=== PATIENT | female | born 1940 | race Caucasian/White ===

== ENCOUNTER 2017-02-13 11:48 | Inpatient (IN) ==
[2017-02-13] MEDS ORDERED: NS 1,000 ML IV ONE (12:16)
[2017-02-13] MEDS ORDERED: INSULIN REGULAR, HUMAN 100 UNIT/ML INJECTION IVP ONE ×2 (12:16→14:16)
--- OUTSIDE RECORDS SUMMARY | 2017-02-13 12:28 | External Medical Summary | Referral Summary ---
:1940 Author Organization [facility] Address [address] [place] [address] [place] [phone] Care Team Providers Name Role Phone Rodolfo Niño Primary Care Physician Encounter Date(s): 03/18/16 - 03/18/16 [facility] [address] [place] [address] [place] [phone] [phone] Discharge Diagnosis: Left shoulder pain Discharge Diagnosis: Osteoporosis Discharge Diagnosis: Systemic lupus erythematosus Discharge Disposition: 01-Home or Self Care Attending Physician: Leta Dennis MD Admitting Physician: Leta Dennis MD Referring Physician: Rodolfo Niño MD Vital Signs Most recent to oldest [Reference Range]: 1 Peripheral Pulse Rate [60-100 bpm] 69 bpm (03/18/16 12:06 PM) Blood Pressure [90-140/60-90 mmHg] 123/73 mmHg (03/18/16 12:06 PM) Problem List Condition Effective Dates Status Health Status Informant Adult-onset obesity(Confirmed) Active Arhtritis - osteo(Confirmed) Resolved Chronic pain of left knee(Confirmed) Active Benign essential Active hypertension(Confirmed) bladder problem(Confirmed) Resolved cataracts(Confirmed) Resolved Cervical radiculopathy(Confirmed) Active chicken pox(Confirmed) Resolved Chronic kidney disease Active (CKD)(Confirmed) Chronic vaginitis(Confirmed) Active diabetes(Confirmed) Resolved Controlled diabetes Active mellitus(Confirmed) Diverticulitis(Confirmed) Active dry eyes(Confirmed) Resolved eczema(Confirmed) Resolved elevated bllod presssure(Confirmed) Resolved gastritis(Confirmed) Resolved GERD without esophagitis(Confirmed) Active Gerd(Confirmed) Resolved Headaches(Confirmed) Resolved headaches - migraine(Confirmed) Resolved Headaches - tension(Confirmed) Resolved Osteoarthritits(Confirmed) Resolved Overweight(Confirmed) Resolved Sinus infection(Confirmed) Resolved Systemic lupus Active erythematosus(Confirmed) Allergies, Adverse Reactions, Alerts Substance Reaction Severity Status acyclovir Active amoxicillin Active ciprofloxacin Active erythromycin Active gatifloxacin Active iodine Active nitrofurantoin Active penicillin Active sulfanilamide topical Active travoprost ophthalmic Active Medications ACCU-CHEK KIM PLUS TEST STRP See Instructions, TEST FOUR TIMES A DAY EVERY OTHER DAY, # 100 strip, eRx: [facility] #[id number],TEST FOUR TIMES A DAY EVERY OTHER DAY Start Date: 11/23/15 Status: OrderedACCU-CHEK KIM PLUS TEST STRP See Instructions, TEST FOUR TIMES A DAY EVERY OTHER DAY, # 100 strip, eRx: [facility] #[id number],TEST FOUR TIMES A DAY EVERY OTHER DAY Start Date: 11/23/15 Status: OrderedAlphagan P 0.1% ophthalmic solution 1 drops, Eye-Both, q8hr, # 10 mL, 0 Refill(s) Start Date: 11/11/13 Status: Orderedatenolol-chlorthalidone 50 mg-25 mg oral tablet See Instructions, TAKE ONE-HALF (1/2) TABLET DAILY Pt needs appointment for more refills, # 15 tabs, 0 Refill(s), Pharmacy: [facility] Start Date: 12/09/15 Status: OrderedBepreve 1.5% ophthalmic solution 1 drops, Eye-Both, BID, # 10 mL, 0 Refill(s) Start Date: 11/11/13 Status: Orderedciprofloxacin 250 mg oral tablet See Instructions, TAKE ONE TABLET BY MOUTH EVERY 12 HOURS, # 180 Each, 1 Refill( s), Pharmacy: [facility] #[id number], TAKE ONE TABLET BY MOUTH EVERY 12 HOURS Start Date: 07/06/15 Status: Orderedfluconazole 150 mg oral tablet See Instructions, TAKE ONE TABLET BY MOUTH EVERY WEEK, # 30 tabs, eRx: [facility] #[id number], TAKE ONE TABLET BY MOUTH EVERY WEEK Start Date: 01/18/16 Status: Orderedfolic acid 1 mg oral tablet 1 mg 1 tabs, Oral, Daily, # 30 tabs, 11 Refill(s), Pharmacy: [facility] # [id number], 1 tabs Oral Daily Start Date: 07/31/15 Status: Orderedglimepiride 1 mg oral tablet mg tabs, Oral, Daily, 2 tabs in am, 1 tab in pm., 0 Refill(s) Start Date: 01/06/16 Status: OrderedJanuvia 100 mg oral tablet 100 mg 1 tabs, Oral, Daily, Must have appt. for next refill., # 30 tabs, 0 Refill(s), Pharmacy: [facility] Start Date: 12/07/15 Status: Orderedlansoprazole 30 mg oral delayed release capsule See Instructions, TAKE ONE CAPSULE BY MOUTH TWICE A DAY, # 60 caps, eRx: [facility] #[id number], TAKE ONE CAPSULE BY MOUTH TWICE A DAY Start Date: 03/11/16 Status: OrderedmetFORMIN 500 mg oral tablet 500 mg 1 tabs, Oral, TID, Pt takes one tab with each meal a day, # 90 tabs, 1 Refill(s), Pharmacy: [facility] #[id number], 1 tabs Oral TID,Instr:Pt takes one tab with each meal a day Start Date: 01/12/16 Status: Orderedmethotrexate 2.5 mg oral tablet 7.5 mg 3 tabs, Oral, qWeek, 3 tabs one day a week, # 15 tabs, 1 Refill(s), Pharmacy: [facility] #[id number], 3 tabs Oral qWeek,Instr:3 tabs one day a week Start Date: 07/31/15 Status: OrderedMiscellaneous DME DME Item Accu Check Kim Test Strips - Test QID every other day - DX:250.02, See Instructions, # 100 Each, 1 Refill(s), Pharmacy: [facility] #[id number], Accu Check Kim Test Strips - Test QID every other day - DX:250.02, Supply Start Date: 04/30/14 Status: Orderedmultivitamin Daily, 0 Refill(s) Start Date: 11/11/13 Status: OrderedNorco 7.5 mg-325 mg oral tablet 1 tabs, Oral, TID, as needed for pain, rx must last 30 days, # 60 tabs, 0 Refill (s) Start Date: 03/10/16 Status: Orderedpioglitazone 30 mg oral tablet 1 tabs, Oral, Daily, 0 Refill(s) Start Date: 06/04/14 Status: OrderedpredniSONE 5 mg oral tablet See Instructions, TAKE 1 TABLET DAILY, # 90 tabs, 0 Refill(s), Pharmacy: [facility], TAKE 1 TABLET DAILY Start Date: 03/10/16 Status: OrderedSuper Calcium 600 + D3 400 oral tablet 1 tabs, Oral, Daily, 0 Refill(s) Start Date: 11/11/13 Status: Ordered Results No data available for this section Immunizations Vaccine Date Refusal Reason zoster vaccine live 04/04/14 Procedures Procedure Date Related Diagnosis Body Site Arthrocentesis, aspiration and/or injection, 03/18/16 major joint or bursa (eg, shoulder, hip, knee, subacromial bursa); without ultrasound guidance Cataract extraction - bilateral H/O tubal ligation Social History Social History Type Response Smoking Status Never smoker Assessment and Plan Extracted from: Title: Office Visit Note Author: Leta eDnnis MD Date: 03/18/16 Assessment/Plan 1.Systemic lupus erythematosus she has continuedjoint discomfort. She has not been able to start methotrexate. She will update us once she has seen the surgeon. She will continue the low- dose prednisone. She does not want to resume the hydroxychloroquine currently. Ordered: C-Reactive Protein (CRP) CBC w/ Differential Comprehensive Metabolic Panel 2.Osteoporosis She has notwanted to beon medications. Continue weightbearing exercise as tolerated Ordered: C-Reactive Protein (CRP) CBC w/ Differential Comprehensive Metabolic Panel 3.Left shoulder pain I injected shoulder today and hopefully this will help.
--- OUTSIDE RECORDS SUMMARY | 2017-02-13 12:28 | External Medical Summary | Referral Summary ---
:1940 Author Organization [facility] [address] [place] [id number] Care Team Providers Name Role Phone Rodolfo Niño Primary Care Physician Encounter [facility] [id number] Date(s): 07/06/15 - 07/06/15 [facility] [address] [place] [phone] [phone] Discharge Diagnosis: Chronic pain Discharge Diagnosis: Systemic lupus erythematosus Discharge Diagnosis: Benign essential hypertension Discharge Diagnosis: Controlled diabetes mellitus Discharge Diagnosis: Frequent UTI Discharge Disposition: 01-Home or Self Care Attending Physician: Sepideh Burton PA-C Admitting Physician: Sepideh Burton PA-C Vital Signs Most recent to oldest [Reference Range]: 1 Blood Pressure [90-140/60-90 mmHg] 96/64 mmHg (07/06/15 3:43 PM) Problem List Condition Effective Dates Status Health Status Informant allergies(Confirmed) Resolved allergy rhinitis/ hay Resolved fever(Confirmed) Arhtritis - osteo(Confirmed) Resolved Autoimmune disease(Confirmed) Resolved Benign essential Active hypertension(Confirmed) bladder problem(Confirmed) Resolved cataracts(Confirmed) Resolved chicken pox(Confirmed) Resolved Chronic vaginitis(Confirmed) Active diabetes(Confirmed) Resolved Controlled diabetes Active mellitus(Confirmed) Diverticulitis(Confirmed) Active dry eyes(Confirmed) Resolved eczema(Confirmed) Resolved elevated bllod presssure(Confirmed) Resolved fibromyalgia(Confirmed) Resolved Fibromyalgia(Confirmed) Resolved gastritis(Confirmed) Resolved GERD without esophagitis(Confirmed) Active Gerd(Confirmed) Resolved Headaches(Confirmed) Resolved headaches - migraine(Confirmed) Resolved Headaches - tension(Confirmed) Resolved Osteoarthritits(Confirmed) Resolved Overweight(Confirmed) Resolved Sinus infection(Confirmed) Resolved SLE(Confirmed) Resolved Systemic lupus Active erythematosus(Confirmed) systemic lupus Resolved erythematosus(Confirmed) Allergies, Adverse Reactions, Alerts Substance Reaction Severity Status acyclovir Active amoxicillin Active ciprofloxacin Active erythromycin Active gatifloxacin Active iodine Active nitrofurantoin Active penicillin Active sulfanilamide topical Active travoprost ophthalmic Active Medications Alphagan P 0.1% ophthalmic solution 1 drops, Eye-Both, q8hr, # 10 mL, 0 Refill(s) Start Date: 11/11/13 Status: Orderedatenolol-chlorthalidone 50 mg-25 mg oral tablet See Instructions, TAKE ONE-HALF (1/2) TABLET DAILY, # 45 tabs, eRx: [facility], TAKE ONE-HALF (1/2) TABLET DAILY Start Date: 06/17/15 Status: OrderedBepreve 1.5% ophthalmic solution 1 drops, Eye-Both, BID, # 10 mL, 0 Refill(s) Start Date: 11/11/13 Status: Orderedciprofloxacin 250 mg oral tablet See Instructions, TAKE ONE TABLET BY MOUTH EVERY 12 HOURS, # 180 Each, 1 Refill( s), Pharmacy: [facility] #[id number], TAKE ONE TABLET BY MOUTH EVERY 12 HOURS Start Date: 07/06/15 Status: OrderedDiflucan 150 mg oral tablet See Instructions, TAKE ONE TABLET BY MOUTH EVERY WEEK, # 30 tabs, eRx: [facility] #[id number], TAKE ONE TABLET BY MOUTH EVERY WEEK Start Date: 01/06/15 Status: Orderedglimepiride 1 mg oral tablet 1 mg 1 tabs, Oral, BID, # 90 tabs, 0 Refill(s) Start Date: 12/20/13 Status: OrderedJanuvia 100 mg oral tablet See Instructions, TAKE 1 TABLET DAILY/PT. NEEDS AN APPT. AND LABS., # 90 tabs, 0 Refill(s), Pharmacy: [facility] Start Date: 06/13/15 Status: OrderedmetFORMIN 500 mg oral tablet 500 mg 1 tabs, Oral, BID, Dr. Niño would like to see Fartun in the office please., # 60 tabs, 0Refill(s), Pharmacy: [facility], 1 tabs Oral BID,x30 days,Instr:Dr. Niño would like to see Fartun in the office please. Start Date: 05/19/15 Stop Date: 06/18/15 Status: OrderedMiscellaneous DME DME Item Accu Check Kim Test Strips - Test QID every other day - DX:250.02, See Instructions, # 100 Each, 1 Refill(s), Pharmacy: [facility] #[id number], Accu Check Kim Test Strips - Test QID every other day - DX:250.02, Supply Start Date: 04/30/14 Status: Orderedmultivitamin Daily, 0 Refill(s) Start Date: 11/11/13 Status: OrderedNorco 7.5 mg-325 mg oral tablet 1 tabs, Oral, TID, as needed for pain, rx must last 30 days, # 60 tabs, 0 Refill (s) Start Date: 07/02/15 Status: Orderedpioglitazone 30 mg oral tablet 1 tabs, Oral, Daily, 0 Refill(s) Start Date: 06/04/14 Status: OrderedPlaquenil 200 mg oral tablet See Instructions, TAKE 2 TABLETS DAILY, # 180 tabs, 0 Refill(s), Pharmacy: [facility], TAKE 2 TABLETS DAILY Start Date: 06/02/15 Status: OrderedpredniSONE 5 mg oral tablet See Instructions, TAKE 1 TABLET DAILY, # 90 tabs, eRx: [facility], TAKE 1 TABLET DAILY Start Date: 06/16/15 Status: OrderedPrevacid 30 mg oral delayed release capsule 30 mg 1 caps, Oral, Daily, # 90 caps, 3 Refill(s), Pharmacy: [facility], 1 caps Oral Daily,x90 days Start Date: 12/25/14 Stop Date: 12/20/15 Status: OrderedSuper Calcium 600 + D3 400 oral tablet 1 tabs, Oral, Daily, 0 Refill(s) Start Date: 11/11/13 Status: Ordered Results Chemistry Most recent to oldest [Reference Range]: 1 Sodium Lvl [135-144 mEq/L] 129 mEq/L *LOW* (07/06/15 4:10 PM) Potassium Lvl [3.5-5.2 mEq/L] 5.0 mEq/L (07/06/15 4:10 PM) Chloride [99-111 mEq/L] 93 mEq/L *LOW* (07/06/15 4:10 PM) CO2 [22-31 mEq/L] 23 mEq/L (07/06/15 4:10 PM) AGAP [3-20] 13 (07/06/15 4:10 PM) BUN [10-20 mg/dL] 32 mg/dL *HI* (07/06/15 4:10 PM) Glucose Lvl [70-99 mg/dL] 533 mg/dL *HHI* (07/06/15 4:10 PM) Creatinine Lvl [0.57-1.11 mg/dL] 1.30 mg/dL *HI* (07/06/15 4:10 PM) eGFR [>60 mL/min] 40 mL/min 1 *ABN* (07/06/15 4:10 PM) Calcium Lvl [8.9-10.5 mg/dL] 9.9 mg/dL (07/06/15 4:10 PM) Albumin Lvl [3.4-4.8 gm/dL] 3.8 gm/dL (07/06/15 4:10 PM) Total Protein [6.2-8.1 gm/dL] 6.5 gm/dL (07/06/15 4:10 PM) Globulin [1.8-4.0 gm/dL] 2.7 gm/dL (07/06/15 4:10 PM) ALT [0-55 U/L] 14 U/L (07/06/15 4:10 PM) AST [5-34 U/L] 12 U/L (07/06/15 4:10 PM) Alk Phos [40-150 U/L] 59 U/L (07/06/15 4:10 PM) Bili Total [0.2-1.2 mg/dL] 0.9 mg/dL (07/06/15 4:10 PM) 1Result Comment: Multiply eGFR results by 1.21 for race. Immunizations Vaccine Date Refusal Reason zoster vaccine live 04/04/14 Procedures Procedure Date Related Diagnosis Body Site Cataract extraction - bilateral H/O tubal ligation Social History Social History Type Response Smoking Status Never smoker Assessment and Plan Extracted from: Title: Ambulatory Patient Education Author: Sepideh Burton PA-C Date: Family Medicine Chronic Pain Chronic pain can be defined as pain that is off and on and lasts for 36 months or longer. Many things cause chronic pain, which can make it difficult to make a diagnosis. There are many treatment opt ions available for chronic pain. However, finding a treatment that works well for you may require trying various approaches until the right one is found. Many people benefit from a combination of two or more types of treatment to control their pain. SYMPTOMS Chronic pain can occur anywhere in the body and can range from mild to very severe. Some types of chronic pain include: Headache. Low back pain. Cancer pain. Arthritis pain. Neurogenic pain. This is pain resulting from damage to nerves. People with chronic pain may also have other symptoms such as: Depression. Anger. Insomnia. Anxiety. DIAGNOSIS Your health care provider will help diagnose your condition over time. In many cases, the initial focus will be on excluding possible conditions that could be causing the pain. Depending on your symptom s, your health care provider may order tests to diagnose your condition. Some of these tests may include: Blood tests. CT scan. MRI. X-rays. Ultrasounds. Nerve conduction studies. You may need to see a specialist. TREATMENT Finding treatment that works well may take time. You may be referred to a pain specialist. He or she may prescribe medicine or therapies, such as: Mindful meditation or yoga. Shots (injections) of numbing or pain-relieving medicines into the spine or area of pain. Local electrical stimulation. Acupuncture. Massage therapy. Aroma, color, light, or sound therapy. Biofeedback. Working with a physical therapist to keep from getting stiff. Regular, gentle exercise. Cognitive or behavioral therapy. Group support. Sometimes, surgery may be recommended. HOME CARE INSTRUCTIONS Take all medicines as directed by your health care provider. Lessen stress in your life by relaxing and doing things such as listening to calming music. Exercise or be active as directed by your health care provider. Eat a healthy diet and include things such as vegetables, fruits, fish, and lean meats in your diet. Keep all follow-up appointments with your health care provider. Attend a support group with others suffering from chronic pain. SEEK MEDICAL CARE IF: Your pain gets worse. You develop a new pain that was not there before. You cannot tolerate medicines given to you by your health care provider. You have new symptoms since your last visit with your health care provider. SEEK IMMEDIATE MEDICAL CARE IF: You feel weak. You have decreased sensation or numbness. You lose control of bowel or bladder function. Your pain suddenly gets much worse. You develop shaking. You develop chills. You develop confusion. You develop chest pain. You develop shortness of breath. MAKE SURE YOU: Understand these instructions. Will watch your condition. Will get help right away if you are not doing well or get worse. Document Released: 02/18/2003 Document Revised: 01/29/2014 Document Reviewed: 11/22/2013 ExitCare Patient Information 2015 [employer]. This information is not intended to replace advice given to you by your health care provider. Make sure you discuss any questions you have with your health care provider. Hypertension Hypertension, commonly called high blood pressure, is when the force of blood pumping through your arteries is too strong. Your arteries are the blood vessels that carry blood from your heart throughout your body. A blood pressure reading consists of a higher number over a lower number, such as 110/72. The higher number (systolic) is the pressure inside your arteries when your heart pumps. The lower n umber (diastolic) is the pressure inside your arteries when your heart relaxes. Ideally you want your blood pressure below 120/80. Hypertension forces your heart to work harder to pump blood. Your arteries may become narrow or stiff. Having hypertension puts you at risk for heart disease, stroke, and other problems. RISK FACTORS Some risk factors for high blood pressure are controllable. Others are not. Risk factors you cannot control include: Race. You may be at higher risk if you are . Age. Risk increases with age. Gender. Men are at higher risk than women before age 45 years. After age 65, women are at higher risk than men. Risk factors you can control include: Not getting enough exercise or physical activity. Being overweight. Getting too much fat, sugar, calories, or salt in your diet. Drinking too much alcohol. SIGNS AND SYMPTOMS Hypertension does not usually cause signs or symptoms. Extremely high blood pressure (hypertensive crisis) may cause headache, anxiety, shortness of breath , and nosebleed. DIAGNOSIS To check if you have hypertension, your health care provider will measure your blood pressure while you are seated, with your arm held at the level of your heart. It should be measured at least twice us ing the same arm. Certain conditions can cause a difference in blood pressure between your right and left arms. A blood pressure reading that is higher than normal on one occasion does not mean that you need treatment. If one blood pressure reading is high, ask your health care provider about having it checked again. TREATMENT Treating high blood pressure includes making lifestyle changes and possibly taking medicine. Living a healthy lifestyle can help lower high blood pressure. You may need to change some of your habits. Lifestyle changes may include: Following the DASH diet. This diet is high in fruits, vegetables, and whole grains. It is low in salt, red meat, and added sugars. Getting at least 2 hours of brisk physical activity every week. Losing weight if necessary. Not smoking. Limiting alcoholic beverages. Learning ways to reduce stress. If lifestyle changes are not enough to get your blood pressure under control , your health care provider may prescribe medicine. You may need to take more than one. Work closely with your health care provider to understand the risks and benefits. HOME CARE INSTRUCTIONS Have your blood pressure rechecked as directed by your health care provider. Take medicines only as directed by your health care provider. Follow the directions carefully. Blood pressure medicines must be taken as prescribed. The medicine does not work as well when you skip doses. Skipping doses also puts you at risk for problems. Do not smoke. Monitor your blood pressure at home as directed by your health care provider. SEEK MEDICAL CARE IF: You think you are having a reaction to medicines taken. You have recurrent headaches or feel dizzy. You have swelling in your ankles. You have trouble with your vision. SEEK IMMEDIATE MEDICAL CARE IF: You develop a severe headache or confusion. You have unusual weakness, numbness, or feel faint. You have severe chest or abdominal pain. You vomit repeatedly. You have trouble breathing. MAKE SURE YOU: Understand these instructions. Will watch your condition. Will get help right away if you are not doing well or get worse. Document Released: 05/29/2006 Document Revised: 10/13/2014 Document Reviewed: 03/21/2014 ExitCare Patient Information 2015 [facility]. This information is not intended to replace advice given to you by your health care provider. Make sure you discuss any questions you have with your health care provider. Lupus Lupus (also called systemic lupus erythematosus, SLE) is a disorder of the body 's natural defense system (immune system). In lupus, the immune system attacks various areas of the body (autoimmune disease). CAUSES The cause is unknown. However, lupus runs in families. Certain genes can make you more likely to develop lupus. It is 10 times more common in women than in men. Lupus is also more common in Amer icans and Asians. Other factors also play a role, such as viruses (Nilda- Betancourt virus, EBV), stress, hormones, cigarette smoke, and certain drugs. SYMPTOMS Lupus can affect many parts of the body, including the joints, skin, kidneys, lungs, heart, nervous system, and blood vessels. The signs and symptoms of lupus differ from person to person. The disease c an range from mild to life-threatening. Typical features of lupus include: Butterfly-shaped rash over the face. Arthritis involving one or more joints. Kidney disease. Fever, weight loss, hair loss, fatigue. Poor circulation in the fingers and toes (Raynaud's disease). Chest pain when taking deep breaths. Abdominal pain may also occur. Skin rash in areas exposed to the sun. Sores in the mouth and nose. DIAGNOSIS Diagnosing lupus can take a long time and is often difficult. An exam and an accurate account of your symptoms and health problems is very important. Blood tests are necessary, though no single test can confirm or rule out lupus. Most people with lupus test positive for antinuclear antibodies (JOLIE) on a blood test. Additional blood tests, a urine test (urinalysis), and sometimes a kidney or skin tissu e sample (biopsy) can help to confirm or rule out lupus. TREATMENT There is no cure for lupus. Your caregiver will develop a treatment plan based on your age, sex, health, symptoms, and lifestyle. The goals are to prevent flares, to treat them when they do occur, and t o minimize organ damage and complications. How the disease may affect each person varies widely. Most people with lupus can live normal lives, but this disorder must be carefully monitored. Treatment mu st be adjusted as necessary to prevent serious complications. Medicines used for treatment: Nonsteroidal anti-inflammatory drugs (NSAIDs) decrease inflammation and can help with chest pain, joint pain, and fevers. Examples include ibuprofen and naproxen. Antimalarial drugs were designed to treat malaria. They also treat fatigue , joint pain, skin rashes, and inflammation of the lungs in patients with lupus. Corticosteroids are powerful hormones that rapidly suppress inflammation. The lowest dose with the highest benefit will be chosen. They can be given by cream, pills, injections, and through the vein (intravenously). Immunosuppressive drugs block the making of immune cells. They may be used for kidney or nerve disease. HOME CARE INSTRUCTIONS Exercise. Low-impact activities can usually help keep joints flexible without being too strenuous. Rest after periods of exercise. Avoid excessive sun exposure. Follow proper nutrition and take supplements as recommended by your caregiver. Stress management can be helpful. SEEK MEDICAL CARE IF: You have increased fatigue. You develop pain. You develop a rash. You have an oral temperature above 102 F (38.9 C). You develop abdominal discomfort. You develop a headache. You experience dizziness. FOR MORE INFORMATION National [place] of Neurological Disorders and Stroke: www.ninds.nih.gov [place] [employer]: www.rheumatology.org National [place] of Arthritis and Musculoskeletal and Skin Diseases: www.niams.nih.gov Document Released: 05/19/2003 Document Revised: 08/20/2012 Document Reviewed: 09/09/2010 ExitCare Patient Information 2015 [employer]. This information is not intended to replace advice given to you by your health care provider. Make sure you discuss any questions you have with your health care provider. Ophthalmology Type 2 Diabetes Mellitus Type 2 diabetes mellitus, often simply referred to as type 2 diabetes, is a long-lasting (chronic) disease. In type 2 diabetes, the pancreas does not make enough insulin (a hormone), the cells are less responsive to the insulin that is made (insulin resistance), or both. Normally , insulin moves sugars from food into the tissue cells. The tissue cells use the sugars for energy. The lack of insulin or t he lack of normal response to insulin causes excess sugars to build up in the blood instead of going into the tissue cells. As a result, high blood sugar ( hyperglycemia) develops. The effect of high sug ar (glucose) levels can cause many complications. Type 2 diabetes was also previously called adult-onset diabetes, but it can occur at any age. RISK FACTORS A person is predisposed to developing type 2 diabetes if someone in the family has the disease and also has one or more of the following primary risk factors: Overweight. An inactive lifestyle. A history of consistently eating high-calorie foods. Maintaining a normal weight and regular physical activity can reduce the chance of developing type 2 diabetes. SYMPTOMS A person with type 2 diabetes may not show symptoms initially. The symptoms of type 2 diabetes appear slowly. The symptoms include: Increased thirst (polydipsia). Increased urination (polyuria). Increased urination during the night (nocturia). Weight loss. This weight loss may be rapid. Frequent, recurring infections. Tiredness (fatigue). Weakness. Vision changes, such as blurred vision. Fruity smell to your breath. Abdominal pain. Nausea or vomiting. Cuts or bruises which are slow to heal. Tingling or numbness in the hands or feet. DIAGNOSIS Type 2 diabetes is frequently not diagnosed until complications of diabetes are present. Type 2 diabetes is diagnosed when symptoms or complications are present and when blood glucose levels are increas ed. Your blood glucose level may be checked by one or more of the following blood tests: A fasting blood glucose test. You will not be allowed to eat for at least 8 hours before a blood sample is taken. A random blood glucose test. Your blood glucose is checked at any time of the day regardless of when you ate. A hemoglobin A1c blood glucose test. A hemoglobin A1c test provides information about blood glucose control over the previous 3 months. An oral glucose tolerance test (OGTT). Your blood glucose is measured after you have not eaten (fasted) for 2 hours and then after you drink a glucose -containing beverage. TREATMENT You may need to take insulin or diabetes medicine daily to keep blood glucose levels in the desired range. If you use insulin, you may need to adjust the dosage depending on the carbohydrates that you eat with each meal or snack. The treatment goal is to maintain the before meal [place] [address] mg/dL. HOME CARE INSTRUCTIONS Have your hemoglobin A1c level checked twice a year. Perform daily blood glucose monitoring as directed by your health care provider. Monitor urine ketones when you are ill and as directed by your health care provider. Take your diabetes medicine or insulin as directed by your health care provider to maintain your blood glucose levels in the desired range. Never run out of diabetes medicine or insulin. It is needed every day. If you are using insulin, you may need to adjust the amount of insulin given based on your intake of carbohydrates. Carbohydrates can raise blood glucose levels but need to be included in your diet . Carbohydrates provide vitamins, minerals, and fiber which are an essential part of a healthy diet. Carbohydrates are found in fruits, vegetables, whole grains, dairy products, legumes, and foods containing added sugars. Eat healthy foods. You should make an appointment to see a registered dietitian to help you create an eating plan that is right for you. Lose weight if you are overweight. Carry a medical alert card or wear your medical alert jewelry. Carry a 15-gram carbohydrate snack with you at all times to treat low blood glucose (hypoglycemia). Some examples of 15-gram carbohydrate snacks include: Glucose tablets, 3 or 4. Glucose gel, 15-gram tube. Raisins, 2 tablespoons (24 grams). Jelly beans, 6. Animal crackers, 8. Regular pop, 4 ounces (120 mL). Gummy treats, 9. Recognize hypoglycemia. Hypoglycemia occurs with blood glucose levels of 70 mg/dL and below. The risk for hypoglycemia increases when fasting or skipping meals, during or after intense exercise, an d during sleep. Hypoglycemia symptoms can include: Tremors or shakes. Decreased ability to concentrate. Sweating. Increased heart rate. Headache. Dry mouth. Hunger. Irritability. Anxiety. Restless sleep. Altered speech or coordination. Confusion. Treat hypoglycemia promptly. If you are alert and able to safely swallow, follow the 15:15 rule: Take 1520 grams of rapid-acting glucose or carbohydrate. Rapid-acting options include glucose gel, glucose tablets, or 4 ounces (120 mL) of fruit juice, regular soda, or low-fat milk. Check your blood glucose level 15 minutes after taking the glucose. Take 1520 grams more of glucose if the repeat blood glucose level is still 70 mg/dL or below. Eat a meal or snack within 1 hour once blood glucose levels return to normal. Be alert to feeling very thirsty and urinating more frequently than usual , which are early signs of hyperglycemia. An early awareness of hyperglycemia allows for prompt treatment. Treat hyperglycemia as directed by your health care provider. Engage in at least 150 minutes of moderate-intensity physical activity a week, spread over at least 3 days of the week or as directed by your health care provider. In addition, you should engage in resistance exercise at least 2 times a week or as directed by your health care provider. Try to spend no more than 90 minutes at one time inactive. Adjust your medicine and food intake as needed if you start a new exercise or sport. Follow your sick-day plan anytime you are unable to eat or drink as usual. Do not use any tobacco products including cigarettes, chewing tobacco, or electronic cigarettes. If you need help quitting, ask your health care provider. Limit alcohol intake to no more than 1 drink per day for non women and 2 drinks per day for men. You should drink alcohol only when you are also eating food. Talk with your health care prov ider whether alcohol is safe for you. Tell your health care provider if you drink alcohol several times a week. Keep all follow-up visits as directed by your health care provider. This is important. Schedule an eye exam soon after the diagnosis of type 2 diabetes and then annually. Perform daily skin and foot care. Examine your skin and feet daily for cuts, bruises, redness, nail problems, bleeding, blisters, or sores. A foot exam by a health care provider should be done annually. [place] your teeth and gums at least twice a day and floss at least once a day. Follow up with your dentist regularly. Share your diabetes management plan with your workplace or school. Stay up-to-date with immunizations. It is recommended that people with diabetes who are over 65 years old get the pneumonia vaccine. In some cases, two separate shots may be given. Ask your health care provider if your pneumonia vaccination is up-to-date. Learn to manage stress. Obtain ongoing diabetes education and support as needed. Participate in or seek rehabilitation as needed to maintain or improve independence and quality of life. Request a physical or occupational therapy referral if you are having foot or hand numbness, or difficulties with grooming, dressing, eating, or physical activity. SEEK MEDICAL CARE IF: You are unable to eat food or drink fluids for more than 6 hours. You have nausea and vomiting for more than 6 hours. Your blood glucose level is over 240 mg/dL. There is a change in mental status. You develop an additional serious illness. You have diarrhea for more than 6 hours. You have been sick or have had a fever for a couple of days and are not getting better. You have pain during any physical activity. SEEK IMMEDIATE MEDICAL CARE IF: You have difficulty breathing. You have moderate to large ketone levels. MAKE SURE YOU: Understand these instructions. Will watch your condition. Will get help right away if you are not doing well or get worse. Document Released: 05/29/2006 Document Revised: 10/13/2014 Document Reviewed: 12/25/2012 ExitCare Patient Information 2015 VYou. This information is not intended to replace advice given to you by your health care provider. Make sure you discuss any questions you have with your health care provider. No follow up information was provided. Extracted from: Title: Office Visit Note- med check Author: Sepideh Burton PA-C Date: Assessment/Plan Benign essential hypertension BP was a little low today, but pt states that it is always higher at home. Encouraged pt to push fluids during the day. Get up and move slowly. Will check basic lab today. Ordered: Comprehensive Metabolic Panel Office Visit Level 3 Est 01429 Chronic pain [place] refill wasprinted 07/02/15, and she picked up script today. Controlled diabetes mellitus Follows with Dr. Dick. He will do A1C and microalbumin check. Sees him in the next few weeks. Continue with current medications. Ordered: Comprehensive Metabolic Panel Office Visit Level 3 Est 28622 Frequent UTI Will refill Cipro at this time.Again, pt declined urology consult/appt at this time.She would like 90 day supply of Cipro instead of 30. Ordered: Office Visit Level 3 Est 98299 Systemic lupus erythematosus Follow with Dr. Dennis and continuecurrent medications. Ordered: Office Visit Level 3 Est 30622 Orders: ciprofloxacin, See Instructions, TAKE ONE TABLET BY MOUTH EVERY 12 HOURS, # 180 Each, 1 Refill(s), Pharmacy: [facility] #[id number], TAKE ONE TABLET BY MOUTH EVERY 12 HOURS
--- OUTSIDE RECORDS SUMMARY | 2017-02-13 12:28 | External Medical Summary | Referral Summary ---
:1940 Author Organization [facility] Address [address] [place] [address] [place] [address] Care Team Providers Name Role Phone Rodolfo Niño Primary Care Physician Encounter [facility] [id number] Date(s): 01/15/15 - 01/15/15 [facility] [address] [place] [address] [place] [address] [place] Discharge Diagnosis: Systemic lupus erythematosus Discharge Diagnosis: Encounter for long-term (current) use of high-risk medication Discharge Diagnosis: Osteoporosis Discharge Diagnosis: Left shoulder pain Discharge Disposition: 01-Home or Self Care Attending Physician: Leta Dennis MD Admitting Physician: Leta Dennis MD Referring Physician: Rodolfo Niño MD Vital Signs Most recent to oldest [Reference Range]: 1 Peripheral Pulse Rate [60-100 bpm] 78 bpm (01/15/15 8:59 AM) Respiratory Rate [14-20 br/min] 16 br/min (01/15/15 8:59 AM) Blood Pressure [90-140/60-90 mmHg] 124/68 mmHg (01/15/15 8:59 AM) Problem List Condition Effective Dates Status Health [...] (1/2) TABLET DAILY, # 45 tabs, [facility]Rx: [facility], TAKE ONE-HALF (1/2) TABLET DAILY Start Date: 04/06/15 Status: OrderedBepreve 1.5% ophthalmic solution 1 drops, Eye-Both, BID, # 10 mL, 0 Refill(s) Start Date: 11/11/13 Status: Orderedciprofloxacin 250 mg oral tablet See Instructions, TAKE ONE TABLET BY MOUTH EVERY 12 HOURS, # 60 tabs, eRx: [facility] #[id number],TAKE ONE TABLET BY MOUTH EVERY 12 HOURS Start Date: 04/02/15 Status: OrderedDiflucan 150 mg oral tablet See Instructions, TAKE ONE TABLET BY MOUTH EVERY WEEK, # 30 tabs, eRx: [facility] #[id number], TAKE ONE TABLET BY MOUTH EVERY WEEK Start Date: 01/06/15 Status: Orderedgabapentin 100 mg oral capsule See Instructions, 1 cap at bedtime for 3 days, then 1 cap bid for 3 days then 1 cap tid, # 90 caps, 1 Refill(s), Pharmacy: [facility] #[id number], 1 cap at bedtime for 3 days, then 1 cap bid for 3 days then 1 cap tid Start Date: 03/12/15 Status: Orderedglimepiride 1 mg oral tablet 1 mg 1 tabs, Oral, BID, # 90 tabs, 0 Refill(s) Start Date: 12/20/13 Status: OrderedJanuvia 100 mg oral tablet See Instructions, TAKE 1 TABLET DAILY, # 90 tabs, 1 Refill(s), eRx: [facility], TAKE 1 TABLET DAILY Start Date: 01/05/15 Status: OrderedmetFORMIN 500 mg oral tablet 500 mg 1 tabs, Oral, Daily, # 90 tabs, 1 Refill(s), [facility]: [facility], 1 tabs Oral Daily,x90 days Start Date: 03/05/15 Stop Date: 09/01/15 Status: OrderedMiscellaneous DME DME Item Accu Check Kim Test Strips - Test QID every other day - DX:250.02, See Instructions, # 100 Each, 1 Refill(s), Pharmacy: [facility] #[id number], Accu Check Kim Test Strips - Test QID every other day - DX:250.02, Supply Start Date: 04/30/14 Status: Orderedmultivitamin Daily, 0 Refill(s) Start Date: 11/11/13 Status: OrderedNorco 7.5 mg-325 mg oral tablet 1 tabs, Oral, TID, as needed for pain, rx must last 30 days, # 60 tabs, 0 Refill (s) Start Date: 04/01/15 Status: Orderedpioglitazone 30 mg oral tablet 1 tabs, Oral, Daily, 0 Refill(s) Start Date: 06/04/14 Status: OrderedPlaquenil 200 mg oral tablet See Instructions, TAKE 2 TABLETS DAILY, # 180 tabs, 1 Refill(s), Pharmacy: [facility] #[id number],TAKE 2 TABLETS DAILY Start Date: 01/15/15 Status: OrderedpredniSONE 5 mg oral tablet See Instructions, TAKE 1 TABLET DAILY, # 90 tabs, eRx: [facility], TAKE 1 TABLET DAILY Start Date: 03/16/15 Status: OrderedPrevacid 30 mg oral delayed release capsule 30 mg 1 caps, Oral, Daily, # 90 caps, 3 Refill(s), Pharmacy: [facility], 1 caps Oral Daily,x90 days Start Date: 12/25/14 Stop Date: 12/20/15 Status: OrderedSuper Calcium 600 + D3 400 oral tablet 1 tabs, Oral, Daily, 0 Refill(s) Start Date: 11/11/13 Status: Ordered Results No data available for this section Immunizations Vaccine Date Refusal Reason zoster vaccine live 04/04/14 Procedures Procedure Date Related Diagnosis Body Site Arthrocentesis, aspiration and/or injection, major 01/15/15 joint or bursa (eg, shoulder, hip, knee, subacromial bursa); without ultrasound guidance Cataract extraction - bilateral H/O tubal ligation Social History Social History Type Response Smoking Status Never smoker Assessment and Plan Extracted from: Title: Office Visit Note Author: Leta Dennis MD Date: 01/15/15 Assessment/Plan 1.Systemic lupus erythematosus She appears overall to be stable. Her labs are stable. Urinalysisfrom the last month was negative for any protein or hematuria. her blood counts also looked good and kidney function was stable. She has been having fatigue. May be related to systemic lupus. May also be medication related. She is on a beta monae and also has been having some problem s with her blood pressurebeing low at times.She will discuss this with her primary care doctor and get his input. 2.Left shoulder pain I discussed with her that I believe that she likely has degenerative changes of her shoulder and rotator cuff pathology. I injected her shoulder today. Discussed also possibly trying physical therapy 3.Osteoporosis She desires started on any medications currently. 4.Encounter for long-term (current) use of high-risk medication He will get a note from her acid purifier. Otherwise her recent lab work was stable. No toxicities noted. Follow-up6 months or sooner if needed.
--- OUTSIDE RECORDS SUMMARY | 2017-02-13 12:29 | External Medical Summary | Referral Summary ---
:1940 Author Organization [facility] Address [address] [place] [address] [place] [address] Care Team Providers Name Role Phone Rodolfo Niño Primary Care Physician Encounter [facility] [id number] Date(s): 01/15/15 - 01/15/15 [facility] [address] [place] [address] [place] [phone] [place] Discharge Diagnosis: Systemic [...] TABLET DAILY, # 45 tabs, eRx: [facility], TAKE ONE-HALF (1/2) TABLET DAILY Start Date: 04/06/15 Status: OrderedBepreve 1.5% ophthalmic solution 1 drops, Eye-Both, BID, # 10 mL, 0 Refill(s) Start Date: 11/11/13 Status: Orderedciprofloxacin 250 mg oral tablet See Instructions, TAKE ONE TABLET BY MOUTH EVERY 12 HOURS, # 60 tabs, eRx: [facility] #[id number],TAKE ONE TABLET BY MOUTH EVERY 12 HOURS Start Date: 04/02/15 Status: OrderedDiflucan 150 mg oral tablet See Instructions, TAKE ONE TABLET BY MOUTH EVERY WEEK, # 30 tabs, eRx: [facility] #[id number], TAKE ONE TABLET BY MOUTH EVERY WEEK Start Date: 01/06/15 Status: Orderedgabapentin 100 mg oral capsule See Instructions, 1 cap at bedtime for 3 days, then 1 cap bid for 3 days then 1 cap tid, # 90 caps, 1 Refill(s), Pharmacy: [facility] #[id number], 1 cap at bedtime for 3 days, [...] # 90 tabs, 1 Refill(s), Pharmacy: [facility], 1 tabs Oral Daily,x90 days Start Date: 03/05/15 Stop Date: 09/01/15 Status: OrderedMiscellaneous DME DME Item Accu Check Kim Test Strips - Test QID every other day - DX:250.02, See Instructions, # 100 Each, 1 Refill(s), Pharmacy: [facility] #[id number], Accu Check Kim Test Strips - Test [...] DAILY, # 180 tabs, 1 Refill(s), Pharmacy: [facility] #[id number],TAKE 2 TABLETS DAILY Start Date: 01/15/15 Status: OrderedpredniSONE 5 mg oral tablet See Instructions, TAKE 1 TABLET DAILY, # 90 tabs, eRx: [facility], TAKE 1 TABLET DAILY Start Date: 03/16/15 Status: OrderedPrevacid 30 mg oral delayed release capsule 30 mg 1 caps, Oral, Daily, # 90 caps, 3 Refill(s), Pharmacy: [facility], 1 caps Oral Daily,x90 days [...] He 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 Otherwise her recent lab work was stable. No toxicities noted. Follow-up6 months or sooner if needed.
--- OUTSIDE RECORDS SUMMARY | 2017-02-13 12:29 | External Medical Summary | Referral Summary ---
:1940 Author Organization [facility] Address [address] [place] [address] [place] [address] Care Team Providers Name Role Phone Rodolfo Niño Primary Care Physician Encounter [facility] [id number] Date(s): 12/25/14 - 12/25/14 [facility] [address] [place] [address] [place] Discharge Diagnosis: Other abnormal glucose Discharge Disposition: 01-Home or Self Care Attending Physician: Rodolfo Niño MD Admitting Physician: Rodolfo Niño MD Vital Signs Most recent to oldest [Reference Range]: 1 Blood Pressure [90-140/60-90 mmHg] 120/70 mmHg (12/25/14 1:04 PM) Problem List Condition Effective Dates Status [...] TABLET DAILY, # 45 tabs, eRx: [facility], TAKE ONE-HALF (1/2) TABLET DAILY Start Date: 04/06/15 Status: OrderedBepreve 1.5% ophthalmic solution 1 drops, Eye-Both, BID, # 10 mL, 0 Refill(s) Start Date: 11/11/13 Status: Orderedciprofloxacin 250 mg oral tablet See Instructions, TAKE ONE TABLET BY MOUTH EVERY 12 HOURS, # 60 tabs, eRx: [facility] #[id number],TAKE ONE TABLET BY MOUTH EVERY 12 HOURS Start Date: 04/02/15 Status: OrderedDiflucan 150 mg oral tablet See Instructions, TAKE ONE TABLET BY MOUTH EVERY WEEK, # 30 tabs, eRx: [facility] #[id number], TAKE ONE TABLET BY MOUTH EVERY WEEK Start Date: 01/06/15 Status: Orderedgabapentin 100 mg oral capsule See Instructions, 1 cap at bedtime for 3 days, then 1 cap bid for 3 days then 1 cap tid, # 90 caps, 1 Refill(s), Pharmacy: [facility] #[id number], 1 cap at bedtime for 3 days, [...] Daily, # 90 tabs, 1 Refill(s), Pharmacy: [facility], 1 tabs Oral Daily,x90 days Start Date: 03/05/15 Stop Date: 09/01/15 Status: OrderedMiscellaneous DME DME Item Accu Check Kim Test Strips - Test QID every other day - DX:250.02, See Instructions, # 100 Each, 1 Refill(s), Pharmacy: [facility] #[id number], Accu Check Kim Test Strips - Test [...] DAILY, # 180 tabs, 1 Refill(s), Pharmacy: [facility] #[id number],TAKE 2 TABLETS DAILY Start Date: 01/15/15 Status: OrderedpredniSONE 5 mg oral tablet See Instructions, TAKE 1 TABLET DAILY, # 90 tabs, eRx: [facility], TAKE 1 TABLET DAILY Start Date: 03/16/15 Status: OrderedPrevacid 30 mg oral delayed release capsule 30 mg 1 caps, Oral, Daily, # 90 caps, 3 Refill(s), Pharmacy: [facility], 1 caps Oral Daily,x90 days Start Date: 12/25/14 Stop Date: 12/20/15 Status: OrderedSuper Calcium 600 + D3 400 oral tablet 1 tabs, Oral, Daily, 0 Refill(s) Start Date: 11/11/13 Status: Ordered Results Hematology Most recent to oldest [Reference Range]: 1 WBC [4.8-10.8 10*3/uL] 15.3 10*3/uL *HI* (12/25/14 1:30 PM) RBC [4.00-5.20 10*6/uL] 4.72 10*6/uL (12/25/14 1:30 PM) Hgb [12.0-16.0 gm/dL] 14.0 gm/dL (12/25/14 1:30 PM) Hct [37.0-47.0 %] 42.1 % (12/25/14 1:30 PM) MCV [82.0-99.0 fL] 89.2 fL (12/25/14 1:30 PM) MCH [27.0-32.0 pg] 29.7 pg (12/25/14 1:30 PM) MCHC [32.0-36.0 gm/dL] 33.3 gm/dL (12/25/14 1:30 PM) RDW [11.5-14.5 %] 13.3 % (12/25/14 1:30 PM) Platelet [150-400 10*3/uL] 308 10*3/uL (12/25/14 1:30 PM) MPV [8.8-14.8 fL] 10.8 fL (12/25/14 1:30 PM) Immature Granulocytes [0.0-1.0 %] 0.8 % (12/25/14 1:30 PM) Neutrophils [51-75 %] 76 % *HI* (12/25/14 1:30 PM) Lymphocytes [20-46 %] 16 % *LOW* (12/25/14 1:30 PM) Monocytes [4-11 %] 7 % (12/25/14 1:30 PM) Eosinophils [0-4 %] 1 % (12/25/14 1:30 PM) Basophils [0-2 %] 0 % (12/25/14 1:30 PM) Neutro Absolute [1.90-7.00 10*3] 11.58 10*3 *HI* (12/25/14 1:30 PM) Lymph Absolute [0.80-3.30 10*3] 2.40 10*3 (12/25/14 1:30 PM) [place] Absolute [0.30-1.00 10*3] 1.04 10*3 *HI* (12/25/14 1:30 PM) Eos Absolute [0.00-0.50 10*3] 0.12 10*3 (12/25/14 1:30 PM) Baso Absolute [0.00-0.20 10*3] 0.04 10*3 (12/25/14 1:30 PM) Sed Rate [0-23 mm/hr] 16 mm/hr (12/25/14 1:30 PM) Chemistry Most recent to oldest [Reference Range]: 1 Sodium Lvl [135-144 mEq/L] 135 mEq/L (12/25/14 1:30 PM) Potassium Lvl [3.5-5.2 mEq/L] 4.1 mEq/L (12/25/14 1:30 PM) Chloride [99-111 mEq/L] 99 mEq/L (12/25/14 1:30 PM) CO2 [22-31 mEq/L] 25 mEq/L (12/25/14 1:30 PM) AGAP [3-20] 11 (12/25/14 1:30 PM) BUN [10-20 mg/dL] 18 mg/dL (12/25/14 1:30 PM) Glucose Lvl [70-99 mg/dL] 260 mg/dL *HI* (12/25/14 1:30 PM) Creatinine Lvl [0.57-1.11 mg/dL] 1.26 mg/dL *HI* (12/25/14 1:30 PM) eGFR [>60 mL/min] 41 mL/min 1 *ABN* (12/25/14 1:30 PM) Calcium Lvl [8.9-10.5 mg/dL] 9.5 mg/dL (12/25/14 1:30 PM) Albumin Lvl [3.4-4.8 gm/dL] 3.8 gm/dL (12/25/14 1:30 PM) Total Protein [6.2-8.1 gm/dL] 6.4 gm/dL (12/25/14 1:30 PM) Globulin [1.8-4.0 gm/dL] 2.6 gm/dL (12/25/14 1:30 PM) ALT [0-55 U/L] 16 U/L (12/25/14 1:30 PM) AST [5-34 U/L] 14 U/L (12/25/14 1:30 PM) Alk Phos [40-150 U/L] 52 U/L (12/25/14 1:30 PM) Bili Total [0.2-1.2 mg/dL] 0.6 mg/dL (12/25/14 1:30 PM) TSH with Reflex Free T4 [0.35-4.94] 2.98 (12/25/14 1:30 PM) Hgb A1c [4.1-5.6 %] 7.9 % *HI* (12/25/14 1:30 PM) eAvg Glucose 180.0 mg/dL (12/25/14 1:30 PM) 1Result Comment: Multiply eGFR results by 1.21 for race. Immunizations Vaccine Date Refusal Reason zoster vaccine live 04/04/14 Procedures Procedure Date Related Diagnosis Body Site Cataract extraction - bilateral H/O tubal ligation Social History Social History Type Response Smoking Status Never smoker Assessment and Plan Extracted from: Title: Ambulatory Patient Education Author: Rodolfo Niño MD Date: Family Medicine Back Exercises Back exercises help treat and prevent back injuries. The goal of back exercises is to increase the strength of your abdominal and back muscles and the flexibility of your back. These exercises should be started when you no longer have back pain. Back exercises include: Pelvic Tilt. Lie on your back with your knees bent. Tilt your pelvis until the lower part of your back is against the floor. Hold this position 5 to 10 sec and repeat 5 to 10 times. Knee to Chest. Pull first 1 knee up against your chest and hold for 20 to 30 seconds, repeat this with the other knee, and then both knees. This may be done with the other leg straight or bent, whichever feels better. Sit-Ups or Curl-Ups. Bend your knees 90 degrees. Start with tilting your pelvis, and do a partial, slow sit-up, lifting your trunk only 30 to 45 degrees off the floor. Take at least 2 to 3 seconds for each sit-up. Do not do sit-ups with your knees out straight. If partial sit -ups are difficult, simply do the above but with only tightening your abdominal muscles and holding it as directed. Hip-Lift. Lie on your back with your knees flexed 90 degrees. Push down with your feet and shoulders as you raise your hips a couple inches off the floor; hold for 10 seconds, repeat 5 to 10 times. Back arches. Lie on your stomach, propping yourself up on bent elbows. Slowly press on your hands, causing an arch in your low back. Repeat 3 to 5 times. Any initial stiffness and discomfort should lessen with repetition over time. Shoulder-Lifts. Lie face down with arms beside your body. Keep hips and torso pressed to floor as you slowly lift your head and shoulders off the floor. Do not overdo your exercises, especially in the beginning. Exercises may cause you some mild back discomfort which lasts for a few minutes; however, if the pain is more severe, or lasts for more than 15 minutes, do not continue exercises until you see your caregiver. Improvement with exercise therapy for back problems is slow. See your caregivers for assistance with developing a proper back exercise program. Document Released: 07/06/2005 Document Revised: 08/20/2012 Document Reviewed: 03/29/2012 ExitCare Patient Information 2014 [id number]. No follow up information was provided. 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 Appt pending with Rheumatology on 01/10. Ordered: C-Reactive Protein (CRP) CBC w/ Differential Comprehensive Metabolic Panel Controlled diabetes mellitus This issue is stable and appropriate refills, lab, and f/u have been discussed. The patient was notified for the need for regular quarterly f/u of their diabetes. Fur ther any pertinent medication, supplies, etc were refilled. Additionally, they are to have annual eye exams, foot exams, and regular care. Diverticulitis Improving on cipro in spit of our listing of an allergy. Not willing to change abx at this time. Lower back pain This issue is stable and appropriate refills, lab, and f/u have been discussed. Xray pending. [place] refilled. Ordered: XR Spine Lumbosacral 2 or 3 Views Other abnormal glucose This issue is stable and appropriate refills, lab, and f/u have been discussed. Ordered: Hemoglobin A1c Sedimentation Rate TSH with Reflex Free T4 Rectal bleeding The patient was offered and/or directed to a specialist for this issue. The patient refused or at least deferred any referral at this time. Recommended a Surgical consult and was r efused for now. To Dr. Jailyn Choi, Dr. HUTSON, or Dr. Jimenez locally when willing. The patient's outside physician records were reviewed. Any pertinent outside records, lab, and xrays were also reviewe d if available. ER records and CT reviewed. Orders: lansoprazole, 30 mg 1 caps, Oral, Daily, # 90 caps, 3 Refill(s), Pharmacy: [facility], 1 caps Oral Daily,x90 days
--- OUTSIDE RECORDS SUMMARY | 2017-02-13 12:29 | External Medical Summary | Referral Summary ---
:1940 Author Organization [facility] Address [address] [place] [address] [place] [address] Care Team Providers Name Role Phone Rodolfo Niño Primary Care Physician Encounter [facility] [id number] Date(s): 01/15/15 - 01/15/15 [facility] [address] [place] [address] [place] [phone] [place] Discharge Diagnosis: Systemic [...] (1/2) TABLET DAILY, # 45 tabs, eRx: [facility], TAKE ONE-HALF (1/2) TABLET DAILY Start Date: 06/17/15 Status: OrderedBepreve 1.5% ophthalmic solution 1 drops, Eye-Both, BID, # 10 mL, 0 Refill(s) Start Date: 11/11/13 Status: Orderedciprofloxacin 250 mg oral tablet See Instructions, TAKE ONE TABLET BY MOUTH EVERY 12 HOURS, # 180 Each, 1 Refill( s), Pharmacy: [facility] #[id number], TAKE ONE TABLET BY MOUTH EVERY 12 HOURS Start Date: 07/06/15 Status: OrderedDiflucan 150 mg oral tablet See Instructions, TAKE ONE TABLET BY MOUTH EVERY WEEK, # 30 tabs, eRx: [facility] #[id number], TAKE ONE TABLET BY MOUTH EVERY WEEK Start Date: 01/06/15 Status: Orderedglimepiride 1 mg oral tablet 1 mg 1 tabs, Oral, BID, # 90 tabs, 0 Refill(s) Start Date: 12/20/13 Status: OrderedJanuvia 100 mg oral tablet See Instructions, TAKE 1 TABLET DAILY/PT. NEEDS AN APPT. AND LABS., # 90 tabs, 0 Refill(s), Pharmacy: [facility] Start Date: 06/13/15 Status: OrderedmetFORMIN 500 mg oral tablet 500 mg 1 tabs, Oral, BID, Dr. Niño would like to see Fartun in the office please., # 60 tabs, 0Refill(s), Pharmacy: [facility], 1 tabs Oral BID,x30 days,Instr:Dr. Niño would like to see Fartun in the office please. Start Date: 05/19/15 Stop Date: 06/18/15 Status: OrderedMiscellaneous DME DME Item Accu Check Kim Test Strips - Test QID every other day - DX:250.02, See Instructions, # 100 Each, 1 Refill(s), Pharmacy: [facility] #[id number], Accu Check Kim Test Strips - Test [...] DAILY, # 180 tabs, 0 Refill(s), Pharmacy: [facility], TAKE 2 TABLETS DAILY Start Date: 06/02/15 Status: OrderedpredniSONE 5 mg oral tablet See Instructions, TAKE 1 TABLET DAILY, # 90 tabs, eRx: [facility], TAKE 1 TABLET DAILY Start Date: 06/16/15 Status: OrderedPrevacid 30 mg oral delayed release capsule 30 mg 1 caps, Oral, Daily, # 90 caps, 3 Refill(s), Pharmacy: [facility], 1 caps Oral Daily,x90 days [...] 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 Otherwise her recent lab work was stable. No toxicities noted. Follow-up6 months or sooner if needed.
--- OUTSIDE RECORDS SUMMARY | 2017-02-13 12:29 | External Medical Summary | Referral Summary ---
:1940 Author Organization [facility] Address [address] [place] [address] [place] [address] Care Team Providers Name Role Phone Rodolfo Niño Primary Care Physician Encounter [facility] Date(s): 03/05/15 - 03/05/15 [facility] JOSE JUAN Gonzalez [place] [address] [place] [address] [place] Discharge Disposition: 01-Home or Self Care Attending Physician: Rodolfo Niño MD Admitting Physician: Rodolfo Niño MD Vital Signs Most recent to oldest [Reference Range]: 1 Blood Pressure [90-140/60-90 mmHg] 120/80 mmHg (03/05/15 2:05 PM) Problem List Condition Effective Dates Status [...] ONE-HALF (1/2) TABLET DAILY, # 45 tabs, 1 Refill(s), e[facility] : [facility], TAKE ONE-HALF (1/2) TABLET DAILY Start Date: 10/13/14 Status: OrderedBepreve 1.5% ophthalmic solution 1 drops, Eye-Both, BID, # 10 mL, 0 Refill(s) Start Date: 11/11/13 Status: Orderedciprofloxacin 250 mg oral tablet See Instructions, TAKE ONE TABLET BY MOUTH EVERY 12 HOURS, # 60 tabs, eRx: [facility] #[id number],TAKE ONE TABLET BY MOUTH EVERY 12 HOURS Start Date: 02/24/15 Status: OrderedDiflucan 150 mg oral tablet See Instructions, TAKE ONE TABLET BY MOUTH EVERY WEEK, # 30 tabs, eRx: [facility] #[id number], TAKE ONE TABLET BY MOUTH EVERY WEEK Start Date: 01/06/15 Status: Orderedglimepiride 1 mg oral tablet 1 tabs, Oral, Daily, # 90 tabs, 0 Refill(s) Start Date: 12/20/13 Status: OrderedJanuvia 100 mg oral tablet See Instructions, TAKE 1 TABLET DAILY, # 90 tabs, 1 Refill(s), eRx: [facility], TAKE 1 TABLET DAILY Start Date: 01/05/15 Status: OrderedmetFORMIN 500 mg oral tablet 500 mg 1 tabs, Oral, Daily, # 90 tabs, 1 Refill(s), Pharmacy: [facility], 1 tabs Oral Daily,x90 days Start Date: 03/05/15 Stop Date: 09/01/15 Status: OrderedMiscellaneous DME DME Item Accu Check Kim Test Strips - Test QID every other day - DX:250.02, See Instructions, # 100 Each, 1 Refill(s), Pharmacy: [facility] #[id number], Accu Check Kim Test Strips - Test QID every other day - DX:250.02, Supply Start Date: 04/30/14 Status: Orderedmultivitamin Daily, 0 Refill(s) Start Date: 11/11/13 Status: OrderedNorco 7.5 mg-325 mg oral tablet 1 tabs, Oral, TID, as needed for pain, rx must last 30 days, # 60 tabs, 0 Refill (s) Start Date: 02/24/15 Status: Orderedpioglitazone 30 mg oral tablet 1 tabs, Oral, Daily, 0 Refill(s) Start Date: 06/04/14 Status: OrderedPlaquenil 200 mg oral tablet See Instructions, TAKE 2 TABLETS DAILY, # 180 tabs, 1 Refill(s), Pharmacy: [facility] #[id number],TAKE 2 TABLETS DAILY Start Date: 01/15/15 Status: OrderedpredniSONE 5 mg oral tablet See Instructions, TAKE 1 TABLET DAILY, # 90 tabs, eRx: [facility], TAKE 1 TABLET DAILY Start Date: 01/05/15 Status: OrderedPrevacid 30 mg oral delayed release capsule 30 mg 1 caps, Oral, Daily, # 90 caps, 3 Refill(s), Pharmacy: [facility], 1 caps Oral Daily,x90 days [...] Author: Rodolfo Niño MD Date: Family Medicine Arthralgia Your caregiver has diagnosed you as suffering from an arthralgia. Arthralgia means there is pain in a joint. This can come from many reasons including: Bruising the joint which causes soreness (inflammation) in the joint. Wear and tear on the joints which occur as we grow older (osteoarthritis). Overusing the joint. Various forms of arthritis. Infections of the joint. Regardless of the cause of pain in your joint, most of these different pains respond to anti-inflammatory drugs and rest. The exception to this is when a joint is infected, and these cases are treated with antibiotics, if it is a bacterial infection. HOME CARE INSTRUCTIONS Rest the injured area for as long as directed by your caregiver. Then slowly start using the joint as directed by your caregiver and as the pain allows. Crutches as directed may be useful if the an kles, knees or hips are involved. If the knee was splinted or casted, continue use and care as directed. If an stretchy or elastic wrapping bandage has been applied today, it should be removed and re-ap plied every 3 to 4 hours. It should not be applied tightly, but firmly enough to keep swelling down. Watch toes and feet for swelling, bluish discoloration, coldness, numbness or excessive pain. If any of these problems (symptoms) occur, remove the greg bandage and re-apply more loosely. If these symptoms persist, contact your caregiver or return to this location. For the first 24 hours, keep the injured extremity elevated on pillows while lying down. Apply ice for 15-20 minutes to the sore joint every couple hours while awake for the first half day. Then 03-04 times per day for the first 48 hours. Put the ice in a plastic bag and place a towel between the bag of ice and your skin. Wear any splinting, casting, elastic bandage applications, or slings as instructed. Only take krpf-ypk-gyisulg or prescription medicines for pain, discomfort , or fever as directed by your caregiver. Do not use aspirin immediately after the injury unless instructed by your physicia n. Aspirin can cause increased bleeding and bruising of the tissues. If you were given crutches, continue to use them as instructed and do not resume weight bearing on the sore joint until instructed. Persistent pain and inability to use the sore joint as directed for more than 2 to 3 days are warning signs indicating that you should see a caregiver for a follow-up visit as soon as possible. Initiall y, a hairline fracture (break in bone) may not be evident on X-rays. Persistent pain and swelling indicate that further evaluation, non-weight bearing or use of the joint (use of crutches or slings as i nstructed), or further X-rays are indicated. X-rays may sometimes not show a small fracture until a week or 10 days later. Make a follow-up appointment with your own caregiver or one to whom we have ref erred you. A radiologist (specialist in reading X-rays) may read your X-rays. Make sure you know how you are to obtain your X-ray results. Do not assume everything is normal if you do not hear from us. SEEK MEDICAL CARE IF: Bruising, swelling, or pain increases. SEEK IMMEDIATE MEDICAL CARE IF: Your fingers or toes are numb or blue. The pain is not responding to medications and continues to stay the same or get worse. The pain in your joint becomes severe. You develop a fever over 102 F (38.9 C). It becomes impossible to move or use the joint. MAKE SURE YOU: Understand these instructions. Will watch your condition. Will get help right away if you are not doing well or get worse. Document Released: 05/29/2006 Document Revised: 08/20/2012 Document Reviewed: 01/14/2009 ExitCare Patient Information 2015 [employer]. This information is not intended to replace advice given to you by your health care provider. Make sure you discuss any questions you have with your health care provider. No follow up information was provided. Extracted from: Title: Office Visit Note Author: Rodolfo Niño MD Date: 03/05/15 Assessment/Plan Accidental fall Fall risk is high. Refuses home health. Has it available supposedly from the ER already. Turned away PT? Acute pain of right knee Xray pending. Strongly consider AL or family stay with her. Has pain meds available already. To Dr. Dennis in Rheumatology for evaluation. Acute right hip pain See above. Xray pending.Has pain meds.Close f/u. Ordered: XR Hip Complete Right Benign essential hypertension This issue is stable and appropriate refills, lab, and f/u have been discussed. The patient reports their blood pressure has been stable at home and is not having an y significant or related problems. There has been no chest pain, chest pressure , soa/byers. Controlled diabetes mellitus This issue is stable and appropriate refills, lab, and f/u have been discussed. The patient was notified for the need for regular quarterly f/u of their diabetes. Fur ther any pertinent medication, supplies, etc were refilled. Additionally, they are to have annual eye exams, foot exams, and regular care. Systemic lupus erythematosus This issue is stable and appropriate refills, lab, and f/u have been discussed. To Dr. Dennis. Trochanteric bursitis of right hip To Dr. Dennis if possible for injection if indicated. Xray pending to check for fracture. Orders: XR Knee Complete Right
--- OUTSIDE RECORDS SUMMARY | 2017-02-13 12:29 | External Medical Summary | Referral Summary ---
:1940 Author Organization [facility] JU[facility] Gonzalez, [facility] Address [address] [place] [address] [place] [address] Care Team Providers Name Role Phone Rodolfo Niño Primary Care Physician Encounter [facility] [id number] Date(s): 12/25/14 - 12/25/14 [facility] JOSE JUAN Gonzalez [place] [address] [place] [phone] [place] Discharge Diagnosis: [...] EVERY 12 HOURS, # 60 tabs, eRx: [facility] #[id number],TAKE ONE TABLET BY MOUTH EVERY 12 HOURS Start Date: 04/02/15 Status: OrderedDiflucan 150 mg oral tablet See Instructions, TAKE ONE TABLET BY MOUTH EVERY WEEK, # 30 tabs, eRx: [facility] #[id number], TAKE ONE TABLET BY MOUTH EVERY WEEK Start Date: 01/06/15 Status: Orderedgabapentin 100 mg oral capsule See Instructions, 1 cap at bedtime for 3 days, then 1 cap bid for 3 days then 1 cap tid, # 90 caps, 1 Refill(s), Pharmacy: [facility] #[id number], 1 cap at bedtime for 3 days, [...] Daily, # 90 tabs, 1 Refill(s), Pharmacy: [facility], 1 tabs Oral Daily,x90 days Start Date: 03/05/15 Stop Date: 09/01/15 Status: OrderedMiscellaneous DME DME Item Accu Check Kim Test Strips - Test QID every other day - DX:250.02, See Instructions, # 100 Each, 1 Refill(s), Pharmacy: [facility] #[id number], Accu Check Kim Test Strips - Test [...] DAILY, # 180 tabs, 1 Refill(s), Pharmacy: [facility] #[id number],TAKE 2 TABLETS DAILY Start Date: 01/15/15 Status: OrderedpredniSONE 5 mg oral tablet See Instructions, TAKE 1 TABLET DAILY, # 90 tabs, eRx: [facility], TAKE 1 TABLET DAILY Start Date: 03/16/15 Status: OrderedPrevacid 30 mg oral delayed release capsule 30 mg 1 caps, Oral, Daily, # 90 caps, 3 Refill(s), Pharmacy: [facility], 1 caps Oral Daily,x90 days [...] [0.80-3.30 10*3] 2.40 10*3 (12/25/14 1:30 PM) [facility] [0.30-1.00 10*3] 1.04 10*3 *HI* (12/25/14 [...] Document Reviewed: 03/29/2012 ExitCare Patient Information 2014 [email or web address]. No follow up information was provided. Extracted from: Title: Office Visit Note Author: Rodolfo Niño MD Date: 12/25/14 Assessment/Plan [employer] lupus This issue is stable and appropriate [...] and f/u have been discussed. Xray pending. [facility] refilled. Ordered: XR Spine Lumbosacral 2 or [...] Daily, # 90 caps, 3 Refill(s), Pharmacy: [facility], 1 caps Oral Daily,x90 days
--- OUTSIDE RECORDS SUMMARY | 2017-02-13 12:29 | External Medical Summary | Referral Summary ---
:1940 Author Organization [facility] JOSE JUAN Gonzalez, [facility] Address [address] [place] [address] [place] [address] Care Team Providers Name Role Phone Rodolfo Niño Primary Care Physician Encounter [facility] Date(s): 03/05/15 - 03/05/15 [facility]SE JUAN Gonzalez [place] [address] [place] [phone] [place] Discharge Disposition: [...] TAKE ONE-HALF (1/2) TABLET DAILY Start Date: 09/10/15 Status: OrderedBepreve 1.5% ophthalmic solution 1 drops, Eye-Both, BID, # 10 mL, 0 Refill(s) Start Date: 11/11/13 Status: Orderedciprofloxacin 250 mg oral tablet See Instructions, TAKE ONE TABLET BY MOUTH EVERY 12 HOURS, # 180 Each, 1 Refill( s), Pharmacy: [facility] #[id number], TAKE ONE TABLET BY MOUTH EVERY 12 HOURS Start Date: 07/06/15 Status: OrderedDiflucan 150 mg oral tablet See Instructions, TAKE ONE TABLET BY MOUTH EVERY WEEK, # 30 tabs, eRx: [facility] #[id number], TAKE ONE TABLET BY MOUTH EVERY WEEK Start Date: 01/06/15 Status: Orderedfolic acid 1 mg oral tablet 1 mg 1 tabs, Oral, Daily, # 30 tabs, 11 Refill(s), Pharmacy: [facility] # [id number], 1 tabs Oral Daily Start Date: 07/31/15 Status: Orderedglimepiride 1 mg oral tablet 1 mg 1 tabs, Oral, BID, # 90 tabs, 0 Refill(s) Start Date: 12/20/13 Status: OrderedJanuvia 100 mg oral tablet See Instructions, TAKE 1 TABLET DAILY/PT. NEEDS AN APPT. AND LABS., # 90 tabs, eRx: [facility], TAKE 1 TABLET DAILY/PT. NEEDS AN APPT. AND LABS. Start Date: 09/09/15 Status: OrderedmetFORMIN 500 mg oral tablet 500 mg 1 tabs, Oral, BID, Dr. Niño would like to see Fartun in the office please., # 60 tabs, 0Refill(s), [facility]acy: [facility], 1 tabs Oral BID,x30 days,Instr:Dr. Niño would like to see Fartun in the office please. Start Date: 05/19/15 Stop Date: 06/18/15 Status: Orderedmethotrexate 2.5 mg oral tablet 7.5 mg 3 tabs, Oral, qWeek, 3 tabs one day a week, # 15 tabs, 1 Refill(s), Pharmacy: [facility] #[id number], 3 tabs Oral qWeek,Instr:3 tabs one day a week Start Date: 07/31/15 Status: OrderedMiscellaneous DME DME Item Accu Check Kim Test Strips - Test QID every other day - DX:250.02, See Instructions, # 100 Each, 1 Refill(s), Pharmacy: [facility] #[id number], Accu Check Kim Test Strips - Test QID every other day - DX:250.02, Supply Start Date: 04/30/14 Status: Orderedmultivitamin Daily, 0 Refill(s) Start Date: 11/11/13 Status: OrderedNorco 7.5 mg-325 mg oral tablet 1 tabs, Oral, TID, as needed for pain, rx must last 30 days, # 60 tabs, 0 Refill (s) Start Date: 08/27/15 Status: Orderedpioglitazone 30 mg oral tablet 1 tabs, Oral, Daily, 0 Refill(s) Start Date: 06/04/14 Status: OrderedPlaquenil 200 mg oral tablet See Instructions, TAKE 2 TABLETS DAILY, # 180 tabs, eRx: [facility], TAKE 2 TABLETS DAILY Start Date: 08/13/15 Status: OrderedpredniSONE 5 mg oral tablet See Instructions, TAKE 1 TABLET DAILY, # 90 tabs, eRx: [facility], TAKE 1 TABLET DAILY Start Date: 06/16/15 Status: OrderedPrevacid 30 mg oral delayed release capsule 30 mg 1 caps, Oral, Daily, # 90 caps, 3 Refill(s), [facility]acy: [facility], 1 caps Oral Daily,x90 days [...] applications, or slings as instructed. Only take xexl-zyo-gqrevnc or prescription medicines for pain, discomfort , [...] Document Reviewed: 01/14/2009 ExitCare Patient Information 2015 [employer] [facility]. This information is not intended to replace [...]
--- OUTSIDE RECORDS SUMMARY | 2017-02-13 12:29 | External Medical Summary | Referral Summary ---
:1940 Author Organization Via JOSE JUAN Gonzalez [place], Rheumatology Address [address] [place] [address] [place] [address] Care Team Providers Name Role Phone Rodolfo Niño Primary Care Physician Encounter [facility] [id number] Date(s): 01/15/15 - 01/15/15 [facility] JUAN Gonzalez [place], Rheumatology [address] [place] [address] [place] [phone] [place] Discharge Diagnosis: Systemic [...] TABLET DAILY, # 45 tabs, eRx: [facility], TAKE ONE-HALF (1/2) TABLET DAILY Start Date: 04/06/15 Status: OrderedBepreve 1.5% ophthalmic solution 1 drops, Eye-Both, BID, # 10 mL, 0 Refill(s) Start Date: 11/11/13 Status: Orderedciprofloxacin 250 mg oral tablet See Instructions, TAKE ONE TABLET BY MOUTH EVERY 12 HOURS, # 60 tabs, eRx: [facility] #[id number],TAKE ONE TABLET BY MOUTH EVERY 12 HOURS Start Date: 04/02/15 Status: OrderedDiflucan 150 mg oral tablet See Instructions, TAKE ONE TABLET BY MOUTH EVERY WEEK, # 30 tabs, eRx: [facility] #[id number], TAKE ONE TABLET BY MOUTH EVERY WEEK Start Date: 01/06/15 Status: Orderedgabapentin 100 mg oral capsule See Instructions, 1 cap at bedtime for 3 days, then 1 cap bid for 3 days then 1 cap tid, # 90 caps, 1 Refill(s), Pharmacy: [facility] #[id number], 1 cap at bedtime for 3 days, [...] # 90 tabs, 1 Refill(s), Pharmacy: [facility], 1 tabs Oral Daily,x90 days Start Date: 03/05/15 Stop Date: 09/01/15 Status: OrderedMiscellaneous DME DME Item Accu Check Kim Test Strips - Test QID every other day - DX:250.02, See Instructions, # 100 Each, 1 Refill(s), Pharmacy: [facility] #[id number], Accu Check Kim Test Strips - Test [...] DAILY, # 180 tabs, 1 Refill(s), Pharmacy: [facility] #[id number],TAKE 2 TABLETS DAILY Start Date: 01/15/15 Status: OrderedpredniSONE 5 mg oral tablet See Instructions, TAKE 1 TABLET DAILY, # 90 tabs, eRx: [facility], TAKE 1 TABLET DAILY Start Date: 03/16/15 Status: OrderedPrevacid 30 mg oral delayed release capsule 30 mg 1 caps, Oral, Daily, # 90 caps, 3 Refill(s), Pharmacy: [facility], 1 caps Oral Daily,x90 days [...] He will get a note from her parole hearing officer. Otherwise her recent lab work was stable. No toxicities noted. Follow-up6 months or sooner if needed.
--- OUTSIDE RECORDS SUMMARY | 2017-02-13 12:29 | External Medical Summary | Referral Summary ---
:1939 Author Organization [facility]SE JU[facility] Gonzalez [place], Rheumatology Address [address] [place] [address] [place] [address] Care Team Providers Name Role Phone Rodolfo Niño Primary Care Physician Encounter [facility] [id number] Date(s): 01/15/15 - 01/15/15 [facility] JUAN Gonzalez [place], Rheumatology [address] [place] [address] [place] [phone] [place] Discharge Diagnosis: Systemic [...] TABLET DAILY, # 45 tabs, eRx: [facility], TAKE ONE-HALF (1/2) TABLET DAILY Start Date: 04/06/15 Status: OrderedBepreve 1.5% ophthalmic solution 1 drops, Eye-Both, BID, # 10 mL, 0 Refill(s) Start Date: 11/11/13 Status: Orderedciprofloxacin 250 mg oral tablet See Instructions, TAKE ONE TABLET BY MOUTH EVERY 12 HOURS, # 60 tabs, eRx: [facility] #[id number],TAKE ONE TABLET BY MOUTH EVERY 12 HOURS Start Date: 04/02/15 Status: OrderedDiflucan 150 mg oral tablet See Instructions, TAKE ONE TABLET BY MOUTH EVERY WEEK, # 30 tabs, eRx: [facility] #[id number], TAKE ONE TABLET BY MOUTH EVERY WEEK Start Date: 01/06/15 Status: Orderedgabapentin 100 mg oral capsule See Instructions, 1 cap at bedtime for 3 days, then 1 cap bid for 3 days then 1 cap tid, # 90 caps, 1 Refill(s), Pharmacy: [facility] #[id number], 1 cap at bedtime for 3 days, [...] # 90 tabs, 1 Refill(s), [facility]acy: [facility], 1 tabs Oral Daily,x90 days Start Date: 03/05/15 Stop Date: 09/01/15 Status: OrderedMiscellaneous DME DME Item Accu Check Kim Test Strips - Test QID every other day - DX:250.02, See Instructions, # 100 Each, 1 Refill(s), Pharmacy: [facility] #[id number], Accu Check Kim Test Strips - Test [...] DAILY, # 180 tabs, 1 Refill(s), Pharmacy: [facility] #[id number],TAKE 2 TABLETS DAILY Start Date: 01/15/15 Status: OrderedpredniSONE 5 mg oral tablet See Instructions, TAKE 1 TABLET DAILY, # 90 tabs, eRx: [facility], TAKE 1 TABLET DAILY Start Date: 03/16/15 Status: OrderedPrevacid 30 mg oral delayed release capsule 30 mg 1 caps, Oral, Daily, # 90 caps, 3 Refill(s), Pharmacy: [facility], 1 caps Oral Daily,x90 days [...] He will get a note from her credit analyst. Otherwise her recent lab work was stable. No toxicities noted. Follow-up6 months or sooner if needed.
--- OUTSIDE RECORDS SUMMARY | 2017-02-13 12:29 | External Medical Summary | Referral Summary ---
:1940 Author Organization [facility] JU[facility] [place], Rheumatology Address [address] [place] [address] [place] [address] Care Team Providers Name Role Phone Rodolfo Niño Primary Care Physician Encounter [facility] [id number] Date(s): 01/15/15 - 01/15/15 [facility] Gonzalez [place], Rheumatology [address] [place] [address] [place] [phone] [place] Discharge Diagnosis: Systemic [...] TABLET DAILY, # 45 tabs, eRx: [facility], TAKE ONE-HALF (1/2) TABLET DAILY Start Date: 04/06/15 Status: OrderedBepreve 1.5% ophthalmic solution 1 drops, Eye-Both, BID, # 10 mL, 0 Refill(s) Start Date: 11/11/13 Status: Orderedciprofloxacin 250 mg oral tablet See Instructions, TAKE ONE TABLET BY MOUTH EVERY 12 HOURS, # 60 tabs, eRx: [facility] #[id number],TAKE ONE TABLET BY MOUTH EVERY 12 HOURS Start Date: 04/02/15 Status: OrderedDiflucan 150 mg oral tablet See Instructions, TAKE ONE TABLET BY MOUTH EVERY WEEK, # 30 tabs, eRx: [facility] #[id number], TAKE ONE TABLET BY MOUTH EVERY WEEK Start Date: 01/06/15 Status: Orderedgabapentin 100 mg oral capsule See Instructions, 1 cap at bedtime for 3 days, then 1 cap bid for 3 days then 1 cap tid, # 90 caps, 1 Refill(s), Pharmacy: [facility] #[id number], 1 cap at bedtime for 3 days, [...] # 90 tabs, 1 Refill(s), [facility]acy: [facility], 1 tabs Oral Daily,x90 days Start Date: 03/05/15 Stop Date: 09/01/15 Status: OrderedMiscellaneous DME DME Item Accu Check Kim Test Strips - Test QID every other day - DX:250.02, See Instructions, # 100 Each, 1 Refill(s), Pharmacy: [facility] #[id number], Accu Check Kim Test Strips - Test [...] # 180 tabs, 1 Refill(s), Pharmacy: [facility] #[id number],TAKE 2 TABLETS DAILY Start Date: 01/15/15 Status: OrderedpredniSONE 5 mg oral tablet See Instructions, TAKE 1 TABLET DAILY, # 90 tabs, eRx: [facility], TAKE 1 TABLET DAILY Start Date: 03/16/15 Status: OrderedPrevacid 30 mg oral delayed release capsule 30 mg 1 caps, Oral, Daily, # 90 caps, 3 Refill(s), Pharmacy: [facility], 1 caps Oral Daily,x90 days [...] He will get a note from her civil service worker. Otherwise her recent lab work was stable. No toxicities noted. Follow-up6 months or sooner if needed.
--- OUTSIDE RECORDS SUMMARY | 2017-02-13 12:29 | External Medical Summary | Referral Summary ---
:1940 Author Organization [facility] Address [address] [place] [address] [place] [address] Care Team Providers Name Role Phone Rodolfo Niño Primary Care Physician Encounter [facility] [id number] Date(s): 01/15/15 - 01/15/15 [facility] [address] [place] [address] [place] [phone] [place] Discharge Diagnosis: Systemic [...] TABLET DAILY, # 45 tabs, eRx: [facility], TAKE ONE-HALF (1/2) TABLET DAILY Start Date: 04/06/15 Status: OrderedBepreve 1.5% ophthalmic solution 1 drops, Eye-Both, BID, # 10 mL, 0 Refill(s) Start Date: 11/11/13 Status: Orderedciprofloxacin 250 mg oral tablet See Instructions, TAKE ONE TABLET BY MOUTH EVERY 12 HOURS, # 60 tabs, eRx: [facility] #[id number],TAKE ONE TABLET BY MOUTH EVERY 12 HOURS Start Date: 04/02/15 Status: OrderedDiflucan 150 mg oral tablet See Instructions, TAKE ONE TABLET BY MOUTH EVERY WEEK, # 30 tabs, eRx: [facility] #[id number], TAKE ONE TABLET BY MOUTH EVERY WEEK Start Date: 01/06/15 Status: Orderedgabapentin 100 mg oral capsule See Instructions, 1 cap at bedtime for 3 days, then 1 cap bid for 3 days then 1 cap tid, # 90 caps, 1 Refill(s), Pharmacy: [facility] #[id number], 1 cap at bedtime for 3 days, [...] # 90 tabs, 1 Refill(s), Pharmacy: [facility], 1 tabs Oral Daily,x90 days Start Date: 03/05/15 Stop Date: 09/01/15 Status: OrderedMiscellaneous DME DME Item Accu Check Kim Test Strips - Test QID every other day - DX:250.02, See Instructions, # 100 Each, 1 Refill(s), Pharmacy: [facility] #[id number], Accu Check Kim Test Strips - Test [...] DAILY, # 180 tabs, 1 Refill(s), Pharmacy: [facility] #[id number],TAKE 2 TABLETS DAILY Start Date: 01/15/15 Status: OrderedpredniSONE 5 mg oral tablet See Instructions, TAKE 1 TABLET DAILY, # 90 tabs, eRx: [facility], TAKE 1 TABLET DAILY Start Date: 03/16/15 Status: OrderedPrevacid 30 mg oral delayed release capsule 30 mg 1 caps, Oral, Daily, # 90 caps, 3 Refill(s), Pharmacy: [facility], 1 caps Oral Daily,x90 days [...] He will get a note from her senior staff psychologist. Otherwise her recent lab work was stable. No toxicities noted. Follow-up6 months or sooner if needed.
--- OUTSIDE RECORDS SUMMARY | 2017-02-13 12:30 | External Medical Summary | Referral Summary ---
:1940 Author Organization [facility], [facility] Address [address] [place] [address] [place] [address] Care Team Providers Name Role Phone Rodolfo Niño Primary Care Physician Encounter [facility] [id number] Date(s): 03/05/15 - 03/05/15 [facility] [address] [place] [phone] [place] Discharge Disposition: [...] 45 tabs, 1 Refill(s), e[facility] : [facility], TAKE ONE-HALF (1/2) TABLET DAILY Start Date: 10/13/14 Status: OrderedBepreve 1.5% ophthalmic solution 1 drops, Eye-Both, BID, # 10 mL, 0 Refill(s) Start Date: 11/11/13 Status: Orderedciprofloxacin 250 mg oral tablet See Instructions, TAKE ONE TABLET BY MOUTH EVERY 12 HOURS, # 60 tabs, eRx: [facility] #[id number],TAKE ONE TABLET BY MOUTH EVERY 12 HOURS Start Date: 02/24/15 Status: OrderedDiflucan 150 mg oral tablet See Instructions, TAKE ONE TABLET BY MOUTH EVERY WEEK, # 30 tabs, eRx: [facility] #[id number], TAKE ONE TABLET BY MOUTH EVERY WEEK Start Date: 01/06/15 Status: Orderedglimepiride 1 mg oral tablet 1 tabs, Oral, Daily, # 90 tabs, 0 Refill(s) Start Date: 12/20/13 Status: OrderedJanuvia 100 mg oral tablet See Instructions, TAKE 1 TABLET DAILY, # 90 tabs, 1 Refill(s), [facility]Rx: [facility], TAKE 1 TABLET DAILY Start Date: 01/05/15 Status: OrderedmetFORMIN 500 mg oral tablet 500 mg 1 tabs, Oral, Daily, # 90 tabs, 1 Refill(s), Pharmacy: [facility], 1 tabs Oral Daily,x90 days Start Date: 03/05/15 Stop Date: 09/01/15 Status: OrderedMiscellaneous DME DME Item Accu Check Kim Test Strips - Test QID every other day - DX:250.02, See Instructions, # 100 Each, 1 Refill(s), Pharmacy: [facility] #[id number], Accu Check Kim Test Strips - Test [...] Refill(s), Pharmacy: [facility] #[id number],TAKE 2 TABLETS DAILY Start Date: 01/15/15 Status: OrderedpredniSONE 5 mg oral tablet See Instructions, TAKE 1 TABLET DAILY, # 90 tabs, eRx: [facility], TAKE 1 TABLET DAILY Start Date: 01/05/15 Status: OrderedPrevacid 30 mg oral delayed release capsule 30 mg 1 caps, Oral, Daily, # 90 caps, 3 Refill(s), Pharmacy: [facility], 1 caps Oral Daily,x90 [...] applications, or slings as instructed. Only take hoqh-gie-wqhfupo or prescription medicines for pain, discomfort , [...] Document Reviewed: 01/14/2009 ExitCare Patient Information 2015 [employer]. This information is not intended to replace [...]
--- OUTSIDE RECORDS SUMMARY | 2017-02-13 12:30 | External Medical Summary | Referral Summary ---
:1940 Author Organization [facility] Address [address] [place] [address] [place] [address] Care Team Providers Name Role Phone Rodolfo Niño Primary Care Physician Encounter [facility] [id number] Date(s): 12/25/14 - 12/25/14 [facility] [address] [place] [phone] [place] Discharge Diagnosis: [...] EVERY 12 HOURS, # 60 tabs, eRx: [facility] #[id number],TAKE ONE TABLET BY MOUTH EVERY 12 HOURS Start Date: 04/02/15 Status: OrderedDiflucan 150 mg oral tablet See Instructions, TAKE ONE TABLET BY MOUTH EVERY WEEK, # 30 tabs, eRx: [facility] #[id number], TAKE ONE TABLET BY MOUTH EVERY WEEK Start Date: 01/06/15 Status: Orderedgabapentin 100 mg oral capsule See Instructions, 1 cap at bedtime for 3 days, then 1 cap bid for 3 days then 1 cap tid, # 90 caps, 1 Refill(s), Pharmacy: [facility] #[id number], 1 cap at bedtime for 3 days, [...] Daily, # 90 tabs, 1 Refill(s), Pharmacy: [facility], 1 tabs Oral Daily,x90 days Start Date: 03/05/15 Stop Date: 09/01/15 Status: OrderedMiscellaneous DME DME Item Accu Check Kim Test Strips - Test QID every other day - DX:250.02, See Instructions, # 100 Each, 1 Refill(s), Pharmacy: [facility] #[id number], Accu Check Kim Test Strips - Test [...] DAILY, # 180 tabs, 1 Refill(s), Pharmacy: [facility] #[id number],TAKE 2 TABLETS DAILY Start Date: 01/15/15 Status: OrderedpredniSONE 5 mg oral tablet See Instructions, TAKE 1 TABLET DAILY, # 90 tabs, eRx: [facility], TAKE 1 TABLET DAILY Start Date: 03/16/15 Status: OrderedPrevacid 30 mg oral delayed release capsule 30 mg 1 caps, Oral, Daily, # 90 caps, 3 Refill(s), Pharmacy: [facility], 1 caps Oral Daily,x90 days [...] [0.80-3.30 10*3] 2.40 10*3 (12/25/14 1:30 PM) [place] [facility] [0.30-1.00 10*3] 1.04 10*3 *HI* (12/25/14 [...] Document Reviewed: 03/29/2012 ExitCare Patient Information 2014 [employer]. No follow up information was provided. 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 Xray pending. Mazon refilled. Ordered: XR Spine Lumbosacral 2 or [...] Daily, # 90 caps, 3 Refill(s), Pharmacy: [facility], 1 caps Oral Daily,x90 days
--- OUTSIDE RECORDS SUMMARY | 2017-02-13 12:30 | External Medical Summary | Referral Summary ---
:1940 Author Organization [facility] Address [address] [place] [address] Care Team Providers Name Role Phone Rodolfo Niño Primary Care Physician Encounter [facility] [id number] Date(s): 03/12/15 - 03/12/15 [facility] [address] [place] [address] [place] Discharge Diagnosis: Osteoporosis Discharge Diagnosis: Right lumbar radiculopathy Discharge Disposition: 01-Home or Self Care Attending Physician: Leta Dennis MD Admitting Physician: Leta Dennis MD Vital Signs Most recent to oldest [Reference Range]: 1 Peripheral Pulse Rate [60-100 bpm] 97 bpm (03/12/15 1:51 PM) Blood Pressure [90-140/60-90 mmHg] 105/69 mmHg (03/12/15 1:51 PM) Problem List Condition Effective Dates Status [...] 45 tabs, 1 Refill(s), eRx : [facility], TAKE ONE-HALF (1/2) TABLET DAILY Start Date: 10/13/14 Status: OrderedBepreve 1.5% ophthalmic solution 1 drops, Eye-Both, BID, # 10 mL, 0 Refill(s) Start Date: 11/11/13 Status: Orderedciprofloxacin 250 mg oral tablet See Instructions, TAKE ONE TABLET BY MOUTH EVERY 12 HOURS, # 60 tabs, eRx: [facility] #[id number],TAKE ONE TABLET BY MOUTH EVERY 12 HOURS Start Date: 02/24/15 Status: OrderedDiflucan 150 mg oral tablet See Instructions, TAKE ONE TABLET BY MOUTH EVERY WEEK, # 30 tabs, eRx: [facility] #[id number], TAKE ONE TABLET BY MOUTH EVERY WEEK Start Date: 01/06/15 Status: Orderedgabapentin 100 mg oral capsule See Instructions, 1 cap at bedtime for 3 days, then 1 cap bid for 3 days then 1 cap tid, # 90 caps, 1 Refill(s), Pharmacy: [facility] #[id number], 1 cap at bedtime for 3 days, [...] Daily, # 90 tabs, 1 Refill(s), Pharmacy: [facility], 1 tabs Oral Daily,x90 days Start Date: 03/05/15 Stop Date: 09/01/15 Status: OrderedMiscellaneous DME DME Item Accu Check Kim Test Strips - Test QID every other day - DX:250.02, See Instructions, # 100 Each, 1 Refill(s), Pharmacy: [facility] #[id number], Accu Check Kim Test Strips - Test [...] DAILY, # 180 tabs, 1 Refill(s), Pharmacy: [facility] #[id number],TAKE 2 TABLETS DAILY Start Date: 01/15/15 Status: OrderedpredniSONE 5 mg oral tablet See Instructions, TAKE 1 TABLET DAILY, # 90 tabs, eRx: [facility], TAKE 1 TABLET DAILY Start Date: 01/05/15 Status: OrderedPrevacid 30 mg oral delayed release capsule 30 mg 1 caps, Oral, Daily, # 90 caps, 3 Refill(s), Pharmacy: [facility], 1 caps Oral Daily,x90 days [...] Visit Note Author: Leta Dennis MD Date: 03/12/15 Assessment/Plan 1.Right lumbar radiculopathy I will give her an injection of Depo-Medrol today. I will also start her on gabapentin. I reviewed the potential side effects including sedation, fluid retention. We will try to start the medication slowly. I agree was setting her up to see pain management for epidural injection. I believe that the knee pain is referred pain from nerve impingement. 2.Osteoporosis I reviewed of her osteoporosis she has a higher risk of fracture whenshe falls. She still does not want to start medications.
--- OUTSIDE RECORDS SUMMARY | 2017-02-13 12:30 | External Medical Summary | Referral Summary ---
:1940 Author Organization [facility] Address [address] [place] [address] [place] [address] Care Team Providers Name Role Phone Rodolfo Niño Primary Care Physician Encounter [facility] Date(s): 01/06/16 - 01/06/16 [facility] [address] [place] [address] [place] Discharge Disposition: 01-Home or Self Care Attending Physician: Rodolfo Niño MD Admitting Physician: Rodolfo Niño MD Vital Signs Most recent to oldest [Reference Range]: 1 Blood Pressure [90-140/60-90 mmHg] 140/80 mmHg (01/06/16 2:24 PM) Problem List Condition Effective Dates Status [...] EVERY OTHER DAY, # 100 strip, eRx: [facility] #[id number],TEST FOUR TIMES A DAY EVERY OTHER DAY Start Date: 11/23/15 Status: OrderedACCU-CHEK KIM PLUS TEST STRP See Instructions, TEST FOUR TIMES A DAY EVERY OTHER DAY, # 100 strip, eRx: [facility] #[id number],TEST FOUR TIMES A DAY EVERY OTHER DAY Start Date: 11/23/15 Status: OrderedAlphagan P 0.1% ophthalmic solution 1 drops, Eye-Both, q8hr, # 10 mL, 0 Refill(s) Start Date: 11/11/13 Status: Orderedatenolol-chlorthalidone 50 mg-25 mg oral tablet See Instructions, TAKE ONE-HALF (1/2) TABLET DAILY Pt needs appointment for more refills, # 15 tabs, 0 Refill(s), Pharmacy: [facility] Start Date: 12/09/15 Status: OrderedBepreve 1.5% ophthalmic solution 1 drops, Eye-Both, BID, # 10 mL, 0 Refill(s) Start Date: 11/11/13 Status: Orderedciprofloxacin 250 mg oral tablet See Instructions, TAKE ONE TABLET BY MOUTH EVERY 12 HOURS, # 180 Each, 1 Refill( s), Pharmacy: [facility] #[id number], TAKE ONE TABLET BY MOUTH EVERY 12 HOURS Start Date: 07/06/15 Status: OrderedDiflucan 150 mg oral tablet See Instructions, TAKE ONE TABLET BY MOUTH EVERY WEEK, # 30 tabs, eRx: [facility] #[id number], TAKE ONE TABLET BY MOUTH EVERY WEEK Start Date: 01/06/15 Status: Orderedfolic acid 1 mg oral tablet 1 mg 1 tabs, Oral, Daily, # 30 tabs, 11 Refill(s), Pharmacy: [facility] # [id number], 1 tabs Oral Daily Start Date: 07/31/15 Status: Orderedglimepiride 1 mg oral tablet mg tabs, Oral, Daily, 2 tabs in am, 1 tab in pm., 0 Refill(s) Start Date: 01/06/16 Status: OrderedJanuvia 100 mg oral tablet 100 mg 1 tabs, Oral, Daily, Must have appt. for next refill., # 30 tabs, 0 Refill(s), Pharmacy: [facility] Start Date: 12/07/15 Status: OrderedmetFORMIN 500 mg oral tablet 500 mg 1 tabs, Oral, Daily, with meals, # 30 tabs, 0 Refill(s) Start Date: 01/06/16 Status: Orderedmethotrexate 2.5 mg oral tablet 7.5 mg 3 tabs, Oral, qWeek, 3 tabs one day a week, # 15 tabs, 1 Refill(s), Pharmacy: [facility] #[id number], 3 tabs Oral qWeek,Instr:3 tabs one day a week Start Date: 07/31/15 Status: OrderedMiscellaneous DME DME Item Accu Check Kim Test Strips - Test QID every other day - DX:250.02, See Instructions, # 100 Each, 1 Refill(s), Pharmacy: [facility] #[id number], Accu Check Kim Test Strips - Test QID every other day - DX:250.02, Supply Start Date: 04/30/14 Status: Orderedmultivitamin Daily, 0 Refill(s) Start Date: 11/11/13 Status: OrderedNorco 7.5 mg-325 mg oral tablet 1 tabs, Oral, TID, as needed for pain, rx must last 30 days, # 60 tabs, 0 Refill (s) Start Date: 12/31/15 Status: Orderedpioglitazone 30 mg oral tablet 1 tabs, Oral, Daily, 0 Refill(s) Start Date: 06/04/14 Status: OrderedpredniSONE 5 mg oral tablet See Instructions, TAKE 1 TABLET DAILY, # 90 tabs, eRx: [facility], TAKE 1 TABLET DAILY Start Date: 06/16/15 Status: OrderedPrevacid 30 mg oral delayed release capsule 30 mg 1 caps, Oral, Daily, # 30 caps, 0 Refill(s), Pharmacy: [facility] # [id number], 1 caps Oral Daily,x30 days Start Date: 12/31/15 Stop Date: 01/30/16 Status: OrderedSuper Calcium 600 + D3 400 [...] Author: Rodolfo Niño MD Date: Family Medicine Arthritis, Nonspecific Arthritis is inflammation of a joint. This usually means pain, redness, warmth or swelling are present. One or more joints may be involved. There are a number of types of arthritis. Your caregiver may n ot be able to tell what type of arthritis you have right away. CAUSES The most common cause of arthritis is the wear and tear on the joint ( osteoarthritis). This causes damage to the cartilage, which can break down over time. The knees, hips, back and neck are most often affected by this type of arthritis. Other types of arthritis and common causes of joint pain include: Sprains and other injuries near the joint. Sometimes minor sprains and injuries cause pain and swelling that develop hours later. Rheumatoid arthritis. This affects hands, feet and knees. It usually affects both sides of your body at the same time. It is often associated with chronic ailments, fever, weight loss and general weakness. Crystal arthritis. Gout and pseudo gout can cause occasional acute severe pain, redness and swelling in the foot, ankle, or knee. Infectious arthritis. Bacteria can get into a joint through a break in overlying skin. This can cause infection of the joint. Bacteria and viruses can also spread through the blood and affect your joints. Drug, infectious and allergy reactions. Sometimes joints can become mildly painful and slightly swollen with these types of illnesses. SYMPTOMS Pain is the main symptom. Your joint or joints can also be red, swollen and warm or hot to the touch. You may have a fever with certain types of arthritis, or even feel overall ill. The joint with arthritis will hurt with movement. Stiffness is present with some types of arthritis. DIAGNOSIS Your caregiver will suspect arthritis based on your description of your symptoms and on your exam. Testing may be needed to find the type of arthritis: Blood and sometimes urine tests. X-ray tests and sometimes CT or MRI scans. Removal of fluid from the joint (arthrocentesis) is done to check for bacteria, crystals or other causes. Your caregiver (or a specialist) will numb the area over the joint with a local anestheti c, and use a needle to remove joint fluid for examination. This procedure is only minimally uncomfortable. Even with these tests, your caregiver may not be able to tell what kind of arthritis you have. Consultation with a specialist (phone circuit operator) may be helpful. TREATMENT Your caregiver will discuss with you treatment specific to your type of arthritis. If the specific type cannot be determined, then the following general recommendations may apply. Treatment of severe joint pain includes: Rest. Elevation. Anti-inflammatory medication (for example, ibuprofen) may be prescribed. Avoiding activities that cause increased pain. Only take uihs-vqq-kgwglvg or prescription medicines for pain and discomfort as recommended by your caregiver. Cold packs over an inflamed joint may be used for 10 to 15 minutes every hour. Hot packs sometimes feel better, but do not use overnight. Do not use hot packs if you are diabetic without your caregiver's permission. A cortisone shot into arthritic joints may help reduce pain and swelling. Any acute arthritis that gets worse over the next 1 to 2 days needs to be looked at to be sure there is no joint infection. Long-term arthritis treatment involves modifying activities and lifestyle to reduce joint stress jarring. This can include weight loss. Also, exercise is needed to nourish the joint cartilage and remove waste. This helps keep the muscles around the joint strong. HOME CARE INSTRUCTIONS Do not take aspirin to relieve pain if gout is suspected. This elevates uric acid levels. Only take vado-vps-mfjhzyf or prescription medicines for pain, discomfort or fever as directed by your caregiver. Rest the joint as much as possible. If your joint is swollen, keep it elevated. Use crutches if the painful joint is in your leg. Drinking plenty of fluids may help for certain types of arthritis. Follow your caregiver's dietary instructions. Try low-impact exercise such as: Swimming. Water aerobics. Biking. Walking. Morning stiffness is often relieved by a warm shower. Put your joints through regular zocvt-xa-dfcoiq. SEEK MEDICAL CARE IF: You do not feel better in 24 hours or are getting worse. You have side effects to medications, or are not getting better with treatment. SEEK IMMEDIATE MEDICAL CARE IF: You have a fever. You develop severe joint pain, swelling or redness. Many joints are involved and become painful and swollen. There is severe back pain and/or leg weakness. You have loss of bowel or bladder control. This information is not intended to replace advice given to you by your health care provider. Make sure you discuss any questions you have with your health care provider. Document Released: 07/06/2005 Document Revised: 06/19/2015 Document Reviewed: 07/22/2009 ExitCare Patient Information 2016 [employer]. No follow up information was provided. Extracted from: Title: Office Visit Note Author: Rodolfo Niño MD Date: 01/06/16 Assessment/Plan Adult-onset obesity Diet and exercise as tolerated and feasible. Consider medication when interested. Benign essential hypertension This issue was reviewed, appears stable, and current therapy continued except as mentioned. Appropriate lab was reviewed from the most recent appropriate entry and lab was ordered if needed in the cpoe/nursing orders, and follow up recommended generally in 90 days and no later then six months. The patient reports their blood pressure has been stable at home and is not having any significant or related problems. There has been no chest pain, chest pressure, soa/byers. Refill meds. Cervical radiculopathy We discussed several options for treatment for this condition. The patient declined any changes or other treatments at this time. Discussed LTC and she is not interested. Chronic kidney disease (CKD) This issue was reviewed, appears stable, and current therapy continued except as mentioned. Appropriate lab was reviewed from the most recent appropriate entry and lab w as ordered if needed in the cpoe/nursing orders, and follow up recommended generally in 90 days and no later then six months. No nsaids. Chronic pain of left knee Seeing Dr. Guzman. 45minutes were utilized in care and coordination for this patient. Greater then 50% of the time was used for counseling and/or coordination of the patients care. Controlled diabetes mellitus This issue was reviewed, appears stable, and current therapy continued except as mentioned. Appropriate lab was reviewed from the most recent appropriate entry and lab w as ordered if needed in the cpoe/nursing orders, and follow up recommended generally in 90 days and no later then six months. The patient was notified for the need for regular quarterly f/u of their diabetes. Further any pertinent medication, supplies, etc were refilled. Additionally, they are to have annual eye exams, foot exams, and regular care. Seeing Dr. Dick. Seeing Dr. Guzman about left knee pain. GERD without esophagitis This issue was reviewed, appears stable, and current therapy continued except as mentioned. Appropriate lab was reviewed from the most recent appropriate entry and lab was o rdered if needed in the cpoe/nursing orders, and follow up recommended generally in 90 days and no later then six months. Systemic lupus erythematosus This issue was reviewed, appears stable, and current therapy continued except as mentioned. Appropriate lab was reviewed from the most recent appropriate entry and lab w as ordered if needed in the cpoe/nursing orders, and follow up recommended generally in 90 days and no later then six months. [address] Jailyn Dennis. Needs to reschedule. Addendum by Rodolfo Niño MD on December She is having mild epigastric pain. She 2015 15:28:47 CDT plans to take prevacid 30mg po bid for now. I recommended a work up and that was declined for now.
--- OUTSIDE RECORDS SUMMARY | 2017-02-13 12:30 | External Medical Summary | Referral Summary ---
:1940 Author Organization Via JOSE JUAN Gonzalez [facility] Address [address] [place] [address] [place] [address] Care Team Providers Name Role Phone Rodolfo Niño Primary Care Physician Encounter [facility] [id number] Date(s): 07/07/16 - 07/07/16 [facility]SE [facility]UAN [facility] [place] [place] [address] Discharge Diagnosis: Benign essential hypertension Discharge Diagnosis: Cervical radiculopathy Discharge Diagnosis: Controlled diabetes mellitus Discharge Diagnosis: Chronic kidney disease (CKD) Discharge Diagnosis: Chronic low back pain Discharge Diagnosis: Systemic lupus erythematosus Discharge Diagnosis: Chronic pain of left knee Discharge Disposition: 01-Home or Self Care Attending Physician: Rodolfo Niño MD Admitting Physician: Rodolfo Niño MD Vital Signs Most recent to oldest [Reference Range]: 1 Blood Pressure [90-140/60-90 mmHg] 140/80 mmHg (07/07/16 1:19 PM) Problem List Condition Effective Dates Status Health Status Informant Adult-onset obesity(Confirmed) Active Arhtritis - osteo(Confirmed) Resolved Chronic pain of left knee(Confirmed) Active Benign essential Active hypertension(Confirmed) bladder problem(Confirmed) Resolved cataracts(Confirmed) Resolved Cervical radiculopathy(Confirmed) Active chicken pox(Confirmed) Resolved Chronic kidney disease Active (CKD)(Confirmed) Chronic low back pain(Confirmed) Active Chronic vaginitis(Confirmed) Active diabetes(Confirmed) Resolved Controlled diabetes [...] EVERY OTHER DAY, # 100 strip, eRx: [facility] #[id number],TEST FOUR TIMES A DAY EVERY OTHER DAY Start Date: 11/23/15 Status: OrderedACCU-CHEK KIM PLUS TEST STRP See Instructions, TEST FOUR TIMES A DAY EVERY OTHER DAY, # 100 strip, eRx: [facility] #[id number],TEST FOUR TIMES A DAY EVERY OTHER DAY Start Date: 11/23/15 Status: OrderedAlphagan P 0.1% ophthalmic solution 1 drops, Eye-Both, q8hr, # 10 mL, 0 Refill(s) Start Date: 11/11/13 Status: Orderedatenolol-chlorthalidone 50 mg-25 mg oral tablet See Instructions, TAKE ONE-HALF TABLET BY MOUTH DAILY, # 15 tabs, 2 Refill(s), eRx: [facility]#[id number], TAKE ONE-HALF TABLET BY MOUTH DAILY Start Date: 05/10/16 Status: OrderedBepreve 1.5% ophthalmic solution 1 drops, Eye-Both, BID, # 10 mL, 0 Refill(s) Start Date: 11/11/13 Status: Orderedciprofloxacin 250 mg oral tablet See Instructions, TAKE ONE TABLET BY MOUTH EVERY 12 HOURS, # 180 tabs, eRx: [facility] #[id number], TAKE ONE TABLET BY MOUTH EVERY 12 HOURS Start Date: 03/29/16 Status: Orderedfluconazole 150 mg oral tablet See Instructions, TAKE ONE TABLET BY MOUTH EVERY WEEK, # 30 tabs, eRx: [facility] #[id number], TAKE ONE TABLET BY MOUTH EVERY WEEK Start Date: 01/18/16 Status: Orderedglimepiride 1 mg oral tablet mg tabs, Oral, Daily, 2 tabs in am, 1 tab in pm., 0 Refill(s) Start Date: 01/06/16 Status: OrderedJanuvia 100 mg oral tablet 100 mg 1 tabs, Oral, Daily, Must have appt. for next refill., # 30 tabs, 0 Refill(s), Pharmacy: [facility] Start Date: 12/07/15 Status: Orderedlansoprazole 30 mg oral delayed release capsule See Instructions, TAKE ONE CAPSULE BY MOUTH TWICE A DAY, # 60 caps, 2 Refill(s) , eRx: [facility] #[id number], TAKE ONE CAPSULE BY MOUTH TWICE A DAY Start Date: 05/10/16 Status: OrderedmetFORMIN 500 mg oral tablet 500 mg 1 tabs, Oral, TID, Pt takes one tab with each meal a day, # 90 tabs, 1 Refill(s), Pharmacy: [facility] #[id number], 1 tabs Oral TID,Instr:Pt takes one tab with each meal a day Start Date: 01/12/16 Status: OrderedMiscellaneous DME DME Item Accu Check Kim Test Strips - Test QID every other day - DX:250.02, See Instructions, # 100 Each, 1 Refill(s), Pharmacy: [facility] #[id number], Accu Check Kim Test Strips - Test QID every other day - DX:250.02, Supply Start Date: 04/30/14 Status: Orderedmultivitamin Daily, 0 Refill(s) Start Date: 11/11/13 Status: OrderedNorco 7.5 mg-325 mg oral tablet 1 tabs, Oral, TID, as needed for pain, rx must last 30 days, # 60 tabs, 0 Refill (s) Start Date: 07/07/16 Status: Orderedpioglitazone 30 mg oral tablet 1 tabs, Oral, Daily, 0 Refill(s) Start Date: 06/04/14 Status: OrderedpredniSONE 5 mg oral tablet 5 mg 1 tabs, Oral, Daily, # 30 tabs, 0 Refill(s), Pharmacy: [facility] # [id number], 1 tabs Oral Daily Start Date: 06/14/16 Status: OrderedSuper Calcium 600 + D3 400 oral tablet 1 tabs, Oral, Daily, 0 Refill(s) Start Date: 11/11/13 Status: Ordered Results No data available for this section Immunizations Given and Recorded Vaccine Date Status Refusal Reason zoster vaccine live 04/04/14 Given Procedures Procedure Date Related Diagnosis Body Site [...] arthritis you have. Consultation with a specialist (pipeline maintenance supervisor) may be helpful. TREATMENT Your caregiver will discuss with you treatment specific to your type of arthritis. If the specific type cannot be determined, then the following general recommendations may apply. Treatment of severe joint pain includes: Rest. Elevation. Anti-inflammatory medication (for example, ibuprofen) may be prescribed. Avoiding activities that cause increased pain. Only take duii-mof-rcckelx or prescription medicines for pain and discomfort [...] This elevates uric acid levels. Only take miex-ljh-tnqmlio or prescription medicines for pain, discomfort or [...] warm shower. Put your joints through regular tefxi-mh-ggjwrc. SEEK MEDICAL CARE IF: You do not [...] Released: 07/06/2005 Document Revised: 06/19/2015 Document Reviewed: 08/24/2015 [employer] Interactive Patient Education 2016 [employer] Preventive Medicine Back Exercises Back exercises help treat [...] floor. Take at least 2 to 3 second s for each sit-up. Do not do sit-ups with your knees out straight. If partial sit-ups are difficult, simply do the above but [...] with developing a proper back exercise program. This information is not intended to replace advice given to you by your health care provider. Make sure you discuss any questions you have with your health care provider. Document Released: 07/06/2005 Document Revised: 08/20/2012 Document Reviewed: 07/23/2015 [employer] Interactive Patient Education 2016 [employer] No follow up information was provided. Extracted from: Title: Office Visit Note Author: Rodolfo Niño MD Date: 07/07/16 Assessment/Plan Benign essential hypertension This issue was reviewed, appears stable, and current therapy continued except as mentioned. Appropriate lab was reviewed from the most recent appropriate entry and lab was ordered if needed in the c tatiana/nursing orders, and follow up recommended generally in 90 days and no later then six months. The patient reports their blood pressure has been stable at home and is not having any significant or related problems. There has been no chest pain, chest pressure, soa/byers. The patient had an elevated blood pressure reading and is to monitor their bp and call with a report if consistently > 140/90. Cervical radiculopathy This issue was reviewed, appears stable, and current therapy continued except as mentioned. Appropriate lab was reviewed from the most recent appropriate entry and lab was ordered if needed in the c tatiana/nursing orders, and follow up recommended generally in 90 days and no later then six months. Chronic kidney disease (CKD) This issue was reviewed, appears stable, and current therapy continued except as mentioned. Appropriate lab was reviewed from the most recent appropriate entry and lab was ordered if needed in the c tatiana/nursing orders, and follow up recommended generally in 90 days and no later then six months. Limit nsaids. Chronic low back pain This issue was reviewed, appears stable, and current therapy continued except as mentioned. Appropriate lab was reviewed from the most recent appropriate entry and lab was ordered if needed in the c tatiana/nursing orders, and follow up recommended generally in 90 days and no later then six months. IMPRESSION: Degenerative change and scoliosis as described with chronic left lateral compression of L4 vertebra. [1] [place] refilled. Chronic pain of left knee This issue was reviewed, appears stable, and current therapy continued except as mentioned. Appropriate lab was reviewed from the most recent appropriate entry and lab was ordered if needed in the c tatiana/nursing orders, and follow up recommended generally in 90 days and no later then six months. Controlled diabetes mellitus This issue was reviewed, appears stable, and current therapy continued except as mentioned. Appropriate lab was reviewed from the most recent appropriate entry and lab was ordered if needed in the c tatiana/nursing orders, and follow up recommended generally in 90 days and no later then six months. The patient was notified for the need for regular quarterly f/u of their diabetes. Further any pertinent medication, supplies, etc were refilled. Additionally, they are to have annual eye exams, foot exams, and regular care. Lab pending. Seeing Dr. Dick. The patient's outside physician records were reviewed. Any pertinent outside records, lab, and xrays were also reviewed if available. Notes from 04/21/16 reviewed. Systemic lupus erythematosus This issue was reviewed, appears stable, and current therapy continued except as mentioned. Appropriate lab was reviewed from the most recent appropriate entry and lab was ordered if needed in the c tatiana/nursing orders, and follow up recommended generally in 90 days and no later then six months. Seeing Rheumatology. Assessment/Plan 1.Systemic lupus erythematosus she has continuedjoint discomfort. She has not been able to start methotrexate. She will update us once she has seen the surgeon. She will continue the low-dose prednisone. She does not want to resume the hydroxychloroquine currently. Ordered: C-Reactive Protein (CRP) CBC w/ Differential Comprehensive Metabolic Panel 2.Osteoporosis She has notwanted to beon medications. Continue weightbearing exercise as tolerated Ordered: C-Reactive Protein (CRP) CBC w/ Differential Comprehensive Metabolic Panel 3.Left shoulder pain I injected shoulder today and hopefully this will help. [2] Has some type of jaw infection and seeing Dr. Wong in [place] and Osteoporosis meds are on hold per Dr. Dennis.
--- OUTSIDE RECORDS SUMMARY | 2017-02-13 12:30 | External Medical Summary | Referral Summary ---
:1940 Author Organization [facility] JUAN [facility], [facility] Address [address] [place] [address] [place] [address] Care Team Providers Name Role Phone Rodolfo Niño Primary Care Physician Encounter [facility] [id number] Date(s): 12/25/14 - 12/25/14 [facility] JOSE JUAN Gonzalez [place] [address] [place] [address] [place] Discharge Diagnosis: [...] 12 HOURS, # 60 tabs, eRx: [facility] #[id number],TAKE ONE TABLET BY MOUTH EVERY 12 HOURS Start Date: 04/02/15 Status: OrderedDiflucan 150 mg oral tablet See Instructions, TAKE ONE TABLET BY MOUTH EVERY WEEK, # 30 tabs, eRx: [facility] #[id number], TAKE ONE TABLET BY MOUTH EVERY WEEK Start Date: 01/06/15 Status: Orderedgabapentin 100 mg oral capsule See Instructions, 1 cap at bedtime for 3 days, then 1 cap bid for 3 days then 1 cap tid, # 90 caps, 1 Refill(s), Pharmacy: [facility] #[id number], 1 cap at bedtime for 3 days, [...] Daily, # 90 tabs, 1 Refill(s), Pharmacy: [email or web address], 1 tabs Oral Daily,x90 days Start Date: 03/05/15 Stop Date: 09/01/15 Status: OrderedMiscellaneous DME DME Item Accu Check Kim Test Strips - Test QID every other day - DX:250.02, See Instructions, # 100 Each, 1 Refill(s), Pharmacy: [facility] #[id number], Accu Check Kim Test Strips - Test [...] # 180 tabs, 1 Refill(s), Pharmacy: [facility] #[id number],TAKE 2 TABLETS DAILY Start Date: 01/15/15 Status: OrderedpredniSONE 5 mg oral tablet See Instructions, TAKE 1 TABLET DAILY, # 90 tabs, eRx: [facility], TAKE 1 TABLET DAILY Start Date: 03/16/15 Status: OrderedPrevacid 30 mg oral delayed release capsule 30 mg 1 caps, Oral, Daily, # 90 caps, 3 Refill(s), Pharmacy: [email or web address], 1 caps Oral Daily,x90 days [...] [0.80-3.30 10*3] 2.40 10*3 (12/25/14 1:30 PM) [place] [facility] [0.30-1.00 10*3] 1.04 10*3 *HI* (12/25/14 [...] Document Reviewed: 03/29/2012 ExitCare Patient Information 2014 [employer]. No follow up information was provided. 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 Xray pending. [place] refilled. Ordered: XR Spine Lumbosacral 2 or [...] Daily, # 90 caps, 3 Refill(s), Pharmacy: [email or web address], 1 caps Oral Daily,x90 days
--- OUTSIDE RECORDS SUMMARY | 2017-02-13 12:31 | External Medical Summary | Referral Summary ---
:1939 Author Organization Via JOSE JUAN Gonzalez [facility] Address [address] [place] [address] Care Team Providers Name Role Phone Rodolfo Niño Primary Care Physician Encounter [facility] [id number] Date(s): 03/12/15 - 03/12/15 [facility] JUAN [facility] [address] [place] [address] [place] Discharge Diagnosis: Osteoporosis Discharge [...] # 180 Each, 1 Refill( s), Pharmacy: [facility] #[id number], TAKE ONE TABLET BY MOUTH EVERY 12 HOURS Start Date: 07/06/15 Status: OrderedDiflucan 150 mg oral tablet See Instructions, TAKE ONE TABLET BY MOUTH EVERY WEEK, # 30 tabs, eRx: [facility] #[id number], TAKE ONE TABLET BY MOUTH EVERY WEEK Start Date: 01/06/15 Status: Orderedfolic acid 1 mg oral tablet 1 mg 1 tabs, Oral, Daily, # 30 tabs, 11 Refill(s), Pharmacy: [facility] # [id number], 1 tabs Oral Daily Start Date: 07/31/15 [...] office please., # 60 tabs, 0Refill(s), Pharmacy: [facility], 1 tabs Oral BID,x30 days,Instr:Dr. Niño would like to see Fartun in the office please. Start Date: 05/19/15 Stop Date: 06/18/15 Status: Orderedmethotrexate 2.5 mg oral tablet 7.5 mg 3 tabs, Oral, qWeek, 3 tabs one day a week, # 15 tabs, 1 Refill(s), Pharmacy: [facility] #[id number], 3 tabs Oral qWeek,Instr:3 tabs one day a week Start Date: 07/31/15 Status: OrderedMiscellaneous DME DME Item Accu Check Kim Test Strips - Test QID every other day - DX:250.02, See Instructions, # 100 Each, 1 Refill(s), Pharmacy: [facility] #[id number], Accu Check Kim Test Strips - Test [...] Daily, # 90 caps, 3 Refill(s), Pharmacy: [facility], 1 caps Oral Daily,x90 days [...]
--- OUTSIDE RECORDS SUMMARY | 2017-02-13 12:31 | External Medical Summary | Referral Summary ---
:1939 Author Organization Via JOSE JUAN Gonzalez, [facility]rav [facility] Address [address] [place] [address] [place] [address] Care Team Providers Name Role Phone Rodolfo Niño Primary Care Physician Encounter [facility] [id number] Date(s): 12/25/14 - 12/25/14 [facility]SE JUAN [facility] [place] [address] [place] [address] [place] Discharge Diagnosis: [...] eRx: [facility] #[id number],TAKE ONE TABLET BY MOUTH EVERY 12 HOURS Start Date: 04/02/15 Status: OrderedDiflucan 150 mg oral tablet See Instructions, TAKE ONE TABLET BY MOUTH EVERY WEEK, # 30 tabs, eRx: [facility] #[id number], TAKE ONE TABLET BY MOUTH EVERY WEEK Start Date: 01/06/15 Status: Orderedgabapentin 100 mg oral capsule See Instructions, 1 cap at bedtime for 3 days, then 1 cap bid for 3 days then 1 cap tid, # 90 caps, 1 Refill(s), Pharmacy: [facility] #[id number], 1 cap at bedtime for 3 days, [...] # 90 tabs, 1 Refill(s), [facility]: [facility], 1 tabs Oral Daily,x90 days Start Date: 03/05/15 Stop Date: 09/01/15 Status: OrderedMiscellaneous DME DME Item Accu Check Kim Test Strips - Test QID every other day - DX:250.02, See Instructions, # 100 Each, 1 Refill(s), Pharmacy: [facility] #[id number], Accu Check Kim Test Strips - Test [...] Pharmacy: [facility] #[id number],TAKE 2 TABLETS DAILY Start Date: 01/15/15 Status: OrderedpredniSONE 5 mg oral tablet See Instructions, TAKE 1 TABLET DAILY, # 90 tabs, eRx: [facility], TAKE 1 TABLET DAILY Start Date: 03/16/15 Status: OrderedPrevacid 30 mg oral delayed release capsule 30 mg 1 caps, Oral, Daily, # 90 caps, 3 Refill(s), Pharmacy: [facility], 1 caps Oral Daily,x90 days [...] [0.80-3.30 10*3] 2.40 10*3 (12/25/14 1:30 PM) [place] [facility] [0.30-1.00 10*3] 1.04 10*3 *HI* (12/25/14 [...] Document Reviewed: 03/29/2012 ExitCare Patient Information 2014 [employer]. No follow up information was provided. 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 Xray pending. [place] refilled. Ordered: XR Spine Lumbosacral 2 or [...] Daily, # 90 caps, 3 Refill(s), Pharmacy: [facility], 1 caps Oral Daily,x90 days
--- OUTSIDE RECORDS SUMMARY | 2017-02-13 12:31 | External Medical Summary | Referral Summary ---
:1939 Author Organization [facility], [facility] Address [address] [place] [address] [place] [address] Care Team Providers Name Role Phone Rodolfo Niño Primary Care Physician Encounter [facility] [id number] Date(s): 12/25/14 - 12/25/14 [facility] JUAN [facility] [place] [address] [place] [address] [place] Discharge Diagnosis: [...] EVERY 12 HOURS, # 60 tabs, eRx: [facility] #[id number],TAKE ONE TABLET BY MOUTH EVERY 12 HOURS Start Date: 04/02/15 Status: OrderedDiflucan 150 mg oral tablet See Instructions, TAKE ONE TABLET BY MOUTH EVERY WEEK, # 30 tabs, eRx: [facility] #[id number], TAKE ONE TABLET BY MOUTH EVERY WEEK Start Date: 01/06/15 Status: Orderedgabapentin 100 mg oral capsule See Instructions, 1 cap at bedtime for 3 days, then 1 cap bid for 3 days then 1 cap tid, # 90 caps, 1 Refill(s), Pharmacy: [facility] #[id number], 1 cap at bedtime for 3 days, [...] Daily, # 90 tabs, 1 Refill(s), Pharmacy: [facility], 1 tabs Oral Daily,x90 days Start Date: 03/05/15 Stop Date: 09/01/15 Status: OrderedMiscellaneous DME DME Item Accu Check Kim Test Strips - Test QID every other day - DX:250.02, See Instructions, # 100 Each, 1 Refill(s), Pharmacy: [facility] #[id number], Accu Check Kim Test Strips - Test [...] DAILY, # 180 tabs, 1 Refill(s), Pharmacy: [facility] #[id number],TAKE 2 TABLETS DAILY Start Date: 01/15/15 Status: OrderedpredniSONE 5 mg oral tablet See Instructions, TAKE 1 TABLET DAILY, # 90 tabs, eRx: [facility], TAKE 1 TABLET DAILY Start Date: 03/16/15 Status: OrderedPrevacid 30 mg oral delayed release capsule 30 mg 1 caps, Oral, Daily, # 90 caps, 3 Refill(s), Pharmacy: [facility], 1 caps Oral Daily,x90 days [...] [0.80-3.30 10*3] 2.40 10*3 (12/25/14 1:30 PM) [place] [facility] [0.30-1.00 10*3] 1.04 10*3 *HI* (12/25/14 [...] Document Reviewed: 03/29/2012 ExitCare Patient Information 2014 [employer]. No follow up information was provided. 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 Xray pending. [place] refilled. Ordered: XR Spine Lumbosacral 2 or [...] Daily, # 90 caps, 3 Refill(s), Pharmacy: [facility], 1 caps Oral Daily,x90 days
--- OUTSIDE RECORDS SUMMARY | 2017-02-13 12:31 | External Medical Summary | Referral Summary ---
:1940 Author Organization [facility] Rhe[facility] [address] [place] [address] Care Team Providers Name Role Phone Rodolfo Niño Primary Care Physician Encounter [facility] [id number] Date(s): 07/30/15 - 07/30/15 [facility] Rhe[facility] [address] [place] [address] [place] [phone] [phone] Discharge Diagnosis: Osteoporosis Discharge Diagnosis: High risk medication use Discharge Diagnosis: Systemic lupus erythematosus Discharge Diagnosis: Fatigue Discharge Disposition: 01-Home or Self Care Attending Physician: Leta Dennis MD Admitting Physician: Leta Dennis MD Referring Physician: Rodolfo Niño MD Vital Signs Most recent to oldest [Reference Range]: 1 Peripheral Pulse Rate [60-100 bpm] 84 bpm (07/30/15 1:01 PM) Blood Pressure [90-140/60-90 mmHg] 108/62 mmHg (07/30/15 1:01 PM) Problem List Condition Effective Dates Status [...] TABLET DAILY, # 45 tabs, eRx: [facility], TAKE ONE-HALF (1/2) TABLET DAILY Start Date: 06/17/15 Status: OrderedBepreve 1.5% ophthalmic solution 1 drops, Eye-Both, BID, # 10 mL, 0 Refill(s) Start Date: 11/11/13 Status: Orderedciprofloxacin 250 mg oral tablet See Instructions, TAKE ONE TABLET BY MOUTH EVERY 12 HOURS, # 180 Each, 1 Refill( s), Pharmacy: [facility] #[id number], TAKE ONE TABLET BY MOUTH EVERY 12 HOURS Start Date: 07/06/15 Status: OrderedDiflucan 150 mg oral tablet See Instructions, TAKE ONE TABLET BY MOUTH EVERY WEEK, # 30 tabs, eRx: [facility] #[id number], TAKE ONE TABLET BY MOUTH EVERY WEEK Start Date: 01/06/15 Status: Orderedglimepiride 1 mg oral tablet 1 mg 1 tabs, Oral, BID, # 90 tabs, 0 Refill(s) Start Date: 12/20/13 Status: OrderedJanuvia 100 mg oral tablet See Instructions, TAKE 1 TABLET DAILY/PT. NEEDS AN APPT. AND LABS., # 90 tabs, 0 Refill(s), Pharmacy: [facility] Start Date: 06/13/15 Status: OrderedmetFORMIN 500 mg oral tablet 500 mg 1 tabs, Oral, BID, Dr. Niño would like to see Fartun in the office please., # 60 tabs, 0Refill(s), Pharmacy: [facility], 1 tabs Oral BID,x30 days,Instr:Dr. Niño would like to see Fartun in the office please. Start Date: 05/19/15 Stop Date: 06/18/15 Status: OrderedMiscellaneous DME DME Item Accu Check Kim Test Strips - Test QID every other day - DX:250.02, See Instructions, # 100 Each, 1 Refill(s), Pharmacy: [facility] #[id number], Accu Check Kim Test Strips - Test QID every other day - DX:250.02, Supply Start Date: 04/30/14 Status: Orderedmultivitamin Daily, 0 Refill(s) Start Date: 11/11/13 Status: OrderedNorco 7.5 mg-325 mg oral tablet 1 tabs, Oral, TID, as needed for pain, rx must last 30 days, # 60 tabs, 0 Refill (s) Start Date: 07/30/15 Status: Orderedpioglitazone 30 mg oral tablet 1 tabs, Oral, Daily, 0 Refill(s) Start Date: 06/04/14 Status: OrderedPlaquenil 200 mg oral tablet See Instructions, TAKE 2 TABLETS DAILY, # 180 tabs, 0 Refill(s), Pharmacy: [facility], TAKE 2 TABLETS DAILY Start Date: 06/02/15 Status: OrderedpredniSONE 5 mg oral tablet See Instructions, TAKE 1 TABLET DAILY, # 90 tabs, eRx: [facility], TAKE 1 TABLET DAILY Start Date: 06/16/15 Status: OrderedPrevacid 30 mg oral delayed release capsule 30 mg 1 caps, Oral, Daily, # 90 caps, 3 Refill(s), Pharmacy: [facility], 1 caps Oral Daily,x90 days Start Date: 12/25/14 Stop Date: 12/20/15 Status: OrderedSuper Calcium 600 + D3 400 oral tablet 1 tabs, Oral, Daily, 0 Refill(s) Start Date: 11/11/13 Status: Ordered Results Hematology Most recent to oldest [Reference Range]: 1 WBC [4.8-10.8 10*3/uL] 11.2 10*3/uL *HI* (07/30/15 1:34 PM) RBC [4.00-5.20] 4.82 (07/30/15 1:34 PM) Hgb [12.0-16.0 gm/dL] 14.3 gm/dL (07/30/15 1:34 PM) Hct [37.0-47.0 %] 42.3 % (07/30/15 1:34 PM) MCV [82.0-99.0 fL] 87.8 fL (07/30/15 1:34 PM) MCH [27.0-32.0 pg] 29.7 pg (07/30/15 1:34 PM) MCHC [32.0-36.0 gm/dL] 33.8 gm/dL (07/30/15 1:34 PM) RDW [11.5-14.5 %] 13.0 % (07/30/15 1:34 PM) Platelet [150-400 10*3/uL] 378 10*3/uL (07/30/15 1:34 PM) MPV [8.8-14.8 fL] 9.7 fL (07/30/15 1:34 PM) Immature Granulocytes [0.0-1.0 %] 0.7 % (07/30/15 1:34 PM) Neutrophils [51-75 %] 65 % (07/30/15 1:34 PM) Lymphocytes [20-46 %] 26 % (07/30/15 1:34 PM) Monocytes [4-11 %] 8 % (07/30/15 1:34 PM) Eosinophils [0-4 %] 1 % (07/30/15 1:34 PM) Basophils [0-2 %] 0 % (07/30/15 1:34 PM) Neutro Absolute [1.90-7.00 10*3] 7.27 10*3 *HI* (07/30/15 1:34 PM) Lymph Absolute [0.80-3.30 10*3] 2.87 10*3 (07/30/15 1:34 PM) Amador Absolute [0.30-1.00 10*3] 0.89 10*3 (07/30/15 1:34 PM) Eos Absolute [0.00-0.50 10*3] 0.11 10*3 (07/30/15 1:34 PM) Baso Absolute [0.00-0.20 10*3] 0.03 10*3 (07/30/15 1:34 PM) Chemistry Most recent to oldest [Reference Range]: 1 Sodium Lvl [135-144 mEq/L] 134 mEq/L *LOW* (07/30/15 1:34 PM) Potassium Lvl [3.5-5.2 mEq/L] 4.6 mEq/L (07/30/15 1:34 PM) Chloride [99-111 mEq/L] 98 mEq/L *LOW* (07/30/15 1:34 PM) CO2 [22-31 mEq/L] 23 mEq/L (07/30/15 1:34 PM) AGAP [3-20] 13 (07/30/15 1:34 PM) BUN [10-20 mg/dL] 21 mg/dL *HI* (07/30/15 1:34 PM) Glucose Lvl [70-99 mg/dL] 254 mg/dL *HI* (07/30/15 1:34 PM) Creatinine Lvl [0.57-1.11 mg/dL] 1.13 mg/dL *HI* (07/30/15 1:34 PM) eGFR [>60 mL/min] 47 mL/min 1 *ABN* (07/30/15 1:34 PM) Calcium Lvl [8.9-10.5 mg/dL] 9.8 mg/dL (07/30/15 1:34 PM) Albumin Lvl [3.4-4.8 gm/dL] 4.0 gm/dL (07/30/15 1:34 PM) Total Protein [6.2-8.1 gm/dL] 6.7 gm/dL (07/30/15 1:34 PM) Globulin [1.8-4.0 gm/dL] 2.7 gm/dL (07/30/15 1:34 PM) ALT [0-55 U/L] 13 U/L (07/30/15 1:34 PM) AST [5-34 U/L] 13 U/L (07/30/15 1:34 PM) Alk Phos [40-150 U/L] 63 U/L (07/30/15 1:34 PM) Bili Total [0.2-1.2 mg/dL] 0.5 mg/dL (07/30/15 1:34 PM) Hep A IgM Negative (07/30/15 1:34 PM) Hep Bs Ag Negative (07/30/15 1:34 PM) Hep C Ab Negative (07/30/15 1:34 PM) Hep B Core IgM Negative (07/30/15 1:34 PM) 1Result Comment: Multiply eGFR results by 1.21 for race.Urinalysis Most recent to oldest [Reference Range]: 1 UA Color Yellow (07/30/15 1:57 PM) UA Appear Clear (07/30/15 1:57 PM) UA pH [5.0-8.0] 5.5 (07/30/15 1:57 PM) UA Leuk Est [Negative] Trace *ABN* (07/30/15 1:57 PM) UA Nitrite [Negative] Negative (07/30/15 1:57 PM) UA Protein [Negative] Trace *ABN* (07/30/15 1:57 PM) UA Glucose [Negative] Trace *ABN* (07/30/15 1:57 PM) UA Ketones [Negative] Negative (07/30/15 1:57 PM) UA Urobilinogen [<1.0 mg/dL] 0.2 mg/dL (07/30/15 1:57 PM) UA Bili [Negative] Negative (07/30/15 1:57 PM) UA Blood [Negative] Negative (07/30/15 1:57 PM) UA Spec Grav [1.003-1.030] 1.022 (07/30/15 1:57 PM) Type Clean Catch (07/30/15 1:57 PM) UA WBC [0-4] 0-2 (07/30/15 1:57 PM) UA RBC [0-4] 0-4 (07/30/15 1:57 PM) Epithelial Cells 5-10 (07/30/15 1:57 PM) Immunizations Vaccine Date Refusal Reason zoster vaccine live 04/04/14 Procedures Procedure Date Related Diagnosis Body Site Cataract extraction - bilateral H/O tubal ligation Social History Social History Type Response Smoking Status Never smoker Assessment and Plan Extracted from: Title: Office Visit Note Author: Leta Dennis MD Date: 07/30/15 Assessment/Plan 1.Systemic lupus erythematosus We discussed the potential use of methotrexate. Review the potential risks that medication including immunosuppression risk of infection, malignancy, cytopenias, p ulmonary toxicity etc. I will getbaseline lab work todayand once we have available we will plan on starting at low dose of 7.5 mg and folic acid. Ordered: C-Reactive Protein (CRP) CBC w/ Differential Comprehensive Metabolic Panel Urinalysis with Culture if Indicated 2.High risk medication use I will check blood counts and liver tests. She follows up regularly for eye doctor. Ordered: C-Reactive Protein (CRP) CBC w/ Differential Comprehensive Metabolic Panel Urinalysis with Culture if Indicated 3.Osteoporosis She continues to decline medications. Ordered: C-Reactive Protein (CRP) CBC w/ Differential Comprehensive Metabolic Panel Urinalysis with Culture if Indicated 4.Fatigue I will check a hepatitis panel. Follow in 6 weeks. Ordered: C-Reactive Protein (CRP) CBC w/ Differential Comprehensive Metabolic Panel Hepatitis Panel Urinalysis with Culture if Indicated Orders: HYDROcodone-acetaminophen, 1 tabs, Oral, TID, as needed for pain, rx must last 30 days, # 60 tabs, 0 Refill(s)
[2017-02-13] MEDS: INSULIN REGULAR, HUMAN 100 UNIT in NS 100 ML IV PRN (14:36)
[2017-02-13] MEDS ORDERED: POTASSIUM CHLORIDE PREMIX 10 MEQ/100 ML BAG IV SCH (15:00)
[2017-02-13] MEDS: NS 1,000 ML IV SCH ×5 (15:17→18:04)
--- NOTE | 2017-02-13 15:43 | Emergency Department Report ---
Altered Mental Status HPI - General Chief Complaint: Altered Mental Status Stated Complaint: increase blood glucose Time Seen by Provider: 02/13/17 12:15 - History of Present Illness HPI narrative: 76-year-old female found unresponsive on the floor at home. She had been awake and interactive an hour and a half earlier when she sent her caregiver to grocery shop. When the caregiver returned, she found the patient on the floor with vomit in her hair and pills scattered around the floor. At this time the patient was unresponsive. Caregiver then called EMS. When supplier manager responded, initial blood sugar was 500 and patient was not answering questions or responding. She was breathing spontaneously. Patient was brought to the emergency department. Since arrival she has not spoken, however she did awaken enough to nod to some questions before she fell back asleep. She denied pain, was able to perform basic neuro test we see physical exam. The rest of her history is taken from past medical records. - Related Data Home Medications Medication Instructions Recorded Confirmed Prevacid (Lansoprazole) 30 mg 30 mg PO BID cap 12/27/16 02/13/17 capsule,delayed release metformin 500 mg tablet 500 mg PO DAILY 30 Days #30 tab 01/10/17 02/13/17 Alphagan P 1 drop EACH EYE TID 02/13/17 02/13/17 Atenolol/Chlorthalidone 50/25 1 tab PO DAILY 02/13/17 02/13/17 [Tenoretic] Bepotastine Besilate [Bepreve] 1 drop EACH EYE BID 02/13/17 02/13/17 Calcium Citrate/Vitamin D2 1 tab PO DAILY 02/13/17 02/13/17 [Zachary-Citrate Plus Vitamin D Tab] Ciprofloxacin [Cipro] 250 mg PO Q12HR 02/13/17 02/13/17 Glimepiride [Amaryl] 1 mg PO DAILY 02/13/17 02/13/17 Hydrocodone/APAP 7.5/325 [[place] 1 tab PO TID 02/13/17 02/13/17 7.5/325] Linagliptin [Tradjenta] 5 mg PO BID 02/13/17 02/13/17 Linagliptin [Tradjenta] 5 mg PO DAILY 02/13/17 02/13/17 Multivit-Min/FA/Lycopen/Lutein 1 tab PO DAILY 02/13/17 02/13/17 [Centrum Silver Tablet] Sitagliptin [Januvia] 100 mg PO DAILY 02/13/17 02/13/17 Allergies Allergy/AdvReac Type Severity Reaction Status Date / Time acyclovir Allergy Unknown Verified 02/13/17 15:30 benzalkonium chloride Allergy Unknown Verified 02/13/17 15:30 ciprofloxacin Allergy Unknown Verified 02/13/17 15:30 erythromycin base Allergy Unknown Verified 02/13/17 15:30 gatifloxacin Allergy Unknown Verified 02/13/17 15:30 guaifenesin Allergy Unknown Verified 02/13/17 15:30 iodine Allergy Unknown Verified 02/13/17 15:30 Penicillins Allergy Unknown Verified 02/13/17 15:30 Sulfa (Sulfonamide Allergy Unknown Verified 02/13/17 15:30 Antibiotics) travoprost Allergy Unknown Verified 02/13/17 15:30 nitrofurantoin Allergy Verified 02/13/17 15:30 [From Macrodantin] amoxicillin trihydrate Allergy Unknown Uncoded 02/13/17 15:30 ciprofloxacin HCl Allergy Unknown Uncoded 02/13/17 15:30 Nitrofurantoin Macrocrystal Allergy Unknown Uncoded 02/13/17 15:30 phenylephrine HCl Allergy Unknown Uncoded 02/13/17 15:30 pseudoephedrine HCl Allergy Unknown Uncoded 02/13/17 15:30 Review of Systems Limitations: ROS unobtainable due to patient's medical condition PFSH Patient Stated Medical History Diabetes Mellitus Type 2 Yes Clinic Medical History (Last Reviewed 01/10/17 @ 11:14 by Eric Dick MD) Diabetes mellitus type 2, uncontrolled, without complications (Chronic Medical ~ 2004) Needs better control of bedtime glucose level. Need to see readings PC. She prefers trying more metformin to taking shots, however. Diabetic peripheral neuropathy associated with type 2 diabetes mellitus ( Chronic Medical) Better. Family History: Family History (Last Reviewed 01/10/17 @ 11:14 by Eric Dick MD) Father Prostate cancer Sister Breast cancer - Social History Smoking status: Never smoker Substance use type: does not use Alcohol intake frequency: does not drink Physical Exam - Limitations Limitations: altered mental status - General General appearance: obtunded - Normal Exams: Head:: Normocephalic without trauma Chest/Respirations:: Clear all carlos, with good airflow, and symmetry bilaterally Cardiovascular:: Regular rate and rhythm, without murmur or gallop, Pulses 2+ all extremities, capillary refill, <2 seconds all extremities Abdomen:: Bowel sounds positive, non-distended, no hepatosplenomegaly, masses or bruits noted - Neurological Exam Neurological exam: Present: other (patient obtunded did not respond except for one very brief period where she had weak but equal sizer hand, was able to wiggle toes on both feet and able to stick her tongue straight out at command. Otherwise she has not been responding) - Psychiatric Psychiatric exam: Present: other (patient obtunded does not respond.) Course Vital Signs Temperature 97.0 F 02/13/17 12:00 Pulse Rate 127 H 02/13/17 12:00 Respiratory Rate 20 02/13/17 12:00 Blood Pressure 102/72 02/13/17 12:00 Pulse Oximetry 95 02/13/17 12:00 Temperature 97.0 F 02/13/17 12:00 Pulse Rate 113 H 02/13/17 15:15 Respiratory Rate 22 02/13/17 15:15 Blood Pressure 124/59 02/13/17 15:15 Pulse Oximetry 97 02/13/17 15:15 Altered Mental Status - MDM Narrative Medical decision making narrative: This became quite a complex set of issues. Labs are reviewed, radiology was reviewed and old records were reviewed. We're unable to get any history from the patient. Her caregiver is a health agency caregiver who comes over for 3 hours. She was able to help some with history, but did not know a lot of it. White count elevated at 18 with ABG showing pH 7.03, pCO2 14 and calculated anion gap 36. She is type II diabetic, but is presenting as DKA with elevated beta hydroxybutyrate of 4.3. Attempt at placing Monahan resulted in no fluid, only possible pus. Significant mental status change with negative CT brain and negative lactate. She was given a total of 2 L normal saline while in the ED and still had not produced urine. Creatinine is elevated at 2.0 and had been 1.0 over [address] C-spine is negative. Patient is being admitted to CCU in care of hospitalist to continue with resuscitation and treatment. Plan is to continue reevaluating in the event that this is not DKA, however at this time and certainly fits. Patient does not appear to have severe sepsis, but hospitalist is planning to continue to follow. Greater than 65 minutes was spent in critical care on this patient including direct comf-ke-kibl time with patient, researching diagnosis and treatment, evaluating labs and radiology and consult with multiple other physicians and caregivers regarding this presentation. - Differential Diagnosis Likely: alcoholic intoxication, altered mental status, delirium, dementia, hypoglycemia, hyponatremia, subarachnoid hemorrhage, sepsis - Medical Records Attestation: I reviewed the patient's medical records. - Lab Data Attestation: I reviewed the patient's lab results. Result diagrams: 02/13/17 12:58 02/13/17 12:58 Lab Results 02/13/17 02/13/17 02/13/17 Range/Units 12:58 12:58 12:58 WBC 18.1 H (4.5-11.0) T/MM3 RBC 5.10 (4.00-5.20) M/MM3 Hgb 15.3 (12-16) GM/DL Hct 47.0 H (36-46) % MCV 92.2 (80-100) UM3 MCH 30.0 (26-34) UUG MCHC 32.6 (31-37) GM/DL RDW Std Deviation 47.1 (36.9-50.2) FL Plt Count 521 H (130-400) T/MM3 MPV 9.2 L (9.4-12.4) UM3 Immature Gran % (Auto) Not performed Neut % (Auto) Not performed Lymph % (Auto) Not performed [place] % (Auto) Not performed Eos % (Auto) Not performed Baso % (Auto) Not performed Neut # Not performed Lymph # Not performed [place] # Not performed Eos # Not performed Baso # Not performed Abs Immat Gran (auto) Not performed Neutrophils % (Manual) 77.0 H (33-66) % Band Neutrophils % 2.0 (0-6) % Lymphocytes % (Manual) 7.0 L (23-45) % Reactive Lymphs % 14.0 H (0-0) % Neutrophils # (Manual) 13.9 H (1.8-7.7) T/MM3 Band Neutrophils # 0.4 T/MM3 Lymphocytes # (Manual) 1.3 (1-4.8) T/MM3 Abs React Lymphs (Man) 2.5 H (0-0) T/MM3 RBC Morph Comment Normal INR 1.04 (0.99-1.21) ABG pH (7.350-7.450) ABG pCO2 (34-45) MMHG ABG pO2 (80-100) MMHG ABG HCO3 (22-26) MEQ/L ABG Total CO2 (23-27) MEQ/L ABG O2 Saturation (95.0-98.0) % ABG Base Excess (-2.0-2.0) MMOL/L O2 Delivery Method Turbidity 213 H (0-20) Sodium 133 L (134-144) MEQ/L Potassium 5.0 (3.6-5) MEQ/L Chloride 92 L (98-107) MEQ/L Carbon Dioxide < 5 L* (22-30) MEQ/L Anion Gap TNP BUN 56.0 H* (7-17) MG/DL Creatinine 2.0 H (0.7-1.2) MG/DL GFR Calculation 24 BUN/Creatinine Ratio 28 H (6-26) RATIO Calculated Osmolality 301 H (261-280) MOSM/KG Calcium 12.1 H (8.4-10.2) MG/DL Total Bilirubin 0.70 (0.20-1.30) MG/DL Icterus Index < 2 (0-7) AST 21 (14-36) U/L ALT 30 (9-52) U/L Alkaline Phosphatase 138 H (38-126) U/L Ammonia 11 (9-33) UMOL/L Creatine Kinase 132 (30-135) U/L Troponin I 0.123 H (0-0.12) ng/ml Total Protein 7.7 (6.3-8.2) G/DL Albumin 4.4 (3.5-5.0) G/DL Globulin 3.3 (2.4-3.6) G/DL Albumin/Globulin Ratio 1.3 (1.1-2.2) RATIO Plasma Lactate (0.6-2.2) MMOL/L TSH 0.98 (0.47-4.68) MIU/L Specimen Hemolysis < 15 (0-25) Acetaminophen < 10 L (10-30) UG/ML Alcohol, Quantitative <10 (<10) MG/DL B-Hydroxybutyrate (0-0.6) MMOL/L 02/13/17 02/13/17 Range/Units 14:10 14:10 WBC (4.5-11.0) T/MM3 RBC (4.00-5.20) M/MM3 Hgb (12-16) GM/DL Hct (36-46) % MCV (80-100) UM3 MCH (26-34) UUG MCHC (31-37) GM/DL RDW Std Deviation (36.9-50.2) FL Plt Count (130-400) T/MM3 MPV (9.4-12.4) UM3 Immature Gran % (Auto) Neut % (Auto) Lymph % (Auto) [place] % (Auto) Eos % (Auto) Baso % (Auto) Neut # Lymph # [place] # Eos # Baso # Abs Immat Gran (auto) Neutrophils % (Manual) (33-66) % Band Neutrophils % (0-6) % Lymphocytes % (Manual) (23-45) % Reactive Lymphs % (0-0) % Neutrophils # (Manual) (1.8-7.7) T/MM3 Band Neutrophils # T/MM3 Lymphocytes # (Manual) (1-4.8) T/MM3 Abs React Lymphs (Man) (0-0) T/MM3 RBC Morph Comment INR (0.99-1.21) ABG pH 7.030 L* (7.350-7.450) ABG pCO2 14 L* (34-45) MMHG ABG pO2 100 (80-100) MMHG ABG HCO3 4 L (22-26) MEQ/L ABG Total CO2 4.1 L (23-27) MEQ/L ABG O2 Saturation 94.0 L (95.0-98.0) % ABG Base Excess -25.2 L (-2.0-2.0) MMOL/L O2 Delivery Method Room air Turbidity (0-20) Sodium (134-144) MEQ/L Potassium (3.6-5) MEQ/L Chloride (98-107) MEQ/L Carbon Dioxide (22-30) MEQ/L Anion Gap BUN (7-17) MG/DL Creatinine (0.7-1.2) MG/DL GFR Calculation BUN/Creatinine Ratio (6-26) RATIO Calculated Osmolality (261-280) MOSM/KG Calcium (8.4-10.2) MG/DL Total Bilirubin (0.20-1.30) MG/DL Icterus Index (0-7) AST (14-36) U/L ALT (9-52) U/L Alkaline Phosphatase (38-126) U/L Ammonia (9-33) UMOL/L Creatine Kinase (30-135) U/L Troponin I (0-0.12) ng/ml Total Protein (6.3-8.2) G/DL Albumin (3.5-5.0) G/DL Globulin (2.4-3.6) G/DL Albumin/Globulin Ratio (1.1-2.2) RATIO Plasma Lactate 1.6 (0.6-2.2) MMOL/L TSH (0.47-4.68) MIU/L Specimen Hemolysis (0-25) Acetaminophen (10-30) UG/ML Alcohol, Quantitative (<10) MG/DL B-Hydroxybutyrate 4.10 H (0-0.6) MMOL/L - Radiology Data Attestation: I reviewed the patient's radiology results. Disposition Clinical Impression: Altered mental status, DKA, type 2, High anion gap metabolic acidosis Disposition: 02 To [facility] Acute Care Condition: Stable Prescriptions: No Action Hydrocodone/APAP 7.5/325 [[place] 7.5/325] 1 tab PO TID Sitagliptin [Januvia] 100 mg PO DAILY Bepotastine Besilate [Bepreve] 1 drop EACH EYE BID Atenolol/Chlorthalidone 50/25 [Tenoretic] 1 tab PO DAILY Linagliptin [Tradjenta] 5 mg PO BID Glimepiride [Amaryl] 1 mg PO DAILY Calcium Citrate/Vitamin D2 [Zachary-Citrate Plus Vitamin D Tab] 1 tab PO DAILY Ciprofloxacin [Cipro] 250 mg PO Q12HR Alphagan P 1 drop EACH EYE TID Linagliptin [Tradjenta] 5 mg PO DAILY Multivit-Min/FA/Lycopen/Lutein [Centrum Silver Tablet] 1 tab PO DAILY Prevacid (Lansoprazole) 30 mg capsule,delayed release 30 mg PO BID cap metformin 500 mg tablet 500 mg PO DAILY 30 Days #30 tab Time of Disposition: 16:05 - Seen By: physician
--- NOTE | 2017-02-13 16:36 | CT Scan Report ---
Indication: ms changes, possible fall PROCEDURE: CT cervical spine wo con: Encounter: Initial Comparison: None Technique: Axial CT images through the cervical spine were performed without contrast. Coronal and sagittal reformatted images were also obtained. Automated Exposure Control and Iterative Reconstruction dose reducing techniques were utilized. FINDINGS: Motion artifact. The alignment of the cervical spine is normal. Multilevel degenerative changes are present. There is no evidence of acute fracture or subluxation of the cervical spine. The facet joints are well aligned with preservation of the intervertebral disk and facet joints. The atlantoaxial articulation, dens, and upper cervical spine demonstrate no subluxation. The paraspinal soft tissues and spinal canal appear unremarkable. Opacification of the left sphenoid sinus. IMPRESSION: No acute traumatic abnormality of the cervical spine. There is a preliminary report by [employer]. .
--- NOTE | 2017-02-13 16:40 | XRay Report ---
INDICATION: ms changes PROCEDURE: CHEST 2-VIEWS UPRIGHT (PA & LAT) Encounter: Initial COMPARISON: None FINDINGS: The lungs are clear without evidence of focal abnormal airspace opacity. There is no pleural effusion or pneumothorax. The heart size, mediastinal contours and pulmonary vascularity are within normal limits. There is no significant skeletal abnormality. IMPRESSION: No acute cardiopulmonary disease. .
--- NOTE | 2017-02-13 16:41 | CT Scan Report ---
Indication: ms changes PROCEDURE: CT head/brain wo con: Encounter: Initial Comparison: None Technique: Axial CT images through the head were performed without contrast. Iterative Reconstruction dose reducing technique was utilized. FINDINGS: Atrophy with prominent frontal extra-axial spaces. The ventricles are of normal size, shape, and contour for the patient's age. There are scattered areas of low attenuation in the white matter which most likely represent changes from chronic microvascular ischemia. The brainstem, cerebellum, and cerebral hemispheres otherwise have a normal morphology and CT attenuation. There is no evidence of midline displacement. No hemorrhage, signs of acute territorial stroke, mass effect, mass lesions, or edema is evident. The visualized portions of the skull base, midface, and calvarium demonstrate no abnormality. The paranasal sinuses are well aerated and free of significant disease. The tympanic and mastoid cavities appear normal. IMPRESSION: No acute intracranial abnormality or hemorrhage. There is a preliminary report by [employer]. .
[2017-02-13] MEDS ORDERED: METOCLOPRAMIDE 10mg/2ml INJECTION IVP PRN (16:55)
[2017-02-13] MEDS: PANTOPRAZOLE 40 MG INJECTION IVP SCH (17:37)
[2017-02-13] MEDS: SALINE FLUSH 10ml SYRINGE IVF PRN ×2 (17:38→18:41)
[2017-02-13] MEDS ORDERED: POTASSIUM CHLORIDE INJ 30 MEQ in NS 1,000 ML IV SCH (17:45)
--- NOTE | 2017-02-13 18:00 | History & Physical Report ---
History of Present Illness Date: 02/13/17 Chief complaint: altered level of consciousness, emesis HPI: Patient is a pleasant 76-year-old female who recently began receiving services from [employer] which is a 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 They became to see her this morning stated that Fartun stated she wasn't feeling well and wanted her to go to the store and picker / packer her medicines. When the aide came back Fartun was minimally responsive and on the floor covered in emesis. EMS was called and the patient was found to have a very high blood sugar. She was treated with insulin and brought into the emergency room. In the ER blood sugar was 446. Sodium was 133, potassium 5.0, carbon dioxide less than 5, BUN 56, creatinine 2.0, the patient was minimally responsive. She was given 2 L of fluids wide open. She was given 4 units of regular insulin IV push 1 and then given another 6 units IV push 1. On my arrival she was more alert. She is however drowsy and somewhat confused. She denied any pain. I specifically any chest pain. She denied shortness of breath. She does have nausea. She is not currently vomiting. She knows she is in the hospital. She thought she was in [place]. She does not know the year or the month. History is difficult to obtain because of patient's decreased level of consciousness. 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 Review of Systems ROS unobtainable: due to mental status [facility] Medical History (Last Reviewed 01/10/17 @ 11:14 by Eric Dick MD) Diabetes mellitus type 2, uncontrolled, without complications (Chronic Medical ~ 2004) Needs better control of bedtime glucose level. Need to see readings PC. She prefers trying more metformin to taking shots, however. Diabetic peripheral neuropathy associated with type 2 diabetes mellitus ( Chronic Medical) Better. Type 2 diabetes essential hypertension Cervical radiculopathy Chronic kidney disease chronic low back pain chronic pain of the left knee chronic vaginitis diverticulitis history GERD without esophagitis systemic lupus erythematosus for which she sees Dr. Leta Dennis Surgical History: Cataract extraction and tubal ligation uncertain if there are other surgeries Family History: Family History (Last Reviewed 01/10/17 @ 11:14 by Eric Dick MD) Father Prostate cancer Sister Breast cancer Father with coronary artery disease and cancer Mother with congestive heart failure and hypertension - Social History Smoking status: Never smoker Household members: none Medications Home Medications Medication Instructions Recorded Confirmed Type Prevacid (Lansoprazole) 30 mg 30 mg PO BID cap 12/27/16 02/13/17 History capsule,delayed release metformin 500 mg tablet 500 mg PO DAILY 30 Days #30 tab 01/10/17 02/13/17 History Alphagan P 1 drop EACH EYE TID 02/13/17 02/13/17 History Atenolol/Chlorthalidone 50/25 1 tab PO DAILY 02/13/17 02/13/17 History [Tenoretic] Bepotastine Besilate [Bepreve] 1 drop EACH EYE BID 02/13/17 02/13/17 History Calcium Citrate/Vitamin D2 1 tab PO DAILY 02/13/17 02/13/17 History [Zachary-Citrate Plus Vitamin D Tab] Ciprofloxacin [Cipro] 250 mg PO Q12HR 02/13/17 02/13/17 History Glimepiride [Amaryl] 1 mg PO DAILY 02/13/17 02/13/17 History Hydrocodone/APAP 7.5/325 [Sandy 1 tab PO TID 02/13/17 02/13/17 History 7.5/325] Linagliptin [Tradjenta] 5 mg PO BID 02/13/17 02/13/17 History Linagliptin [Tradjenta] 5 mg PO DAILY 02/13/17 02/13/17 History Multivit-Min/FA/Lycopen/Lutein 1 tab PO DAILY 02/13/17 02/13/17 History [Centrum Silver Tablet] Sitagliptin [Januvia] 100 mg PO DAILY 02/13/17 02/13/17 History Allergies Allergy/AdvReac Type Severity Reaction Status Date / Time acyclovir Allergy Unknown Verified 02/13/17 15:30 benzalkonium chloride Allergy Unknown Verified 02/13/17 15:30 ciprofloxacin Allergy Unknown Verified 02/13/17 15:30 erythromycin base Allergy Unknown Verified 02/13/17 15:30 gatifloxacin Allergy Unknown Verified 02/13/17 15:30 guaifenesin Allergy Unknown Verified 02/13/17 15:30 iodine Allergy Unknown Verified 02/13/17 15:30 Penicillins Allergy Unknown Verified 02/13/17 15:30 Sulfa (Sulfonamide Allergy Unknown Verified 02/13/17 15:30 Antibiotics) travoprost Allergy Unknown Verified 02/13/17 15:30 nitrofurantoin Allergy Verified 02/13/17 15:30 [From Macrodantin] amoxicillin trihydrate Allergy Unknown Uncoded 02/13/17 15:30 ciprofloxacin HCl Allergy Unknown Uncoded 02/13/17 15:30 Nitrofurantoin Macrocrystal Allergy Unknown Uncoded 02/13/17 15:30 phenylephrine HCl Allergy Unknown Uncoded 02/13/17 15:30 pseudoephedrine HCl Allergy Unknown Uncoded 02/13/17 15:30 Exam Vital Signs: Temperature 96.3 F L 02/13/17 17:15 Pulse Rate 112 H 02/13/17 17:15 Respiratory Rate 24 02/13/17 17:15 Blood Pressure 183/86 H 02/13/17 17:15 Pulse Oximetry 98 02/13/17 17:15 Comments: Currently heart rate is 112, blood pressure 117/76, initial temp was 97, repeat temp 96.3 GEN-somnolent, oriented to self, able to orient to DORAN after she was reminded , not oriented to time HEENT-sclera anicteric, pupils equal, extraocular movements intact, oropharynx is dry NECK-supple CV-borderline tachycardic rate with irregular rhythm. Telemetry is now showing frequent PVCs, occasional bigeminy and couplets CHEST-the auscultation bilaterally ABD-soft, nontender, nondistended with positive bowel sounds -Monahan placed in CCU EXT-no edema NEURO-confused, no focal deficits, moves all 4 extremities to command without difficulties. Strength is symmetric SKIN-warm and dry and without rashes Results - Labs CBC & Chem 7: 02/13/17 12:58 02/13/17 16:40 Labs: Troponin 0.123 at approximately 1 PM and at 4:40 PM was 0.138 Plasma lactate is normal at 1.6 0.98 hemoglobin A1c 10.8 liver enzymes normal other than alkaline phosphatase of 138 CPK normal at 132 Calcium of 12.1 which improved to 11.1 Urinalysis shows 2+ protein, 2+ glucose, 3+ ketones, 3+ occult blood, trace leukocyte esterase, 50-200 red blood cells, 20-30 white blood cells, 2+ bacteria Microbiology Results: Microbiology 09/04/17 17:10 Urine, Cath Monahan Urine Culture - Preliminary Culture Initiated - Results Pending - ABG Interpretation ABG results: 7.03 pH, PCO2 14, PO2 100 on room air Interpretation: respiratory alkalosis, metabolic acidosis - ECG Data Tracing #1 Sinus tachycardia with frequent PVCs at a rate of 120. Incomplete right bundle branch block. Moderate voltage criteria for LVH. Nonspecific ST-T wave abnormality. - Impressions Chest x-ray reveals no acute cardiopulmonary disease CT cervical spine reveals no acute traumatic abnormality of the cervical spine CT head shows no acute intracranial abnormality or hemorrhage Assessment and Plan GI Prophylaxis: Protonix Assessment and Plan: Impression Moderately severe DKA with pH of 7.0, carbon dioxide less than 5, blood sugar greater than 500 Type 2 diabetes mellitus on oral hypoglycemics-poorly controlled Encephalopathy secondary to DKA Presumed acute kidney injury-I cannot find a creatinine since 07/30/2015, at that time is 1.13 Mildly elevated troponin without chest pain or ST segment elevation Probable UTI-cannot rule out sepsis Emesis prior to admission Systemic lupus erythematosus Possible chronic steroid use-previous records showed she was on prednisone 5 mg daily History of hypertension Leukocytosis-possibly stress from DKA versus sepsis. Lactate was normal. Frequent PVCs History of multiple antibiotic allergies Plan Admit to CCU. DKA protocol With patient's possible history of chronic steroid use, monitor for hypotension and may require stress dose steroids. Check magnesium and phosphorus Continue on telemetry Monahan catheter was placed to obtain urine sample and to monitor urine output Aztreonam 1 g IV every 6 for UTI in a patient with multiple drug allergies SCDs for DVT prophylaxis Protonix IV in place of her oral lansoprazole Ice chips only for now Consult Dr. Dick tomorrow Consult Dr. Agudelo tomorrow regarding elevated troponin Start aspirin 300 mg per rectum Discussed with daughter Gabriela Goodman who lives in [facility]. Phone number is [phone]. Discussed with . Linda Parra who lives in [place]. [phone]. Neither the patient's daughter nor her sister know if the patient has a DURABLE POWER OF DIRECTOR OF PATIENT SAFETY or any healthcare directives. They were updated on the patient's condition. They want to be notified if there is a worsening inpatient status. Greater than 90 minutes of critical care time spent seeing and evaluating the patient and determining care plan. Sepsis Assessment - Evaluation Sepsis screening result: Severe Sepsis Risk Hospital Course Summary Disclaimer: The visit summary below is not to be considered part of the above Progress Note.
[2017-02-13] MEDS: POTASSIUM CHLORIDE IV SCH (18:01)
[2017-02-13] MEDS: 1/2 NS IV SCH (18:01)
[2017-02-13] MEDS: AZTREONAM 1 G in NS 100 ML IV SCH (19:11)
[2017-02-13] MEDS: ASPIRIN 300 MG RECTAL SUPPOSITORY RECTALLY SCH (20:43)
[2017-02-13] MEDS ORDERED: BEPOTASTINE BESILATE EACH EYE SCH (21:00)
[2017-02-13] MEDS: POTASSIUM CHLORIDE INJ 20 MEQ in D5NS 1,000 ML IV SCH (23:07)
[2017-02-14] MEDS: HYDROMORPHONE 2 MG/ML INJECTION IVP PRN ×5 (00:35→20:39)
[2017-02-14] MEDS: AZTREONAM 1 G in NS 100 ML IV SCH ×4 (02:41→22:19)
[2017-02-14] MEDS: POTASSIUM CHLORIDE INJ 20 MEQ in D5NS 1,000 ML IV SCH (04:29)
[2017-02-14] MEDS: INSULIN REGULAR, HUMAN 100 UNIT in NS 100 ML IV PRN (05:44)
[2017-02-14] MEDS ORDERED: NS IV SCH (06:17)
[2017-02-14] MEDS ORDERED: POTASSIUM PHOSPHATE IV SCH (06:17)
[2017-02-14] MEDS: BRIMONIDINE 0.15% OP SCH ×5 (06:38→22:23)
[2017-02-14] MEDS: EYE OP SCH ×5 (06:38→22:23)
[2017-02-14] MEDS: 1/2 NS with KCL 20mEq 1,000 ML IV SCH ×2 (07:44→12:59)
[2017-02-14] MEDS: NS 1,000 ML IV SCH (08:52)
[2017-02-14] MEDS: MAGNESIUM SULFATE 1gm PREMIX 1 GM/100 ML BAG IV SCH ×2 (09:10→10:12)
[2017-02-14] MEDS: PANTOPRAZOLE 40 MG INJECTION IVP SCH (09:18)
[2017-02-14] MEDS: ASPIRIN 300 MG RECTAL SUPPOSITORY RECTALLY SCH (10:14)
[2017-02-14] MEDS ORDERED: METOPROLOL 5mg/5ml INJECTION IVP PRN (10:15)
--- NOTE | 2017-02-14 10:19 | Consultation ---
ENDOCRINE CONSULT DATE OF CONSULT 02/14/2017 DATE OF ADMISSION 02/13/2017 REASON FOR ADMISSION Diabetic ketoacidosis. HISTORY OF PRESENT ILLNESS Ms. Holloway is a 76-year-old female patient followed as an outpatient for poorly-controlled type 2 diabetes mellitus. When she was last seen in the office on January 10 she complained of gastrointestinal adverse effects from metformin. Metformin was discontinued and her dose of linagliptin was increased from 5 to 10 mg daily which she used along with glimepiride 1 mg daily for her diabetes. She does not recall what led up to her hospital admission and still has an altered mental status making the history somewhat sketchy. Apparently she was found down by someone who had gone out to get her some medication and had emesis around her. When she was brought to the Emergency Room she was found to be in diabetic ketoacidosis with an arterial pH of 7.03, bicarb less than 5, glucose 446, potassium 5.0, BUN 56 and creatinine 2.0. She was given IV insulin and placed on the DKA protocol and admitted to the CCU. Overnight she has received more fluid hydration with resolution of her positive anion gap, metabolic acidosis which has now been replaced by a hyperchloremic acidosis. Bicarb is 13. BUN is 48 and creatinine 1.1. She still is somewhat obtunded but does recognize me with prompting. Overnight she was observed to have some multifocal PVCs, sometimes with coupling. She did have an initial troponin level of 0.138. ALLERGIES Allergies to acyclovir, benzalkonium chloride, ciprofloxacin, erythromycin, gatifloxacin, guaifenesin, iodine, penicillin, sulfa, travoprost, Macrodantin, amoxicillin, and pseudoephedrine. PAST MEDICAL HISTORY Remarkable for type 2 diabetes mellitus with peripheral neuropathy, hypertension , cervical radiculopathy, chronic kidney disease, chronic low back pain, diverticulitis, GERD, and lupus which is followed by Dr. Leta Dennis and treated with prednisone 5 mg daily. FAMILY HISTORY Remarkable for prostate cancer, breast cancer, coronary artery disease, congestive heart failure and hypertension. SOCIAL HISTORY The patient does not smoke nor drink alcohol. REVIEW OF SYSTEMS Otherwise not obtainable. PHYSICAL EXAMINATION Afebrile with stable vital signs. HEENT: Atraumatic, normocephalic. Eyes: PERRL, EOM intact. Oral mucosa is still fairly dry. NECK: Without thyromegaly or lymphadenopathy. No JVD. LUNGS: Clear. HEART: Rapid regular rhythm with occasional premature beats. ABDOMEN: Normal bowel sounds with no masses, tenderness or organomegaly. EXTREMITIES: Without edema or cyanosis. Repeat EKG this morning still shows no signs of acute injury or ischemia, but T- waves are flattened and there are multifocal PVCs, sometimes coupled. ADDITIONAL LABS: TSH 0.98. Ammonia 11. CK 132. Plasma lactate has corrected from 2.9 to 1.5. ASSESSMENT 1. DKA, resolved. She now has a hyperchloremic metabolic acidosis consistent with treated ketoacidosis. 2. Uncontrolled type 2 diabetes mellitus. It appears that she will probably require at least some basal insulin when she is dismissed judging by her high insulin requirements currently. However, we should take the dextrose back out of the IV fluids so we can taper the 15 unit per hour insulin infusion to a lower level. 3. Hypophosphatemia, frequently seen with treatment of DKA. However, this may be causing her more myocardial irritability and be at least partly responsible for the PVCs. I agree with the replacement with potassium phosphate that is about to be started. 3. Hypokalemia, mild. This will probably resolve as the insulin infusion is reduced and the additional potassium supplement is given. 4. Dehydration. The patient still has a significant prerenal azotemia and is hyperosmolar with an osmolality of 285, so IV fluids should be continued moderately aggressively. 5. Multifocal PVCs. The patient is in a monitored setting. We should also take care to rule out myocardial infarction which can be responsible for up to 25% of cases of DKA. 6. Chronic kidney disease. This was exacerbated by the dehydration but appears to be improving quite a bit overnight back to near her baseline. RECOMMENDATIONS Recheck troponin. Change IV fluids to half-normal saline with 20 mEq of KCl at 250 ml per hour and reduce IV insulin infusion to 10 units per hour, then continue titrating per protocol. Recheck metabolic panel at noon. Continue to titrate insulin infusion down as able once the dextrose is removed from the IV fluids. When her insulin requirements become more stable, we can switch her over to subcutaneous insulin injections. Thank you very much for asking my assistance in caring for this nice woman. I will follow her along with you while she remains in the hospital. ASHLEY
--- NOTE | 2017-02-14 10:25 | Cardiology Consult Note ---
History of Present Illness Consult date: 02/14/17 <Lucille Landry 02/14/17 11:03> Requesting physician: Omaira Dennis <FrantzLucille lewis 02/14/17 11:03> Chief complaint: elevated troponin <FrantzLucille 02/14/17 11:03> History of present illness: Fartun is a pleasant 76-year-old female who taken to the ED by EMS after being found minimally responsive on the floor covered in emesis. In the ED her blood sugar was 446. Sodium was 133, potassium 5.0, carbon dioxide less than 5, BUN 56, creatinine 2.0, and was Troponin 0.123 initially. She was admitted to CCU under the care of the hospitalist for DKA. Her EKG showed Sinus tachycardia with frequent PVCs at a rate of 120. Incomplete right bundle branch block. Moderate voltage criteria for LVH. Nonspecific ST-T wave abnormality. Troponin later increased to 0.[address] Agudelo was consulted. She is examined in her room in CCU. She complains of thirst. She is able to tell me her date but otherwise answers no to recent illness, fever, chills , cough, sore throat, cough, chest pain, pressure, tightness or palpitations, skipping beats, shortness of breath. She states she vomited and has nausea. She answers no to increased urination. <Lucille Landry 02/14/17 15:26> Review of Systems - Constitutional Constitutional: Absent: chills, fever(s) <Lucille Landry 02/14/17 11:03> - EENMT Eyes: Absent: change in vision <Lucille Landry Cameron 02/14/17 11:03> Balance: Absent: vertigo <Lucille Landry 02/14/17 11:03> Mouth/Throat: Absent: sore throat <Lucille Landry 02/14/17 11:03> - Cardiovascular Cardiovascular: Absent: chest pain, palpitations, dyspnea on exertion < Lucille Landry 02/14/17 11:03> Vascular: Absent: pedal edema <Lucille Landry 02/14/17 11:03> - Respiratory Respiratory: Absent: cough, dyspnea <Lucille Landry 02/14/17 11:03> - Gastrointestinal Gastrointestinal: Present: nausea, vomiting. Absent: diarrhea <Lucille Landry 02/14/17 11:03> - Genitourinary Genitourinary: Absent: dysuria <Lucille Landry 02/14/17 11:03> - Integumentary/Breasts Integumentary: Absent: rash <Lucille Landry 02/14/17 11:03> - Endocrine Endocrine: Present: polyuria <Lucille Landry 02/14/17 11:03> FORMERLY [facility] Patient Stated Medical History Hx Renal Disease No Clinic Medical History (Last Reviewed 01/10/17 @ 11:14 by Eric Dick MD) Diabetes mellitus type 2, uncontrolled, without complications (Chronic Medical ~ 2004) Still volume depleted and requiring high amount of insulin. Diabetic peripheral neuropathy associated with type 2 diabetes mellitus ( Chronic Medical) Better. <Kenny Agudelo - 02/15/17 16:17> Clinic Medical History (Last Reviewed 01/10/17 @ 11:14 by Eric Dick MD) Diabetes mellitus type 2, uncontrolled, without complications (Chronic Medical ~ 2004) Needs better control of bedtime glucose level. Need to see readings PC. She prefers trying more metformin to taking shots, however. Diabetic peripheral neuropathy associated with type 2 diabetes mellitus ( Chronic Medical) Better. <Lucille Landry 02/14/17 11:03> Surgical History: Cataract extraction and tubal ligation uncertain if there are other surgeries <uLcille Landry 02/14/17 11:03> Family History: Family History (Last Reviewed 01/10/17 @ 11:14 by Eric Dick MD) Father Prostate cancer Sister Breast cancer <Kenny Agudelo - 02/15/17 16:17> Family History (Last Reviewed 01/10/17 @ 11:14 by Eric Dick MD) Father Prostate cancer Sister Breast cancer <Lucille Landry 02/14/17 11:03> - Social History Smoking status: Never smoker <Lucille Landry 02/14/17 11:03> Medications Home Medications Medication Instructions Recorded Confirmed Type Prevacid (Lansoprazole) 30 mg 30 mg PO BID cap 12/27/16 02/13/17 History capsule,delayed release metformin 500 mg tablet 500 mg PO DAILY 30 Days #30 tab 01/10/17 02/13/17 History Alphagan P 1 drop EACH EYE TID 02/13/17 02/13/17 History Atenolol/Chlorthalidone 50/25 1 tab PO DAILY 02/13/17 02/13/17 History [Tenoretic] Bepotastine Besilate [Bepreve] 1 drop EACH EYE BID 02/13/17 02/13/17 History Calcium Citrate/Vitamin D2 1 tab PO DAILY 02/13/17 02/13/17 History [Zachary-Citrate Plus Vitamin D Tab] Ciprofloxacin [Cipro] 250 mg PO Q12HR 02/13/17 02/13/17 History Glimepiride [Amaryl] 1 mg PO DAILY 02/13/17 02/13/17 History Hydrocodone/APAP 7.5/325 [[place] 1 tab PO TID 02/13/17 02/13/17 History 7.5/325] Linagliptin [Tradjenta] 5 mg PO BID 02/13/17 02/13/17 History Linagliptin [Tradjenta] 5 mg PO DAILY 02/13/17 02/13/17 History Multivit-Min/FA/Lycopen/Lutein 1 tab PO DAILY 02/13/17 02/13/17 History [Centrum Silver Tablet] Sitagliptin [Januvia] 100 mg PO DAILY 02/13/17 02/13/17 History <AmiranKen greggin - 02/15/17 16:17> Allergies Allergy/AdvReac Type Severity Reaction Status Date / Time acyclovir Allergy Unknown Verified 02/13/17 15:30 benzalkonium chloride Allergy Unknown Verified 02/13/17 15:30 ciprofloxacin Allergy Unknown Verified 02/13/17 15:30 erythromycin base Allergy Unknown Verified 02/13/17 15:30 gatifloxacin Allergy Unknown Verified 02/13/17 15:30 guaifenesin Allergy Unknown Verified 02/13/17 15:30 iodine Allergy Unknown Verified 02/13/17 15:30 Penicillins Allergy Unknown Verified 02/13/17 15:30 Sulfa (Sulfonamide Allergy Unknown Verified 02/13/17 15:30 Antibiotics) travoprost Allergy Unknown Verified 02/13/17 15:30 nitrofurantoin Allergy Verified 02/13/17 15:30 [From Macrodantin] amoxicillin trihydrate Allergy Unknown Uncoded 02/13/17 15:30 ciprofloxacin HCl Allergy Unknown Uncoded 02/13/17 15:30 Nitrofurantoin Macrocrystal Allergy Unknown Uncoded 02/13/17 15:30 phenylephrine HCl Allergy Unknown Uncoded 02/13/17 15:30 pseudoephedrine HCl Allergy Unknown Uncoded 02/13/17 15:30 <Kenny Agudelo - 02/15/17 16:17> Exam Vital signs: Temperature 97.0 F 02/15/17 11:00 Pulse Rate 126 H 02/15/17 14:15 Respiratory Rate 31 H 02/15/17 14:15 Blood Pressure 119/65 02/15/17 14:15 Pulse Oximetry 100 02/15/17 14:15 <Kenny Agudelo - 02/15/17 16:17> Temperature 97.4 F 02/14/17 08:00 Pulse Rate 97 02/14/17 09:45 Respiratory Rate 26 H 02/14/17 09:45 Blood Pressure 140/65 H 02/14/17 09:01 Pulse Oximetry 96 02/14/17 09:45 <Lucille Landry 02/14/17 11:03> - Constitutional no acute distress, cooperative <Lucille Landry 02/14/17 11:03> - Routine HEENT Exam Head: Present: normocephalic <Lucille Landry 02/14/17 11:03> ENT: Present: mucous membranes moist <Lucille Landry [facility] 02/14/17 11:03> - Routine Neck Exam Absent: JVD, carotid bruit <Lucille Landry 02/14/17 11:03> - Routine Chest/Breast/Axilla Exam Chest wall: Absent: tenderness <Lucille Landry 02/14/17 11:03> - Routine Respiratory Exam Present: CTA bilaterally. Absent: rales, wheezes <Lucille Landry 02/14/17 11:03> - Routine Cardiovascular Exam Present: tachycardia, irregular rhythm. Absent: JVD <Lucille Landry 11:03> - Routine Abdominal Exam Present: soft, normoactive bowel sounds <Lucille Landry - 02/14/17 11:03> - Routine Extremities Exam Present: no edema <Lucille Landry - 02/14/17 11:03> - Routine Skin Exam Present: intact, dry, warm <Lucille Landry - 02/14/17 11:03> - Routine Neurological Exam Present: alert, oriented X3 <Lucille Landry - 02/14/17 11:03> - Routine Psychiatric Exam Present: normal affect, normal thought process <Lucille Landry - 02/14/17 11: 03> Results 02/15/17 04:07 02/15/17 10:38 <Kenny Agudelo - 02/15/17 16:17> Cardiac Enzymes 02/14/17 02/14/17 Range/Units 15:51 22:14 Troponin I 0.153 H 0.122 H (0-0.12) ng/ml CBC 02/15/17 Range/Units 04:07 WBC 10.9 (4.5-11.0) T/MM3 RBC 4.13 (4.00-5.20) M/MM3 Hgb 12.5 (12-16) GM/DL Hct 35.9 L (36-46) % Plt Count 232 (130-400) T/MM3 Comprehensive Metabolic Panel 02/14/17 02/14/17 02/15/17 Range/Units 15:51 19:45 04:07 Sodium 136 135 (134-144) MEQ/L Potassium 3.3 L D 3.5 L 3.5 L (3.6-5) MEQ/L Chloride 115 H 114 H (98-107) MEQ/L Carbon Dioxide 12 L 13 L (22-30) MEQ/L BUN 35.0 H 31.0 H (7-17) MG/DL Creatinine 0.9 0.9 (0.7-1.2) MG/DL Glucose 158 H 110 (65-110) MG/DL Calcium 8.3 L D 8.9 8.5 (8.4-10.2) MG/DL Albumin 2.6 L 2.6 L (3.5-5.0) G/DL 02/15/17 Range/Units 10:38 Sodium 136 (134-144) MEQ/L Potassium 2.9 L* (3.6-5) MEQ/L Chloride 113 H (98-107) MEQ/L Carbon Dioxide 14 L (22-30) MEQ/L BUN 28.0 H (7-17) MG/DL Creatinine 0.8 (0.7-1.2) MG/DL Glucose 82 (65-110) MG/DL Calcium 7.7 L D (8.4-10.2) MG/DL Albumin (3.5-5.0) G/DL Intake and Output 02/15/17 02/15/17 02/15/17 06:59 14:59 22:59 Intake Total 1309.549 / 0819.446 4954.0 / 1490.0 326.600 / 326.600 Output Total 1270 / 1270 1325 / 1325 50 / 50 Balance 39.549 / 39.549 165.0 / 165.0 276.600 / 276.600 Intake: IV 1309.549 / 1555.287 7876.0 / 1490.0 326.600 / 326.600 Azactam 1 G In Normal 200 / 200 200 / 200 Saline 100 ml @ 100 mls/ hr IV Q6H ADRIANA Rx#: [id number] NovoLIN R 100 UNIT In 6.049 / 6.049 54.933 / 54.933 Normal Saline 100 ml @ 0. 1 UNIT/KG/HR 5.67 mls/hr IV .[id number] PRN Rx#: [id number] MAG SULF 1gm PREMIX 1 gm 100 / 100 46.667 / 46.667 In 100 ml @ 100 mls/hr IV Q1H ADRIANA Rx#:[id number] K Phos Inj 20 Mmol In D5- 12.5 / 12.5 225 / 225 1/2Ns 1,000 ml @ 150 mls/ hr IV .Q6H43M ADRIANA Rx#: [id number] POTASSIUM CHLORIDE PREMIX 100 / 100 200 / 200 10 meq In 100 ml @ 100 mls/hr IV Q1H ADRIANA Rx#: [id number] Sodium Phosphate 14 Meq 1003.5 / 1003.5 977.5 / 977.5 In D5-1/2Ns 1,000 ml @ 150 mls/hr IV .Q6H42M ADRIANA Rx#:[id number] Output: Urine Amount (Catheter) 1270 / 1270 1325 / 1325 50 / 50 Other: Urine Appearance Cloudy Urine Color Yellow Yellow Stool Consistency Dry and Hard Size of Bowel Movement Small Large # Incontinent Bowel 1 Movements Weight 58.5 kg Patient Weight 02/16/17 06:59 Weight 58.5 kg <Kenny Agudelo - 02/15/17 16:17> Cardiac Enzymes 02/13/17 02/14/17 02/14/17 Range/Units 16:40 04:16 04:16 AST 26 (14-36) U/L Troponin I 0.138 H 0.216 H D (0-0.12) ng/ml CBC 02/14/17 Range/Units 04:16 WBC 10.8 D (4.5-11.0) T/MM3 RBC 4.44 (4.00-5.20) M/MM3 Hgb 13.4 D (12-16) GM/DL Hct 38.8 D (36-46) % Plt Count 278 D (130-400) T/MM3 Neut # 8.8 H (1.8-7.7) T/MM3 Lymph # 1.3 (1-4.8) T/MM3 Placer # 0.6 (0-0.8) T/MM3 Eos # 0.0 (0-0.5) T/MM3 Baso # 0.0 (0-0.2) T/MM3 Comprehensive Metabolic Panel 02/13/17 02/13/17 02/13/17 Range/Units 16:40 19:08 21:36 Sodium 138 137 136 (134-144) MEQ/L Potassium 3.5 L D 3.2 L 4.1 D (3.6-5) MEQ/L Chloride 103 D 106 107 (98-107) MEQ/L Carbon Dioxide < 5 L* 10 L D 9 L* (22-30) MEQ/L BUN 55.0 H* 56.0 H* 55.0 H* (7-17) MG/DL Creatinine 1.8 H D 1.4 H D 1.4 H (0.7-1.2) MG/DL Glucose 486 H 251 H 257 H (65-110) MG/DL Calcium 11.1 H D 10.4 H 10.3 H (8.4-10.2) MG/DL AST (14-36) U/L ALT (9-52) U/L Alkaline Phosphatase (38-126) U/L Total Protein (6.3-8.2) G/DL Albumin (3.5-5.0) G/DL 02/14/17 02/14/17 Range/Units 01:13 04:16 Sodium 137 138 (134-144) MEQ/L Potassium 4.1 3.4 L (3.6-5) MEQ/L Chloride 113 H 114 H (98-107) MEQ/L Carbon Dioxide 9 L* 13 L D (22-30) MEQ/L BUN 52.0 H* 48.0 H (7-17) MG/DL Creatinine 1.2 D 1.1 (0.7-1.2) MG/DL Glucose 281 H 203 H (65-110) MG/DL Calcium 9.9 9.8 (8.4-10.2) MG/DL AST 26 (14-36) U/L ALT 33 (9-52) U/L Alkaline Phosphatase 98 D (38-126) U/L Total Protein 5.6 L (6.3-8.2) G/DL Albumin 2.8 L (3.5-5.0) G/DL Intake and Output 02/13/17 02/14/17 02/14/17 22:59 06:59 14:59 Intake Total 1582.783 / 2074.450 1913.300 / 7686.708 0281.3333 / 1160.3333 Output Total 372 / 372 1200 / 1200 195 / 195 Balance 1210.783 / 1702.450 713.300 / 713.481 884.5973 / 965.3333 Intake: IV 1582.783 / 0854.793 2698.300 / 5722.770 0526.3333 / 1160.3333 1/2 NS with KCL 20mEq 1, 37.5 / 37.5 000 ML @ 250 mls/hr IV . Q4H ADRIANA Rx#:[id number] Azactam 1 G In Normal 100 / 100 100 / 100 100 / 100 Saline 100 ml @ 100 mls/ hr IV Q6H ADRIANA Rx#: [id number] NovoLIN R 100 UNIT In 27.783 / 27.783 83.300 / 83.300 26.167 / 26.167 Normal Saline 100 ml @ 0. 1 UNIT/KG/HR 5.67 mls/hr IV .[id number] PRN Rx#: [id number] MAG SULF 1gm PREMIX 1 gm 100 / 100 In 100 ml @ 100 mls/hr IV Q1H ADRIANA Rx#:[id number] Normal Saline 1,000 ml @ 1160.000 / 6136.288 9577 mls/hr IV .Q1H ADRIANA Rx#:[id number] KCl 30 Meq In 1/2 Normal 295 / 295 720 / 720 Saline 1,000 ml @ 300 mls /hr IV .Q3H23M ADRIANA Rx#: [id number] KCl 20 Meq In Dextrose 5% 1010 / 1010 643.333 / 643.333 -Normal Saline 1,000 ml @ 200 mls/hr IV .Q5H3M ADRIANA Rx#:[id number] K Phos Inj 10 Mmol In 253.3333 / 253.3333 Normal Saline 250 ml @ 125 mls/hr IV .Q2H2M ADRIANA Rx#:[id number] Output: Urine Amount (Catheter) 372 / 372 1200 / 1200 195 / 195 Other: Urine Appearance Clear Clear Urine Color Yellow Yellow Laboratory Results - last 48 hr 02/13/17 02/13/17 02/13/17 12:58 12:58 12:58 WBC 18.1 H RBC 5.10 Hgb 15.3 Hct 47.0 H MCV 92.2 MCH 30.0 MCHC 32.6 RDW Std Deviation 47.1 Plt Count 521 H MPV 9.2 L Immature Gran % (Auto) Not performed Neut % (Auto) Not performed Lymph % (Auto) Not performed Placer % (Auto) Not performed Eos % (Auto) Not performed Baso % (Auto) Not performed Neut # Not performed Lymph # Not performed Placer # Not performed Eos # Not performed Baso # Not performed Abs Immat Gran (auto) Not performed Neutrophils % (Manual) 77.0 H Band Neutrophils % 2.0 Lymphocytes % (Manual) 7.0 L Reactive Lymphs % 14.0 H Neutrophils # (Manual) 13.9 H Band Neutrophils # 0.4 Lymphocytes # (Manual) 1.3 Abs React Lymphs (Man) 2.5 H RBC Morph Comment Normal INR 1.04 ABG pH ABG pCO2 ABG pO2 ABG HCO3 ABG Total CO2 ABG O2 Saturation ABG Base Excess O2 Delivery Method Turbidity 213 H Sodium 133 L Potassium 5.0 Chloride 92 L Carbon Dioxide < 5 L* Anion Gap TNP BUN 56.0 H* Creatinine 2.0 H GFR Calculation 24 BUN/Creatinine Ratio 28 H Glucose Glucometer Hemoglobin A1c Calculated Osmolality 301 H Calcium 12.1 H Phosphorus Magnesium Total Bilirubin 0.70 Icterus Index < 2 AST 21 ALT 30 Alkaline Phosphatase 138 H Ammonia 11 Creatine Kinase 132 Troponin I 0.123 H Total Protein 7.7 Albumin 4.4 Globulin 3.3 Albumin/Globulin Ratio 1.3 Plasma Lactate TSH 0.98 Specimen Hemolysis < 15 Ur Collection Type Urine Color Urine Clarity Urine pH Ur Specific [place] Urine Protein Urine Glucose (UA) Urine Ketones Urine Occult Blood Urine Nitrate Urine Bilirubin Urine Urobilinogen Ur Leukocyte Esterase Urine RBC Urine WBC Urine Bacteria Urine Yeast Ur Culture Indicated? Urine Opiates Screen Ur Oxycodone Screen Urine Methadone Screen Ur Propoxyphene Screen Acetaminophen < 10 L Ur Barbiturates Screen U Tricyclic Antidepress Ur Phencyclidine Scrn Ur Amphetamines Screen U Methamphetamines Scrn U Benzodiazepines Scrn Urine Cocaine Screen U Cannabinoids Screen Ur Drug Screen Confirm Alcohol, Quantitative <10 B-Hydroxybutyrate 02/13/17 02/13/17 02/13/17 14:10 14:10 16:19 WBC RBC Hgb Hct MCV MCH MCHC RDW Std Deviation Plt Count MPV Immature Gran % (Auto) Neut % (Auto) Lymph % (Auto) Placer % (Auto) Eos % (Auto) Baso % (Auto) Neut # Lymph # Placer # Eos # Baso # Abs Immat Gran (auto) Neutrophils % (Manual) Band Neutrophils % Lymphocytes % (Manual) Reactive Lymphs % Neutrophils # (Manual) Band Neutrophils # Lymphocytes # (Manual) Abs React Lymphs (Man) RBC Morph Comment INR ABG pH 7.030 L* ABG pCO2 14 L* ABG pO2 100 ABG HCO3 4 L ABG Total CO2 4.1 L ABG O2 Saturation 94.0 L ABG Base Excess -25.2 L O2 Delivery Method Room air Turbidity Sodium Potassium Chloride Carbon Dioxide Anion Gap BUN Creatinine GFR Calculation BUN/Creatinine Ratio Glucose Glucometer 446 Hemoglobin A1c Calculated Osmolality Calcium Phosphorus Magnesium Total Bilirubin Icterus Index AST ALT Alkaline Phosphatase Ammonia Creatine Kinase Troponin I Total Protein Albumin Globulin Albumin/Globulin Ratio Plasma Lactate 1.6 TSH Specimen Hemolysis Ur Collection Type Urine Color Urine Clarity Urine pH Ur Specific [place] Urine Protein Urine Glucose (UA) Urine Ketones Urine Occult Blood Urine Nitrate Urine Bilirubin Urine Urobilinogen Ur Leukocyte Esterase Urine RBC Urine WBC Urine Bacteria Urine Yeast Ur Culture Indicated? Urine Opiates Screen Ur Oxycodone Screen Urine Methadone Screen Ur Propoxyphene Screen Acetaminophen Ur Barbiturates Screen U Tricyclic Antidepress Ur Phencyclidine Scrn Ur Amphetamines Screen U Methamphetamines Scrn U Benzodiazepines Scrn Urine Cocaine Screen U Cannabinoids Screen Ur Drug Screen Confirm Alcohol, Quantitative B-Hydroxybutyrate 4.10 H 02/13/17 02/13/17 02/13/17 16:40 16:56 17:10 WBC RBC Hgb Hct MCV MCH MCHC RDW Std Deviation Plt Count MPV Immature Gran % (Auto) Neut % (Auto) Lymph % (Auto) Placer % (Auto) Eos % (Auto) Baso % (Auto) Neut # Lymph # Placer # Eos # Baso # Abs Immat Gran (auto) Neutrophils % (Manual) Band Neutrophils % Lymphocytes % (Manual) Reactive Lymphs % Neutrophils # (Manual) Band Neutrophils # Lymphocytes # (Manual) Abs React Lymphs (Man) RBC Morph Comment INR ABG pH ABG pCO2 ABG pO2 ABG HCO3 ABG Total CO2 ABG O2 Saturation ABG Base Excess O2 Delivery Method Turbidity < 20 Sodium 138 Potassium 3.5 L D Chloride 103 D Carbon Dioxide < 5 L* Anion Gap TNP BUN 55.0 H* Creatinine 1.8 H D GFR Calculation 27 BUN/Creatinine Ratio 31 H Glucose 486 H Glucometer 378 Hemoglobin A1c 10.8 H Calculated Osmolality 303 H Calcium 11.1 H D Phosphorus Magnesium Total Bilirubin Icterus Index < 2 AST ALT Alkaline Phosphatase Ammonia Creatine Kinase Troponin I 0.138 H Total Protein Albumin Globulin Albumin/Globulin Ratio Plasma Lactate TSH Specimen Hemolysis < 15 Ur Collection Type Urine, mckenzie Urine Color Yellow Urine Clarity Sl cloudy Urine pH 5.0 Ur Specific [place] 1.025 Urine Protein 2+ A Urine Glucose (UA) 2+ A Urine Ketones 3+ A Urine Occult Blood 3+ A Urine Nitrate Negative Urine Bilirubin Negative Urine Urobilinogen 0.2 Ur Leukocyte Esterase Trace A Urine RBC 50-200 H Urine WBC 20-30 H Urine Bacteria 2+ H Urine Yeast Budding present A Ur Culture Indicated? Cult reflexed &setup Urine Opiates Screen Ur Oxycodone Screen Urine Methadone Screen Ur Propoxyphene Screen Acetaminophen Ur Barbiturates Screen U Tricyclic Antidepress Ur Phencyclidine Scrn Ur Amphetamines Screen U Methamphetamines Scrn U Benzodiazepines Scrn Urine Cocaine Screen U Cannabinoids Screen Ur Drug Screen Confirm Alcohol, Quantitative B-Hydroxybutyrate 02/13/17 02/13/17 02/13/17 18:00 18:33 18:33 WBC RBC Hgb Hct MCV MCH MCHC RDW Std Deviation Plt Count MPV Immature Gran % (Auto) Neut % (Auto) Lymph % (Auto) Placer % (Auto) Eos % (Auto) Baso % (Auto) Neut # Lymph # Placer # Eos # Baso # Abs Immat Gran (auto) Neutrophils % (Manual) Band Neutrophils % Lymphocytes % (Manual) Reactive Lymphs % Neutrophils # (Manual) Band Neutrophils # Lymphocytes # (Manual) Abs React Lymphs (Man) RBC Morph Comment INR ABG pH ABG pCO2 ABG pO2 ABG HCO3 ABG Total CO2 ABG O2 Saturation ABG Base Excess O2 Delivery Method Turbidity Sodium Potassium Chloride Carbon Dioxide Anion Gap BUN Creatinine GFR Calculation BUN/Creatinine Ratio Glucose Glucometer 316 Hemoglobin A1c Calculated Osmolality Calcium Phosphorus Magnesium Total Bilirubin Icterus Index AST ALT Alkaline Phosphatase Ammonia Creatine Kinase Troponin I Total Protein Albumin Globulin Albumin/Globulin Ratio Plasma Lactate TSH Specimen Hemolysis Ur Collection Type Urine Color Urine Clarity Urine pH Ur Specific [place] Urine Protein Urine Glucose (UA) Urine Ketones Urine Occult Blood Urine Nitrate Urine Bilirubin Urine Urobilinogen Ur Leukocyte Esterase Urine RBC Urine WBC Urine Bacteria Urine Yeast Ur Culture Indicated? Urine Opiates Screen Positive Ur Oxycodone Screen Negative Urine Methadone Screen Negative Ur Propoxyphene Screen Negative Acetaminophen Ur Barbiturates Screen Negative U Tricyclic Antidepress Negative Ur Phencyclidine Scrn Negative Ur Amphetamines Screen Negative U Methamphetamines Scrn Negative U Benzodiazepines Scrn Negative Urine Cocaine Screen Negative U Cannabinoids Screen Negative Ur Drug Screen Confirm Sent out Alcohol, Quantitative B-Hydroxybutyrate 02/13/17 02/13/17 02/13/17 18:35 19:08 19:08 WBC RBC Hgb Hct MCV MCH MCHC RDW Std Deviation Plt Count MPV Immature Gran % (Auto) Neut % (Auto) Lymph % (Auto) Placer % (Auto) Eos % (Auto) Baso % (Auto) Neut # Lymph # Placer # Eos # Baso # Abs Immat Gran (auto) Neutrophils % (Manual) Band Neutrophils % Lymphocytes % (Manual) Reactive Lymphs % Neutrophils # (Manual) Band Neutrophils # Lymphocytes # (Manual) Abs React Lymphs (Man) RBC Morph Comment INR ABG pH ABG pCO2 ABG pO2 ABG HCO3 ABG Total CO2 ABG O2 Saturation ABG Base Excess O2 Delivery Method Turbidity < 20 Sodium 137 Potassium 3.2 L Chloride 106 Carbon Dioxide 10 L D Anion Gap 21 H BUN 56.0 H* Creatinine 1.4 H D GFR Calculation 36 BUN/Creatinine Ratio 40 H Glucose 251 H Glucometer 281 Hemoglobin A1c Calculated Osmolality 288 H Calcium 10.4 H Phosphorus 6.0 H Magnesium 2.0 Total Bilirubin Icterus Index < 2 AST ALT Alkaline Phosphatase Ammonia Creatine Kinase Troponin I Total Protein Albumin Globulin Albumin/Globulin Ratio Plasma Lactate Cancelled 2.9 H TSH Specimen Hemolysis 34 H Ur Collection Type Urine Color Urine Clarity Urine pH Ur Specific [place] Urine Protein Urine Glucose (UA) Urine Ketones Urine Occult Blood Urine Nitrate Urine Bilirubin Urine Urobilinogen Ur Leukocyte Esterase Urine RBC Urine WBC Urine Bacteria Urine Yeast Ur Culture Indicated? Urine Opiates Screen Ur Oxycodone Screen Urine Methadone Screen Ur Propoxyphene Screen Acetaminophen Ur Barbiturates Screen U Tricyclic Antidepress Ur Phencyclidine Scrn Ur Amphetamines Screen U Methamphetamines Scrn U Benzodiazepines Scrn Urine Cocaine Screen U Cannabinoids Screen Ur Drug Screen Confirm Alcohol, Quantitative B-Hydroxybutyrate 02/13/17 02/13/17 02/13/17 20:02 21:13 21:36 WBC RBC Hgb Hct MCV MCH MCHC RDW Std Deviation Plt Count MPV Immature Gran % (Auto) Neut % (Auto) Lymph % (Auto) Placer % (Auto) Eos % (Auto) Baso % (Auto) Neut # Lymph # Placer # Eos # Baso # Abs Immat Gran (auto) Neutrophils % (Manual) Band Neutrophils % Lymphocytes % (Manual) Reactive Lymphs % Neutrophils # (Manual) Band Neutrophils # Lymphocytes # (Manual) Abs React Lymphs (Man) RBC Morph Comment INR ABG pH ABG pCO2 ABG pO2 ABG HCO3 ABG Total CO2 ABG O2 Saturation ABG Base Excess O2 Delivery Method Turbidity < 20 Sodium 136 Potassium 4.1 D Chloride 107 Carbon Dioxide 9 L* Anion Gap 20 H BUN 55.0 H* Creatinine 1.4 H GFR Calculation 36 BUN/Creatinine Ratio 39 H Glucose 257 H Glucometer 243 267 Hemoglobin A1c Calculated Osmolality 286 H Calcium 10.3 H Phosphorus Magnesium Total Bilirubin Icterus Index < 2 AST ALT Alkaline Phosphatase Ammonia Creatine Kinase Troponin I Total Protein Albumin Globulin Albumin/Globulin Ratio Plasma Lactate TSH Specimen Hemolysis < 15 Ur Collection Type Urine Color Urine Clarity Urine pH Ur Specific [place] Urine Protein Urine Glucose (UA) Urine Ketones Urine Occult Blood Urine Nitrate Urine Bilirubin Urine Urobilinogen Ur Leukocyte Esterase Urine RBC Urine WBC Urine Bacteria Urine Yeast Ur Culture Indicated? Urine Opiates Screen Ur Oxycodone Screen Urine Methadone Screen Ur Propoxyphene Screen Acetaminophen Ur Barbiturates Screen U Tricyclic Antidepress Ur Phencyclidine Scrn Ur Amphetamines Screen U Methamphetamines Scrn U Benzodiazepines Scrn Urine Cocaine Screen U Cannabinoids Screen Ur Drug Screen Confirm Alcohol, Quantitative B-Hydroxybutyrate 02/13/17 02/13/17 02/14/17 21:58 22:48 00:05 WBC RBC Hgb Hct MCV MCH MCHC RDW Std Deviation Plt Count MPV Immature Gran % (Auto) Neut % (Auto) Lymph % (Auto) Placer % (Auto) Eos % (Auto) Baso % (Auto) Neut # Lymph # Placer # Eos # Baso # Abs Immat Gran (auto) Neutrophils % (Manual) Band Neutrophils % Lymphocytes % (Manual) Reactive Lymphs % Neutrophils # (Manual) Band Neutrophils # Lymphocytes # (Manual) Abs React Lymphs (Man) RBC Morph Comment INR ABG pH ABG pCO2 ABG pO2 ABG HCO3 ABG Total CO2 ABG O2 Saturation ABG Base Excess O2 Delivery Method Turbidity Sodium Potassium Chloride Carbon Dioxide Anion Gap BUN Creatinine GFR Calculation BUN/Creatinine Ratio Glucose Glucometer 295 250 293 Hemoglobin A1c Calculated Osmolality Calcium Phosphorus Magnesium Total Bilirubin Icterus Index AST ALT Alkaline Phosphatase Ammonia Creatine Kinase Troponin I Total Protein Albumin Globulin Albumin/Globulin Ratio Plasma Lactate TSH Specimen Hemolysis Ur Collection Type Urine Color Urine Clarity Urine pH Ur Specific [place] Urine Protein Urine Glucose (UA) Urine Ketones Urine Occult Blood Urine Nitrate Urine Bilirubin Urine Urobilinogen Ur Leukocyte Esterase Urine RBC Urine WBC Urine Bacteria Urine Yeast Ur Culture Indicated? Urine Opiates Screen Ur Oxycodone Screen Urine Methadone Screen Ur Propoxyphene Screen Acetaminophen Ur Barbiturates Screen U Tricyclic Antidepress Ur Phencyclidine Scrn Ur Amphetamines Screen U Methamphetamines Scrn U Benzodiazepines Scrn Urine Cocaine Screen U Cannabinoids Screen Ur Drug Screen Confirm Alcohol, Quantitative B-Hydroxybutyrate 02/14/17 02/14/17 02/14/17 01:06 01:13 01:13 WBC RBC Hgb Hct MCV MCH MCHC RDW Std Deviation Plt Count MPV Immature Gran % (Auto) Neut % (Auto) Lymph % (Auto) Placer % (Auto) Eos % (Auto) Baso % (Auto) Neut # Lymph # Placer # Eos # Baso # Abs Immat Gran (auto) Neutrophils % (Manual) Band Neutrophils % Lymphocytes % (Manual) Reactive Lymphs % Neutrophils # (Manual) Band Neutrophils # Lymphocytes # (Manual) Abs React Lymphs (Man) RBC Morph Comment INR ABG pH ABG pCO2 ABG pO2 ABG HCO3 ABG Total CO2 ABG O2 Saturation ABG Base Excess O2 Delivery Method Turbidity < 20 Sodium 137 Potassium 4.1 Chloride 113 H Carbon Dioxide 9 L* Anion Gap 15 BUN 52.0 H* Creatinine 1.2 D GFR Calculation 44 BUN/Creatinine Ratio 43 H Glucose 281 H Glucometer 324 Hemoglobin A1c Calculated Osmolality 288 H Calcium 9.9 Phosphorus Magnesium Total Bilirubin Icterus Index < 2 AST ALT Alkaline Phosphatase Ammonia Creatine Kinase Troponin I Total Protein Albumin Globulin Albumin/Globulin Ratio Plasma Lactate 1.5 TSH Specimen Hemolysis 49 H Ur Collection Type Urine Color Urine Clarity Urine pH Ur Specific [place] Urine Protein Urine Glucose (UA) Urine Ketones Urine Occult Blood Urine Nitrate Urine Bilirubin Urine Urobilinogen Ur Leukocyte Esterase Urine RBC Urine WBC Urine Bacteria Urine Yeast Ur Culture Indicated? Urine Opiates Screen Ur Oxycodone Screen Urine Methadone Screen Ur Propoxyphene Screen Acetaminophen Ur Barbiturates Screen U Tricyclic Antidepress Ur Phencyclidine Scrn Ur Amphetamines Screen U Methamphetamines Scrn U Benzodiazepines Scrn Urine Cocaine Screen U Cannabinoids Screen Ur Drug Screen Confirm Alcohol, Quantitative B-Hydroxybutyrate 02/14/17 02/14/17 02/14/17 01:57 03:02 03:56 WBC RBC Hgb Hct MCV MCH MCHC RDW Std Deviation Plt Count MPV Immature Gran % (Auto) Neut % (Auto) Lymph % (Auto) Placer % (Auto) Eos % (Auto) Baso % (Auto) Neut # Lymph # Placer # Eos # Baso # Abs Immat Gran (auto) Neutrophils % (Manual) Band Neutrophils % Lymphocytes % (Manual) Reactive Lymphs % Neutrophils # (Manual) Band Neutrophils # Lymphocytes # (Manual) Abs React Lymphs (Man) RBC Morph Comment INR ABG pH ABG pCO2 ABG pO2 ABG HCO3 ABG Total CO2 ABG O2 Saturation ABG Base Excess O2 Delivery Method Turbidity Sodium Potassium Chloride Carbon Dioxide Anion Gap BUN Creatinine GFR Calculation BUN/Creatinine Ratio Glucose Glucometer 295 270 242 Hemoglobin A1c Calculated Osmolality Calcium Phosphorus Magnesium Total Bilirubin Icterus Index AST ALT Alkaline Phosphatase Ammonia Creatine Kinase Troponin I Total Protein Albumin Globulin Albumin/Globulin Ratio Plasma Lactate TSH Specimen Hemolysis Ur Collection Type Urine Color Urine Clarity Urine pH Ur Specific [place] Urine Protein Urine Glucose (UA) Urine Ketones Urine Occult Blood Urine Nitrate Urine Bilirubin Urine Urobilinogen Ur Leukocyte Esterase Urine RBC Urine WBC Urine Bacteria Urine Yeast Ur Culture Indicated? Urine Opiates Screen Ur Oxycodone Screen Urine Methadone Screen Ur Propoxyphene Screen Acetaminophen Ur Barbiturates Screen U Tricyclic Antidepress Ur Phencyclidine Scrn Ur Amphetamines Screen U Methamphetamines Scrn U Benzodiazepines Scrn Urine Cocaine Screen U Cannabinoids Screen Ur Drug Screen Confirm Alcohol, Quantitative B-Hydroxybutyrate 02/14/17 02/14/17 02/14/17 04:16 04:16 04:16 WBC 10.8 D RBC 4.44 Hgb 13.4 D Hct 38.8 D MCV 87.4 MCH 30.2 MCHC 34.5 RDW Std Deviation 42.5 Plt Count 278 D MPV 8.7 L Immature Gran % (Auto) 0.7 H Neut % (Auto) 81.4 H Lymph % (Auto) 12.1 L Placer % (Auto) 5.3 Eos % (Auto) 0.4 Baso % (Auto) 0.1 Neut # 8.8 H Lymph # 1.3 Placer # 0.6 Eos # 0.0 Baso # 0.0 Abs Immat Gran (auto) 0.08 H Neutrophils % (Manual) Band Neutrophils % Lymphocytes % (Manual) Reactive Lymphs % Neutrophils # (Manual) Band Neutrophils # Lymphocytes # (Manual) Abs React Lymphs (Man) RBC Morph Comment INR ABG pH ABG pCO2 ABG pO2 ABG HCO3 ABG Total CO2 ABG O2 Saturation ABG Base Excess O2 Delivery Method Turbidity < 20 Sodium 138 Potassium 3.4 L Chloride 114 H Carbon Dioxide 13 L D Anion Gap 11 BUN 48.0 H Creatinine 1.1 GFR Calculation 48 BUN/Creatinine Ratio 44 H Glucose 203 H Glucometer Hemoglobin A1c Calculated Osmolality 285 H Calcium 9.8 Phosphorus 1.3 L Magnesium 1.6 D Total Bilirubin 0.40 Icterus Index < 2 AST 26 ALT 33 Alkaline Phosphatase 98 D Ammonia Creatine Kinase Troponin I 0.216 H D Total Protein 5.6 L Albumin 2.8 L Globulin 2.8 Albumin/Globulin Ratio 1.0 L Plasma Lactate TSH Specimen Hemolysis < 15 < 15 Ur Collection Type Urine Color Urine Clarity Urine pH Ur Specific [place] Urine Protein Urine Glucose (UA) Urine Ketones Urine Occult Blood Urine Nitrate Urine Bilirubin Urine Urobilinogen Ur Leukocyte Esterase Urine RBC Urine WBC Urine Bacteria Urine Yeast Ur Culture Indicated? Urine Opiates Screen Ur Oxycodone Screen Urine Methadone Screen Ur Propoxyphene Screen Acetaminophen Ur Barbiturates Screen U Tricyclic Antidepress Ur Phencyclidine Scrn Ur Amphetamines Screen U Methamphetamines Scrn U Benzodiazepines Scrn Urine Cocaine Screen U Cannabinoids Screen Ur Drug Screen Confirm Alcohol, Quantitative B-Hydroxybutyrate 02/14/17 02/14/17 02/14/17 04:59 06:01 06:52 WBC RBC Hgb Hct MCV MCH MCHC RDW Std Deviation Plt Count MPV Immature Gran % (Auto) Neut % (Auto) Lymph % (Auto) Placer % (Auto) Eos % (Auto) Baso % (Auto) Neut # Lymph # Placer # Eos # Baso # Abs Immat Gran (auto) Neutrophils % (Manual) Band Neutrophils % Lymphocytes % (Manual) Reactive Lymphs % Neutrophils # (Manual) Band Neutrophils # Lymphocytes # (Manual) Abs React Lymphs (Man) RBC Morph Comment INR ABG pH ABG pCO2 ABG pO2 ABG HCO3 ABG Total CO2 ABG O2 Saturation ABG Base Excess O2 Delivery Method Turbidity Sodium Potassium Chloride Carbon Dioxide Anion Gap BUN Creatinine GFR Calculation BUN/Creatinine Ratio Glucose Glucometer 220 219 210 Hemoglobin A1c Calculated Osmolality Calcium Phosphorus Magnesium Total Bilirubin Icterus Index AST ALT Alkaline Phosphatase Ammonia Creatine Kinase Troponin I Total Protein Albumin Globulin Albumin/Globulin Ratio Plasma Lactate TSH Specimen Hemolysis Ur Collection Type Urine Color Urine Clarity Urine pH Ur Specific [place] Urine Protein Urine Glucose (UA) Urine Ketones Urine Occult Blood Urine Nitrate Urine Bilirubin Urine Urobilinogen Ur Leukocyte Esterase Urine RBC Urine WBC Urine Bacteria Urine Yeast Ur Culture Indicated? Urine Opiates Screen Ur Oxycodone Screen Urine Methadone Screen Ur Propoxyphene Screen Acetaminophen Ur Barbiturates Screen U Tricyclic Antidepress Ur Phencyclidine Scrn Ur Amphetamines Screen U Methamphetamines Scrn U Benzodiazepines Scrn Urine Cocaine Screen U Cannabinoids Screen Ur Drug Screen Confirm Alcohol, Quantitative B-Hydroxybutyrate 02/14/17 02/14/17 08:03 09:06 WBC RBC Hgb Hct MCV MCH MCHC RDW Std Deviation Plt Count MPV Immature Gran % (Auto) Neut % (Auto) Lymph % (Auto) Placer % (Auto) Eos % (Auto) Baso % (Auto) Neut # Lymph # Placer # Eos # Baso # Abs Immat Gran (auto) Neutrophils % (Manual) Band Neutrophils % Lymphocytes % (Manual) Reactive Lymphs % Neutrophils # (Manual) Band Neutrophils # Lymphocytes # (Manual) Abs React Lymphs (Man) RBC Morph Comment INR ABG pH ABG pCO2 ABG pO2 ABG HCO3 ABG Total CO2 ABG O2 Saturation ABG Base Excess O2 Delivery Method Turbidity Sodium Potassium Chloride Carbon Dioxide Anion Gap BUN Creatinine GFR Calculation BUN/Creatinine Ratio Glucose Glucometer 217 147 Hemoglobin A1c Calculated Osmolality Calcium Phosphorus Magnesium Total Bilirubin Icterus Index AST ALT Alkaline Phosphatase Ammonia Creatine Kinase Troponin I Total Protein Albumin Globulin Albumin/Globulin Ratio Plasma Lactate TSH Specimen Hemolysis Ur Collection Type Urine Color Urine Clarity Urine pH Ur Specific [place] Urine Protein Urine Glucose (UA) Urine Ketones Urine Occult Blood Urine Nitrate Urine Bilirubin Urine Urobilinogen Ur Leukocyte Esterase Urine RBC Urine WBC Urine Bacteria Urine Yeast Ur Culture Indicated? Urine Opiates Screen Ur Oxycodone Screen Urine Methadone Screen Ur Propoxyphene Screen Acetaminophen Ur Barbiturates Screen U Tricyclic Antidepress Ur Phencyclidine Scrn Ur Amphetamines Screen U Methamphetamines Scrn U Benzodiazepines Scrn Urine Cocaine Screen U Cannabinoids Screen Ur Drug Screen Confirm Alcohol, Quantitative B-Hydroxybutyrate <Lucille Landry - 02/14/17 11:03> - Imaging and Cardiology Echo: pending <Lucille Landry - 02/14/17 11:03> EKG results: image reviewed <Lucille Landry - 02/14/17 11:03> Imaging & Cardiology Narrative: Date of Exam: 02/14/17 Type of Exam(s): US echo doppler complete DATE OF PROCEDURE February 14, [address] Omaira Dennis This is a two-dimensional echo with spectral Doppler, color-flow and M-mode. It was obtained in a patient with non-STEMI. Left atrium is mildly dilated. Left ventricle end-diastolic dimension is normal. Left ventricle wall thickness is increased. LV systolic function is normal with ejection fraction of 60%. Right atrium is normal. Right ventricle is normal. Aortic root dimension is normal. Mitral valve annulus is calcified. Mitral valve leaflets are normal with mild mitral regurgitation. Aortic valve is a trileaflet structure with no stenosis or insufficiency. Tricuspid valve shows [id number] tricuspid regurgitation with moderate pulmonary hypertension with estimated pulmonary artery systolic pressure of 61. Pulmonary valve shows mild pulmonary insufficiency. There is no pericardial effusion. IMPRESSION 1. Normal LV systolic function with ejection fraction of 60%. 2. Left atrial dilation. 3. Left ventricular hypertrophy. 4. Mitral annulus calcification with mild mitral regurgitation. 5. [id number]-[id number] tricuspid regurgitation with moderate pulmonary hypertension with estimated pulmonary artery systolic pressure of 61. 6. Mild pulmonary insufficiency. <Lucille Landry - 02/14/17 16:47> EKG interpretations - Dysrhythmias Sinus rhythms and dysrhythmias: sinus tachycardia <Lucille Landry 02/14/17 11:03> Ventricular dysrhythmias: ventricular premature complexes <Lucille Landry 11:03> - Blocks, axis, hypertrophy, ST abn AV and intraventricular conduction: right bundle branch block (fixed/ intermittent, complete/incomplete) (incomplete) <Lucille Landry 02/14/17 11: 03> Repolarization changes or abnormalities: nonspecific abnormality, ST segment, and/or T wave <Lucille Landry 02/14/17 11:03> Assessment and Plan (1) Diabetes mellitus type 2, uncontrolled, without complications Problem details: Still volume depleted and requiring high amount of insulin. Current visit: No Status: Chronic (2) Altered mental status Current visit: Yes Status: Acute (3) DKA, type 2 Current visit: Yes Status: Acute (4) High anion gap metabolic acidosis Current visit: Yes Status: Acute (5) Elevated troponin Problem details: Non STEMI, just having occasional PVC's today (less frequent). Current visit: Yes Status: Acute <Kenny Agudelo - 02/15/17 16:17> (1) DKA, type 2 Current visit: Yes Status: Acute (2) Diabetes mellitus type 2, uncontrolled, without complications Problem details: Still volume depleted and requiring high amount of insulin. Current visit: No Status: Chronic (3) Altered mental status Current visit: Yes Status: Acute (4) High anion gap metabolic acidosis Current visit: Yes Status: Acute (5) Elevated troponin Problem details: Non STEMI, just having occasional PVC's today (less frequent). Current visit: Yes Status: Acute Mild troponin elevation without ST elevation. Trending downward. Continue IV BB and Aspirin supp. <Lucille Landry - 02/15/17 11:56> - Attestation Attestation Narrative: 02/15/17 16:17 Recommendation After examining the patient I agree with the above assessment. I am involved in the formulation of the patient's plan of care. <Kenny Agudelo - 02/15/17 16:17> Hospital Course Summary Disclaimer: The visit summary below is not to be considered part of the above Progress Note. <Kenny Agudelo - 02/15/17 16:17> The visit summary below is not to be considered part of the above Progress Note. <Lucille Landry - 02/14/17 11:03> Hospital Course: Mild troponin elevation without ST elevation. Trending downward. Continue IV BB and Aspirin supp. Thank you for allowing us to participate in the care of this patient. <Lucille Landry - 02/14/17 16:47> Sepsis Assessment - Evaluation Sepsis screening result: Severe Sepsis Risk <Lucille Landry - 02/14/17 11:03>
[2017-02-14] MEDS: METOPROLOL 5mg/5ml INJECTION IVP SCH ×3 (10:28→22:48)
--- NOTE | 2017-02-14 10:46 | Progress Note ---
Subjective: Mrs. Holloway remains lethargic this am. She denied dyspnea and c/o chronic back pain. She reports that she stopped taking diabetes meds previously because "they didn't do any good". Repeated "nothing does any good" several times- unclear what she was referring to and pt does not clarify. Denies palpitations/ CP and denies intent to harm herself. Reports she is not monitoring blood glucoses at home. Objective Vital signs: Temperature 97.4 F 02/14/17 08:00 Pulse Rate 97 02/14/17 09:45 Respiratory Rate 26 H 02/14/17 09:45 Blood Pressure 140/65 H 02/14/17 09:01 Pulse Oximetry 96 - RA 02/14/17 09:45 I/O 6528/1907 (cumulative) weight 61.3 kg-up approximately 5 kg from yesterday EXAM General-NAD, confused, perseverates HEENT-PER, EOMI, conjunctiva clear, oral membranes relatively clear although there is white coating on the tongue, neck supple Lungs-tachypnea, persistent respirations, nonlabored with diminished airflow throughout, breath sounds are clear however Cardiac-regular rhythm, S1-S2, tachycardic Abd-soft, nontender, nondistended, diminished bowel sounds Ext-without edema 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 Accu-Cheks [phone] over past 6 hours Troponin 0.123-0.138-0.216-0.173 Microbiology Results: Microbiology 02/13/17 17:10 Urine, Cath Monahan Urine Culture - Preliminary Culture Initiated - Results Pending - ECG Data Tracing #1 I reviewed this ECG and interpreted as documented below: (sinus rhythm, incomplete right bundle branch block, low voltages in precordial leads) - Imaging and Cardiology Chest x-ray Status: image reviewed by me (NAD, cardiomegaly) Assessment and Plan GI Prophylaxis: Protonix Resuscitation Status: Full Code Assessment and Plan: Impression: Severe DKA-pH of 7.0, HCO3< 5, blood sugar>500 on admission Type 2 diabetes mellitus on oral hypoglycemics-A1C 10.8 Encephalopathy secondary to DKA Acute kidney injury, probable dehydration-POA, baseline 07/30/2015-1.13 Mildly elevated troponin without chest pain or ST segment elevation Probable UTI-cannot rule out sepsis Emesis prior to admission Systemic lupus erythematosus Possible chronic steroid use-previous records showed she was on prednisone 5 mg daily History of hypertension Leukocytosis-possibly stress from DKA versus sepsis. Lactate was normal. Frequent PVCs Metabolic acidosis Hypophosphatemia, hypomagnesemia, hypokalemia History of multiple antibiotic allergies Plan: Patient remains metabolically unstable and encephalopathic. Persistent tachypnea and tachycardia. Persistent acidosis with development of hypophosphatemia, hypomagnesemia, and hypophosphatemia with treatment of DKA as anticipated. Electrolyte replacement initiated earlier today and will require ongoing monitoring of labs and fluid adjustment. Acidosis worsened slightly in the past couple of hours after insulin drip discontinued due to low blood sugars-D5 being readmitted to fluids after consultation with Dr. Dick. Unclear the patient has been taking diabetic medications prior to admission; daughter confirms that she does not routinely monitor blood sugars. Creatinine 0.9 following hydration, BUN remains elevated at 40. Continue fluids. Dr. Niño's office does not have any advanced directives on file, full code order written in absence of prior known directives. Cultures pending-continue aztreonam Discussed with daughter Gabriela Goodman-updated on changes overnight. Phone number is [phone]. Patient's sister Linda Parra lives in [place]. [phone]. Patient remains critically ill-38 minutes spent at bedside; discussed with cardiology and multiple conversations with nursing. Sepsis Assessment - Evaluation Sepsis screening result: Severe Sepsis Risk Hospital Course Summary Disclaimer: The visit summary below is not to be considered part of the above Progress Note. Hospital Course: 02/13/17-admission Admit to CCU. DKA protocol With patient's possible history of chronic steroid use, monitor for hypotension and may require stress dose steroids. Check magnesium and phosphorus Continue on telemetry Monahan catheter was placed to obtain urine sample and to monitor urine output Aztreonam 1 g IV every 6 for UTI in a patient with multiple drug allergies SCDs for DVT prophylaxis Protonix IV in place of her oral lansoprazole Ice chips only for now Consult Dr. Dick tomorrow Consult Dr. Agudelo tomorrow regarding elevated troponin Start aspirin 300 mg per rectum 02/14/17 13:59 Patient remains metabolically unstable and encephalopathic. Persistent tachypnea and tachycardia. Persistent acidosis with development of hypophosphatemia, hypomagnesemia, and hypophosphatemia with treatment of DKA as anticipated. Electrolyte replacement initiated earlier today and will require ongoing monitoring of labs and fluid adjustment. Acidosis worsened slightly in the past couple of hours after insulin drip discontinued due to low blood sugars-D5 being readmitted to fluids after consultation with Dr. Dick. Unclear the patient has been taking diabetic medications prior to admission; daughter confirms that she does not routinely monitor blood sugars. Creatinine 0.9 following hydration, BUN remains elevated at 40. Continue fluids. Dr. Niño's office does not have any advanced directives on file, full code order written in absence of prior known directives. Cultures pending-continue aztreonam
[2017-02-14] MEDS: SODIUM PHOSPHATE IV SCH ×2 (13:54→21:16)
[2017-02-14] MEDS: D5 IV SCH ×2 (13:54→21:16)
[2017-02-14] MEDS: [UNRECOGNIZED DRUG - OTHER] IV SCH ×2 (13:54→21:16)
[2017-02-14] MEDS: SALINE FLUSH 10ml SYRINGE IVF PRN (14:03)
--- NOTE | 2017-02-14 15:02 | Echocardiogram ---
DATE OF PROCEDURE February 14, [address] Omaira Dennis This is a two-dimensional echo with spectral Doppler, color-flow and M-mode. It was obtained in a patient with non-STEMI. Left atrium is mildly dilated. Left ventricle end-diastolic dimension is normal. Left ventricle wall thickness is increased. LV systolic function is normal with ejection fraction of 60%. Right atrium is normal. Right ventricle is normal. Aortic root dimension is normal. Mitral valve annulus is calcified. Mitral valve leaflets are normal with mild mitral regurgitation. Aortic valve is a trileaflet structure with no stenosis or insufficiency. Tricuspid valve shows snun-[id number] tricuspid regurgitation with moderate pulmonary hypertension with estimated pulmonary artery systolic pressure of 61. Pulmonary valve shows mild pulmonary insufficiency. There is no pericardial effusion. IMPRESSION 1. Normal LV systolic function with ejection fraction of 60%. 2. Left atrial dilation. 3. Left ventricular hypertrophy. 4. Mitral annulus calcification with mild mitral regurgitation. 5. Aqub-[id number] tricuspid regurgitation with moderate pulmonary hypertension with estimated pulmonary artery systolic pressure of 61. 6. Mild pulmonary insufficiency. MTDD
[2017-02-14] MEDS: NS FLUSH BAG 500ml IV PRN (15:35)
--- NOTE | 2017-02-14 16:01 | Fluoroscopy Report ---
Indication:replace midline with PICC Procedure:FL guided PICC insertion PICC LINE INSERTION: After discussing the details of the procedure, including risks, the patient wished to proceed. Informed consent was obtained. A preprocedural timeout was performed to confirm the correct patient and procedure. Sterile technique, local Xylocaine anesthesia, and sonographic guidance was used to access the left basilic vein through the patient's existing 18-gauge midline catheter. A .018 guidewire was advanced into the vein. Then using fluoroscopic guidance, a dual lumen 5 Fr PICC line was advanced with the tip placed within the SVC. Catheter length is 39 cm. A fluoroscopic image was then taken and archived. I was able to aspirate blood and inject freely through the portS. The procedure was completed without complication. Following this, the patient was taken back to her room in the critical care unit in stable condition. Impression:Successful left-sided PICC line placement with tip residing near the cavoatrial junction. Fluoroscopy dose: 4.33 mGy (Cumulative air kerma) Silver Beal RPA/DYLAN performed this under my personal supervision. .
[2017-02-14] MEDS: POTASSIUM CHLORIDE PREMIX 10 MEQ/100 ML BAG IV SCH ×4 (16:50→21:14)
[2017-02-14] MEDS ORDERED: DIGOXIN 500 MCG/2 ML INJECTION IVP SCH (18:00)
[2017-02-14] MEDS ORDERED: FUROSEMIDE 20 MG/2 ML INJECTION IVP ONE (23:51)
[2017-02-14] MEDS ORDERED: HALOPERIDOL 5 MG/ML INJECTION IVP ONE (23:55)
[2017-02-15] MEDS: HYDROMORPHONE 2 MG/ML INJECTION IVP PRN ×4 (00:34→23:39)
[2017-02-15] MEDS ORDERED: ALBUTEROL 2.5mg/3ml (0.083%) NEB AEROSOL ONE (00:49)
[2017-02-15] MEDS: INSULIN REGULAR, HUMAN 100 UNIT in NS 100 ML IV PRN ×2 (02:22→16:06)
[2017-02-15] MEDS: AZTREONAM 1 G in NS 100 ML IV SCH ×3 (02:23→12:24)
[2017-02-15] MEDS: METOPROLOL 5mg/5ml INJECTION IVP SCH ×4 (04:14→22:50)
[2017-02-15] MEDS: [UNRECOGNIZED DRUG - OTHER] IV SCH ×2 (04:42→11:12)
[2017-02-15] MEDS: SODIUM PHOSPHATE IV SCH ×2 (04:42→11:12)
[2017-02-15] MEDS: D5 IV SCH ×4 (04:42→20:17)
[2017-02-15] MEDS: POTASSIUM CHLORIDE IV SCH (07:03)
[2017-02-15] MEDS: 1/2 NS IV SCH (07:03)
--- NOTE | 2017-02-15 07:59 | Endocrinology Progress Note ---
Progress Note-A&P (1) Altered mental status Status: Acute Assessment and plan: More alert, but still not at her baseline. Current Visit: Yes (2) Elevated troponin Problem details: Non STEMI, just having occasional PVC's today (less frequent). Status: Acute Assessment and plan: per Dr. Agudelo Current Visit: Yes (3) Diabetes mellitus type 2, uncontrolled, without complications Problem details: Still volume depleted and requiring high amount of insulin. Status: Chronic Assessment and plan: Continue IV insulin infusion until more alert and taking PO nourishment, or at least until insulin demands decrease. Current Visit: No - Time Spent With Patient Total time spent is greater than 50% in coordination of care (as documented) at patient's floor/unit and/or counseling patient: 25 - 35 minutes Subjective Principal diagnosis: Type 2 diabetes mellitus, uncontrolled Interval history: Still sleepy and minimally conversive, but does answer questions. Still complains of dry mouth. Not really hungry, but denies nausea or abdominal pain. Denies chest pain. Exam Vital signs: Temperature 96.2 F L 02/15/17 03:52 Pulse Rate 105 H 02/15/17 03:00 Respiratory Rate 40 H 02/15/17 03:00 Blood Pressure 132/64 02/15/17 02:00 Pulse Oximetry 96 02/15/17 03:00 - Constitutional well nourished, well developed, somnolent - Routine HEENT Exam Head: Present: normocephalic, atraumatic Eye: Present: PERRL ENT: Present: mucous membranes dry - Routine Neck Exam Absent: lymphadenopathy, thyromegaly - Routine Respiratory Exam Present: CTA bilaterally - Routine Cardiovascular Exam Present: RRR Comments: Occasional unifocal PVC's. - Routine Abdominal Exam Present: soft, normoactive bowel sounds. Absent: tenderness - Routine Extremities Exam Absent: edema - Routine Neurological Exam Absent: tremors - Routine Psychiatric Exam Present: unable to assess - Urinary Catheter Management Urethral Cath placed during this visit: yes Urethral indwelling: Yes Reason for continuing: Accurate I&O/Aggressive Diuresis (following fluid therapy ) Insertion date: 02/13/17 Insertion time: 16:45 Progress Note: Quality - Stroke Onset of Symptoms Time: 10:00
[2017-02-15] MEDS: BRIMONIDINE 0.15% OP SCH ×2 (09:06→15:44)
[2017-02-15] MEDS: ASPIRIN 300 MG RECTAL SUPPOSITORY RECTALLY SCH (09:06)
[2017-02-15] MEDS: PANTOPRAZOLE 40 MG INJECTION IVP SCH (09:06)
[2017-02-15] MEDS: EYE OP SCH ×2 (09:06→15:44)
[2017-02-15] MEDS: POTASSIUM CHLORIDE PREMIX 10 MEQ/100 ML BAG IV SCH ×2 (11:52→13:31)
[2017-02-15] MEDS: POTASSIUM PHOSPHATE IV SCH ×2 (11:52→20:17)
[2017-02-15] MEDS: [UNRECOGNIZED DRUG - OTHER] IV SCH ×2 (11:52→20:17)
[2017-02-15] MEDS: MAGNESIUM SULFATE 1gm PREMIX 1 GM/100 ML BAG IV SCH ×2 (11:57→14:32)
--- NOTE | 2017-02-15 12:03 | Cardiology Progress Note ---
Subjective Principal diagnosis: elevated troponin <Lucille Landry - 02/15/17 12:11> Interval history: Fartun is seen in follow up for elevated troponin. She is awake and cooperative. She denies chest pain. <Lucille Landry - 02/15/17 12:11> Exam Vital signs: Temperature 96.6 F L 02/16/17 10:00 Pulse Rate 106 H 02/16/17 15:15 Respiratory Rate 40 H 02/16/17 15:15 Blood Pressure 123/62 02/16/17 15:00 Pulse Oximetry 98 02/16/17 15:15 <Kenny Agudelo - 02/16/17 16:40> Temperature 97.0 F 02/15/17 11:00 Pulse Rate 114 H 02/15/17 11:00 Respiratory Rate 38 H 02/15/17 11:00 Blood Pressure 158/75 H 02/15/17 11:00 Pulse Oximetry 98 02/15/17 11:00 <Lucille Landry 02/15/17 12:11> - Constitutional no acute distress, well nourished, cooperative <Lucille Landry 02/15/17 12: 11> - Routine HEENT Exam Head: Present: normocephalic <Lucille Landry 02/15/17 12:11> ENT: Present: mucous membranes dry <Lucille Landry 02/15/17 12:11> - Routine Neck Exam Absent: JVD, carotid bruit <Lucille Landry 02/15/17 12:11> - Routine Chest/Breast/Axilla Exam Chest wall: Absent: tenderness <FrantzLucille Barnes 02/15/17 12:11> - Routine Respiratory Exam Present: CTA bilaterally, diminished air movement. Absent: rales, wheezes < FrantzLucille Barnes 02/15/17 12:11> - Routine Cardiovascular Exam Present: RRR, tachycardia <FrantzLucille Barnes 02/15/17 12:11> - Routine Abdominal Exam Present: soft, normoactive bowel sounds <FrantzLucille Barnes 02/15/17 12:11> - Routine Extremities Exam Present: no edema <FrantzLucille Barnes 02/15/17 12:11> - Routine Skin Exam Present: intact, dry, warm <Lucille Landry M - 02/15/17 12:11> - Routine Neurological Exam Present: altered mental status <Lucille Landry M - 02/15/17 12:11> - Additional findings Additional findings: Laboratory Results - last 48 hr 02/13/17 02/13/17 02/13/17 12:58 14:10 14:10 WBC RBC Hgb Hct MCV MCH MCHC RDW Std Deviation Plt Count MPV Immature Gran % (Auto) Neut % (Auto) Lymph % (Auto) [place] % (Auto) Eos % (Auto) Baso % (Auto) Neut # Lymph # [place] # Eos # Baso # Abs Immat Gran (auto) Neutrophils % (Manual) Band Neutrophils % Lymphocytes % (Manual) Monocytes % (Manual) Basophils % (Manual) Neutrophils # (Manual) Band Neutrophils # Lymphocytes # (Manual) Monocytes # (Manual) Basophils # (Manual) RBC Morph Comment ABG pH 7.030 L* ABG pCO2 14 L* ABG pO2 100 ABG HCO3 4 L ABG Total CO2 4.1 L ABG O2 Saturation 94.0 L ABG Base Excess -25.2 L O2 Delivery Method Room air Turbidity Sodium Potassium Chloride Carbon Dioxide Anion Gap BUN Creatinine GFR Calculation BUN/Creatinine Ratio Glucose Glucometer Hemoglobin A1c Calculated Osmolality Calcium Phosphorus Magnesium Total Bilirubin Icterus Index Acetone AST ALT Alkaline Phosphatase Troponin I Total Protein Albumin Globulin Albumin/Globulin Ratio Plasma Lactate 1.6 TSH 0.98 Specimen Hemolysis Ur Collection Type Urine Color Urine Clarity Urine pH Ur Specific [place] Urine Protein Urine Glucose (UA) Urine Ketones Urine Occult Blood Urine Nitrate Urine Bilirubin Urine Urobilinogen Ur Leukocyte Esterase Urine RBC Urine WBC Urine Bacteria Urine Yeast Ur Culture Indicated? Urine Opiates Screen Ur Oxycodone Screen Urine Methadone Screen Ur Propoxyphene Screen Ur Barbiturates Screen U Tricyclic Antidepress Ur Phencyclidine Scrn Ur Amphetamines Screen U Methamphetamines Scrn U Benzodiazepines Scrn Urine Cocaine Screen U Cannabinoids Screen Ur Drug Screen Confirm [place] Scrn Comment Ethyl Alcohol (GC) Methyl Alcohol Level Isopropanol B-Hydroxybutyrate 4.10 H 02/13/17 02/13/17 02/13/17 16:19 16:40 16:56 WBC RBC Hgb Hct MCV MCH MCHC RDW Std Deviation Plt Count MPV Immature Gran % (Auto) Neut % (Auto) Lymph % (Auto) [place] % (Auto) Eos % (Auto) Baso % (Auto) Neut # Lymph # [place] # Eos # Baso # Abs Immat Gran (auto) Neutrophils % (Manual) Band Neutrophils % Lymphocytes % (Manual) Monocytes % (Manual) Basophils % (Manual) Neutrophils # (Manual) Band Neutrophils # Lymphocytes # (Manual) Monocytes # (Manual) Basophils # (Manual) RBC Morph Comment ABG pH ABG pCO2 ABG pO2 ABG HCO3 ABG Total CO2 ABG O2 Saturation ABG Base Excess O2 Delivery Method Turbidity < 20 Sodium 138 Potassium 3.5 L D Chloride 103 D Carbon Dioxide < 5 L* Anion Gap TNP BUN 55.0 H* Creatinine 1.8 H D GFR Calculation 27 BUN/Creatinine Ratio 31 H Glucose 486 H Glucometer 446 378 Hemoglobin A1c 10.8 H Calculated Osmolality 303 H Calcium 11.1 H D Phosphorus Magnesium Total Bilirubin Icterus Index < 2 Acetone AST ALT Alkaline Phosphatase Troponin I 0.138 H Total Protein Albumin Globulin Albumin/Globulin Ratio Plasma Lactate TSH Specimen Hemolysis < 15 Ur Collection Type Urine Color Urine Clarity Urine pH Ur Specific [place] Urine Protein Urine Glucose (UA) Urine Ketones Urine Occult Blood Urine Nitrate Urine Bilirubin Urine Urobilinogen Ur Leukocyte Esterase Urine RBC Urine WBC Urine Bacteria Urine Yeast Ur Culture Indicated? Urine Opiates Screen Ur Oxycodone Screen Urine Methadone Screen Ur Propoxyphene Screen Ur Barbiturates Screen U Tricyclic Antidepress Ur Phencyclidine Scrn Ur Amphetamines Screen U Methamphetamines Scrn U Benzodiazepines Scrn Urine Cocaine Screen U Cannabinoids Screen Ur Drug Screen Confirm [place] Scrn Comment Ethyl Alcohol (GC) Methyl Alcohol Level Isopropanol B-Hydroxybutyrate 02/13/17 02/13/17 02/13/17 17:10 18:00 18:33 WBC RBC Hgb Hct MCV MCH MCHC RDW Std Deviation Plt Count MPV Immature Gran % (Auto) Neut % (Auto) Lymph % (Auto) [place] % (Auto) Eos % (Auto) Baso % (Auto) Neut # Lymph # [place] # Eos # Baso # Abs Immat Gran (auto) Neutrophils % (Manual) Band Neutrophils % Lymphocytes % (Manual) Monocytes % (Manual) Basophils % (Manual) Neutrophils # (Manual) Band Neutrophils # Lymphocytes # (Manual) Monocytes # (Manual) Basophils # (Manual) RBC Morph Comment ABG pH ABG pCO2 ABG pO2 ABG HCO3 ABG Total CO2 ABG O2 Saturation ABG Base Excess O2 Delivery Method Turbidity Sodium Potassium Chloride Carbon Dioxide Anion Gap BUN Creatinine GFR Calculation BUN/Creatinine Ratio Glucose Glucometer 316 Hemoglobin A1c Calculated Osmolality Calcium Phosphorus Magnesium Total Bilirubin Icterus Index Acetone AST ALT Alkaline Phosphatase Troponin I Total Protein Albumin Globulin Albumin/Globulin Ratio Plasma Lactate TSH Specimen Hemolysis Ur Collection Type Urine, mckenzie Urine Color Yellow Urine Clarity Sl cloudy Urine pH 5.0 Ur Specific [place] 1.025 Urine Protein 2+ A Urine Glucose (UA) 2+ A Urine Ketones 3+ A Urine Occult Blood 3+ A Urine Nitrate Negative Urine Bilirubin Negative Urine Urobilinogen 0.2 Ur Leukocyte Esterase Trace A Urine RBC 50-200 H Urine WBC 20-30 H Urine Bacteria 2+ H Urine Yeast Budding present A Ur Culture Indicated? Cult reflexed &setup Urine Opiates Screen Positive Ur Oxycodone Screen Negative Urine Methadone Screen Negative Ur Propoxyphene Screen Negative Ur Barbiturates Screen Negative U Tricyclic Antidepress Negative Ur Phencyclidine Scrn Negative Ur Amphetamines Screen Negative U Methamphetamines Scrn Negative U Benzodiazepines Scrn Negative Urine Cocaine Screen Negative U Cannabinoids Screen Negative Ur Drug Screen Confirm [place] Scrn Comment Ethyl Alcohol (GC) Methyl Alcohol Level Isopropanol B-Hydroxybutyrate 02/13/17 02/13/17 02/13/17 18:33 18:35 18:35 WBC RBC Hgb Hct MCV MCH MCHC RDW Std Deviation Plt Count MPV Immature Gran % (Auto) Neut % (Auto) Lymph % (Auto) [place] % (Auto) Eos % (Auto) Baso % (Auto) Neut # Lymph # [place] # Eos # Baso # Abs Immat Gran (auto) Neutrophils % (Manual) Band Neutrophils % Lymphocytes % (Manual) Monocytes % (Manual) Basophils % (Manual) Neutrophils # (Manual) Band Neutrophils # Lymphocytes # (Manual) Monocytes # (Manual) Basophils # (Manual) RBC Morph Comment ABG pH ABG pCO2 ABG pO2 ABG HCO3 ABG Total CO2 ABG O2 Saturation ABG Base Excess O2 Delivery Method Turbidity Sodium Potassium Chloride Carbon Dioxide Anion Gap BUN Creatinine GFR Calculation BUN/Creatinine Ratio Glucose Glucometer Hemoglobin A1c Calculated Osmolality Calcium Phosphorus 6.0 H Magnesium 2.0 Total Bilirubin Icterus Index Acetone 97 AST ALT Alkaline Phosphatase Troponin I Total Protein Albumin Globulin Albumin/Globulin Ratio Plasma Lactate Cancelled TSH Specimen Hemolysis Ur Collection Type Urine Color Urine Clarity Urine pH Ur Specific [place] Urine Protein Urine Glucose (UA) Urine Ketones Urine Occult Blood Urine Nitrate Urine Bilirubin Urine Urobilinogen Ur Leukocyte Esterase Urine RBC Urine WBC Urine Bacteria Urine Yeast Ur Culture Indicated? Urine Opiates Screen Ur Oxycodone Screen Urine Methadone Screen Ur Propoxyphene Screen Ur Barbiturates Screen U Tricyclic Antidepress Ur Phencyclidine Scrn Ur Amphetamines Screen U Methamphetamines Scrn U Benzodiazepines Scrn Urine Cocaine Screen U Cannabinoids Screen Ur Drug Screen Confirm Sent out [place] Scrn Comment see below Ethyl Alcohol (GC) None detected Methyl Alcohol Level None detected Isopropanol None detected B-Hydroxybutyrate 02/13/17 02/13/17 02/13/17 19:08 19:08 20:02 WBC RBC Hgb Hct MCV MCH MCHC RDW Std Deviation Plt Count MPV Immature Gran % (Auto) Neut % (Auto) Lymph % (Auto) [place] % (Auto) Eos % (Auto) Baso % (Auto) Neut # Lymph # [place] # Eos # Baso # Abs Immat Gran (auto) Neutrophils % (Manual) Band Neutrophils % Lymphocytes % (Manual) Monocytes % (Manual) Basophils % (Manual) Neutrophils # (Manual) Band Neutrophils # Lymphocytes # (Manual) Monocytes # (Manual) Basophils # (Manual) RBC Morph Comment ABG pH ABG pCO2 ABG pO2 ABG HCO3 ABG Total CO2 ABG O2 Saturation ABG Base Excess O2 Delivery Method Turbidity < 20 Sodium 137 Potassium 3.2 L Chloride 106 Carbon Dioxide 10 L D Anion Gap 21 H BUN 56.0 H* Creatinine 1.4 H D GFR Calculation 36 BUN/Creatinine Ratio 40 H Glucose 251 H Glucometer 281 243 Hemoglobin A1c Calculated Osmolality 288 H Calcium 10.4 H Phosphorus Magnesium Total Bilirubin Icterus Index < 2 Acetone AST ALT Alkaline Phosphatase Troponin I Total Protein Albumin Globulin Albumin/Globulin Ratio Plasma Lactate 2.9 H TSH Specimen Hemolysis 34 H Ur Collection Type Urine Color Urine Clarity Urine pH Ur Specific [place] Urine Protein Urine Glucose (UA) Urine Ketones Urine Occult Blood Urine Nitrate Urine Bilirubin Urine Urobilinogen Ur Leukocyte Esterase Urine RBC Urine WBC Urine Bacteria Urine Yeast Ur Culture Indicated? Urine Opiates Screen Ur Oxycodone Screen Urine Methadone Screen Ur Propoxyphene Screen Ur Barbiturates Screen U Tricyclic Antidepress Ur Phencyclidine Scrn Ur Amphetamines Screen U Methamphetamines Scrn U Benzodiazepines Scrn Urine Cocaine Screen U Cannabinoids Screen Ur Drug Screen Confirm [place] Scrn Comment Ethyl Alcohol (GC) Methyl Alcohol Level Isopropanol B-Hydroxybutyrate 02/13/17 02/13/17 02/13/17 21:13 21:36 21:58 WBC RBC Hgb Hct MCV MCH MCHC RDW Std Deviation Plt Count MPV Immature Gran % (Auto) Neut % (Auto) Lymph % (Auto) [place] % (Auto) Eos % (Auto) Baso % (Auto) Neut # Lymph # [place] # Eos # Baso # Abs Immat Gran (auto) Neutrophils % (Manual) Band Neutrophils % Lymphocytes % (Manual) Monocytes % (Manual) Basophils % (Manual) Neutrophils # (Manual) Band Neutrophils # Lymphocytes # (Manual) Monocytes # (Manual) Basophils # (Manual) RBC Morph Comment ABG pH ABG pCO2 ABG pO2 ABG HCO3 ABG Total CO2 ABG O2 Saturation ABG Base Excess O2 Delivery Method Turbidity < 20 Sodium 136 Potassium 4.1 D Chloride 107 Carbon Dioxide 9 L* Anion Gap 20 H BUN 55.0 H* Creatinine 1.4 H GFR Calculation 36 BUN/Creatinine Ratio 39 H Glucose 257 H Glucometer 267 295 Hemoglobin A1c Calculated Osmolality 286 H Calcium 10.3 H Phosphorus Magnesium Total Bilirubin Icterus Index < 2 Acetone AST ALT Alkaline Phosphatase Troponin I Total Protein Albumin Globulin Albumin/Globulin Ratio Plasma Lactate TSH Specimen Hemolysis < 15 Ur Collection Type Urine Color Urine Clarity Urine pH Ur Specific [place] Urine Protein Urine Glucose (UA) Urine Ketones Urine Occult Blood Urine Nitrate Urine Bilirubin Urine Urobilinogen Ur Leukocyte Esterase Urine RBC Urine WBC Urine Bacteria Urine Yeast Ur Culture Indicated? Urine Opiates Screen Ur Oxycodone Screen Urine Methadone Screen Ur Propoxyphene Screen Ur Barbiturates Screen U Tricyclic Antidepress Ur Phencyclidine Scrn Ur Amphetamines Screen U Methamphetamines Scrn U Benzodiazepines Scrn Urine Cocaine Screen U Cannabinoids Screen Ur Drug Screen Confirm [place] Scrn Comment Ethyl Alcohol (GC) Methyl Alcohol Level Isopropanol B-Hydroxybutyrate 02/13/17 02/14/17 02/14/17 22:48 00:05 01:06 WBC RBC Hgb Hct MCV MCH MCHC RDW Std Deviation Plt Count MPV Immature Gran % (Auto) Neut % (Auto) Lymph % (Auto) [place] % (Auto) Eos % (Auto) Baso % (Auto) Neut # Lymph # [place] # Eos # Baso # Abs Immat Gran (auto) Neutrophils % (Manual) Band Neutrophils % Lymphocytes % (Manual) Monocytes % (Manual) Basophils % (Manual) Neutrophils # (Manual) Band Neutrophils # Lymphocytes # (Manual) Monocytes # (Manual) Basophils # (Manual) RBC Morph Comment ABG pH ABG pCO2 ABG pO2 ABG HCO3 ABG Total CO2 ABG O2 Saturation ABG Base Excess O2 Delivery Method Turbidity Sodium Potassium Chloride Carbon Dioxide Anion Gap BUN Creatinine GFR Calculation BUN/Creatinine Ratio Glucose Glucometer 250 293 324 Hemoglobin A1c Calculated Osmolality Calcium Phosphorus Magnesium Total Bilirubin Icterus Index Acetone AST ALT Alkaline Phosphatase Troponin I Total Protein Albumin Globulin Albumin/Globulin Ratio Plasma Lactate TSH Specimen Hemolysis Ur Collection Type Urine Color Urine Clarity Urine pH Ur Specific [place] Urine Protein Urine Glucose (UA) Urine Ketones Urine Occult Blood Urine Nitrate Urine Bilirubin Urine Urobilinogen Ur Leukocyte Esterase Urine RBC Urine WBC Urine Bacteria Urine Yeast Ur Culture Indicated? Urine Opiates Screen Ur Oxycodone Screen Urine Methadone Screen Ur Propoxyphene Screen Ur Barbiturates Screen U Tricyclic Antidepress Ur Phencyclidine Scrn Ur Amphetamines Screen U Methamphetamines Scrn U Benzodiazepines Scrn Urine Cocaine Screen U Cannabinoids Screen Ur Drug Screen Confirm [place] Scrn Comment Ethyl Alcohol (GC) Methyl Alcohol Level Isopropanol B-Hydroxybutyrate 02/14/17 02/14/17 02/14/17 01:13 01:13 01:57 WBC RBC Hgb Hct MCV MCH MCHC RDW Std Deviation Plt Count MPV Immature Gran % (Auto) Neut % (Auto) Lymph % (Auto) [place] % (Auto) Eos % (Auto) Baso % (Auto) Neut # Lymph # [place] # Eos # Baso # Abs Immat Gran (auto) Neutrophils % (Manual) Band Neutrophils % Lymphocytes % (Manual) Monocytes % (Manual) Basophils % (Manual) Neutrophils # (Manual) Band Neutrophils # Lymphocytes # (Manual) Monocytes # (Manual) Basophils # (Manual) RBC Morph Comment ABG pH ABG pCO2 ABG pO2 ABG HCO3 ABG Total CO2 ABG O2 Saturation ABG Base Excess O2 Delivery Method Turbidity < 20 Sodium 137 Potassium 4.1 Chloride 113 H Carbon Dioxide 9 L* Anion Gap 15 BUN 52.0 H* Creatinine 1.2 D GFR Calculation 44 BUN/Creatinine Ratio 43 H Glucose 281 H Glucometer 295 Hemoglobin A1c Calculated Osmolality 288 H Calcium 9.9 Phosphorus Magnesium Total Bilirubin Icterus Index < 2 Acetone AST ALT Alkaline Phosphatase Troponin I Total Protein Albumin Globulin Albumin/Globulin Ratio Plasma Lactate 1.5 TSH Specimen Hemolysis 49 H Ur Collection Type Urine Color Urine Clarity Urine pH Ur Specific [place] Urine Protein Urine Glucose (UA) Urine Ketones Urine Occult Blood Urine Nitrate Urine Bilirubin Urine Urobilinogen Ur Leukocyte Esterase Urine RBC Urine WBC Urine Bacteria Urine Yeast Ur Culture Indicated? Urine Opiates Screen Ur Oxycodone Screen Urine Methadone Screen Ur Propoxyphene Screen Ur Barbiturates Screen U Tricyclic Antidepress Ur Phencyclidine Scrn Ur Amphetamines Screen U Methamphetamines Scrn U Benzodiazepines Scrn Urine Cocaine Screen U Cannabinoids Screen Ur Drug Screen Confirm [place] Scrn Comment Ethyl Alcohol (GC) Methyl Alcohol Level Isopropanol B-Hydroxybutyrate 02/14/17 02/14/17 02/14/17 03:02 03:56 04:16 WBC 10.8 D RBC 4.44 Hgb 13.4 D Hct 38.8 D MCV 87.4 MCH 30.2 MCHC 34.5 RDW Std Deviation 42.5 Plt Count 278 D MPV 8.7 L Immature Gran % (Auto) 0.7 H Neut % (Auto) 81.4 H Lymph % (Auto) 12.1 L [place] % (Auto) 5.3 Eos % (Auto) 0.4 Baso % (Auto) 0.1 Neut # 8.8 H Lymph # 1.3 [place] # 0.6 Eos # 0.0 Baso # 0.0 Abs Immat Gran (auto) 0.08 H Neutrophils % (Manual) Band Neutrophils % Lymphocytes % (Manual) Monocytes % (Manual) Basophils % (Manual) Neutrophils # (Manual) Band Neutrophils # Lymphocytes # (Manual) Monocytes # (Manual) Basophils # (Manual) RBC Morph Comment ABG pH ABG pCO2 ABG pO2 ABG HCO3 ABG Total CO2 ABG O2 Saturation ABG Base Excess O2 Delivery Method Turbidity Sodium Potassium Chloride Carbon Dioxide Anion Gap BUN Creatinine GFR Calculation BUN/Creatinine Ratio Glucose Glucometer 270 242 Hemoglobin A1c Calculated Osmolality Calcium Phosphorus Magnesium Total Bilirubin Icterus Index Acetone AST ALT Alkaline Phosphatase Troponin I Total Protein Albumin Globulin Albumin/Globulin Ratio Plasma Lactate TSH Specimen Hemolysis Ur Collection Type Urine Color Urine Clarity Urine pH Ur Specific [place] Urine Protein Urine Glucose (UA) Urine Ketones Urine Occult Blood Urine Nitrate Urine Bilirubin Urine Urobilinogen Ur Leukocyte Esterase Urine RBC Urine WBC Urine Bacteria Urine Yeast Ur Culture Indicated? Urine Opiates Screen Ur Oxycodone Screen Urine Methadone Screen Ur Propoxyphene Screen Ur Barbiturates Screen U Tricyclic Antidepress Ur Phencyclidine Scrn Ur Amphetamines Screen U Methamphetamines Scrn U Benzodiazepines Scrn Urine Cocaine Screen U Cannabinoids Screen Ur Drug Screen Confirm [place] Scrn Comment Ethyl Alcohol (GC) Methyl Alcohol Level Isopropanol B-Hydroxybutyrate 02/14/17 02/14/17 02/14/17 04:16 04:16 04:59 WBC RBC Hgb Hct MCV MCH MCHC RDW Std Deviation Plt Count MPV Immature Gran % (Auto) Neut % (Auto) Lymph % (Auto) [place] % (Auto) Eos % (Auto) Baso % (Auto) Neut # Lymph # [place] # Eos # Baso # Abs Immat Gran (auto) Neutrophils % (Manual) Band Neutrophils % Lymphocytes % (Manual) Monocytes % (Manual) Basophils % (Manual) Neutrophils # (Manual) Band Neutrophils # Lymphocytes # (Manual) Monocytes # (Manual) Basophils # (Manual) RBC Morph Comment ABG pH ABG pCO2 ABG pO2 ABG HCO3 ABG Total CO2 ABG O2 Saturation ABG Base Excess O2 Delivery Method Turbidity < 20 Sodium 138 Potassium 3.4 L Chloride 114 H Carbon Dioxide 13 L D Anion Gap 11 BUN 48.0 H Creatinine 1.1 GFR Calculation 48 BUN/Creatinine Ratio 44 H Glucose 203 H Glucometer 220 Hemoglobin A1c Calculated Osmolality 285 H Calcium 9.8 Phosphorus 1.3 L Magnesium 1.6 D Total Bilirubin 0.40 Icterus Index < 2 Acetone AST 26 ALT 33 Alkaline Phosphatase 98 D Troponin I 0.216 H D Total Protein 5.6 L Albumin 2.8 L Globulin 2.8 Albumin/Globulin Ratio 1.0 L Plasma Lactate TSH Specimen Hemolysis < 15 < 15 Ur Collection Type Urine Color Urine Clarity Urine pH Ur Specific [place] Urine Protein Urine Glucose (UA) Urine Ketones Urine Occult Blood Urine Nitrate Urine Bilirubin Urine Urobilinogen Ur Leukocyte Esterase Urine RBC Urine WBC Urine Bacteria Urine Yeast Ur Culture Indicated? Urine Opiates Screen Ur Oxycodone Screen Urine Methadone Screen Ur Propoxyphene Screen Ur Barbiturates Screen U Tricyclic Antidepress Ur Phencyclidine Scrn Ur Amphetamines Screen U Methamphetamines Scrn U Benzodiazepines Scrn Urine Cocaine Screen U Cannabinoids Screen Ur Drug Screen Confirm [place] Scrn Comment Ethyl Alcohol (GC) Methyl Alcohol Level Isopropanol B-Hydroxybutyrate 02/14/17 02/14/17 02/14/17 06:01 06:52 08:03 WBC RBC Hgb Hct MCV MCH MCHC RDW Std Deviation Plt Count MPV Immature Gran % (Auto) Neut % (Auto) Lymph % (Auto) [place] % (Auto) Eos % (Auto) Baso % (Auto) Neut # Lymph # [place] # Eos # Baso # Abs Immat Gran (auto) Neutrophils % (Manual) Band Neutrophils % Lymphocytes % (Manual) Monocytes % (Manual) Basophils % (Manual) Neutrophils # (Manual) Band Neutrophils # Lymphocytes # (Manual) Monocytes # (Manual) Basophils # (Manual) RBC Morph Comment ABG pH ABG pCO2 ABG pO2 ABG HCO3 ABG Total CO2 ABG O2 Saturation ABG Base Excess O2 Delivery Method Turbidity Sodium Potassium Chloride Carbon Dioxide Anion Gap BUN Creatinine GFR Calculation BUN/Creatinine Ratio Glucose Glucometer 219 210 217 Hemoglobin A1c Calculated Osmolality Calcium Phosphorus Magnesium Total Bilirubin Icterus Index Acetone AST ALT Alkaline Phosphatase Troponin I Total Protein Albumin Globulin Albumin/Globulin Ratio Plasma Lactate TSH Specimen Hemolysis Ur Collection Type Urine Color Urine Clarity Urine pH Ur Specific [place] Urine Protein Urine Glucose (UA) Urine Ketones Urine Occult Blood Urine Nitrate Urine Bilirubin Urine Urobilinogen Ur Leukocyte Esterase Urine RBC Urine WBC Urine Bacteria Urine Yeast Ur Culture Indicated? Urine Opiates Screen Ur Oxycodone Screen Urine Methadone Screen Ur Propoxyphene Screen Ur Barbiturates Screen U Tricyclic Antidepress Ur Phencyclidine Scrn Ur Amphetamines Screen U Methamphetamines Scrn U Benzodiazepines Scrn Urine Cocaine Screen U Cannabinoids Screen Ur Drug Screen Confirm [place] Scrn Comment Ethyl Alcohol (GC) Methyl Alcohol Level Isopropanol B-Hydroxybutyrate 02/14/17 02/14/17 02/14/17 09:06 10:03 11:03 WBC RBC Hgb Hct MCV MCH MCHC RDW Std Deviation Plt Count MPV Immature Gran % (Auto) Neut % (Auto) Lymph % (Auto) [place] % (Auto) Eos % (Auto) Baso % (Auto) Neut # Lymph # [place] # Eos # Baso # Abs Immat Gran (auto) Neutrophils % (Manual) Band Neutrophils % Lymphocytes % (Manual) Monocytes % (Manual) Basophils % (Manual) Neutrophils # (Manual) Band Neutrophils # Lymphocytes # (Manual) Monocytes # (Manual) Basophils # (Manual) RBC Morph Comment ABG pH ABG pCO2 ABG pO2 ABG HCO3 ABG Total CO2 ABG O2 Saturation ABG Base Excess O2 Delivery Method Turbidity Sodium Potassium Chloride Carbon Dioxide Anion Gap BUN Creatinine GFR Calculation BUN/Creatinine Ratio Glucose Glucometer 147 166 134 Hemoglobin A1c Calculated Osmolality Calcium Phosphorus Magnesium Total Bilirubin Icterus Index Acetone AST ALT Alkaline Phosphatase Troponin I Total Protein Albumin Globulin Albumin/Globulin Ratio Plasma Lactate TSH Specimen Hemolysis Ur Collection Type Urine Color Urine Clarity Urine pH Ur Specific [place] Urine Protein Urine Glucose (UA) Urine Ketones Urine Occult Blood Urine Nitrate Urine Bilirubin Urine Urobilinogen Ur Leukocyte Esterase Urine RBC Urine WBC Urine Bacteria Urine Yeast Ur Culture Indicated? Urine Opiates Screen Ur Oxycodone Screen Urine Methadone Screen Ur Propoxyphene Screen Ur Barbiturates Screen U Tricyclic Antidepress Ur Phencyclidine Scrn Ur Amphetamines Screen U Methamphetamines Scrn U Benzodiazepines Scrn Urine Cocaine Screen U Cannabinoids Screen Ur Drug Screen Confirm [place] Scrn Comment Ethyl Alcohol (GC) Methyl Alcohol Level Isopropanol B-Hydroxybutyrate 02/14/17 02/14/17 02/14/17 12:09 12:17 12:17 WBC RBC Hgb Hct MCV MCH MCHC RDW Std Deviation Plt Count MPV Immature Gran % (Auto) Neut % (Auto) Lymph % (Auto) [place] % (Auto) Eos % (Auto) Baso % (Auto) Neut # Lymph # [place] # Eos # Baso # Abs Immat Gran (auto) Neutrophils % (Manual) Band Neutrophils % Lymphocytes % (Manual) Monocytes % (Manual) Basophils % (Manual) Neutrophils # (Manual) Band Neutrophils # Lymphocytes # (Manual) Monocytes # (Manual) Basophils # (Manual) RBC Morph Comment ABG pH ABG pCO2 ABG pO2 ABG HCO3 ABG Total CO2 ABG O2 Saturation ABG Base Excess O2 Delivery Method Turbidity < 20 Sodium 140 Potassium 4.2 D Chloride 121 H D Carbon Dioxide 10 L Anion Gap 9 BUN 40.0 H Creatinine 0.9 D GFR Calculation 61 BUN/Creatinine Ratio 44 H Glucose 70 Glucometer 85 Hemoglobin A1c Calculated Osmolality 277 Calcium 9.8 Phosphorus 1.6 L Magnesium Total Bilirubin Icterus Index < 2 Acetone AST ALT Alkaline Phosphatase Troponin I 0.173 H Total Protein Albumin Globulin Albumin/Globulin Ratio Plasma Lactate TSH Specimen Hemolysis 55 H 47 H Ur Collection Type Urine Color Urine Clarity Urine pH Ur Specific [place] Urine Protein Urine Glucose (UA) Urine Ketones Urine Occult Blood Urine Nitrate Urine Bilirubin Urine Urobilinogen Ur Leukocyte Esterase Urine RBC Urine WBC Urine Bacteria Urine Yeast Ur Culture Indicated? Urine Opiates Screen Ur Oxycodone Screen Urine Methadone Screen Ur Propoxyphene Screen Ur Barbiturates Screen U Tricyclic Antidepress Ur Phencyclidine Scrn Ur Amphetamines Screen U Methamphetamines Scrn U Benzodiazepines Scrn Urine Cocaine Screen U Cannabinoids Screen Ur Drug Screen Confirm [place] Scrn Comment Ethyl Alcohol (GC) Methyl Alcohol Level Isopropanol B-Hydroxybutyrate 02/14/17 02/14/17 02/14/17 12:17 12:50 13:16 WBC RBC Hgb Hct MCV MCH MCHC RDW Std Deviation Plt Count MPV Immature Gran % (Auto) Neut % (Auto) Lymph % (Auto) [place] % (Auto) Eos % (Auto) Baso % (Auto) Neut # Lymph # [place] # Eos # Baso # Abs Immat Gran (auto) Neutrophils % (Manual) Band Neutrophils % Lymphocytes % (Manual) Monocytes % (Manual) Basophils % (Manual) Neutrophils # (Manual) Band Neutrophils # Lymphocytes # (Manual) Monocytes # (Manual) Basophils # (Manual) RBC Morph Comment ABG pH ABG pCO2 ABG pO2 ABG HCO3 ABG Total CO2 ABG O2 Saturation ABG Base Excess O2 Delivery Method Turbidity Sodium Potassium Chloride Carbon Dioxide Anion Gap BUN Creatinine GFR Calculation BUN/Creatinine Ratio Glucose Glucometer 85 88 Hemoglobin A1c Calculated Osmolality Calcium Phosphorus Magnesium 2.4 H D Total Bilirubin Icterus Index Acetone AST ALT Alkaline Phosphatase Troponin I Total Protein Albumin Globulin Albumin/Globulin Ratio Plasma Lactate TSH Specimen Hemolysis Ur Collection Type Urine Color Urine Clarity Urine pH Ur Specific [place] Urine Protein Urine Glucose (UA) Urine Ketones Urine Occult Blood Urine Nitrate Urine Bilirubin Urine Urobilinogen Ur Leukocyte Esterase Urine RBC Urine WBC Urine Bacteria Urine Yeast Ur Culture Indicated? Urine Opiates Screen Ur Oxycodone Screen Urine Methadone Screen Ur Propoxyphene Screen Ur Barbiturates Screen U Tricyclic Antidepress Ur Phencyclidine Scrn Ur Amphetamines Screen U Methamphetamines Scrn U Benzodiazepines Scrn Urine Cocaine Screen U Cannabinoids Screen Ur Drug Screen Confirm [place] Scrn Comment Ethyl Alcohol (GC) Methyl Alcohol Level Isopropanol B-Hydroxybutyrate 02/14/17 02/14/17 02/14/17 13:50 14:20 15:10 WBC RBC Hgb Hct MCV MCH MCHC RDW Std Deviation Plt Count MPV Immature Gran % (Auto) Neut % (Auto) Lymph % (Auto) [place] % (Auto) Eos % (Auto) Baso % (Auto) Neut # Lymph # [place] # Eos # Baso # Abs Immat Gran (auto) Neutrophils % (Manual) Band Neutrophils % Lymphocytes % (Manual) Monocytes % (Manual) Basophils % (Manual) Neutrophils # (Manual) Band Neutrophils # Lymphocytes # (Manual) Monocytes # (Manual) Basophils # (Manual) RBC Morph Comment ABG pH ABG pCO2 ABG pO2 ABG HCO3 ABG Total CO2 ABG O2 Saturation ABG Base Excess O2 Delivery Method Turbidity Sodium Potassium Chloride Carbon Dioxide Anion Gap BUN Creatinine GFR Calculation BUN/Creatinine Ratio Glucose Glucometer 97 102 175 Hemoglobin A1c Calculated Osmolality Calcium Phosphorus Magnesium Total Bilirubin Icterus Index Acetone AST ALT Alkaline Phosphatase Troponin I Total Protein Albumin Globulin Albumin/Globulin Ratio Plasma Lactate TSH Specimen Hemolysis Ur Collection Type Urine Color Urine Clarity Urine pH Ur Specific [place] Urine Protein Urine Glucose (UA) Urine Ketones Urine Occult Blood Urine Nitrate Urine Bilirubin Urine Urobilinogen Ur Leukocyte Esterase Urine RBC Urine WBC Urine Bacteria Urine Yeast Ur Culture Indicated? Urine Opiates Screen Ur Oxycodone Screen Urine Methadone Screen Ur Propoxyphene Screen Ur Barbiturates Screen U Tricyclic Antidepress Ur Phencyclidine Scrn Ur Amphetamines Screen U Methamphetamines Scrn U Benzodiazepines Scrn Urine Cocaine Screen U Cannabinoids Screen Ur Drug Screen Confirm [place] Scrn Comment Ethyl Alcohol (GC) Methyl Alcohol Level Isopropanol B-Hydroxybutyrate 02/14/17 02/14/17 02/14/17 15:51 15:51 15:51 WBC RBC Hgb Hct MCV MCH MCHC RDW Std Deviation Plt Count MPV Immature Gran % (Auto) Neut % (Auto) Lymph % (Auto) [place] % (Auto) Eos % (Auto) Baso % (Auto) Neut # Lymph # [place] # Eos # Baso # Abs Immat Gran (auto) Neutrophils % (Manual) Band Neutrophils % Lymphocytes % (Manual) Monocytes % (Manual) Basophils % (Manual) Neutrophils # (Manual) Band Neutrophils # Lymphocytes # (Manual) Monocytes # (Manual) Basophils # (Manual) RBC Morph Comment ABG pH ABG pCO2 ABG pO2 ABG HCO3 ABG Total CO2 ABG O2 Saturation ABG Base Excess O2 Delivery Method Turbidity < 20 Sodium 137 Potassium 3.3 L D Chloride 118 H Carbon Dioxide 11 L Anion Gap 8 BUN 35.0 H Creatinine 0.8 GFR Calculation 70 BUN/Creatinine Ratio 44 H Glucose 214 H Glucometer Hemoglobin A1c Calculated Osmolality 278 Calcium 8.3 L D Phosphorus 2.1 L Magnesium 2.0 Total Bilirubin Icterus Index < 2 Acetone AST ALT Alkaline Phosphatase Troponin I 0.153 H Total Protein Albumin 2.5 L Globulin Albumin/Globulin Ratio Plasma Lactate TSH Specimen Hemolysis < 15 < 15 Ur Collection Type Urine Color Urine Clarity Urine pH Ur Specific [place] Urine Protein Urine Glucose (UA) Urine Ketones Urine Occult Blood Urine Nitrate Urine Bilirubin Urine Urobilinogen Ur Leukocyte Esterase Urine RBC Urine WBC Urine Bacteria Urine Yeast Ur Culture Indicated? Urine Opiates Screen Ur Oxycodone Screen Urine Methadone Screen Ur Propoxyphene Screen Ur Barbiturates Screen U Tricyclic Antidepress Ur Phencyclidine Scrn Ur Amphetamines Screen U Methamphetamines Scrn U Benzodiazepines Scrn Urine Cocaine Screen U Cannabinoids Screen Ur Drug Screen Confirm [place] Scrn Comment Ethyl Alcohol (GC) Methyl Alcohol Level Isopropanol B-Hydroxybutyrate 02/14/17 02/14/17 02/14/17 16:14 17:16 18:05 WBC RBC Hgb Hct MCV MCH MCHC RDW Std Deviation Plt Count MPV Immature Gran % (Auto) Neut % (Auto) Lymph % (Auto) [place] % (Auto) Eos % (Auto) Baso % (Auto) Neut # Lymph # [place] # Eos # Baso # Abs Immat Gran (auto) Neutrophils % (Manual) Band Neutrophils % Lymphocytes % (Manual) Monocytes % (Manual) Basophils % (Manual) Neutrophils # (Manual) Band Neutrophils # Lymphocytes # (Manual) Monocytes # (Manual) Basophils # (Manual) RBC Morph Comment ABG pH ABG pCO2 ABG pO2 ABG HCO3 ABG Total CO2 ABG O2 Saturation ABG Base Excess O2 Delivery Method Turbidity Sodium Potassium Chloride Carbon Dioxide Anion Gap BUN Creatinine GFR Calculation BUN/Creatinine Ratio Glucose Glucometer 237 250 226 Hemoglobin A1c Calculated Osmolality Calcium Phosphorus Magnesium Total Bilirubin Icterus Index Acetone AST ALT Alkaline Phosphatase Troponin I Total Protein Albumin Globulin Albumin/Globulin Ratio Plasma Lactate TSH Specimen Hemolysis Ur Collection Type Urine Color Urine Clarity Urine pH Ur Specific [place] Urine Protein Urine Glucose (UA) Urine Ketones Urine Occult Blood Urine Nitrate Urine Bilirubin Urine Urobilinogen Ur Leukocyte Esterase Urine RBC Urine WBC Urine Bacteria Urine Yeast Ur Culture Indicated? Urine Opiates Screen Ur Oxycodone Screen Urine Methadone Screen Ur Propoxyphene Screen Ur Barbiturates Screen U Tricyclic Antidepress Ur Phencyclidine Scrn Ur Amphetamines Screen U Methamphetamines Scrn U Benzodiazepines Scrn Urine Cocaine Screen U Cannabinoids Screen Ur Drug Screen Confirm [place] Scrn Comment Ethyl Alcohol (GC) Methyl Alcohol Level Isopropanol B-Hydroxybutyrate 02/14/17 02/14/17 02/14/17 18:58 19:45 20:03 WBC RBC Hgb Hct MCV MCH MCHC RDW Std Deviation Plt Count MPV Immature Gran % (Auto) Neut % (Auto) Lymph % (Auto) [place] % (Auto) Eos % (Auto) Baso % (Auto) Neut # Lymph # [place] # Eos # Baso # Abs Immat Gran (auto) Neutrophils % (Manual) Band Neutrophils % Lymphocytes % (Manual) Monocytes % (Manual) Basophils % (Manual) Neutrophils # (Manual) Band Neutrophils # Lymphocytes # (Manual) Monocytes # (Manual) Basophils # (Manual) RBC Morph Comment ABG pH ABG pCO2 ABG pO2 ABG HCO3 ABG Total CO2 ABG O2 Saturation ABG Base Excess O2 Delivery Method Turbidity < 20 Sodium 136 Potassium 3.5 L Chloride 115 H Carbon Dioxide 12 L Anion Gap 9 BUN 35.0 H Creatinine 0.9 GFR Calculation 61 BUN/Creatinine Ratio 39 H Glucose 158 H Glucometer 221 170 Hemoglobin A1c Calculated Osmolality 273 Calcium 8.9 Phosphorus 1.9 L Magnesium 2.0 Total Bilirubin Icterus Index < 2 Acetone AST ALT Alkaline Phosphatase Troponin I Total Protein Albumin 2.6 L Globulin Albumin/Globulin Ratio Plasma Lactate TSH Specimen Hemolysis < 15 Ur Collection Type Urine Color Urine Clarity Urine pH Ur Specific [place] Urine Protein Urine Glucose (UA) Urine Ketones Urine Occult Blood Urine Nitrate Urine Bilirubin Urine Urobilinogen Ur Leukocyte Esterase Urine RBC Urine WBC Urine Bacteria Urine Yeast Ur Culture Indicated? Urine Opiates Screen Ur Oxycodone Screen Urine Methadone Screen Ur Propoxyphene Screen Ur Barbiturates Screen U Tricyclic Antidepress Ur Phencyclidine Scrn Ur Amphetamines Screen U Methamphetamines Scrn U Benzodiazepines Scrn Urine Cocaine Screen U Cannabinoids Screen Ur Drug Screen Confirm [place] Scrn Comment Ethyl Alcohol (GC) Methyl Alcohol Level Isopropanol B-Hydroxybutyrate 02/14/17 02/14/17 02/14/17 21:21 22:08 22:14 WBC RBC Hgb Hct MCV MCH MCHC RDW Std Deviation Plt Count MPV Immature Gran % (Auto) Neut % (Auto) Lymph % (Auto) [place] % (Auto) Eos % (Auto) Baso % (Auto) Neut # Lymph # [place] # Eos # Baso # Abs Immat Gran (auto) Neutrophils % (Manual) Band Neutrophils % Lymphocytes % (Manual) Monocytes % (Manual) Basophils % (Manual) Neutrophils # (Manual) Band Neutrophils # Lymphocytes # (Manual) Monocytes # (Manual) Basophils # (Manual) RBC Morph Comment ABG pH ABG pCO2 ABG pO2 ABG HCO3 ABG Total CO2 ABG O2 Saturation ABG Base Excess O2 Delivery Method Turbidity Sodium Potassium Chloride Carbon Dioxide Anion Gap BUN Creatinine GFR Calculation BUN/Creatinine Ratio Glucose Glucometer 137 142 Hemoglobin A1c Calculated Osmolality Calcium Phosphorus Magnesium Total Bilirubin Icterus Index Acetone AST ALT Alkaline Phosphatase Troponin I 0.122 H Total Protein Albumin Globulin Albumin/Globulin Ratio Plasma Lactate TSH Specimen Hemolysis < 15 Ur Collection Type Urine Color Urine Clarity Urine pH Ur Specific [place] Urine Protein Urine Glucose (UA) Urine Ketones Urine Occult Blood Urine Nitrate Urine Bilirubin Urine Urobilinogen Ur Leukocyte Esterase Urine RBC Urine WBC Urine Bacteria Urine Yeast Ur Culture Indicated? Urine Opiates Screen Ur Oxycodone Screen Urine Methadone Screen Ur Propoxyphene Screen Ur Barbiturates Screen U Tricyclic Antidepress Ur Phencyclidine Scrn Ur Amphetamines Screen U Methamphetamines Scrn U Benzodiazepines Scrn Urine Cocaine Screen U Cannabinoids Screen Ur Drug Screen Confirm [place] Scrn Comment Ethyl Alcohol (GC) Methyl Alcohol Level Isopropanol B-Hydroxybutyrate 02/14/17 02/14/17 02/15/17 22:58 23:07 00:04 WBC RBC Hgb Hct MCV MCH MCHC RDW Std Deviation Plt Count MPV Immature Gran % (Auto) Neut % (Auto) Lymph % (Auto) [place] % (Auto) Eos % (Auto) Baso % (Auto) Neut # Lymph # [place] # Eos # Baso # Abs Immat Gran (auto) Neutrophils % (Manual) Band Neutrophils % Lymphocytes % (Manual) Monocytes % (Manual) Basophils % (Manual) Neutrophils # (Manual) Band Neutrophils # Lymphocytes # (Manual) Monocytes # (Manual) Basophils # (Manual) RBC Morph Comment ABG pH ABG pCO2 ABG pO2 ABG HCO3 ABG Total CO2 ABG O2 Saturation ABG Base Excess O2 Delivery Method Turbidity Sodium Potassium Chloride Carbon Dioxide Anion Gap BUN Creatinine GFR Calculation BUN/Creatinine Ratio Glucose Glucometer 115 111 Hemoglobin A1c Calculated Osmolality Calcium Phosphorus Magnesium Total Bilirubin Icterus Index Acetone AST ALT Alkaline Phosphatase Troponin I Total Protein Albumin Globulin Albumin/Globulin Ratio Plasma Lactate TSH Specimen Hemolysis Ur Collection Type Urine, mckenzie Urine Color Yellow Urine Clarity Clear Urine pH 5.0 Ur Specific [place] 1.025 Urine Protein Trace A Urine Glucose (UA) Negative Urine Ketones Negative Urine Occult Blood 2+ A Urine Nitrate Negative Urine Bilirubin Negative Urine Urobilinogen 0.2 Ur Leukocyte Esterase Trace A Urine RBC Urine WBC Urine Bacteria Urine Yeast Ur Culture Indicated? Urine Opiates Screen Ur Oxycodone Screen Urine Methadone Screen Ur Propoxyphene Screen Ur Barbiturates Screen U Tricyclic Antidepress Ur Phencyclidine Scrn Ur Amphetamines Screen U Methamphetamines Scrn U Benzodiazepines Scrn Urine Cocaine Screen U Cannabinoids Screen Ur Drug Screen Confirm [place] Scrn Comment Ethyl Alcohol (GC) Methyl Alcohol Level Isopropanol B-Hydroxybutyrate 02/15/17 02/15/17 02/15/17 01:03 02:00 02:59 WBC RBC Hgb Hct MCV MCH MCHC RDW Std Deviation Plt Count MPV Immature Gran % (Auto) Neut % (Auto) Lymph % (Auto) [place] % (Auto) Eos % (Auto) Baso % (Auto) Neut # Lymph # [place] # Eos # Baso # Abs Immat Gran (auto) Neutrophils % (Manual) Band Neutrophils % Lymphocytes % (Manual) Monocytes % (Manual) Basophils % (Manual) Neutrophils # (Manual) Band Neutrophils # Lymphocytes # (Manual) Monocytes # (Manual) Basophils # (Manual) RBC Morph Comment ABG pH ABG pCO2 ABG pO2 ABG HCO3 ABG Total CO2 ABG O2 Saturation ABG Base Excess O2 Delivery Method Turbidity Sodium Potassium Chloride Carbon Dioxide Anion Gap BUN Creatinine GFR Calculation BUN/Creatinine Ratio Glucose Glucometer 115 127 138 Hemoglobin A1c Calculated Osmolality Calcium Phosphorus Magnesium Total Bilirubin Icterus Index Acetone AST ALT Alkaline Phosphatase Troponin I Total Protein Albumin Globulin Albumin/Globulin Ratio Plasma Lactate TSH Specimen Hemolysis Ur Collection Type Urine Color Urine Clarity Urine pH Ur Specific [place] Urine Protein Urine Glucose (UA) Urine Ketones Urine Occult Blood Urine Nitrate Urine Bilirubin Urine Urobilinogen Ur Leukocyte Esterase Urine RBC Urine WBC Urine Bacteria Urine Yeast Ur Culture Indicated? Urine Opiates Screen Ur Oxycodone Screen Urine Methadone Screen Ur Propoxyphene Screen Ur Barbiturates Screen U Tricyclic Antidepress Ur Phencyclidine Scrn Ur Amphetamines Screen U Methamphetamines Scrn U Benzodiazepines Scrn Urine Cocaine Screen U Cannabinoids Screen Ur Drug Screen Confirm [place] Scrn Comment Ethyl Alcohol (GC) Methyl Alcohol Level Isopropanol B-Hydroxybutyrate 02/15/17 02/15/17 02/15/17 04:03 04:07 04:07 WBC 10.9 RBC 4.13 Hgb 12.5 Hct 35.9 L MCV 86.9 MCH 30.3 MCHC 34.8 RDW Std Deviation 44.0 Plt Count 232 MPV 8.6 L Immature Gran % (Auto) Neut % (Auto) Lymph % (Auto) [place] % (Auto) Eos % (Auto) Baso % (Auto) Neut # Lymph # [place] # Eos # Baso # Abs Immat Gran (auto) Neutrophils % (Manual) 75.0 H Band Neutrophils % 13.0 H D Lymphocytes % (Manual) 6.0 L Monocytes % (Manual) 5.0 Basophils % (Manual) 1.0 Neutrophils # (Manual) 8.2 H Band Neutrophils # 1.4 Lymphocytes # (Manual) 0.7 L Monocytes # (Manual) 0.5 Basophils # (Manual) 0.1 RBC Morph Comment Normal ABG pH ABG pCO2 ABG pO2 ABG HCO3 ABG Total CO2 ABG O2 Saturation ABG Base Excess O2 Delivery Method Turbidity < 20 Sodium 135 Potassium 3.5 L Chloride 114 H Carbon Dioxide 13 L Anion Gap 8 BUN 31.0 H Creatinine 0.9 GFR Calculation 61 BUN/Creatinine Ratio 34 H Glucose 110 Glucometer 125 Hemoglobin A1c Calculated Osmolality 268 Calcium 8.5 Phosphorus 3.1 Magnesium 1.8 Total Bilirubin Icterus Index < 2 Acetone AST ALT Alkaline Phosphatase Troponin I Total Protein Albumin 2.6 L Globulin Albumin/Globulin Ratio Plasma Lactate TSH Specimen Hemolysis < 15 Ur Collection Type Urine Color Urine Clarity Urine pH Ur Specific [place] Urine Protein Urine Glucose (UA) Urine Ketones Urine Occult Blood Urine Nitrate Urine Bilirubin Urine Urobilinogen Ur Leukocyte Esterase Urine RBC Urine WBC Urine Bacteria Urine Yeast Ur Culture Indicated? Urine Opiates Screen Ur Oxycodone Screen Urine Methadone Screen Ur Propoxyphene Screen Ur Barbiturates Screen U Tricyclic Antidepress Ur Phencyclidine Scrn Ur Amphetamines Screen U Methamphetamines Scrn U Benzodiazepines Scrn Urine Cocaine Screen U Cannabinoids Screen Ur Drug Screen Confirm [place] Scrn Comment Ethyl Alcohol (GC) Methyl Alcohol Level Isopropanol B-Hydroxybutyrate 02/15/17 02/15/17 02/15/17 05:04 06:00 06:56 WBC RBC Hgb Hct MCV MCH MCHC RDW Std Deviation Plt Count MPV Immature Gran % (Auto) Neut % (Auto) Lymph % (Auto) [place] % (Auto) Eos % (Auto) Baso % (Auto) Neut # Lymph # [place] # Eos # Baso # Abs Immat Gran (auto) Neutrophils % (Manual) Band Neutrophils % Lymphocytes % (Manual) Monocytes % (Manual) Basophils % (Manual) Neutrophils # (Manual) Band Neutrophils # Lymphocytes # (Manual) Monocytes # (Manual) Basophils # (Manual) RBC Morph Comment ABG pH ABG pCO2 ABG pO2 ABG HCO3 ABG Total CO2 ABG O2 Saturation ABG Base Excess O2 Delivery Method Turbidity Sodium Potassium Chloride Carbon Dioxide Anion Gap BUN Creatinine GFR Calculation BUN/Creatinine Ratio Glucose Glucometer 131 122 123 Hemoglobin A1c Calculated Osmolality Calcium Phosphorus Magnesium Total Bilirubin Icterus Index Acetone AST ALT Alkaline Phosphatase Troponin I Total Protein Albumin Globulin Albumin/Globulin Ratio Plasma Lactate TSH Specimen Hemolysis Ur Collection Type Urine Color Urine Clarity Urine pH Ur Specific [place] Urine Protein Urine Glucose (UA) Urine Ketones Urine Occult Blood Urine Nitrate Urine Bilirubin Urine Urobilinogen Ur Leukocyte Esterase Urine RBC Urine WBC Urine Bacteria Urine Yeast Ur Culture Indicated? Urine Opiates Screen Ur Oxycodone Screen Urine Methadone Screen Ur Propoxyphene Screen Ur Barbiturates Screen U Tricyclic Antidepress Ur Phencyclidine Scrn Ur Amphetamines Screen U Methamphetamines Scrn U Benzodiazepines Scrn Urine Cocaine Screen U Cannabinoids Screen Ur Drug Screen Confirm [place] Scrn Comment Ethyl Alcohol (GC) Methyl Alcohol Level Isopropanol B-Hydroxybutyrate 02/15/17 02/15/17 02/15/17 08:08 09:04 10:09 WBC RBC Hgb Hct MCV MCH MCHC RDW Std Deviation Plt Count MPV Immature Gran % (Auto) Neut % (Auto) Lymph % (Auto) [place] % (Auto) Eos % (Auto) Baso % (Auto) Neut # Lymph # [place] # Eos # Baso # Abs Immat Gran (auto) Neutrophils % (Manual) Band Neutrophils % Lymphocytes % (Manual) Monocytes % (Manual) Basophils % (Manual) Neutrophils # (Manual) Band Neutrophils # Lymphocytes # (Manual) Monocytes # (Manual) Basophils # (Manual) RBC Morph Comment ABG pH ABG pCO2 ABG pO2 ABG HCO3 ABG Total CO2 ABG O2 Saturation ABG Base Excess O2 Delivery Method Turbidity Sodium Potassium Chloride Carbon Dioxide Anion Gap BUN Creatinine GFR Calculation BUN/Creatinine Ratio Glucose Glucometer 107 102 112 Hemoglobin A1c Calculated Osmolality Calcium Phosphorus Magnesium Total Bilirubin Icterus Index Acetone AST ALT Alkaline Phosphatase Troponin I Total Protein Albumin Globulin Albumin/Globulin Ratio Plasma Lactate TSH Specimen Hemolysis Ur Collection Type Urine Color Urine Clarity Urine pH Ur Specific [place] Urine Protein Urine Glucose (UA) Urine Ketones Urine Occult Blood Urine Nitrate Urine Bilirubin Urine Urobilinogen Ur Leukocyte Esterase Urine RBC Urine WBC Urine Bacteria Urine Yeast Ur Culture Indicated? Urine Opiates Screen Ur Oxycodone Screen Urine Methadone Screen Ur Propoxyphene Screen Ur Barbiturates Screen U Tricyclic Antidepress Ur Phencyclidine Scrn Ur Amphetamines Screen U Methamphetamines Scrn U Benzodiazepines Scrn Urine Cocaine Screen U Cannabinoids Screen Ur Drug Screen Confirm [place] Scrn Comment Ethyl Alcohol (GC) Methyl Alcohol Level Isopropanol B-Hydroxybutyrate 02/15/17 02/15/17 02/15/17 10:38 11:01 11:30 WBC RBC Hgb Hct MCV MCH MCHC RDW Std Deviation Plt Count MPV Immature Gran % (Auto) Neut % (Auto) Lymph % (Auto) [place] % (Auto) Eos % (Auto) Baso % (Auto) Neut # Lymph # [place] # Eos # Baso # Abs Immat Gran (auto) Neutrophils % (Manual) Band Neutrophils % Lymphocytes % (Manual) Monocytes % (Manual) Basophils % (Manual) Neutrophils # (Manual) Band Neutrophils # Lymphocytes # (Manual) Monocytes # (Manual) Basophils # (Manual) RBC Morph Comment ABG pH 7.270 L ABG pCO2 28 L ABG pO2 79 L ABG HCO3 13 L ABG Total CO2 13.8 L ABG O2 Saturation 94.0 L ABG Base Excess -12.6 L O2 Delivery Method Room air Turbidity < 20 Sodium 136 Potassium 2.9 L* Chloride 113 H Carbon Dioxide 14 L Anion Gap 9 BUN 28.0 H Creatinine 0.8 GFR Calculation 70 BUN/Creatinine Ratio 35 H Glucose 82 Glucometer 109 Hemoglobin A1c Calculated Osmolality 267 Calcium 7.7 L D Phosphorus Magnesium 1.6 Total Bilirubin Icterus Index < 2 Acetone AST ALT Alkaline Phosphatase Troponin I Total Protein Albumin Globulin Albumin/Globulin Ratio Plasma Lactate 1.5 TSH Specimen Hemolysis < 15 Ur Collection Type Urine Color Urine Clarity Urine pH Ur Specific [place] Urine Protein Urine Glucose (UA) Urine Ketones Urine Occult Blood Urine Nitrate Urine Bilirubin Urine Urobilinogen Ur Leukocyte Esterase Urine RBC Urine WBC Urine Bacteria Urine Yeast Ur Culture Indicated? Urine Opiates Screen Ur Oxycodone Screen Urine Methadone Screen Ur Propoxyphene Screen Ur Barbiturates Screen U Tricyclic Antidepress Ur Phencyclidine Scrn Ur Amphetamines Screen U Methamphetamines Scrn U Benzodiazepines Scrn Urine Cocaine Screen U Cannabinoids Screen Ur Drug Screen Confirm [place] Scrn Comment Ethyl Alcohol (GC) Methyl Alcohol Level Isopropanol B-Hydroxybutyrate 09/06/17 09/06/17 12:08 13:14 WBC RBC Hgb Hct MCV MCH MCHC RDW Std Deviation Plt Count MPV Immature Gran % (Auto) Neut % (Auto) Lymph % (Auto) [place] % (Auto) Eos % (Auto) Baso % (Auto) Neut # Lymph # [place] # Eos # Baso # Abs Immat Gran (auto) Neutrophils % (Manual) Band Neutrophils % Lymphocytes % (Manual) Monocytes % (Manual) Basophils % (Manual) Neutrophils # (Manual) Band Neutrophils # Lymphocytes # (Manual) Monocytes # (Manual) Basophils # (Manual) RBC Morph Comment ABG pH ABG pCO2 ABG pO2 ABG HCO3 ABG Total CO2 ABG O2 Saturation ABG Base Excess O2 Delivery Method Turbidity Sodium Potassium Chloride Carbon Dioxide Anion Gap BUN Creatinine GFR Calculation BUN/Creatinine Ratio Glucose Glucometer 96 57 Hemoglobin A1c Calculated Osmolality Calcium Phosphorus Magnesium Total Bilirubin Icterus Index Acetone AST ALT Alkaline Phosphatase Troponin I Total Protein Albumin Globulin Albumin/Globulin Ratio Plasma Lactate TSH Specimen Hemolysis Ur Collection Type Urine Color Urine Clarity Urine pH Ur Specific [place] Urine Protein Urine Glucose (UA) Urine Ketones Urine Occult Blood Urine Nitrate Urine Bilirubin Urine Urobilinogen Ur Leukocyte Esterase Urine RBC Urine WBC Urine Bacteria Urine Yeast Ur Culture Indicated? Urine Opiates Screen Ur Oxycodone Screen Urine Methadone Screen Ur Propoxyphene Screen Ur Barbiturates Screen U Tricyclic Antidepress Ur Phencyclidine Scrn Ur Amphetamines Screen U Methamphetamines Scrn U Benzodiazepines Scrn Urine Cocaine Screen U Cannabinoids Screen Ur Drug Screen Confirm [place] Scrn Comment Ethyl Alcohol (GC) Methyl Alcohol Level Isopropanol B-Hydroxybutyrate Aspirin (Asa Supp) 300 mg RECTALLY DAILY [facility] Last Admin: 02/15/17 09:06 Dose: 300 mg Brimonidine Tartrate (Alphagan P 0.15% Eye Drops) 1 drop OP TID [facility] Last Admin: 02/15/17 09:06 Dose: 1 drop Hydromorphone HCl (Dilaudid) 0.5 mg IVP Q3H PRN PRN Reason: Pain Last Admin: 02/15/17 04:09 Dose: 0.5 mg Insulin Human Regular 100 unit (/ Sodium Chloride) 101 mls @ 5.67 mls/hr IV .[id number] PRN; 0.1 UNIT/KG/HR PRN Reason: Protocol Last Admin: 02/15/17 02:22 Dose: 0.07 unit/kg/hr, 4 mls/hr Aztreonam 1 g/ Sodium Chloride 100 mls @ 100 mls/hr IV Q6H [facility] Last Infusion: 02/15/17 13:37 Dose: Infused Potassium Phosphate 20 mmol/ (Dextrose/Sodium Chloride) 1,006.6667 mls @ 150 mls/hr IV .[id number] [facility] Last Infusion: 02/15/17 13:30 Dose: 150 mls/hr Metoclopramide HCl (Reglan) 5 mg IVP Q6H PRN Metoprolol Tartrate (Lopressor) 5 mg IVP Q6H [facility] Last Admin: 02/15/17 10:20 Dose: 5 mg Pantoprazole Sodium (Protonix Iv) 40 mg IVP DAILY [facility] Last Admin: 02/15/17 09:06 Dose: 40 mg Sodium Chloride (Iv Flush) 10 - 80 ml IVF PRN PRN PRN Reason: Flushing Last Admin: 02/14/17 14:03 Dose: 60 ml Sodium Chloride (Normal Saline) 500 ml IV PRN PRN Last Admin: 02/14/17 15:35 Dose: 500 ml <Lucille Landry - 02/15/17 13:50> - Urinary Catheter Management Urethral Cath placed during this visit: no <Kenny Agudelo - 02/16/17 16:40> yes <Lucille Landry - 02/16/17 12:07> Urethral indwelling: Yes <Lucille Landry - 02/15/17 12:11> Insertion date: 02/13/17 <Lucille Landry - 02/15/17 12:11> Insertion time: 16:45 <Lucille Landry - 02/15/17 12:11> Progress Note-A&P (1) Diabetes mellitus type 2, uncontrolled, without complications Problem details: Fair control now, more stable. Status: Chronic Current Visit: No (2) Altered mental status Status: Acute Current Visit: Yes (3) DKA, type 2 Status: Acute Current Visit: Yes (4) High anion gap metabolic acidosis Status: Acute Current Visit: Yes (5) Elevated troponin Problem details: Non STEMI, still having rare PVC's today. Becomes tachycardic with minimal verbal stimulation. Status: Acute Current Visit: Yes (6) Hypokalemia Status: Acute Current Visit: Yes <Mickey Agudelosein - 02/16/17 16:40> (1) Elevated troponin Problem details: Non STEMI, still having rare PVC's today. Becomes tachycardic with minimal verbal stimulation. Status: Acute Assessment and plan: Conservative management, continue Aspirin and BB Current Visit: Yes (2) DKA, type 2 Status: Acute Current Visit: Yes (3) Diabetes mellitus type 2, uncontrolled, without complications Problem details: Fair control now, more stable. Status: Chronic Current Visit: No (4) Altered mental status Status: Acute Current Visit: Yes (5) High anion gap metabolic acidosis Status: Acute Current Visit: Yes <Lucille Landry - 02/16/17 12:07> - Time Spent With Patient Total time spent is greater than 50% in coordination of care (as documented) at patient's floor/unit and/or counseling patient: <AmritaKenny arellano - 02/16/17 16:40> Total time spent is greater than 50% in coordination of care (as documented) at patient's floor/unit and/or counseling patient: <Lucille Landry - 02/15/17 12:11> less than 15 minutes <Lucille Landry 02/15/17 12:11> - Attestation Attestation Narrative: Recommendation After examining the patient I agree with the above assessment. I am involved in the formulation of the patient's plan of care. <Kenny Agudelo - 02/16/17 16:40> Sepsis Assessment - Evaluation Sepsis screening result: Severe Sepsis Risk <Lucille Landry 02/15/17 12:11> Hospital Course Summary Disclaimer: The visit summary below is not to be considered part of the above Progress Note. <Kenny Agudelo - 02/16/17 16:40> The visit summary below is not to be considered part of the above Progress Note. <Lucille Landry 02/15/17 12:11> Hospital Course: Mild troponin elevation without ST elevation. Trending downward. Continue IV BB and Aspirin supp. Thank you for allowing us to participate in the care of this patient. <Lucille Landry 02/15/17 12:11>
--- NOTE | 2017-02-15 15:44 | Progress Note ---
Progress Note: Subjective: CANCEL THIS NOTE Objective: VS- General- HEENT- Lungs- Cardiac- Abd- Ext- Neuro- Psych- - Data: 02/13/17 02/15/17 14:10 11:30 ABG pH 7.030 L* 7.270 L ABG pCO2 14 L* 28 L ABG pO2 100 79 L ABG HCO3 4 L 13 L ABG Total CO2 4.1 L 13.8 L ABG O2 Saturation 94.0 L 94.0 L ABG Base Excess -25.2 L -12.6 L 02/14/17 02/14/17 02/14/17 15:51 16:14 17:16 WBC RBC Hgb Hct MCV MCH MCHC RDW Std Deviation Plt Count MPV Neutrophils % (Manual) Band Neutrophils % Lymphocytes % (Manual) Monocytes % (Manual) Basophils % (Manual) Neutrophils # (Manual) Band Neutrophils # Lymphocytes # (Manual) Monocytes # (Manual) Basophils # (Manual) RBC Morph Comment ABG pH ABG pCO2 ABG pO2 ABG HCO3 ABG Total CO2 ABG O2 Saturation ABG Base Excess O2 Delivery Method Turbidity Sodium Potassium Chloride Carbon Dioxide Anion Gap BUN Creatinine GFR Calculation BUN/Creatinine Ratio Glucose Glucometer 237 250 Calculated Osmolality Calcium Phosphorus Magnesium 2.0 Icterus Index Acetone Troponin I Albumin Plasma Lactate Specimen Hemolysis Ur Collection Type Urine Color Urine Clarity Urine pH Ur Specific [place] Urine Protein Urine Glucose (UA) Urine Ketones Urine Occult Blood Urine Nitrate Urine Bilirubin Urine Urobilinogen Ur Leukocyte Esterase Volatiles Scrn Comment Ethyl Alcohol (GC) Methyl Alcohol Level Isopropanol 02/14/17 02/14/17 02/14/17 18:05 18:58 19:45 WBC RBC Hgb Hct MCV MCH MCHC RDW Std Deviation Plt Count MPV Neutrophils % (Manual) Band Neutrophils % Lymphocytes % (Manual) Monocytes % (Manual) Basophils % (Manual) Neutrophils # (Manual) Band Neutrophils # Lymphocytes # (Manual) Monocytes # (Manual) Basophils # (Manual) RBC Morph Comment ABG pH ABG pCO2 ABG pO2 ABG HCO3 ABG Total CO2 ABG O2 Saturation ABG Base Excess O2 Delivery Method Turbidity < 20 Sodium 136 Potassium 3.5 L Chloride 115 H Carbon Dioxide 12 L Anion Gap 9 BUN 35.0 H Creatinine 0.9 GFR Calculation 61 BUN/Creatinine Ratio 39 H Glucose 158 H Glucometer 226 221 Calculated Osmolality 273 Calcium 8.9 Phosphorus 1.9 L Magnesium 2.0 Icterus Index < 2 Acetone Troponin I Albumin 2.6 L Plasma Lactate Specimen Hemolysis < 15 Ur Collection Type Urine Color Urine Clarity Urine pH Ur Specific [place] Urine Protein Urine Glucose (UA) Urine Ketones Urine Occult Blood Urine Nitrate Urine Bilirubin Urine Urobilinogen Ur Leukocyte Esterase Volatiles Scrn Comment Ethyl Alcohol (GC) Methyl Alcohol Level Isopropanol 02/14/17 02/14/17 02/14/17 20:03 21:21 22:08 WBC RBC Hgb Hct MCV MCH MCHC RDW Std Deviation Plt Count MPV Neutrophils % (Manual) Band Neutrophils % Lymphocytes % (Manual) Monocytes % (Manual) Basophils % (Manual) Neutrophils # (Manual) Band Neutrophils # Lymphocytes # (Manual) Monocytes # (Manual) Basophils # (Manual) RBC Morph Comment ABG pH ABG pCO2 ABG pO2 ABG HCO3 ABG Total CO2 ABG O2 Saturation ABG Base Excess O2 Delivery Method Turbidity Sodium Potassium Chloride Carbon Dioxide Anion Gap BUN Creatinine GFR Calculation BUN/Creatinine Ratio Glucose Glucometer 170 137 142 Calculated Osmolality Calcium Phosphorus Magnesium Icterus Index Acetone Troponin I Albumin Plasma Lactate Specimen Hemolysis Ur Collection Type Urine Color Urine Clarity Urine pH Ur Specific [place] Urine Protein Urine Glucose (UA) Urine Ketones Urine Occult Blood Urine Nitrate Urine Bilirubin Urine Urobilinogen Ur Leukocyte Esterase Volatiles Scrn Comment Ethyl Alcohol (GC) Methyl Alcohol Level Isopropanol 02/14/17 02/14/17 02/14/17 22:14 22:58 23:07 WBC RBC Hgb Hct MCV MCH MCHC RDW Std Deviation Plt Count MPV Neutrophils % (Manual) Band Neutrophils % Lymphocytes % (Manual) Monocytes % (Manual) Basophils % (Manual) Neutrophils # (Manual) Band Neutrophils # Lymphocytes # (Manual) Monocytes # (Manual) Basophils # (Manual) RBC Morph Comment ABG pH ABG pCO2 ABG pO2 ABG HCO3 ABG Total CO2 ABG O2 Saturation ABG Base Excess O2 Delivery Method Turbidity Sodium Potassium Chloride Carbon Dioxide Anion Gap BUN Creatinine GFR Calculation BUN/Creatinine Ratio Glucose Glucometer 115 Calculated Osmolality Calcium Phosphorus Magnesium Icterus Index Acetone Troponin I 0.122 H Albumin Plasma Lactate Specimen Hemolysis < 15 Ur Collection Type Urine, mckenzie Urine Color Yellow Urine Clarity Clear Urine pH 5.0 Ur Specific [place] 1.025 Urine Protein Trace A Urine Glucose (UA) Negative Urine Ketones Negative Urine Occult Blood 2+ A Urine Nitrate Negative Urine Bilirubin Negative Urine Urobilinogen 0.2 Ur Leukocyte Esterase Trace A Volatiles Scrn Comment Ethyl Alcohol (GC) Methyl Alcohol Level Isopropanol 02/15/17 02/15/17 02/15/17 00:04 01:03 02:00 WBC RBC Hgb Hct MCV MCH MCHC RDW Std Deviation Plt Count MPV Neutrophils % (Manual) Band Neutrophils % Lymphocytes % (Manual) Monocytes % (Manual) Basophils % (Manual) Neutrophils # (Manual) Band Neutrophils # Lymphocytes # (Manual) Monocytes # (Manual) Basophils # (Manual) RBC Morph Comment ABG pH ABG pCO2 ABG pO2 ABG HCO3 ABG Total CO2 ABG O2 Saturation ABG Base Excess O2 Delivery Method Turbidity Sodium Potassium Chloride Carbon Dioxide Anion Gap BUN Creatinine GFR Calculation BUN/Creatinine Ratio Glucose Glucometer 111 115 127 Calculated Osmolality Calcium Phosphorus Magnesium Icterus Index Acetone Troponin I Albumin Plasma Lactate Specimen Hemolysis Ur Collection Type Urine Color Urine Clarity Urine pH Ur Specific [place] Urine Protein Urine Glucose (UA) Urine Ketones Urine Occult Blood Urine Nitrate Urine Bilirubin Urine Urobilinogen Ur Leukocyte Esterase Volatiles Scrn Comment Ethyl Alcohol (GC) Methyl Alcohol Level Isopropanol 02/15/17 02/15/17 02/15/17 02:59 04:03 04:07 WBC 10.9 RBC 4.13 Hgb 12.5 Hct 35.9 L MCV 86.9 MCH 30.3 MCHC 34.8 RDW Std Deviation 44.0 Plt Count 232 MPV 8.6 L Neutrophils % (Manual) 75.0 H Band Neutrophils % 13.0 H D Lymphocytes % (Manual) 6.0 L Monocytes % (Manual) 5.0 Basophils % (Manual) 1.0 Neutrophils # (Manual) 8.2 H Band Neutrophils # 1.4 Lymphocytes # (Manual) 0.7 L Monocytes # (Manual) 0.5 Basophils # (Manual) 0.1 RBC Morph Comment Normal ABG pH ABG pCO2 ABG pO2 ABG HCO3 ABG Total CO2 ABG O2 Saturation ABG Base Excess O2 Delivery Method Turbidity Sodium Potassium Chloride Carbon Dioxide Anion Gap BUN Creatinine GFR Calculation BUN/Creatinine Ratio Glucose Glucometer 138 125 Calculated Osmolality Calcium Phosphorus Magnesium Icterus Index Acetone Troponin I Albumin Plasma Lactate Specimen Hemolysis Ur Collection Type Urine Color Urine Clarity Urine pH Ur Specific [place] Urine Protein Urine Glucose (UA) Urine Ketones Urine Occult Blood Urine Nitrate Urine Bilirubin Urine Urobilinogen Ur Leukocyte Esterase Volatiles Scrn Comment Ethyl Alcohol (GC) Methyl Alcohol Level Isopropanol 02/15/17 02/15/17 02/15/17 04:07 05:04 06:00 WBC RBC Hgb Hct MCV MCH MCHC RDW Std Deviation Plt Count MPV Neutrophils % (Manual) Band Neutrophils % Lymphocytes % (Manual) Monocytes % (Manual) Basophils % (Manual) Neutrophils # (Manual) Band Neutrophils # Lymphocytes # (Manual) Monocytes # (Manual) Basophils # (Manual) RBC Morph Comment ABG pH ABG pCO2 ABG pO2 ABG HCO3 ABG Total CO2 ABG O2 Saturation ABG Base Excess O2 Delivery Method Turbidity < 20 Sodium 135 Potassium 3.5 L Chloride 114 H Carbon Dioxide 13 L Anion Gap 8 BUN 31.0 H Creatinine 0.9 GFR Calculation 61 BUN/Creatinine Ratio 34 H Glucose 110 Glucometer 131 122 Calculated Osmolality 268 Calcium 8.5 Phosphorus 3.1 Magnesium 1.8 Icterus Index < 2 Acetone Troponin I Albumin 2.6 L Plasma Lactate Specimen Hemolysis < 15 Ur Collection Type Urine Color Urine Clarity Urine pH Ur Specific [place] Urine Protein Urine Glucose (UA) Urine Ketones Urine Occult Blood Urine Nitrate Urine Bilirubin Urine Urobilinogen Ur Leukocyte Esterase Volatiles Scrn Comment Ethyl Alcohol (GC) Methyl Alcohol Level Isopropanol 02/15/17 02/15/17 02/15/17 06:56 08:08 09:04 WBC RBC Hgb Hct MCV MCH MCHC RDW Std Deviation Plt Count MPV Neutrophils % (Manual) Band Neutrophils % Lymphocytes % (Manual) Monocytes % (Manual) Basophils % (Manual) Neutrophils # (Manual) Band Neutrophils # Lymphocytes # (Manual) Monocytes # (Manual) Basophils # (Manual) RBC Morph Comment ABG pH ABG pCO2 ABG pO2 ABG HCO3 ABG Total CO2 ABG O2 Saturation ABG Base Excess O2 Delivery Method Turbidity Sodium Potassium Chloride Carbon Dioxide Anion Gap BUN Creatinine GFR Calculation BUN/Creatinine Ratio Glucose Glucometer 123 107 102 Calculated Osmolality Calcium Phosphorus Magnesium Icterus Index Acetone Troponin I Albumin Plasma Lactate Specimen Hemolysis Ur Collection Type Urine Color Urine Clarity Urine pH Ur Specific [place] Urine Protein Urine Glucose (UA) Urine Ketones Urine Occult Blood Urine Nitrate Urine Bilirubin Urine Urobilinogen Ur Leukocyte Esterase Volatiles Scrn Comment Ethyl Alcohol (GC) Methyl Alcohol Level Isopropanol 02/15/17 02/15/17 02/15/17 10:09 10:38 11:01 WBC RBC Hgb Hct MCV MCH MCHC RDW Std Deviation Plt Count MPV Neutrophils % (Manual) Band Neutrophils % Lymphocytes % (Manual) Monocytes % (Manual) Basophils % (Manual) Neutrophils # (Manual) Band Neutrophils # Lymphocytes # (Manual) Monocytes # (Manual) Basophils # (Manual) RBC Morph Comment ABG pH ABG pCO2 ABG pO2 ABG HCO3 ABG Total CO2 ABG O2 Saturation ABG Base Excess O2 Delivery Method Turbidity < 20 Sodium 136 Potassium 2.9 L* Chloride 113 H Carbon Dioxide 14 L Anion Gap 9 BUN 28.0 H Creatinine 0.8 GFR Calculation 70 BUN/Creatinine Ratio 35 H Glucose 82 Glucometer 112 109 Calculated Osmolality 267 Calcium 7.7 L D Phosphorus Magnesium 1.6 Icterus Index < 2 Acetone Troponin I Albumin Plasma Lactate 1.5 Specimen Hemolysis < 15 Ur Collection Type Urine Color Urine Clarity Urine pH Ur Specific [place] Urine Protein Urine Glucose (UA) Urine Ketones Urine Occult Blood Urine Nitrate Urine Bilirubin Urine Urobilinogen Ur Leukocyte Esterase Volatiles Scrn Comment Ethyl Alcohol (GC) Methyl Alcohol Level Isopropanol 02/15/17 02/15/17 02/15/17 11:30 12:08 13:14 WBC RBC Hgb Hct MCV MCH MCHC RDW Std Deviation Plt Count MPV Neutrophils % (Manual) Band Neutrophils % Lymphocytes % (Manual) Monocytes % (Manual) Basophils % (Manual) Neutrophils # (Manual) Band Neutrophils # Lymphocytes # (Manual) Monocytes # (Manual) Basophils # (Manual) RBC Morph Comment ABG pH 7.270 L ABG pCO2 28 L ABG pO2 79 L ABG HCO3 13 L ABG Total CO2 13.8 L ABG O2 Saturation 94.0 L ABG Base Excess -12.6 L O2 Delivery Method Room air Turbidity Sodium Potassium Chloride Carbon Dioxide Anion Gap BUN Creatinine GFR Calculation BUN/Creatinine Ratio Glucose Glucometer 96 57 Calculated Osmolality Calcium Phosphorus Magnesium Icterus Index Acetone Troponin I Albumin Plasma Lactate Specimen Hemolysis Ur Collection Type Urine Color Urine Clarity Urine pH Ur Specific [place] Urine Protein Urine Glucose (UA) Urine Ketones Urine Occult Blood Urine Nitrate Urine Bilirubin Urine Urobilinogen Ur Leukocyte Esterase Volatiles Scrn Comment Ethyl Alcohol (GC) Methyl Alcohol Level Isopropanol 02/15/17 02/15/17 02/15/17 14:09 15:04 15:21 WBC RBC Hgb Hct MCV MCH MCHC RDW Std Deviation Plt Count MPV Neutrophils % (Manual) Band Neutrophils % Lymphocytes % (Manual) Monocytes % (Manual) Basophils % (Manual) Neutrophils # (Manual) Band Neutrophils # Lymphocytes # (Manual) Monocytes # (Manual) Basophils # (Manual) RBC Morph Comment ABG pH ABG pCO2 ABG pO2 ABG HCO3 ABG Total CO2 ABG O2 Saturation ABG Base Excess O2 Delivery Method Turbidity Sodium Potassium Chloride Carbon Dioxide Anion Gap BUN Creatinine GFR Calculation BUN/Creatinine Ratio Glucose Glucometer 89 168 Calculated Osmolality Calcium Phosphorus Magnesium Icterus Index Acetone Troponin I Albumin Plasma Lactate 1.6 Specimen Hemolysis Ur Collection Type Urine Color Urine Clarity Urine pH Ur Specific [place] Urine Protein Urine Glucose (UA) Urine Ketones Urine Occult Blood Urine Nitrate Urine Bilirubin Urine Urobilinogen Ur Leukocyte Esterase Volatiles Scrn Comment Ethyl Alcohol (GC) Methyl Alcohol Level Isopropanol Assessment: Plan:
--- NOTE | 2017-02-15 15:55 | Progress Note ---
Subjective: Mrs. Holloway remains minimally responsive. She is able to tell me that her breathing was lousy but denied cough or sputum production. She again confirmed that she did stop taking all medications at some point prior to hospitalization. She denied chest pain, nausea, or dysuria prior to hospitalization. She denied current pain. Nursing reports that she's not been alert enough to take oral medications or liquids. Objective Vital signs: Temperature 97.0 F 02/15/17 11:00 Pulse Rate 126 H 02/15/17 14:15 Respiratory Rate 31 H 02/15/17 14:15 Blood Pressure 119/65 02/15/17 14:15 Pulse Oximetry 100 - RA 02/15/17 14:15 I/O 4989/2135 yesterday; 11,249/582 cumulative EXAM General-NAD, drowsy, soft spoken with occasional perseveration HEENT-conjunctiva clear, PER, dry oral membranes, facial structure symmetric Lungs-hyperventilating, shallow respirations, breath sounds are diminished through out and slightly coarse especially in the posterior carlos Cardiac-regular rhythm, S1-S2, low-grade tachycardia Abd-soft, nontender, bowel sounds present Ext-without edema Neuro-moves all extremities to command although effort is poor, 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 Microbiology Results: Microbiology 02/13/17 17:10 Urine, Cath Monahan Urine Culture - Final Mixed Bacterial Yahaira Blood cultures 2 negative after 2 days - ABG Interpretation Attestation: I reviewed and interpreted this ABG. ABG results: 02/15/17 11:30 ABG pH 7.270 L ABG pCO2 28 L ABG pO2 79 L ABG HCO3 13 L ABG Total CO2 13.8 L ABG O2 Saturation 94.0 L ABG Base Excess -12.6 L Interpretation: metabolic acidosis (with respiratory compensation) Assessment and Plan (1) DKA, type 2 Current visit: Yes Status: Acute DVT Prophylaxis: SCD's GI Prophylaxis: Protonix Resuscitation Status: Full Code Assessment and Plan: Impression: Severe DKA-pH of 7.0, HCO3< 5, blood sugar>500 on admission Type 2 diabetes mellitus on oral hypoglycemics-A1C 10.8 Encephalopathy secondary to DKA Acute kidney injury, probable dehydration-POA, baseline 07/30/2015-1.13 Non-ST elevation DC, mildly elevated troponin without chest pain or ST segment elevation Probable UTI-cannot rule out sepsis PVCs Emesis prior to admission Systemic lupus erythematosus Possible chronic steroid use-previous records showed she was on prednisone 5 mg daily History of hypertension Leukocytosis-possibly stress from DKA versus sepsis. Lactate was normal. Frequent PVCs Metabolic acidosis Hypophosphatemia, hypomagnesemia, hypokalemia, hypocalcemia, hyperchlorhydria History of multiple antibiotic allergies Plan: Patient remains encephalopathic and metabolically unstable. Potassium, phosphorus, and magnesium supplementation ongoing. Remains acidotic although no longer with high anion gap. No evidence of respiratory acidosis or lactic acidosis. Volatile acids negative on admission. Persistent tachypnea and tachycardia. Continue high volume fluid replacement therapy. Remains on insulin drip. Speech therapy evaluation-unable to take oral at this time due to altered level of consciousness. Blood pressure borderline low early this afternoon; hypertensive at other times. Continues to require IV metoprolol for tachycardia. Blood cultures negative, UA mixed species-discontinue antibiotics. Discussed with daughter Gabriela Goodman-updated on changes overnight. Phone number is [phone]. Patient's sister Linda Parra lives in [place]. [phone]. Patient remains critically ill-40 minutes spent at bedside; discussed with cardiology and multiple conversations with nursing. Sepsis Assessment - Evaluation Sepsis screening result: Severe Sepsis Risk Hospital Course Summary Disclaimer: The visit summary below is not to be considered part of the above Progress Note. Hospital Course: 02/13/17-admission Admit to CCU. DKA protocol With patient's possible history of chronic steroid use, monitor for hypotension and may require stress dose steroids. Check magnesium and phosphorus Continue on telemetry Monahan catheter was placed to obtain urine sample and to monitor urine output Aztreonam 1 g IV every 6 for UTI in a patient with multiple drug allergies SCDs for DVT prophylaxis Protonix IV in place of her oral lansoprazole Ice chips only for now Consult Dr. Dick tomorrow Consult Dr. Agudelo tomorrow regarding elevated troponin Start aspirin 300 mg per rectum 02/14/17 13:59 Patient remains metabolically unstable and encephalopathic. Persistent tachypnea and tachycardia. Persistent acidosis with development of hypophosphatemia, hypomagnesemia, and hypophosphatemia with treatment of DKA as anticipated. Electrolyte replacement initiated earlier today and will require ongoing monitoring of labs and fluid adjustment. Acidosis worsened slightly in the past couple of hours after insulin drip discontinued due to low blood sugars-D5 being readmitted to fluids after consultation with Dr. Dick. Unclear the patient has been taking diabetic medications prior to admission; daughter confirms that she does not routinely monitor blood sugars. Creatinine 0.9 following hydration, BUN remains elevated at 40. Continue fluids. Dr. Niño's office does not have any advanced directives on file, full code order written in absence of prior known directives. Cultures pending-continue aztreonam Mild troponin elevation without ST elevation. Trending downward. Continue IV BB and Aspirin supp. 02/15/17 16:27 Patient remains encephalopathic and metabolically unstable. Potassium, phosphorus, and magnesium supplementation ongoing. Remains acidotic although no longer with high anion gap. No evidence of respiratory acidosis or lactic acidosis. Volatile acids negative on admission. Persistent tachypnea and tachycardia. Continue high volume fluid replacement therapy. Remains on insulin drip. Speech therapy evaluation-unable to take oral at this time due to altered level of consciousness. Blood pressure borderline low early this afternoon; hypertensive at other times. Continues to require IV metoprolol for tachycardia. Blood cultures negative, UA mixed species-discontinue antibiotics.
[2017-02-15] MEDS: SODIUM BICARBONATE 150 MEQ in D5W 1,000 ML IV SCH (18:36)
--- NOTE | 2017-02-15 20:47 | XRay Report ---
Indication: dyspnea PROCEDURE: XR chest 1V: Encounter: Initial Comparison: February 13, 2017 Findings: New left PICC line in place with the tip projecting over the lower SVC. New hazy airspace opacities in the mid to lower lung carlos bilaterally. Overlying material causing artifact. No pneumothorax. Probable small effusions. Cardiac silhouette is mildly enlarged but unchanged. Mediastinal contours are stable. Impression: New perihilar predominant airspace opacity most likely due to pulmonary edema. .
[2017-02-15] MEDS ORDERED: HALOPERIDOL 5 MG/ML INJECTION IVP PRN (20:51)
[2017-02-15] MEDS ORDERED: FUROSEMIDE 20 MG/2 ML INJECTION IVP ONE (21:03)
[2017-02-15] MEDS: SALINE FLUSH 10ml SYRINGE IVF PRN (21:10)
[2017-02-15] MEDS: BRIMONIDINE 0.15% EACH EYE SCH (22:54)
[2017-02-15] MEDS: EYE EACH EYE SCH (22:54)
[2017-02-16] MEDS: HYDROMORPHONE 2 MG/ML INJECTION IVP PRN ×2 (04:39→12:16)
[2017-02-16] MEDS: SODIUM BICARBONATE 150 MEQ in D5W 1,000 ML IV SCH (05:04)
[2017-02-16] MEDS: INSULIN REGULAR, HUMAN 100 UNIT in NS 100 ML IV PRN (05:04)
[2017-02-16] MEDS: METOPROLOL 5mg/5ml INJECTION IVP SCH ×2 (05:05→09:51)
[2017-02-16] MEDS: SALINE FLUSH 10ml SYRINGE IVF PRN (05:06)
[2017-02-16] MEDS: POTASSIUM CHLORIDE PREMIX 10 MEQ/100 ML BAG IV SCH ×8 (05:23→15:04)
--- NOTE | 2017-02-16 07:59 | Endocrinology Progress Note ---
Progress Note-A&P (1) Altered mental status Status: Acute Assessment and plan: Still somnolent, not at her baseline. Current Visit: Yes (2) Elevated troponin Problem details: Non STEMI, still having rare PVC's today. Becomes tachycardic with minimal verbal stimulation. Status: Acute Assessment and plan: per Dr. Agudelo Current Visit: Yes (3) Diabetes mellitus type 2, uncontrolled, without complications Problem details: Fair control now, more stable. Status: Chronic Assessment and plan: Just mildly volume depleted now. Insulin requirements have dropped to 3 units/ hr. Can transition to subQ insulin. Current Visit: No - Time Spent With Patient Total time spent is greater than 50% in coordination of care (as documented) at patient's floor/unit and/or counseling patient: 25 - 35 minutes Subjective Principal diagnosis: Uncontrolled DM type 2 Interval history: Still sleepy. Not hungry, but denies nausea or abdominal pain. Denies chest pain. Only complains of thirst. Exam Vital signs: Temperature 97.8 F 02/16/17 04:00 Pulse Rate 119 H 02/16/17 06:00 Respiratory Rate 25 H 02/16/17 06:00 Blood Pressure 153/70 H 02/16/17 06:00 Pulse Oximetry 95 02/16/17 06:00 - Constitutional no acute distress, well nourished, well developed, somnolent - Routine HEENT Exam Head: Present: normocephalic, atraumatic ENT: Present: mucous membranes dry - Routine Neck Exam Absent: lymphadenopathy, thyromegaly - Routine Respiratory Exam Absent: rhonchi, wheezes - Routine Cardiovascular Exam Present: tachycardia ([id number]) - Routine Abdominal Exam Present: soft, normoactive bowel sounds, non tender - Routine Extremities Exam Present: no edema - Routine Skin Exam Absent: cyanosis - Routine Psychiatric Exam Present: unable to assess - Additional findings Additional findings: Laboratory Tests 02/15/17 02/15/17 02/15/17 21:57 22:57 23:59 Carbon Dioxide BUN Creatinine Glucometer 178 172 122 02/16/17 02/16/17 02/16/17 02:33 03:01 03:32 Carbon Dioxide BUN Creatinine Glucometer 77 93 111 02/16/17 02/16/17 02/16/17 04:00 04:24 04:58 Carbon Dioxide 20 L D BUN 24.0 H Creatinine 0.7 Glucometer 142 160 02/16/17 02/16/17 05:56 07:14 Carbon Dioxide BUN Creatinine Glucometer 152 133 - Urinary Catheter Management Urethral Cath placed during this visit: yes Urethral indwelling: Yes Reason for continuing: Accurate I&O/Aggressive Diuresis Insertion date: 02/13/17 Insertion time: 16:45 Progress Note: Quality - Stroke Onset of Symptoms Time: 10:00
[2017-02-16] MEDS: ASPIRIN 300 MG RECTAL SUPPOSITORY RECTALLY SCH (08:05)
[2017-02-16] MEDS: PANTOPRAZOLE 40 MG INJECTION IVP SCH (08:06)
[2017-02-16] MEDS: EYE EACH EYE SCH ×3 (08:06→21:17)
[2017-02-16] MEDS: BRIMONIDINE 0.15% EACH EYE SCH ×3 (08:06→21:17)
--- NOTE | 2017-02-16 12:12 | Cardiology Progress Note ---
Subjective Principal diagnosis: elevated troponin <Lucille Landry - 02/16/17 12:16> Interval history: Fartun is seen in follow up for elevated troponin. She is awake and cooperative. She c/o being very uncomfortable all over. <FrantzLucille Cameron - 02/17/17 08:54> Exam Vital signs: Temperature 98.6 F 02/17/17 08:00 Pulse Rate 97 02/17/17 08:00 Respiratory Rate 20 02/17/17 04:30 Blood Pressure 116/56 02/17/17 04:00 Pulse Oximetry 97 02/17/17 04:30 <Kenny Agudelo - 02/17/17 13:35> Temperature 96.6 F L 02/16/17 10:00 Pulse Rate 121 H 02/16/17 11:00 Respiratory Rate 33 H 02/16/17 11:00 Blood Pressure 100/57 02/16/17 11:00 Pulse Oximetry 95 02/16/17 11:00 <Lucille Landry 02/16/17 12:16> - Constitutional no acute distress, cooperative <Lucille Landry Cameron 02/16/17 12:16> - Routine HEENT Exam Head: Present: normocephalic <Lucille Landry 02/16/17 12:16> ENT: Present: mucous membranes dry <Lucille Landry 02/16/17 12:16> - Routine Neck Exam Absent: JVD, carotid bruit <Lucille Landry Cameron 02/16/17 12:16> - Routine Chest/Breast/Axilla Exam Chest wall: Absent: tenderness <Lucille Landry 02/16/17 12:16> - Routine Respiratory Exam Present: rhonchi, diminished air movement <Lucille Landry 02/16/17 12:16> - Routine Cardiovascular Exam Present: RRR, tachycardia <Lucille Landry 02/16/17 12:16> - Routine Abdominal Exam Present: soft, normoactive bowel sounds <Lucille Landry 02/16/17 12:16> - Routine Extremities Exam Present: no edema <Lucille Landry 02/16/17 12:16> - Routine Skin Exam Present: intact, dry, warm <Lucille Landry - 02/16/17 12:16> - Routine Neurological Exam Present: alert <Lucille Landry M - 02/16/17 12:16> - Routine Psychiatric Exam Present: normal affect <Lucille Landry M - 02/16/17 12:16> - Additional findings Additional findings: Laboratory Results - last 48 hr 02/15/17 02/15/17 02/15/17 09:04 10:09 10:38 WBC RBC Hgb Hct MCV MCH MCHC RDW Std Deviation Plt Count MPV Immature Gran % (Auto) Neut % (Auto) Lymph % (Auto) [place] % (Auto) Eos % (Auto) Baso % (Auto) Neut # Lymph # [place] # Eos # Baso # Abs Immat Gran (auto) Neutrophils % (Manual) Band Neutrophils % Lymphocytes % (Manual) Monocytes % (Manual) Neutrophils # (Manual) Band Neutrophils # Lymphocytes # (Manual) Monocytes # (Manual) RBC Morph Comment ABG pH ABG pCO2 ABG pO2 ABG HCO3 ABG Total CO2 ABG O2 Saturation ABG Base Excess O2 Delivery Method Turbidity < 20 Sodium 136 Potassium 2.9 L* Chloride 113 H Carbon Dioxide 14 L Anion Gap 9 BUN 28.0 H Creatinine 0.8 GFR Calculation 70 BUN/Creatinine Ratio 35 H Glucose 82 Glucometer 102 112 Calculated Osmolality 267 Calcium 7.7 L D Phosphorus Magnesium 1.6 Total Bilirubin Icterus Index < 2 AST ALT Alkaline Phosphatase B-Natriuretic Peptide Total Protein Albumin Globulin Albumin/Globulin Ratio Plasma Lactate 1.5 Specimen Hemolysis < 15 02/15/17 02/15/17 02/15/17 11:01 11:30 12:08 WBC RBC Hgb Hct MCV MCH MCHC RDW Std Deviation Plt Count MPV Immature Gran % (Auto) Neut % (Auto) Lymph % (Auto) [place] % (Auto) Eos % (Auto) Baso % (Auto) Neut # Lymph # [place] # Eos # Baso # Abs Immat Gran (auto) Neutrophils % (Manual) Band Neutrophils % Lymphocytes % (Manual) Monocytes % (Manual) Neutrophils # (Manual) Band Neutrophils # Lymphocytes # (Manual) Monocytes # (Manual) RBC Morph Comment ABG pH 7.270 L ABG pCO2 28 L ABG pO2 79 L ABG HCO3 13 L ABG Total CO2 13.8 L ABG O2 Saturation 94.0 L ABG Base Excess -12.6 L O2 Delivery Method Room air Turbidity Sodium Potassium Chloride Carbon Dioxide Anion Gap BUN Creatinine GFR Calculation BUN/Creatinine Ratio Glucose Glucometer 109 96 Calculated Osmolality Calcium Phosphorus Magnesium Total Bilirubin Icterus Index AST ALT Alkaline Phosphatase B-Natriuretic Peptide Total Protein Albumin Globulin Albumin/Globulin Ratio Plasma Lactate Specimen Hemolysis 02/15/17 02/15/17 02/15/17 13:14 14:09 15:04 WBC RBC Hgb Hct MCV MCH MCHC RDW Std Deviation Plt Count MPV Immature Gran % (Auto) Neut % (Auto) Lymph % (Auto) [place] % (Auto) Eos % (Auto) Baso % (Auto) Neut # Lymph # [place] # Eos # Baso # Abs Immat Gran (auto) Neutrophils % (Manual) Band Neutrophils % Lymphocytes % (Manual) Monocytes % (Manual) Neutrophils # (Manual) Band Neutrophils # Lymphocytes # (Manual) Monocytes # (Manual) RBC Morph Comment ABG pH ABG pCO2 ABG pO2 ABG HCO3 ABG Total CO2 ABG O2 Saturation ABG Base Excess O2 Delivery Method Turbidity Sodium Potassium Chloride Carbon Dioxide Anion Gap BUN Creatinine GFR Calculation BUN/Creatinine Ratio Glucose Glucometer 57 89 168 Calculated Osmolality Calcium Phosphorus Magnesium Total Bilirubin Icterus Index AST ALT Alkaline Phosphatase B-Natriuretic Peptide Total Protein Albumin Globulin Albumin/Globulin Ratio Plasma Lactate Specimen Hemolysis 02/15/17 02/15/17 02/15/17 15:21 16:00 16:54 WBC RBC Hgb Hct MCV MCH MCHC RDW Std Deviation Plt Count MPV Immature Gran % (Auto) Neut % (Auto) Lymph % (Auto) [place] % (Auto) Eos % (Auto) Baso % (Auto) Neut # Lymph # [place] # Eos # Baso # Abs Immat Gran (auto) Neutrophils % (Manual) Band Neutrophils % Lymphocytes % (Manual) Monocytes % (Manual) Neutrophils # (Manual) Band Neutrophils # Lymphocytes # (Manual) Monocytes # (Manual) RBC Morph Comment ABG pH ABG pCO2 ABG pO2 ABG HCO3 ABG Total CO2 ABG O2 Saturation ABG Base Excess O2 Delivery Method Turbidity < 20 Sodium 131 L Potassium 3.7 D Chloride 111 H Carbon Dioxide 11 L Anion Gap 9 BUN 27.0 H Creatinine 0.8 GFR Calculation 70 BUN/Creatinine Ratio 34 H Glucose 261 H Glucometer 266 Calculated Osmolality 267 Calcium 7.6 L Phosphorus Magnesium Total Bilirubin Icterus Index < 2 AST ALT Alkaline Phosphatase B-Natriuretic Peptide Total Protein Albumin Globulin Albumin/Globulin Ratio Plasma Lactate 1.6 Specimen Hemolysis < 15 02/15/17 02/15/17 02/15/17 16:54 17:53 19:04 WBC RBC Hgb Hct MCV MCH MCHC RDW Std Deviation Plt Count MPV Immature Gran % (Auto) Neut % (Auto) Lymph % (Auto) [place] % (Auto) Eos % (Auto) Baso % (Auto) Neut # Lymph # [place] # Eos # Baso # Abs Immat Gran (auto) Neutrophils % (Manual) Band Neutrophils % Lymphocytes % (Manual) Monocytes % (Manual) Neutrophils # (Manual) Band Neutrophils # Lymphocytes # (Manual) Monocytes # (Manual) RBC Morph Comment ABG pH ABG pCO2 ABG pO2 ABG HCO3 ABG Total CO2 ABG O2 Saturation ABG Base Excess O2 Delivery Method Turbidity Sodium Potassium Chloride Carbon Dioxide Anion Gap BUN Creatinine GFR Calculation BUN/Creatinine Ratio Glucose Glucometer 321 312 304 Calculated Osmolality Calcium Phosphorus Magnesium Total Bilirubin Icterus Index AST ALT Alkaline Phosphatase B-Natriuretic Peptide Total Protein Albumin Globulin Albumin/Globulin Ratio Plasma Lactate Specimen Hemolysis 02/15/17 02/15/17 02/15/17 20:07 21:07 21:57 WBC RBC Hgb Hct MCV MCH MCHC RDW Std Deviation Plt Count MPV Immature Gran % (Auto) Neut % (Auto) Lymph % (Auto) [place] % (Auto) Eos % (Auto) Baso % (Auto) Neut # Lymph # [place] # Eos # Baso # Abs Immat Gran (auto) Neutrophils % (Manual) Band Neutrophils % Lymphocytes % (Manual) Monocytes % (Manual) Neutrophils # (Manual) Band Neutrophils # Lymphocytes # (Manual) Monocytes # (Manual) RBC Morph Comment ABG pH ABG pCO2 ABG pO2 ABG HCO3 ABG Total CO2 ABG O2 Saturation ABG Base Excess O2 Delivery Method Turbidity Sodium Potassium Chloride Carbon Dioxide Anion Gap BUN Creatinine GFR Calculation BUN/Creatinine Ratio Glucose Glucometer 257 221 178 Calculated Osmolality Calcium Phosphorus Magnesium Total Bilirubin Icterus Index AST ALT Alkaline Phosphatase B-Natriuretic Peptide Total Protein Albumin Globulin Albumin/Globulin Ratio Plasma Lactate Specimen Hemolysis 02/15/17 02/15/17 02/16/17 22:57 23:59 02:33 WBC RBC Hgb Hct MCV MCH MCHC RDW Std Deviation Plt Count MPV Immature Gran % (Auto) Neut % (Auto) Lymph % (Auto) [place] % (Auto) Eos % (Auto) Baso % (Auto) Neut # Lymph # [place] # Eos # Baso # Abs Immat Gran (auto) Neutrophils % (Manual) Band Neutrophils % Lymphocytes % (Manual) Monocytes % (Manual) Neutrophils # (Manual) Band Neutrophils # Lymphocytes # (Manual) Monocytes # (Manual) RBC Morph Comment ABG pH ABG pCO2 ABG pO2 ABG HCO3 ABG Total CO2 ABG O2 Saturation ABG Base Excess O2 Delivery Method Turbidity Sodium Potassium Chloride Carbon Dioxide Anion Gap BUN Creatinine GFR Calculation BUN/Creatinine Ratio Glucose Glucometer 172 122 77 Calculated Osmolality Calcium Phosphorus Magnesium Total Bilirubin Icterus Index AST ALT Alkaline Phosphatase B-Natriuretic Peptide Total Protein Albumin Globulin Albumin/Globulin Ratio Plasma Lactate Specimen Hemolysis 02/16/17 02/16/17 02/16/17 03:01 03:32 04:00 WBC RBC Hgb Hct MCV MCH MCHC RDW Std Deviation Plt Count MPV Immature Gran % (Auto) Neut % (Auto) Lymph % (Auto) [place] % (Auto) Eos % (Auto) Baso % (Auto) Neut # Lymph # [place] # Eos # Baso # Abs Immat Gran (auto) Neutrophils % (Manual) Band Neutrophils % Lymphocytes % (Manual) Monocytes % (Manual) Neutrophils # (Manual) Band Neutrophils # Lymphocytes # (Manual) Monocytes # (Manual) RBC Morph Comment ABG pH ABG pCO2 ABG pO2 ABG HCO3 ABG Total CO2 ABG O2 Saturation ABG Base Excess O2 Delivery Method Turbidity Sodium Potassium Chloride Carbon Dioxide Anion Gap BUN Creatinine GFR Calculation BUN/Creatinine Ratio Glucose Glucometer 93 111 142 Calculated Osmolality Calcium Phosphorus Magnesium Total Bilirubin Icterus Index AST ALT Alkaline Phosphatase B-Natriuretic Peptide Total Protein Albumin Globulin Albumin/Globulin Ratio Plasma Lactate Specimen Hemolysis 02/16/17 02/16/17 02/16/17 04:24 04:24 04:58 WBC 11.3 H RBC 3.94 L Hgb 12.0 Hct 33.4 L MCV 84.8 MCH 30.5 MCHC 35.9 RDW Std Deviation 43.3 Plt Count 192 MPV 8.9 L Immature Gran % (Auto) Neut % (Auto) Lymph % (Auto) [place] % (Auto) Eos % (Auto) Baso % (Auto) Neut # Lymph # [place] # Eos # Baso # Abs Immat Gran (auto) Neutrophils % (Manual) 68.0 H Band Neutrophils % 20.0 H Lymphocytes % (Manual) 9.0 L Monocytes % (Manual) 3.0 Neutrophils # (Manual) 7.7 Band Neutrophils # 2.3 Lymphocytes # (Manual) 1.0 Monocytes # (Manual) 0.3 RBC Morph Comment Normal ABG pH ABG pCO2 ABG pO2 ABG HCO3 ABG Total CO2 ABG O2 Saturation ABG Base Excess O2 Delivery Method Turbidity < 20 Sodium 135 Potassium 2.7 L* D Chloride 106 Carbon Dioxide 20 L D Anion Gap 9 BUN 24.0 H Creatinine 0.7 GFR Calculation 81 BUN/Creatinine Ratio 34 H Glucose 132 H Glucometer 160 Calculated Osmolality 266 Calcium 7.8 L Phosphorus 3.8 Magnesium 2.0 D Total Bilirubin 0.50 Icterus Index < 2 AST 13 L D ALT 37 Alkaline Phosphatase 124 D B-Natriuretic Peptide Total Protein 5.3 L Albumin 2.6 L Globulin 2.7 Albumin/Globulin Ratio 1.0 L Plasma Lactate Specimen Hemolysis < 15 02/16/17 02/16/17 02/16/17 05:56 07:14 08:01 WBC RBC Hgb Hct MCV MCH MCHC RDW Std Deviation Plt Count MPV Immature Gran % (Auto) Neut % (Auto) Lymph % (Auto) [place] % (Auto) Eos % (Auto) Baso % (Auto) Neut # Lymph # [place] # Eos # Baso # Abs Immat Gran (auto) Neutrophils % (Manual) Band Neutrophils % Lymphocytes % (Manual) Monocytes % (Manual) Neutrophils # (Manual) Band Neutrophils # Lymphocytes # (Manual) Monocytes # (Manual) RBC Morph Comment ABG pH ABG pCO2 ABG pO2 ABG HCO3 ABG Total CO2 ABG O2 Saturation ABG Base Excess O2 Delivery Method Turbidity Sodium Potassium Chloride Carbon Dioxide Anion Gap BUN Creatinine GFR Calculation BUN/Creatinine Ratio Glucose Glucometer 152 133 127 Calculated Osmolality Calcium Phosphorus Magnesium Total Bilirubin Icterus Index AST ALT Alkaline Phosphatase B-Natriuretic Peptide Total Protein Albumin Globulin Albumin/Globulin Ratio Plasma Lactate Specimen Hemolysis 02/16/17 02/16/17 02/16/17 09:01 10:01 10:37 WBC RBC Hgb Hct MCV MCH MCHC RDW Std Deviation Plt Count MPV Immature Gran % (Auto) Neut % (Auto) Lymph % (Auto) [place] % (Auto) Eos % (Auto) Baso % (Auto) Neut # Lymph # [place] # Eos # Baso # Abs Immat Gran (auto) Neutrophils % (Manual) Band Neutrophils % Lymphocytes % (Manual) Monocytes % (Manual) Neutrophils # (Manual) Band Neutrophils # Lymphocytes # (Manual) Monocytes # (Manual) RBC Morph Comment ABG pH ABG pCO2 ABG pO2 ABG HCO3 ABG Total CO2 ABG O2 Saturation ABG Base Excess O2 Delivery Method Turbidity < 20 Sodium 134 Potassium 3.3 L D Chloride 103 Carbon Dioxide 26 Anion Gap 5 BUN 21.0 H Creatinine 0.6 L GFR Calculation 97 BUN/Creatinine Ratio 35 H Glucose 103 Glucometer 124 131 Calculated Osmolality 261 Calcium 7.5 L Phosphorus Magnesium Total Bilirubin Icterus Index < 2 AST ALT Alkaline Phosphatase B-Natriuretic Peptide Total Protein Albumin Globulin Albumin/Globulin Ratio Plasma Lactate Specimen Hemolysis < 15 02/16/17 02/16/17 02/16/17 11:04 12:12 15:02 WBC RBC Hgb Hct MCV MCH MCHC RDW Std Deviation Plt Count MPV Immature Gran % (Auto) Neut % (Auto) Lymph % (Auto) [place] % (Auto) Eos % (Auto) Baso % (Auto) Neut # Lymph # [place] # Eos # Baso # Abs Immat Gran (auto) Neutrophils % (Manual) Band Neutrophils % Lymphocytes % (Manual) Monocytes % (Manual) Neutrophils # (Manual) Band Neutrophils # Lymphocytes # (Manual) Monocytes # (Manual) RBC Morph Comment ABG pH ABG pCO2 ABG pO2 ABG HCO3 ABG Total CO2 ABG O2 Saturation ABG Base Excess O2 Delivery Method Turbidity Sodium Potassium Chloride Carbon Dioxide Anion Gap BUN Creatinine GFR Calculation BUN/Creatinine Ratio Glucose Glucometer 144 142 86 Calculated Osmolality Calcium Phosphorus Magnesium Total Bilirubin Icterus Index AST ALT Alkaline Phosphatase B-Natriuretic Peptide Total Protein Albumin Globulin Albumin/Globulin Ratio Plasma Lactate Specimen Hemolysis 02/16/17 02/16/17 02/16/17 18:10 19:17 20:20 WBC RBC Hgb Hct MCV MCH MCHC RDW Std Deviation Plt Count MPV Immature Gran % (Auto) Neut % (Auto) Lymph % (Auto) [place] % (Auto) Eos % (Auto) Baso % (Auto) Neut # Lymph # [place] # Eos # Baso # Abs Immat Gran (auto) Neutrophils % (Manual) Band Neutrophils % Lymphocytes % (Manual) Monocytes % (Manual) Neutrophils # (Manual) Band Neutrophils # Lymphocytes # (Manual) Monocytes # (Manual) RBC Morph Comment ABG pH ABG pCO2 ABG pO2 ABG HCO3 ABG Total CO2 ABG O2 Saturation ABG Base Excess O2 Delivery Method Turbidity Sodium Potassium Chloride Carbon Dioxide Anion Gap BUN Creatinine GFR Calculation BUN/Creatinine Ratio Glucose Glucometer 36 94 112 Calculated Osmolality Calcium Phosphorus Magnesium Total Bilirubin Icterus Index AST ALT Alkaline Phosphatase B-Natriuretic Peptide Total Protein Albumin Globulin Albumin/Globulin Ratio Plasma Lactate Specimen Hemolysis 02/17/17 02/17/17 02/17/17 00:07 01:32 02:33 WBC RBC Hgb Hct MCV MCH MCHC RDW Std Deviation Plt Count MPV Immature Gran % (Auto) Neut % (Auto) Lymph % (Auto) [place] % (Auto) Eos % (Auto) Baso % (Auto) Neut # Lymph # [place] # Eos # Baso # Abs Immat Gran (auto) Neutrophils % (Manual) Band Neutrophils % Lymphocytes % (Manual) Monocytes % (Manual) Neutrophils # (Manual) Band Neutrophils # Lymphocytes # (Manual) Monocytes # (Manual) RBC Morph Comment ABG pH ABG pCO2 ABG pO2 ABG HCO3 ABG Total CO2 ABG O2 Saturation ABG Base Excess O2 Delivery Method Turbidity Sodium Potassium Chloride Carbon Dioxide Anion Gap BUN Creatinine GFR Calculation BUN/Creatinine Ratio Glucose Glucometer 42 126 183 Calculated Osmolality Calcium Phosphorus Magnesium Total Bilirubin Icterus Index AST ALT Alkaline Phosphatase B-Natriuretic Peptide Total Protein Albumin Globulin Albumin/Globulin Ratio Plasma Lactate Specimen Hemolysis 02/17/17 02/17/17 02/17/17 04:26 04:26 04:26 WBC 11.9 H RBC 3.71 L Hgb 11.3 L Hct 31.8 L MCV 85.7 MCH 30.5 MCHC 35.5 RDW Std Deviation 44.5 Plt Count 193 MPV 9.0 L Immature Gran % (Auto) 0.2 Neut % (Auto) 82.3 H Lymph % (Auto) 10.6 L [place] % (Auto) 5.7 Eos % (Auto) 1.0 Baso % (Auto) 0.2 Neut # 9.8 H Lymph # 1.3 [place] # 0.7 Eos # 0.1 Baso # 0.0 Abs Immat Gran (auto) 0.02 Neutrophils % (Manual) Band Neutrophils % Lymphocytes % (Manual) Monocytes % (Manual) Neutrophils # (Manual) Band Neutrophils # Lymphocytes # (Manual) Monocytes # (Manual) RBC Morph Comment ABG pH ABG pCO2 ABG pO2 ABG HCO3 ABG Total CO2 ABG O2 Saturation ABG Base Excess O2 Delivery Method Turbidity < 20 Sodium 135 Potassium 3.4 L Chloride 102 Carbon Dioxide 28 Anion Gap 5 BUN 18.0 H Creatinine 0.6 L GFR Calculation 97 BUN/Creatinine Ratio 30 H Glucose 76 Glucometer 82 Calculated Osmolality 261 Calcium 8.0 L Phosphorus 1.9 L Magnesium 2.0 Total Bilirubin Icterus Index < 2 AST ALT Alkaline Phosphatase B-Natriuretic Peptide 35998 H Total Protein Albumin 2.4 L Globulin Albumin/Globulin Ratio Plasma Lactate Specimen Hemolysis < 15 02/17/17 02/17/17 06:01 07:38 WBC RBC Hgb Hct MCV MCH MCHC RDW Std Deviation Plt Count MPV Immature Gran % (Auto) Neut % (Auto) Lymph % (Auto) [place] % (Auto) Eos % (Auto) Baso % (Auto) Neut # Lymph # [place] # Eos # Baso # Abs Immat Gran (auto) Neutrophils % (Manual) Band Neutrophils % Lymphocytes % (Manual) Monocytes % (Manual) Neutrophils # (Manual) Band Neutrophils # Lymphocytes # (Manual) Monocytes # (Manual) RBC Morph Comment ABG pH ABG pCO2 ABG pO2 ABG HCO3 ABG Total CO2 ABG O2 Saturation ABG Base Excess O2 Delivery Method Turbidity Sodium Potassium Chloride Carbon Dioxide Anion Gap BUN Creatinine GFR Calculation BUN/Creatinine Ratio Glucose Glucometer 54 181 Calculated Osmolality Calcium Phosphorus Magnesium Total Bilirubin Icterus Index AST ALT Alkaline Phosphatase B-Natriuretic Peptide Total Protein Albumin Globulin Albumin/Globulin Ratio Plasma Lactate Specimen Hemolysis Acetaminophen (Tylenol) 650 mg PO QID PRN PRN Reason: Discomfort Acetaminophen/Hydrocodone Bitart ([place] 7.5/325) 1 tab PO TID PRN PRN Reason: Pain Last Admin: 02/17/17 08:06 Dose: 1 tab Aspirin (Asa) 81 mg PO DAILY [facility] Last Admin: 02/17/17 08:05 Dose: 81 mg Atenolol/Chlorthalidone (Tenoretic) 1 tab PO DAILY [facility] Last Admin: 02/17/17 08:06 Dose: 1 tab Brimonidine Tartrate (Alphagan P 0.15% Eye Drops) 1 drop EACH EYE TID [facility] Last Admin: 02/16/17 21:17 Dose: 1 drop Haloperidol Lactate (Haldol) 2 mg IVP Q4H PRN Hydromorphone HCl (Dilaudid) 0.5 mg IVP Q3H PRN PRN Reason: Pain Last Admin: 02/17/17 06:28 Dose: 0.5 mg Insulin Human Regular (Novolin R) 7 unit SQ Q6H [facility] Last Admin: 02/17/17 08:33 Dose: 7 unit Metoclopramide HCl (Reglan) 5 mg IVP Q6H PRN Pantoprazole Sodium (Protonix Iv) 40 mg IVP DAILY [facility] Last Admin: 02/16/17 08:06 Dose: 40 mg Sodium Chloride (Iv Flush) 10 - 80 ml IVF PRN PRN PRN Reason: Flushing Last Admin: 02/17/17 06:29 Dose: 20 ml Sodium Chloride (Normal Saline) 500 ml IV PRN PRN Last Admin: 02/14/17 15:35 Dose: 500 ml <Lucille Landry - 02/17/17 08:50> - Urinary Catheter Management Urethral Cath placed during this visit: no <Kenny Agudelo - 02/17/17 13:35> yes <Lucille Landry - 02/17/17 08:54> Urethral indwelling: Yes <Lucille Landry - 02/16/17 12:16> Insertion date: 02/13/17 <Lucille Landry - 02/16/17 12:16> Insertion time: 16:45 <Lucille Landry - 02/16/17 12:16> Progress Note-A&P (1) Diabetes mellitus type 2, uncontrolled, without complications Problem details: Fair control now, more stable. Status: Chronic Current Visit: No (2) Altered mental status Status: Acute Current Visit: Yes (3) DKA, type 2 Status: Acute Current Visit: Yes (4) High anion gap metabolic acidosis Status: Acute Current Visit: Yes (5) Elevated troponin Problem details: Non STEMI, no longer having PVC's. Less tachycardic. Status: Acute Current Visit: Yes (6) Hypokalemia Status: Acute Current Visit: Yes <Kenny Agudelo - 02/17/17 13:35> (1) Elevated troponin Problem details: Non STEMI, no longer having PVC's. Less tachycardic. Status: Acute Assessment and plan: Conservative management, continue Aspirin and BB Current Visit: Yes (2) DKA, type 2 Status: Acute Current Visit: Yes (3) Diabetes mellitus type 2, uncontrolled, without complications Problem details: Fair control now, more stable. Status: Chronic Current Visit: No (4) Altered mental status Status: Acute Current Visit: Yes (5) High anion gap metabolic acidosis Status: Acute Current Visit: Yes (6) Hypokalemia Status: Acute Assessment and plan: tachycardic, replace K+ (3.3 today) Current Visit: Yes <Lucille Landry Cameron 02/17/17 08:52> - Time Spent With Patient Total time spent is greater than 50% in coordination of care (as documented) at patient's floor/unit and/or counseling patient: <AaronKenny gregg - 02/17/17 13:35> Total time spent is greater than 50% in coordination of care (as documented) at patient's floor/unit and/or counseling patient: <Lucille Landry 02/16/17 12:16> less than 15 minutes <Lucille Landry 02/17/17 08:54> - Attestation Attestation Narrative: Recommendation After examining the patient I agree with the above assessment. I am involved in the formulation of the patient's plan of care. <Kenny Agudelo - 02/17/17 13:35> Sepsis Assessment - Evaluation Sepsis screening result: Severe Sepsis Risk <FrantzLucille lewis 02/16/17 12:16> Hospital Course Summary Disclaimer: The visit summary below is not to be considered part of the above Progress Note. <JammieKenny - 02/17/17 13:35> The visit summary below is not to be considered part of the above Progress Note. <Lucille Landry 02/16/17 12:16> Hospital Course: Mild troponin elevation without ST elevation. Trending downward. Continue IV BB and Aspirin supp. Thank you for allowing us to participate in the care of this patient. 02/16/17 Remains sinus. Taking PO, start home Atenolol/ chlorthalidone and DC IV metoprolol. <Lucille Landry 02/17/17 08:54>
[2017-02-16] MEDS: INSULIN REGULAR, HUMAN 100 UNIT/ML INJECTION SQ SCH ×2 (12:15→19:40)
[2017-02-16 13:23] VITALS: BMI 23.1
[2017-02-16] MEDS: ATENOLOL/CHLORTHALIDONE 50 MG/25 MG TABLET PO SCH (13:42)
[2017-02-16] MEDS ORDERED: DEXTROSE 50% INJECTION 50ml VIAL IV ONE (18:30)
[2017-02-16] MEDS ORDERED: INSULIN REGULAR, HUMAN 100 UNIT/ML INJECTION SQ SCH (19:14)
--- NOTE | 2017-02-16 21:04 | Progress Note ---
Subjective: Mrs. Holloway was somnolent when seen on several occasions today and provided little history. She remains inconclusive when asked about CODE STATUS although her daughter reported to nurses that she has discussed no acute interventions previously. Nursing reports that when she is intermittently awake for any sustained length of time she is answering questions more appropriately and speech therapy advanced to some pudding thickened oral intake on a limited basis. The patient complained of neck and back pain when seen but did not answer other direct questions. Objective Vital signs: Temperature 98.9 F 02/16/17 16:00 Pulse Rate 90 02/16/17 19:30 Respiratory Rate 17 02/16/17 19:30 Blood Pressure 112/64 02/16/17 19:00 Pulse Oximetry 100 02/16/17 19:30 EXAM General-NAD, drowsy HEENT-conjunctiva clear, sclera anicteric, oral membranes dry, neck supple Lungs-respirations nonlabored, good airflow, crackles at the left base but otherwise clear; no longer tachypneic Cardiac-regular rhythm, S1-S2, low-grade tachycardia persists Abd-soft, nontender, diminished bowel sounds Ext-without edema Neuro-moving all extremities spontaneously - Rhythm: Sinus Tachycardia (tely reviewed by me, ) Cardiac Ectopy: Occasional PVC's Height/Weight/BMI: Height 1.63 m Weight 61.1 kg Body Mass Index 23.1 Results - Labs CBC & Chem 7: 02/16/17 04:24 02/16/17 10:37 Labs: Potassium earlier today 2.7; magnesium 2.0, phosphorus 3.8, liver enzymes unremarkable Microbiology Results: Microbiology 02/13/17 17:10 Urine, Cath Monahan Urine Culture - Final Mixed Bacterial Yahaira - ABG Interpretation ABG results: - Imaging and Cardiology Chest x-ray Status: image reviewed by me (chest x-ray obtained yesterday evening with increased markings suggestive of early pulmonary edema) Assessment and Plan (1) DKA, type 2 Current visit: Yes Status: Acute Resuscitation Status: Full Code Assessment and Plan: Impression: Severe DKA-pH of 7.0, HCO3< 5, blood sugar>500 on admission Type 2 diabetes mellitus on oral hypoglycemics-A1C 10.8 Encephalopathy secondary to DKA Acute kidney injury, probable dehydration-POA, baseline 07/30/2015-1.13 Non-ST elevation MT, mildly elevated troponin without chest pain or ST segment elevation Volume overload Suspected UTI-ruled out PVCs Emesis prior to admission Systemic lupus erythematosus Possible chronic steroid use-previous records showed she was on prednisone 5 mg daily History of hypertension Leukocytosis-possibly stress from DKA versus sepsis. Lactate was normal. Frequent PVCs Metabolic acidosis Hypophosphatemia, hypomagnesemia, hypokalemia, hypocalcemia, hyperchlorhydria Back pain History of multiple antibiotic allergies Plan: Patient remains encephalopathic and metabolically unstable. Mental status is slowly improving but she remained somnolent and responses are inconsistent. Marked hypokalemia today-received 80 mEq IV potassium. IV fluids discontinued due to volume overload, chest x-ray/BNP to be checked in a.m. Acidosis resolved after bicarbonate infusion, continue to monitor with discontinuation of fluids. Volatile acids negative on admission, lactic acid unremarkable, PCO2 low consistent with respiratory compensation. Dr. Dick has converted to subcutaneous insulin, advancing diet as mental status permits. Blood pressure stabilizing, borderline low late this afternoon but no significant hypertension today. Episodic tachycardia persists. Oral monae initiated. Blood cultures negative, UA mixed species-antibiotics discontinued 02/15. Tylenol/Thompson (home medication) ordered for back pain. Patient unable to further clarify CODE STATUS today-will attempt to readdress tomorrow. Daughter Gabriela Goodman is our decision maker. Phone number is [phone]. Patient's sister Linda Parra lives in [place]. [phone]. - Time spent with patient greater than 35 minutes Coordination of Care: >50% of visit spent providing counseling/coordination of care Sepsis Assessment - Evaluation Sepsis screening result: Sepsis Risk Hospital Course Summary Disclaimer: The visit summary below is not to be considered part of the above Progress Note. Hospital Course: 02/13/17-admission Admit to CCU. DKA protocol With patient's possible history of chronic steroid use, monitor for hypotension and may require stress dose steroids. Check magnesium and phosphorus Continue on telemetry Monahan catheter was placed to obtain urine sample and to monitor urine output Aztreonam 1 g IV every 6 for UTI in a patient with multiple drug allergies SCDs for DVT prophylaxis Protonix IV in place of her oral lansoprazole Ice chips only for now Consult Dr. Dick tomorrow Consult Dr. Agudelo tomorrow regarding elevated troponin Start aspirin 300 mg per rectum 09/05/17 13:59 Patient remains metabolically unstable and encephalopathic. Persistent tachypnea and tachycardia. Persistent acidosis with development of hypophosphatemia, hypomagnesemia, and hypophosphatemia with treatment of DKA as anticipated. Electrolyte replacement initiated earlier today and will require ongoing monitoring of labs and fluid adjustment. Acidosis worsened slightly in the past couple of hours after insulin drip discontinued due to low blood sugars-D5 being readmitted to fluids after consultation with Dr. Dick. Unclear the patient has been taking diabetic medications prior to admission; daughter confirms that she does not routinely monitor blood sugars. Creatinine 0.9 following hydration, BUN remains elevated at 40. Continue fluids. Dr. Niño's office does not have any advanced directives on file, full code order written in absence of prior known directives. Cultures pending-continue aztreonam Mild troponin elevation without ST elevation. Trending downward. Continue IV BB and Aspirin supp. 02/15/17 16:27 Patient remains encephalopathic and metabolically unstable. Potassium, phosphorus, and magnesium supplementation ongoing. Remains acidotic although no longer with high anion gap. No evidence of respiratory acidosis or lactic acidosis. Volatile acids negative on admission. Persistent tachypnea and tachycardia. Continue high volume fluid replacement therapy. Remains on insulin drip. Speech therapy evaluation-unable to take oral at this time due to altered level of consciousness. Blood pressure borderline low early this afternoon; hypertensive at other times. Continues to require IV metoprolol for tachycardia. Blood cultures negative, UA mixed species-discontinue antibiotics. 02/16/17 21:13 Patient remains encephalopathic and metabolically unstable. Mental status is slowly improving but she remained somnolent and responses are inconsistent. Marked hypokalemia today-received 80 mEq IV potassium. IV fluids discontinued due to volume overload, chest x-ray/BNP to be checked in a.m. Acidosis resolved after bicarbonate infusion, continue to monitor with discontinuation of fluids. Volatile acids negative on admission, lactic acid unremarkable, PCO2 low consistent with respiratory compensation. Dr. Dick has converted to subcutaneous insulin, advancing diet as mental status permits. Blood pressure stabilizing, borderline low late this afternoon but no significant hypertension today. Episodic tachycardia persists. Oral monae initiated. Blood cultures negative, UA mixed species-antibiotics discontinued 02/15. Tylenol/Thompson (home medication) ordered for back pain.
[2017-02-16] MEDS: HYDROCODONE/APAP 7.5 MG/325 MG TABLET PO PRN (21:12)
[2017-02-17] MEDS ORDERED: DEXTROSE 50% SYRINGE 50ml (1 AMP) IVP ONE ×2 (00:30→06:09)
[2017-02-17] MEDS: SALINE FLUSH 10ml SYRINGE IVF PRN ×6 (00:50→23:48)
[2017-02-17] MEDS ORDERED: INSULIN REGULAR, HUMAN 100 UNIT/ML INJECTION SQ SCH ×4 (01:00→14:01)
[2017-02-17] MEDS: HYDROMORPHONE 2 MG/ML INJECTION IVP PRN ×3 (02:41→10:14)
--- NOTE | 2017-02-17 07:58 | Endocrinology Progress Note ---
Progress Note-A&P (1) Altered mental status Status: Acute Assessment and plan: Back to baseline mental status now. Current Visit: Yes (2) Elevated troponin Problem details: Non STEMI, no longer having PVC's. Less tachycardic. Status: Acute Assessment and plan: per Dr. Agudelo Current Visit: Yes (3) Diabetes mellitus type 2, uncontrolled, without complications Problem details: Fair control now, more stable. Status: Chronic Assessment and plan: After transition to subQ insulin she has had some recurrent hypoglycemia, resulting in tapering from 18 down to just 7 units q 6 hours so far. Will continue using Novolin R q 6 hours until she begins having better oral intake. Current Visit: No - Time Spent With Patient Total time spent is greater than 50% in coordination of care (as documented) at patient's floor/unit and/or counseling patient: 25 - 35 minutes Subjective Principal diagnosis: Type 2 diabetes mellitus Interval history: Complains of a little nausea and still no appetite. Denies chest pain. Conversant this morning per her baseline. Exam Vital signs: Temperature 97.6 F 02/17/17 04:30 Pulse Rate 113 H 02/17/17 04:30 Respiratory Rate 20 02/17/17 04:30 Blood Pressure 116/56 02/17/17 04:00 Pulse Oximetry 97 02/17/17 04:30 - Constitutional no acute distress, well nourished, well developed - Routine HEENT Exam Head: Present: normocephalic, atraumatic Eye: Present: EOMI, PERRL ENT: Present: mucous membranes dry - Routine Neck Exam Absent: lymphadenopathy, thyromegaly - Routine Respiratory Exam Absent: rales, wheezes - Routine Cardiovascular Exam Present: RRR - Routine Abdominal Exam Present: soft. Absent: normoactive bowel sounds (hypoactive), tenderness - Routine Extremities Exam Absent: cyanosis, edema - Routine Neurological Exam Present: alert, oriented X3, motor deficit (too weak to turn over in bed by herself) - Urinary Catheter Management Urethral Cath placed during this visit: yes Urethral indwelling: Yes Reason for continuing: Prolonged Immobilization Insertion date: 02/13/17 Insertion time: 16:45 Progress Note: Quality - Stroke Onset of Symptoms Time: 10:00
[2017-02-17] MEDS: ASPIRIN 81 MG CHEWABLE TABLET PO SCH (08:05)
[2017-02-17] MEDS: HYDROCODONE/APAP 7.5 MG/325 MG TABLET PO PRN ×2 (08:06→15:12)
[2017-02-17] MEDS: ATENOLOL/CHLORTHALIDONE 50 MG/25 MG TABLET PO SCH (08:06)
[2017-02-17] MEDS ORDERED: FUROSEMIDE 20 MG/2 ML INJECTION IVP ONE (08:54)
--- NOTE | 2017-02-17 08:58 | Cardiology Progress Note ---
Subjective Principal diagnosis: elevated troponin <Lucille Landry - 02/17/17 09:05> Interval history: Fartun is seen in follow up for elevated troponin. She is awake and cooperative. She denies chest pain or pressure. <Lucille Landry - 02/17/17 09:05> Exam Vital signs: Temperature 98.9 F 02/20/17 11:22 Pulse Rate 81 02/20/17 11:22 Respiratory Rate 16 02/20/17 11:22 Blood Pressure 101/50 02/20/17 11:40 Pulse Oximetry 97 02/20/17 11:22 <AmritaMickey arellanosein - 02/20/17 13:13> Temperature 97.6 F 02/17/17 04:30 Pulse Rate 113 H 02/17/17 04:30 Respiratory Rate 20 02/17/17 04:30 Blood Pressure 116/56 02/17/17 04:00 Pulse Oximetry 97 02/17/17 04:30 <Lucille Landry - 02/17/17 09:05> - Constitutional no acute distress, well nourished, well developed, cooperative <Lucille Landry - 02/17/17 09:05> - Routine HEENT Exam Head: Present: normocephalic <Lucille Landry - 02/17/17 09:05> ENT: Present: mucous membranes moist <Lucille Landry - 02/17/17 09:05> - Routine Neck Exam Absent: JVD, carotid bruit <Lucille Landry - 02/17/17 09:05> - Routine Chest/Breast/Axilla Exam Chest wall: Absent: tenderness <Lucille Landry - 02/17/17 09:05> - Routine Respiratory Exam Present: decreased breath sounds (right), diminished air movement <Lucille Landry - 02/17/17 09:05> - Routine Cardiovascular Exam Present: RRR, tachycardia <Lucille Landry - 02/17/17 09:05> - Routine Abdominal Exam Present: soft, normoactive bowel sounds <Lucille Landry - 02/17/17 09:05> - Routine Extremities Exam Present: no edema <Lucille Landry - 02/17/17 09:05> - Routine Skin Exam Present: intact, dry, warm <Lucille Landry - 02/17/17 09:05> - Routine Neurological Exam Present: alert, oriented X3 <Lucille Landry - 02/17/17 09:05> - Routine Psychiatric Exam Present: normal affect, normal thought process <Lucille Landry - 02/17/17 09: 05> - Additional findings Additional findings: Laboratory Results - last 24 hr 02/16/17 02/16/17 02/16/17 09:01 10:01 10:37 WBC RBC Hgb Hct MCV MCH MCHC RDW Std Deviation Plt Count MPV Immature Gran % (Auto) Neut % (Auto) Lymph % (Auto) [place] % (Auto) Eos % (Auto) Baso % (Auto) Neut # Lymph # [place] # Eos # Baso # Abs Immat Gran (auto) Turbidity < 20 Sodium 134 Potassium 3.3 L D Chloride 103 Carbon Dioxide 26 Anion Gap 5 BUN 21.0 H Creatinine 0.6 L GFR Calculation 97 BUN/Creatinine Ratio 35 H Glucose 103 Glucometer 124 131 Calculated Osmolality 261 Calcium 7.5 L Phosphorus Magnesium Icterus Index < 2 B-Natriuretic Peptide Albumin Specimen Hemolysis < 15 02/16/17 02/16/17 02/16/17 11:04 12:12 15:02 WBC RBC Hgb Hct MCV MCH MCHC RDW Std Deviation Plt Count MPV Immature Gran % (Auto) Neut % (Auto) Lymph % (Auto) [place] % (Auto) Eos % (Auto) Baso % (Auto) Neut # Lymph # [place] # Eos # Baso # Abs Immat Gran (auto) Turbidity Sodium Potassium Chloride Carbon Dioxide Anion Gap BUN Creatinine GFR Calculation BUN/Creatinine Ratio Glucose Glucometer 144 142 86 Calculated Osmolality Calcium Phosphorus Magnesium Icterus Index B-Natriuretic Peptide Albumin Specimen Hemolysis 02/16/17 02/16/17 02/16/17 18:10 19:17 20:20 WBC RBC Hgb Hct MCV MCH MCHC RDW Std Deviation Plt Count MPV Immature Gran % (Auto) Neut % (Auto) Lymph % (Auto) [place] % (Auto) Eos % (Auto) Baso % (Auto) Neut # Lymph # [place] # Eos # Baso # Abs Immat Gran (auto) Turbidity Sodium Potassium Chloride Carbon Dioxide Anion Gap BUN Creatinine GFR Calculation BUN/Creatinine Ratio Glucose Glucometer 36 94 112 Calculated Osmolality Calcium Phosphorus Magnesium Icterus Index B-Natriuretic Peptide Albumin Specimen Hemolysis 02/17/17 02/17/17 02/17/17 00:07 01:32 02:33 WBC RBC Hgb Hct MCV MCH MCHC RDW Std Deviation Plt Count MPV Immature Gran % (Auto) Neut % (Auto) Lymph % (Auto) [place] % (Auto) Eos % (Auto) Baso % (Auto) Neut # Lymph # [place] # Eos # Baso # Abs Immat Gran (auto) Turbidity Sodium Potassium Chloride Carbon Dioxide Anion Gap BUN Creatinine GFR Calculation BUN/Creatinine Ratio Glucose Glucometer 42 126 183 Calculated Osmolality Calcium Phosphorus Magnesium Icterus Index B-Natriuretic Peptide Albumin Specimen Hemolysis 02/17/17 02/17/17 02/17/17 04:26 04:26 04:26 WBC 11.9 H RBC 3.71 L Hgb 11.3 L Hct 31.8 L MCV 85.7 MCH 30.5 MCHC 35.5 RDW Std Deviation 44.5 Plt Count 193 MPV 9.0 L Immature Gran % (Auto) 0.2 Neut % (Auto) 82.3 H Lymph % (Auto) 10.6 L [place] % (Auto) 5.7 Eos % (Auto) 1.0 Baso % (Auto) 0.2 Neut # 9.8 H Lymph # 1.3 [place] # 0.7 Eos # 0.1 Baso # 0.0 Abs Immat Gran (auto) 0.02 Turbidity < 20 Sodium 135 Potassium 3.4 L Chloride 102 Carbon Dioxide 28 Anion Gap 5 BUN 18.0 H Creatinine 0.6 L GFR Calculation 97 BUN/Creatinine Ratio 30 H Glucose 76 Glucometer 82 Calculated Osmolality 261 Calcium 8.0 L Phosphorus 1.9 L Magnesium 2.0 Icterus Index < 2 B-Natriuretic Peptide 93613 H Albumin 2.4 L Specimen Hemolysis < 15 02/17/17 02/17/17 06:01 07:38 WBC RBC Hgb Hct MCV MCH MCHC RDW Std Deviation Plt Count MPV Immature Gran % (Auto) Neut % (Auto) Lymph % (Auto) [place] % (Auto) Eos % (Auto) Baso % (Auto) Neut # Lymph # [place] # Eos # Baso # Abs Immat Gran (auto) Turbidity Sodium Potassium Chloride Carbon Dioxide Anion Gap BUN Creatinine GFR Calculation BUN/Creatinine Ratio Glucose Glucometer 54 181 Calculated Osmolality Calcium Phosphorus Magnesium Icterus Index B-Natriuretic Peptide Albumin Specimen Hemolysis Acetaminophen (Tylenol) 650 mg PO QID PRN PRN Reason: Discomfort Acetaminophen/Hydrocodone Bitart ([place] 7.5/325) 1 tab PO TID PRN PRN Reason: Pain Last Admin: 02/17/17 08:06 Dose: 1 tab Aspirin (Asa) 81 mg PO DAILY [facility] Last Admin: 02/17/17 08:05 Dose: 81 mg Atenolol/Chlorthalidone (Tenoretic) 1 tab PO DAILY [facility] Last Admin: 02/17/17 08:06 Dose: 1 tab Brimonidine Tartrate (Alphagan P 0.15% Eye Drops) 1 drop EACH EYE TID [facility] Last Admin: 02/16/17 21:17 Dose: 1 drop Haloperidol Lactate (Haldol) 2 mg IVP Q4H PRN Hydromorphone HCl (Dilaudid) 0.5 mg IVP Q3H PRN PRN Reason: Pain Last Admin: 02/17/17 06:28 Dose: 0.5 mg Potassium Chloride (Potassium Chloride Premix) 10 meq in 100 mls @ 100 mls/hr IV Q1H [facility] Stop: 02/17/17 12:59 Insulin Human Regular (Novolin R) 7 unit SQ Q6H [facility] Last Admin: 02/17/17 08:33 Dose: 7 unit Metoclopramide HCl (Reglan) 5 mg IVP Q6H PRN Nystatin (Mycostatin) 5 ml PO QID [facility] Stop: 02/27/17 08:59 Pantoprazole Sodium (Protonix Iv) 40 mg IVP DAILY [facility] Last Admin: 02/16/17 08:06 Dose: 40 mg Sodium Chloride (Iv Flush) 10 - 80 ml IVF PRN PRN PRN Reason: Flushing Last Admin: 02/17/17 06:29 Dose: 20 ml Sodium Chloride (Normal Saline) 500 ml IV PRN PRN Last Admin: 02/14/17 15:35 Dose: 500 ml <Lucille Landry - 02/17/17 09:05> - Urinary Catheter Management Urethral Cath placed during this visit: no <Kenny Agudelo - 02/20/17 13:13> yes <Lucille Landry - 02/20/17 12:55> Urethral indwelling: Yes <Lucille Landry - 02/17/17 09:05> Insertion date: 02/13/17 <Lucille Landry - 02/17/17 09:05> Insertion time: 16:45 <Lucille Landry - 02/17/17 09:05> Progress Note-A&P (1) Diabetes mellitus type 2, uncontrolled, without complications Problem details: Fair control now, more stable. Status: Chronic Current Visit: No (2) Altered mental status Status: Acute Current Visit: Yes (3) DKA, type 2 Status: Acute Current Visit: Yes (4) High anion gap metabolic acidosis Status: Acute Current Visit: Yes (5) Elevated troponin Problem details: Non STEMI, no longer having PVC's. Less tachycardic. Status: Acute Current Visit: Yes (6) Hypokalemia Status: Acute Current Visit: Yes <Kenny Agudelo - 02/20/17 13:13> (1) Elevated troponin Problem details: Non STEMI, no longer having PVC's. Less tachycardic. Status: Acute Assessment and plan: Conservative management, continue Aspirin and BB Current Visit: Yes (2) DKA, type 2 Status: Acute Current Visit: Yes (3) Diabetes mellitus type 2, uncontrolled, without complications Problem details: Fair control now, more stable. Status: Chronic Current Visit: No (4) Altered mental status Status: Acute Current Visit: Yes (5) High anion gap metabolic acidosis Status: Acute Current Visit: Yes (6) Hypokalemia Status: Acute Assessment and plan: tachycardic, replace K+ (3.4 today) Current Visit: Yes <Lucille Landry - 02/20/17 12:55> - Time Spent With Patient Total time spent is greater than 50% in coordination of care (as documented) at patient's floor/unit and/or counseling patient: <Kenny Agudelo - 02/20/17 13:13> Total time spent is greater than 50% in coordination of care (as documented) at patient's floor/unit and/or counseling patient: <Lucille Landry - 02/17/17 09:05> less than 15 minutes <Lucille Landry - 02/17/17 09:05> - Attestation Attestation Narrative: Recommendation After examining the patient I agree with the above assessment. I am involved in the formulation of the patient's plan of care. <AmiranKenny gregg - 02/20/17 13:13> Sepsis Assessment - Evaluation Sepsis screening result: Severe Sepsis Risk <Lucille Landry - 02/17/17 09:05> Hospital Course Summary Disclaimer: The visit summary below is not to be considered part of the above Progress Note. <Kenny Agudelo - 02/20/17 13:13> The visit summary below is not to be considered part of the above Progress Note. <Lucille Landry - 02/17/17 09:05> Hospital Course: Mild troponin elevation without ST elevation. Trending downward. Continue IV BB and Aspirin supp. Thank you for allowing us to participate in the care of this patient. 02/16/17 Remains sinus, tachycardia, low K+, replace K+. Taking PO, start home Atenolol/ chlorthalidone and DC IV metoprolol. 02/17/17 09:03 remains tachycardic, improved. K+ 3.4 today, received IV K+ bolus X8 yesterday. <Lucille Landry - 02/17/17 09:05>
--- NOTE | 2017-02-17 09:09 | XRay Report ---
Indication: pulmonary edema PROCEDURE: XR chest 1V: Encounter: Initial Comparison: February 15, 2017 Findings: Left PICC line remains in place. Improvement in aeration of the lung carlos with resolution of the prior groundglass opacities. Mild left basilar atelectasis remains with a small left effusion. No pneumothorax. Heart size and mediastinal contours are stable. Pulmonary vascular congestion has improved. Impression: Improved pulmonary edema. .
[2017-02-17] MEDS: PANTOPRAZOLE 40 MG INJECTION IVP SCH (09:30)
[2017-02-17] MEDS: POTASSIUM CHLORIDE PREMIX 10 MEQ/100 ML BAG IV SCH ×4 (10:15→14:15)
[2017-02-17] MEDS: NYSTATIN 500,000 units/5 ml ORAL LIQUID PO SCH ×5 (10:17→23:16)
[2017-02-17] MEDS: BRIMONIDINE 0.15% EACH EYE SCH ×3 (10:47→20:36)
[2017-02-17] MEDS: EYE EACH EYE SCH ×3 (10:47→20:36)
--- NOTE | 2017-02-17 16:53 | Progress Note ---
Subjective: Mrs. Holloway had received Dilaudid just before I arrived for back pain. She was easily arousable but beginning to feel drowsy. She continued to complain of back pain and described feeling sick although couldn't specify further what she meant by that. She denied dyspnea but said her breathing felt funny, reported palpitations but no chest pain, described nausea but no vomiting. She reports generalized weakness. She is clearly more appropriately responsive and able to stay on track and answers questions more consistently today. She advised me that she wants her daughter to make decisions for her if she is unable to, that she wants to be on a ventilator if it should be needed, and that she does not want cardiac interventions if her heart stops. This is consistent with what she told me 2 days ago. Patient complained of being uncomfortable in her current position; ST has cleared patient to start pured diet due to increased level of alertness. Objective Vital signs: Temperature 98.6 F 02/17/17 08:00 Pulse Rate 97 02/17/17 08:00 Respiratory Rate 20 02/17/17 04:30 Blood Pressure 116/56 02/17/17 04:00 Pulse Oximetry 97-RA 02/17/17 04:30 I/O 1604/1508 EXAM General-NAD, slightly drowsy HEENT-EOMI, conjunctiva clear, oral membranes slightly moist with faint white coating on the tongue Lungs-respirations nonlabored, airflow improving, breath sounds clear anteriorly Cardiac-regular rhythm, S1-S2, low-grade tachycardia persists Abd-active bowel sounds, soft, nontender Ext-without edema shins, trace edema dorsal feet Neuro-MAEW, minor right ptosis Psych-oriented 3, flat affect - Rhythm: Sinus Tachycardia (tely reviewed by me, ) Cardiac Ectopy: Occasional PVC's Height/Weight/BMI: Height 1.63 m Weight 61.5 kg Body Mass Index 23.1 Results - Labs CBC & Chem 7: 02/17/17 04:26 02/17/17 04:26 Labs: ProBNP 17,300 Phosphorus 1.9, magnesium 2.0 Microbiology Results: Microbiology 02/13/17 17:10 Urine, Cath Monahan Urine Culture - Final Mixed Bacterial Yahaira - ABG Interpretation ABG results: 02/15/17 11:30 ABG pH 7.270 L ABG pCO2 28 L ABG pO2 79 L ABG HCO3 13 L ABG Total CO2 13.8 L ABG O2 Saturation 94.0 L ABG Base Excess -12.6 L - Imaging and Cardiology Chest x-ray Status: image reviewed by me (resolving vascular congestion/pulmonary edema) Assessment and Plan (1) DKA, type 2 Current visit: Yes Status: Acute Resuscitation Status: Limited Code Assessment and Plan: Impression: Severe DKA-pH of 7.0, HCO3< 5, blood sugar>500 on admission Type 2 diabetes mellitus on oral hypoglycemics-A1C 10.8 Encephalopathy secondary to DKA Acute kidney injury, probable dehydration-POA, baseline 07/30/2015-1.13 Non-ST elevation AL, mildly elevated troponin without chest pain or ST segment elevation Volume overload Suspected UTI-ruled out PVCs Emesis prior to admission Systemic lupus erythematosus Possible chronic steroid use-previous records showed she was on prednisone 5 mg daily History of hypertension Leukocytosis-possibly stress from DKA versus sepsis. Lactate was normal. Frequent PVCs Metabolic acidosis Hypophosphatemia, hypomagnesemia, hypokalemia, hypocalcemia, hyperchlorhydria Back pain History of multiple antibiotic allergies Plan: Hypoglycemic overnight, insulin adjusted earlier. Diet advanced today and hopefully will begin to see stabilization of oral intake and glucoses. Off bicarbonate infusion without recurrent acidosis. Continues to require potassium replacement. Phosphorus low again today-may be recurring problem with refeeding. Oral supplement initiated. On aspirin and atenolol/chlorthalidone for non-ST elevation AL. Continues to have low-grade tachycardia. Blood pressure stable but do not permit pushing beta monae to higher dose. Chest x-ray improved, oxygenation stable. Additional diuresis not indicated despite elevated proBNP. Encephalopathy continues to clear. Schedule Mcfarland per home regimen. Resume oral PPI twice a day-home dose. If stable overnight will move out of the ICU tomorrow. Code status again and updated to limited code with intubation only reflecting patient's repetitively reported which; this was discussed with her daughter who confirms that the patient has expressed similar plans previously. Daughter Gabriela Goodman is our decision maker. Phone number is [phone]. Patient's sister Linda Parra lives in [place]. [phone]. Sepsis Assessment - Evaluation Sepsis screening result: Severe Sepsis Risk Hospital Course Summary Disclaimer: The visit summary below is not to be considered part of the above Progress Note. Hospital Course: 02/13/17-admission Admit to CCU. DKA protocol With patient's possible history of chronic steroid use, monitor for hypotension and may require stress dose steroids. Check magnesium and phosphorus Continue on telemetry Monahan catheter was placed to obtain urine sample and to monitor urine output Aztreonam 1 g IV every 6 for UTI in a patient with multiple drug allergies SCDs for DVT prophylaxis Protonix IV in place of her oral lansoprazole Ice chips only for now Consult Dr. Dick tomorrow Consult Dr. Agudelo tomorrow regarding elevated troponin Start aspirin 300 mg per rectum 02/14/17 13:59 Patient remains metabolically unstable and encephalopathic. Persistent tachypnea and tachycardia. Persistent acidosis with development of hypophosphatemia, hypomagnesemia, and hypophosphatemia with treatment of DKA as anticipated. Electrolyte replacement initiated earlier today and will require ongoing monitoring of labs and fluid adjustment. Acidosis worsened slightly in the past couple of hours after insulin drip discontinued due to low blood sugars-D5 being readmitted to fluids after consultation with Dr. Dick. Unclear the patient has been taking diabetic medications prior to admission; daughter confirms that she does not routinely monitor blood sugars. Creatinine 0.9 following hydration, BUN remains elevated at 40. Continue fluids. Dr. Niño's office does not have any advanced directives on file, full code order written in absence of prior known directives. Cultures pending-continue aztreonam Mild troponin elevation without ST elevation. Trending downward. Continue IV BB and Aspirin supp. 02/15/17 16:27 Patient remains encephalopathic and metabolically unstable. Potassium, phosphorus, and magnesium supplementation ongoing. Remains acidotic although no longer with high anion gap. No evidence of respiratory acidosis or lactic acidosis. Volatile acids negative on admission. Persistent tachypnea and tachycardia. Continue high volume fluid replacement therapy. Remains on insulin drip. Speech therapy evaluation-unable to take oral at this time due to altered level of consciousness. Blood pressure borderline low early this afternoon; hypertensive at other times. Continues to require IV metoprolol for tachycardia. Blood cultures negative, UA mixed species-discontinue antibiotics. 02/16/17 21:13 Patient remains encephalopathic and metabolically unstable. Mental status is slowly improving but she remained somnolent and responses are inconsistent. Marked hypokalemia today-received 80 mEq IV potassium. IV fluids discontinued due to volume overload, chest x-ray/BNP to be checked in a.m. Acidosis resolved after bicarbonate infusion, continue to monitor with discontinuation of fluids. Volatile acids negative on admission, lactic acid unremarkable, PCO2 low consistent with respiratory compensation. Dr. Dick has converted to subcutaneous insulin, advancing diet as mental status permits. Blood pressure stabilizing, borderline low late this afternoon but no significant hypertension today. Episodic tachycardia persists. Oral monae initiated. Blood cultures negative, UA mixed species-antibiotics discontinued 02/15. Tylenol/Mcfarland (home medication) ordered for back pain. Mild troponin elevation without ST elevation. Trending downward. Continue IV BB and Aspirin supp. 02/16/17 Remains sinus, tachycardia, low K+, replace K+. Taking PO, start home Atenolol/ chlorthalidone and DC IV metoprolol. 02/17/17 09:03 remains tachycardic, improved. K+ 3.4 today, received IV K+ bolus X8 yesterday. 02/17/17 17:08 Hypoglycemic overnight, insulin adjusted earlier. Diet advanced today and hopefully will begin to see stabilization of oral intake and glucoses. Off bicarbonate infusion without recurrent acidosis. Continues to require potassium replacement. Phosphorus low again today-may be recurring problem with refeeding. Oral supplement initiated. On aspirin and atenolol/chlorthalidone for non-ST elevation AL. Continues to have low-grade tachycardia. Blood pressure stable but do not permit pushing beta monae to higher dose. Chest x-ray improved, oxygenation stable. Additional diuresis not indicated despite elevated proBNP. Encephalopathy continues to clear. Schedule Mcfarland per home regimen. Resume oral PPI twice a day-home dose. If stable overnight will move out of the ICU tomorrow. Code status again and updated to limited code with intubation only reflecting patient's repetitively reported which; this was discussed with her daughter who confirms that the patient has expressed similar plans previously.
[2017-02-17] MEDS: INSULIN REGULAR, HUMAN 100 UNIT/ML INJECTION SQ SCH ×2 (18:03→23:05)
[2017-02-17] MEDS: PHOSPHORUS 250 MG TABLET PO SCH ×3 (18:31→20:36)
[2017-02-17] MEDS ORDERED: FALL RISK - PHARMACY CONSULT MC PRN (20:17)
[2017-02-17] MEDS: PANTOPRAZOLE 40 MG TABLET PO SCH (20:36)
[2017-02-17] MEDS: HYDROCODONE/APAP 7.5 MG/325 MG TABLET PO SCH (20:36)
[2017-02-17] MEDS: NS 1,000 ML IV SCH (21:35)
[2017-02-17] MEDS: ACETAMINOPHEN 325 MG TABLET PO PRN (23:46)
[2017-02-18] MEDS: ACETAMINOPHEN 325 MG TABLET PO PRN (01:01)
[2017-02-18] MEDS: HYDROMORPHONE 2 MG/ML INJECTION IVP PRN ×2 (03:12→11:41)
[2017-02-18] MEDS: SALINE FLUSH 10ml SYRINGE IVF PRN ×4 (03:13→14:34)
[2017-02-18] MEDS: INSULIN REGULAR, HUMAN 100 UNIT/ML INJECTION SQ SCH ×3 (06:07→17:45)
[2017-02-18] MEDS: PANTOPRAZOLE 40 MG TABLET PO SCH ×2 (06:07→20:56)
[2017-02-18] MEDS: ASPIRIN 81 MG CHEWABLE TABLET PO SCH (09:20)
[2017-02-18] MEDS: HYDROCODONE/APAP 7.5 MG/325 MG TABLET PO SCH ×3 (09:20→20:56)
[2017-02-18] MEDS: ATENOLOL/CHLORTHALIDONE 50 MG/25 MG TABLET PO SCH (09:21)
[2017-02-18] MEDS: PHOSPHORUS 250 MG TABLET PO SCH ×4 (09:21→20:56)
[2017-02-18] MEDS: NYSTATIN 500,000 units/5 ml ORAL LIQUID PO SCH ×4 (09:22→20:55)
[2017-02-18] MEDS: EYE EACH EYE SCH ×3 (09:22→20:55)
[2017-02-18] MEDS: BRIMONIDINE 0.15% EACH EYE SCH ×3 (09:22→20:55)
[2017-02-18] MEDS: NS 1,000 ML IV SCH (10:36)
[2017-02-18] MEDS ORDERED: HYDROCODONE/APAP 7.5 MG/325 MG TABLET PO PRN (11:19)
[2017-02-18] MEDS: MAGNESIUM SULFATE 1gm PREMIX 1 GM/100 ML BAG IV SCH ×2 (14:34→16:17)
--- NOTE | 2017-02-18 16:45 | Progress Note ---
Subjective: Mrs. Holloway complained of back pain today indicating she has had trouble with sciatica for a long time but that it worsened and changed recently as she preferred for her daughter's visit. She describes increased pain in her right hip and that it feels like she "split something" in the hip most noticeable when she sits or stands. Radicular pain in her right leg has changed although she can't clarify how. She denies numbness in her leg and denies falling prior to admission or increasing weakness in the leg. She is sleeping poorly and continues to have pain in her mouth due to thrush. Otherwise she is much more alert today and denied dyspnea, palpitations, or nausea. Oral intake is improving slightly. Objective Vital signs: Temperature 97.2 F 02/18/17 15:27 Pulse Rate 87 02/18/17 15:27 Respiratory Rate 14 02/18/17 15:27 Blood Pressure 91/56 02/18/17 16:15 Pulse Oximetry 96-RA 02/18/17 15:27 I/O 1604/1580 weight 61 kg, 5 pounds from admission, stable since initial rehydration EXAM General-NAD, much more alert and responsive than at any prior point during admission HEENT-conjunctiva clear, oral membranes with white plaque on tongue Lungs-respirations nonlabored, good airflow, inspiratory/expiratory crackles right lung posteriorly Cardiac-regular rhythm with occasional ectopic beats, S1 and S2 Abd-soft, nontender, bowel sounds present Ext-without edema Musculoskeletal-no tenderness over greater trochanters bilaterally, no pain with pelvic rock or pressure, range of motion at the right hip is well preserved other than decreased internal rotation; straight leg raise uncomfortable after about 70 and restricted to about 80. Mild to moderate discomfort on palpation over lower lumbar spine. Neuro-MAEW Psych-calm, flat affect - Rhythm: Sinus Tachycardia (tely reviewed by me, ) Cardiac Ectopy: Occasional PVC's Height/Weight/BMI: Height 1.63 m Weight 61 kg Body Mass Index 23.1 Results - Labs CBC & Chem 7: 02/18/17 04:49 02/18/17 04:49 Labs: Segs 61, bands 3, lymphocytes 23, monocytes 12 Magnesium 1.7 Blood sugars [id number] since midnight Microbiology Results: Microbiology 02/13/17 17:10 Urine, Cath Monahan Urine Culture - Final Mixed Bacterial Yahaira - ABG Interpretation ABG results: 02/15/17 11:30 ABG pH 7.270 L ABG pCO2 28 L ABG pO2 79 L ABG HCO3 13 L ABG Total CO2 13.8 L ABG O2 Saturation 94.0 L ABG Base Excess -12.6 L - ECG Data Tracing #1 I reviewed this ECG and interpreted as documented below: (multiple telemetry strips reviewed-sinus results/sinus tach; 11 beat run of monomorphic VT with rate around 150 overnight) Assessment and Plan (1) DKA, type 2 Current visit: Yes Status: Acute DVT Prophylaxis: SCD's, Lovenox GI Prophylaxis: Protonix Resuscitation Status: Limited Code (no cardiac intervention) Assessment and Plan: Impression: Severe DKA-pH of 7.0, HCO3< 5, blood sugar>500 on admission Type 2 diabetes mellitus on oral hypoglycemics-A1C 10.8 Encephalopathy secondary to DKA Acute kidney injury, probable dehydration-POA, baseline 07/30/2015-1.13 Non-ST elevation RI, mildly elevated troponin without chest pain or ST segment elevation NSVT Volume overload Suspected UTI-ruled out PVCs Emesis prior to admission Systemic lupus erythematosus Possible chronic steroid use-previous records showed she was on prednisone 5 mg daily History of hypertension Leukocytosis-possibly stress from DKA versus sepsis. Lactate was normal. Frequent PVCs Metabolic acidosis Hypophosphatemia, hypomagnesemia, hypokalemia, hypocalcemia, hyperchlorhydria Back pain/sciatica Probable depression History of multiple antibiotic allergies Plan: Blood sugar stable with insulin reduction made yesterday by Dr. Dick. Continue same. Pured diet with nectar thickened liquids, add Magic cups for nutritional supplement. Remains on low-volume fluids due to poor oral intake. Brief run NSVT last night, magnesium 1.7-2 g supplemental Mag given IV. Discontinue chlorthalidone; continue atenolol per cardiology. Discussed with cardiology. Overall electrolytes improving-reassess phosphorus tomorrow following initiation of by mouth replacement. Blood pressure low normal, asymptomatic. When necessary Chidester added to avoid need for IV narcotics. Will review outpatient records to determine what imaging of her back or hip was done recently. Exam not remarkable but MRI of LS spine previously demonstrated degenerative disease and small herniation. Stable to transfer out of the ICU today. Continue PT/OT--notes indicate patient declined to participate with multiple activities today. Appears depressed, initiate mirtazapine. Daughter Gabriela Goodman is our decision maker. Phone number is [phone]. Patient's sister Linda Parra lives in [place]. [phone]. Sepsis Assessment - Evaluation Sepsis screening result: No Definite Risk Hospital Course Summary Disclaimer: The visit summary below is not to be considered part of the above Progress Note. Hospital Course: 02/13/17-admission Admit to CCU. DKA protocol With patient's possible history of chronic steroid use, monitor for hypotension and may require stress dose steroids. Check magnesium and phosphorus Continue on telemetry Monahan catheter was placed to obtain urine sample and to monitor urine output Aztreonam 1 g IV every 6 for UTI in a patient with multiple drug allergies SCDs for DVT prophylaxis Protonix IV in place of her oral lansoprazole Ice chips only for now Consult Dr. Dick tomorrow Consult Dr. Agudelo tomorrow regarding elevated troponin Start aspirin 300 mg per rectum 02/14/17 13:59 Patient remains metabolically unstable and encephalopathic. Persistent tachypnea and tachycardia. Persistent acidosis with development of hypophosphatemia, hypomagnesemia, and hypophosphatemia with treatment of DKA as anticipated. Electrolyte replacement initiated earlier today and will require ongoing monitoring of labs and fluid adjustment. Acidosis worsened slightly in the past couple of hours after insulin drip discontinued due to low blood sugars-D5 being readmitted to fluids after consultation with Dr. Dick. Unclear the patient has been taking diabetic medications prior to admission; daughter confirms that she does not routinely monitor blood sugars. Creatinine 0.9 following hydration, BUN remains elevated at 40. Continue fluids. Dr. Niño's office does not have any advanced directives on file, full code order written in absence of prior known directives. Cultures pending-continue aztreonam Mild troponin elevation without ST elevation. Trending downward. Continue IV BB and Aspirin supp. 02/15/17 16:27 Patient remains encephalopathic and metabolically unstable. Potassium, phosphorus, and magnesium supplementation ongoing. Remains acidotic although no longer with high anion gap. No evidence of respiratory acidosis or lactic acidosis. Volatile acids negative on admission. Persistent tachypnea and tachycardia. Continue high volume fluid replacement therapy. Remains on insulin drip. Speech therapy evaluation-unable to take oral at this time due to altered level of consciousness. Blood pressure borderline low early this afternoon; hypertensive at other times. Continues to require IV metoprolol for tachycardia. Blood cultures negative, UA mixed species-discontinue antibiotics. 02/16/17 21:13 Patient remains encephalopathic and metabolically unstable. Mental status is slowly improving but she remained somnolent and responses are inconsistent. Marked hypokalemia today-received 80 mEq IV potassium. IV fluids discontinued due to volume overload, chest x-ray/BNP to be checked in a.m. Acidosis resolved after bicarbonate infusion, continue to monitor with discontinuation of fluids. Volatile acids negative on admission, lactic acid unremarkable, PCO2 low consistent with respiratory compensation. Dr. Dick has converted to subcutaneous insulin, advancing diet as mental status permits. Blood pressure stabilizing, borderline low late this afternoon but no significant hypertension today. Episodic tachycardia persists. Oral monae initiated. Blood cultures negative, UA mixed species-antibiotics discontinued 02/15. Tylenol/Chidester (home medication) ordered for back pain. Mild troponin elevation without ST elevation. Trending downward. Continue IV BB and Aspirin supp. 02/16/17 Remains sinus, tachycardia, low K+, replace K+. Taking PO, start home Atenolol/ chlorthalidone and DC IV metoprolol. 02/17/17 09:03 remains tachycardic, improved. K+ 3.4 today, received IV K+ bolus X8 yesterday. 02/17/17 17:08 Hypoglycemic overnight, insulin adjusted earlier. Diet advanced today and hopefully will begin to see stabilization of oral intake and glucoses. Off bicarbonate infusion without recurrent acidosis. Continues to require potassium replacement. Phosphorus low again today-may be recurring problem with refeeding. Oral supplement initiated. On aspirin and atenolol/chlorthalidone for non-ST elevation RI. Continues to have low-grade tachycardia. Blood pressure stable but do not permit pushing beta monae to higher dose. Chest x-ray improved, oxygenation stable. Additional diuresis not indicated despite elevated proBNP. Encephalopathy continues to clear. Schedule Chidester per home regimen. Resume oral PPI twice a day-home dose. If stable overnight will move out of the ICU tomorrow. Code status again and updated to limited code with intubation only reflecting patient's repetitively reported which; this was discussed with her daughter who confirms that the patient has expressed similar plans previously. 02/18/17 17:01 Blood sugar stable with insulin reduction made yesterday by Dr. Dick. Continue same. Pured diet with nectar thickened liquids, add Magic cups for nutritional supplement. Remains on low-volume fluids due to poor oral intake. Brief run NSVT last night, magnesium 1.7-2 g supplemental Mag given IV. Discontinue chlorthalidone; continue atenolol per cardiology. Overall electrolytes improving-reassess phosphorus tomorrow following initiation of by mouth replacement. Blood pressure low normal, asymptomatic. When necessary Chidester added to avoid need for IV narcotics. Will review outpatient records to determine what imaging of her back or hip was done recently. Exam not remarkable but MRI of LS spine previously demonstrated degenerative disease and small herniation. Stable to transfer out of the ICU today. Continue PT/OT--notes indicate patient declined to participate with multiple activities today. Appears depressed, initiate mirtazapine.
[2017-02-18] MEDS: MIRTAZAPINE 15 MG TABLET PO SCH ×2 (17:45→20:56)
[2017-02-18] MEDS: INSULIN ASPART 100unit/ml INJECTION SQ PRN ×2 (19:23→21:49)
[2017-02-19] MEDS: INSULIN REGULAR, HUMAN 100 UNIT/ML INJECTION SQ SCH ×5 (00:22→17:24)
[2017-02-19] MEDS: NS 1,000 ML IV SCH ×2 (03:59→15:59)
[2017-02-19] MEDS: PANTOPRAZOLE 40 MG TABLET PO SCH ×2 (06:36→20:29)
[2017-02-19] MEDS: POTASSIUM CHLORIDE PREMIX 10 MEQ/100 ML BAG IV SCH ×4 (06:38→11:00)
[2017-02-19] MEDS: ATENOLOL 50 MG TABLET PO SCH (08:09)
[2017-02-19] MEDS: ENOXAPARIN 40 MG/0.4 ML INJECTION SQ SCH (08:09)
[2017-02-19] MEDS: PHOSPHORUS 250 MG TABLET PO SCH ×3 (08:10→20:29)
[2017-02-19] MEDS: EYE EACH EYE SCH ×3 (08:10→20:29)
[2017-02-19] MEDS: ASPIRIN 81 MG CHEWABLE TABLET PO SCH (08:10)
[2017-02-19] MEDS: BRIMONIDINE 0.15% EACH EYE SCH ×3 (08:10→20:29)
[2017-02-19] MEDS: NYSTATIN 500,000 units/5 ml ORAL LIQUID PO SCH ×4 (08:10→20:29)
[2017-02-19] MEDS: HYDROCODONE/APAP 7.5 MG/325 MG TABLET PO SCH ×3 (08:10→20:30)
--- NOTE | 2017-02-19 12:43 | Progress Note ---
Subjective: Mrs. Holloway reports that she feels like her head is not connected to her back. She continues to complain of pain in her low back and right hip and generalized weakness. She required a lift to transfer from the ICU bed to the bed in room 157 yesterday because she could not assist nursing with the transfer due to weakness. Oral pain is slowly improving but she does not tolerate any foods that are salty and oral intake remains poor. She denied dyspnea, or fevers. She reports that she's having multiple stools but no nausea. Nursing is aware of only 1 bowel movement. Patient reports she is sleeping short periods of time. She was up to a chair for lunch yesterday with nursing assistance. Objective Vital signs: Temperature 96.8 F 02/19/17 11:27 Pulse Rate 107 H 02/19/17 11:27 Respiratory Rate 16 02/19/17 11:27 Blood Pressure 112/60 02/19/17 11:27 Pulse Oximetry 97-RA 02/19/17 11:27 I/O 1912/1220 EXAM General-NAD, alert, speech fluent, much more interactive HEENT-conjunctiva clear, oropharynx clear, tongue without thrush today Lungs-respirations nonlabored, good airflow, breath sounds clear anteriorly Cardiac-regular rhythm, S1-S2, low-grade tachycardia Abd-soft, nontender, bowel sounds present Ext-trace edema bilateral lower extremities Neuro-moving upper extremities well Psych-calm, cooperative - Cardiac Ectopy: Occasional PVC's Height/Weight/BMI: Height 1.63 m Weight 63 kg Body Mass Index 23.1 Results - Labs CBC & Chem 7: 02/18/17 04:49 02/19/17 05:16 Labs: Magnesium 2.0, phosphorus 4.3 Microbiology Results: Microbiology 02/13/17 17:10 Urine, Cath Monahan Urine Culture - Final Mixed Bacterial Yahaira Assessment and Plan (1) DKA, type 2 Current visit: Yes Status: Acute DVT Prophylaxis: Lovenox GI Prophylaxis: Protonix Resuscitation Status: Limited Code Assessment and Plan: Impression: Severe DKA-pH of 7.0, HCO3< 5, blood sugar>500 on admission Type 2 diabetes mellitus on oral hypoglycemics-A1C 10.8 Encephalopathy secondary to DKA Acute kidney injury, probable dehydration-POA, baseline 07/30/2015-1.13 Non-ST elevation [place], mildly elevated troponin without chest pain or ST segment elevation NSVT Volume overload Suspected UTI-ruled out PVCs Emesis prior to admission Systemic lupus erythematosus Possible chronic steroid use-previous records showed she was on prednisone 5 mg daily History of hypertension Leukocytosis-possibly stress from DKA versus sepsis. Lactate was normal. Frequent PVCs Metabolic acidosis Hypophosphatemia, hypomagnesemia, hypokalemia, hypocalcemia, hyperchlorhydria Back pain/sciatica Probable depression History of multiple antibiotic allergies Plan: Isolated episode of hypoglycemia yesterday-current to scale insulin initiated. Poor oral intake, utilizing nutritional supplements. Recurrent hypokalemia required IV supplementation this morning. Repeat potassium pending, anticipate adding potassium to fluids. Phosphorus improved, decrease frequency of oral phosphorus replacement. Telemetry unremarkable overnight, minor sinus dysrhythmia but no recurrent nonsustained VT. Aspirin/beta monae for non-ST elevation [place] Outpatient x-rays of lumbar spine and right hip obtained February 02 demonstrating degenerative changes but no acute pathology, degenerative disc disease in the lumbar spine had progressed since films in 2014. Reports on paper chart. Chelsea 3 times a day and prn for pain. Continue PT/OT. Up in chair as tolerates. Discontinue Monahan catheter. Mirtazapine initiated 02/18 for depression/anorexia. Daughter Gabriela Goodman is our decision maker. Phone number is [phone]. Patient's sister Linda Parra lives in [place]. [phone]. Sepsis Assessment - Evaluation Sepsis screening result: No Definite Risk Hospital Course Summary Disclaimer: The visit summary below is not to be considered part of the above Progress Note. Hospital Course: 02/13/17-admission Admit to CCU. DKA protocol With patient's possible history of chronic steroid use, monitor for hypotension and may require stress dose steroids. Check magnesium and phosphorus Continue on telemetry Monahan catheter was placed to obtain urine sample and to monitor urine output Aztreonam 1 g IV every 6 for UTI in a patient with multiple drug allergies SCDs for DVT prophylaxis Protonix IV in place of her oral lansoprazole Ice chips only for now Consult Dr. Dick tomorrow Consult Dr. Agudelo tomorrow regarding elevated troponin Start aspirin 300 mg per rectum 02/14/17 13:59 Patient remains metabolically unstable and encephalopathic. Persistent tachypnea and tachycardia. Persistent acidosis with development of hypophosphatemia, hypomagnesemia, and hypophosphatemia with treatment of DKA as anticipated. Electrolyte replacement initiated earlier today and will require ongoing monitoring of labs and fluid adjustment. Acidosis worsened slightly in the past couple of hours after insulin drip discontinued due to low blood sugars-D5 being readmitted to fluids after consultation with Dr. Dick. Unclear the patient has been taking diabetic medications prior to admission; daughter confirms that she does not routinely monitor blood sugars. Creatinine 0.9 following hydration, BUN remains elevated at 40. Continue fluids. Dr. Niño's office does not have any advanced directives on file, full code order written in absence of prior known directives. Cultures pending-continue aztreonam Mild troponin elevation without ST elevation. Trending downward. Continue IV BB and Aspirin supp. 02/15/17 16:27 Patient remains encephalopathic and metabolically unstable. Potassium, phosphorus, and magnesium supplementation ongoing. Remains acidotic although no longer with high anion gap. No evidence of respiratory acidosis or lactic acidosis. Volatile acids negative on admission. Persistent tachypnea and tachycardia. Continue high volume fluid replacement therapy. Remains on insulin drip. Speech therapy evaluation-unable to take oral at this time due to altered level of consciousness. Blood pressure borderline low early this afternoon; hypertensive at other times. Continues to require IV metoprolol for tachycardia. Blood cultures negative, UA mixed species-discontinue antibiotics. 02/16/17 21:13 Patient remains encephalopathic and metabolically unstable. Mental status is slowly improving but she remained somnolent and responses are inconsistent. Marked hypokalemia today-received 80 mEq IV potassium. IV fluids discontinued due to volume overload, chest x-ray/BNP to be checked in a.m. Acidosis resolved after bicarbonate infusion, continue to monitor with discontinuation of fluids. Volatile acids negative on admission, lactic acid unremarkable, PCO2 low consistent with respiratory compensation. Dr. Dick has converted to subcutaneous insulin, advancing diet as mental status permits. Blood pressure stabilizing, borderline low late this afternoon but no significant hypertension today. Episodic tachycardia persists. Oral monae initiated. Blood cultures negative, UA mixed species-antibiotics discontinued 02/15. Tylenol/Chelsea (home medication) ordered for back pain. Mild troponin elevation without ST elevation. Trending downward. Continue IV BB and Aspirin supp. 02/16/17 Remains sinus, tachycardia, low K+, replace K+. Taking PO, start home Atenolol/ chlorthalidone and DC IV metoprolol. 02/17/17 09:03 remains tachycardic, improved. K+ 3.4 today, received IV K+ bolus X8 yesterday. 02/17/17 17:08 Hypoglycemic overnight, insulin adjusted earlier. Diet advanced today and hopefully will begin to see stabilization of oral intake and glucoses. Off bicarbonate infusion without recurrent acidosis. Continues to require potassium replacement. Phosphorus low again today-may be recurring problem with refeeding. Oral supplement initiated. On aspirin and atenolol/chlorthalidone for non-ST elevation [place]. Continues to have low-grade tachycardia. Blood pressure stable but do not permit pushing beta monae to higher dose. Chest x-ray improved, oxygenation stable. Additional diuresis not indicated despite elevated proBNP. Encephalopathy continues to clear. Schedule Chelsea per home regimen. Resume oral PPI twice a day-home dose. If stable overnight will move out of the ICU tomorrow. Code status again and updated to limited code with intubation only reflecting patient's repetitively reported which; this was discussed with her daughter who confirms that the patient has expressed similar plans previously. 02/18/17 17:01 Blood sugar stable with insulin reduction made yesterday by Dr. Dick. Continue same. Pured diet with nectar thickened liquids, add Magic cups for nutritional supplement. Remains on low-volume fluids due to poor oral intake. Brief run NSVT last night, magnesium 1.7-2 g supplemental Mag given IV. Discontinue chlorthalidone; continue atenolol per cardiology. Overall electrolytes improving-reassess phosphorus tomorrow following initiation of by mouth replacement. Blood pressure low normal, asymptomatic. When necessary Chelsea added to avoid need for IV narcotics. Will review outpatient records to determine what imaging of her back or hip was done recently. Exam not remarkable but MRI of LS spine previously demonstrated degenerative disease and small herniation. Stable to transfer out of the ICU today. Continue PT/OT--notes indicate patient declined to participate with multiple activities today. Appears depressed, initiate mirtazapine. 02/19/17 12:59 Isolated episode of hypoglycemia yesterday-current to scale insulin initiated. Poor oral intake, utilizing nutritional supplements. Recurrent hypokalemia required IV supplementation this morning. Repeat potassium pending, anticipate adding potassium to fluids. Phosphorus improved, decrease frequency of oral phosphorus replacement. Telemetry unremarkable overnight, minor sinus dysrhythmia but no recurrent nonsustained VT. Aspirin/beta monae for non-ST elevation [place] Outpatient x-rays of lumbar spine and right hip obtained February 02 demonstrating degenerative changes but no acute pathology, degenerative disc disease in the lumbar spine had progressed since films in 2014. Reports on paper chart. Chelsea 3 times a day and prn for pain. Continue PT/OT. Up in chair as tolerates. Discontinue Monahan catheter. Mirtazapine initiated 02/18 for suspected depression and anorexia.
[2017-02-19] MEDS: INSULIN ASPART 100unit/ml INJECTION SQ PRN (13:14)
[2017-02-19] MEDS: NS with KCL 20 mEq 1,000 ML IV SCH (16:06)
[2017-02-19] MEDS: MIRTAZAPINE 15 MG TABLET PO SCH (20:29)
[2017-02-20] MEDS: ACETAMINOPHEN 325 MG TABLET PO PRN ×2 (00:06→19:33)
[2017-02-20] MEDS: NS with KCL 20 mEq 1,000 ML IV SCH (06:06)
[2017-02-20] MEDS: INSULIN REGULAR, HUMAN 100 UNIT/ML INJECTION SQ SCH ×2 (06:13→06:39)
--- NOTE | 2017-02-20 07:59 | Endocrinology Progress Note ---
Progress Note-A&P (1) Altered mental status Status: Acute Assessment and plan: At baseline mental status. Current Visit: Yes (2) Elevated troponin Problem details: Non STEMI, no longer having PVC's. Less tachycardic. Status: Acute Assessment and plan: per Dr. Agudelo Current Visit: Yes (3) Diabetes mellitus type 2, uncontrolled, without complications Problem details: Fair control now, more stable. Status: Chronic Assessment and plan: Has had fairly stable glucose over weekend on 7 units Novolin R q 6 hrs. Will try to switch back to outpatient linagliptin and glimepiride today. Current Visit: No (4) Hip pain, right Status: Acute Assessment and plan: Not getting adequate relief. Says she doesn't get [facility] often enough. Consider adjusting dosing. Current Visit: Yes (5) Edema Status: Acute Current Visit: Yes (6) Pedal edema Status: Acute Assessment and plan: Not present this morning. However with prerenal azotemia resolved, consider reducing IV fluids to 60 ml/hr. Current Visit: Yes - Time Spent With Patient Total time spent is greater than 50% in coordination of care (as documented) at patient's floor/unit and/or counseling patient: 25 - 35 minutes Subjective Principal diagnosis: Type 2 diabetes mellitus, uncontrolled Interval history: Complains of pain in right hip; cannot get comfortable. Also complains of feet swelling. No dyspnea. Blood sugars have been in 100's over weekend except for yesterday afternoon. Eating poorly due to oral thrush. Exam Vital signs: Temperature 98.7 F 02/20/17 07:28 Pulse Rate 100 02/20/17 07:28 Respiratory Rate 18 02/20/17 07:28 Blood Pressure 122/74 02/20/17 07:28 Pulse Oximetry 94 02/20/17 07:28 - Constitutional mild distress, well nourished, well developed - Routine HEENT Exam Head: Present: normocephalic, atraumatic Eye: Present: EOMI, PERRL ENT: Present: mucous membranes moist - Routine Neck Exam Absent: lymphadenopathy, thyromegaly - Routine Respiratory Exam Absent: rales, rhonchi, wheezes - Routine Cardiovascular Exam Present: RRR - Routine Abdominal Exam Present: soft, normoactive bowel sounds, non tender - Routine Extremities Exam Absent: cyanosis, edema - Routine Neurological Exam Present: alert, oriented X3 - Routine Psychiatric Exam Present: normal affect, normal thought process, cooperative - Urinary Catheter Management Urethral Cath placed during this visit: yes, but has since been removed by the nurse Urethral indwelling: Yes Reason for continuing: Prolonged Immobilization Insertion date: 02/13/17 Insertion time: 16:45 Removal date: 02/19/17 Removal time: 13:17 Progress Note: Quality - Stroke Onset of Symptoms Time: 10:00
[2017-02-20] MEDS ORDERED: GLIMEPIRIDE 1 MG TABLET PO SCH (08:00)
[2017-02-20] MEDS: PANTOPRAZOLE 40 MG TABLET PO SCH ×2 (08:01→20:53)
[2017-02-20] MEDS: NYSTATIN 500,000 units/5 ml ORAL LIQUID PO SCH ×4 (08:33→20:54)
[2017-02-20] MEDS: HYDROCODONE/APAP 7.5 MG/325 MG TABLET PO SCH ×3 (08:33→20:53)
[2017-02-20] MEDS: ATENOLOL 50 MG TABLET PO SCH (08:33)
[2017-02-20] MEDS: PHOSPHORUS 250 MG TABLET PO SCH ×2 (08:33→20:53)
[2017-02-20] MEDS: ASPIRIN 81 MG CHEWABLE TABLET PO SCH (08:33)
[2017-02-20] MEDS: EYE EACH EYE SCH ×3 (08:34→20:54)
[2017-02-20] MEDS: BRIMONIDINE 0.15% EACH EYE SCH ×3 (08:34→20:54)
[2017-02-20] MEDS: SALINE FLUSH 10ml SYRINGE IVF PRN (08:34)
[2017-02-20] MEDS: ENOXAPARIN 40 MG/0.4 ML INJECTION SQ SCH (08:34)
[2017-02-20] MEDS: MAGNESIUM SULFATE 1gm PREMIX 1 GM/100 ML BAG IV SCH ×2 (12:43→13:50)
--- NOTE | 2017-02-20 13:38 | Progress Note ---
Subjective: F/U: DKA, Uncontrolled DM, NSTEMI Doing fair. Mouth still very sore and sore to swallow, but eating slightly more. Food not looking appealing. No nausea. Slight ab bloating. Stools not loose or urgent like yesterday. No pain with urination. Breathing stable-no having SOA, cough, or congestion. No chest pressure or pain. Still notes pain to right hip/low back; worse with standing and movements. Objective Vital signs: Temperature 98.9 F 02/20/17 11:22 Pulse Rate 81 02/20/17 11:22 Respiratory Rate 16 02/20/17 11:22 Blood Pressure 101/50 02/20/17 11:40 Pulse Oximetry 97 02/20/17 11:22 Cardiac Ectopy: Occasional PVC's Height/Weight/BMI: Height 1.63 m Weight 64.5 kg Body Mass Index 23.1 - Constitutional Present: well nourished, well developed, cooperative - Routine HEENT Exam Head: Present: normocephalic, atraumatic Eye: Present: EOMI, PERRL ENT: Present: mucous membranes moist - Routine Respiratory Exam Present: CTA bilaterally. Absent: respiratory distress, rhonchi, wheezes - Routine Cardiovascular Exam Present: RRR, no murmur - Routine Abdominal Exam Present: soft, normoactive bowel sounds, non distended, non tender - Routine Extremities Exam Present: no edema, pulses intact. Absent: cyanosis, clubbing - Routine Musculoskeletal Exam Musculoskeletal: Present: no clubbing or cyanosis, normal strength - Routine Skin Exam Present: intact, dry, warm - Routine Neurological Exam Present: alert, CN II-XII intact, moving all extremities, vision grossly intact , hearing grossly intact. Absent: motor deficit - Routine Psychiatric Exam Present: normal affect, cooperative Results - Labs CBC & Chem 7: 02/20/17 03:59 02/20/17 03:59 Microbiology Results: Microbiology 02/13/17 17:10 Urine, Cath Monahan Urine Culture - Final Mixed Bacterial Yahaira - ABG Interpretation ABG results: 02/15/17 11:30 ABG pH 7.270 L ABG pCO2 28 L ABG pO2 79 L ABG HCO3 13 L ABG Total CO2 13.8 L ABG O2 Saturation 94.0 L ABG Base Excess -12.6 L Assessment and Plan (1) DKA, type 2 Current visit: Yes Status: Acute DVT Prophylaxis: Lovenox GI Prophylaxis: Protonix Resuscitation Status: Limited Code Assessment and Plan: Impression: Severe DKA-pH of 7.0, HCO3< 5, blood sugar>500 on admission - resolved. Type 2 diabetes mellitus on oral hypoglycemics-A1C 10.8 Encephalopathy secondary to DKA - resolved Acute kidney injury, probable dehydration-POA, baseline 07/30/2015-1.13 No underlying CKD. Non-ST elevation [place], mildly elevated troponin without chest pain or ST segment elevation NSVT Volume overload Thrush Suspected UTI-ruled out PVCs Emesis prior to admission Systemic lupus erythematosus Possible chronic steroid use-previous records showed she was on prednisone 5 mg daily Hypertension Leukocytosis-possibly stress from DKA versus sepsis. Lactate was normal. Frequent PVCs Metabolic acidosis - Resolved Hypophosphatemia, hypomagnesemia, hypokalemia, hypocalcemia, hyperchlorhydria Back pain/sciatica Probable depression History of multiple antibiotic allergies Plan: Decrease IVF to 50 cc/hr as oral drive improving. Continue Nystatin due to resolving thrush. Magnesium bolus initiated by cardiology as magnesium 1.5 this am. Start Lidoderm to right hip/low back to help pain. Will add Neurontin 300mg at night as well. Continue routine [place]. Pt has not used prn [place] or Dilaudid. Aspirin/beta monae for non-ST elevation [place]. Dr Dikc restarting outpatient linagliptin and glimepiride today. Continue PT/OT. Up in chair as tolerates. Encourage activities. CM looking into Skilled care vs IRU for post discharge care. Continue mirtazapine initiated 02/18 for depression/anorexia. Monitor lab. Daughter Gabriela Goodman is our decision maker. Phone number is [phone]. Patient's sister Linda Parra lives in [place]. [phone]. Case discussed with CM. Time spent with patient care 25 minutes. - Time spent with patient 25 - 35 minutes Sepsis Assessment - Evaluation Sepsis screening result: Severe Sepsis Risk Hospital Course Summary Disclaimer: The visit summary below is not to be considered part of the above Progress Note. Hospital Course: 02/13/17-admission Admit to CCU. DKA protocol With patient's possible history of chronic steroid use, monitor for hypotension and may require stress dose steroids. Check magnesium and phosphorus Continue on telemetry Monahan catheter was placed to obtain urine sample and to monitor urine output Aztreonam 1 g IV every 6 for UTI in a patient with multiple drug allergies SCDs for DVT prophylaxis Protonix IV in place of her oral lansoprazole Ice chips only for now Consult Dr. Dick tomorrow Consult Dr. Agudelo tomorrow regarding elevated troponin Start aspirin 300 mg per rectum 02/14/17 Patient remains metabolically unstable and encephalopathic. Persistent tachypnea and tachycardia. Persistent acidosis with development of hypophosphatemia, hypomagnesemia, and hypophosphatemia with treatment of DKA as anticipated. Electrolyte replacement initiated earlier today and will require ongoing monitoring of labs and fluid adjustment. Acidosis worsened slightly in the past couple of hours after insulin drip discontinued due to low blood sugars-D5 being readmitted to fluids after consultation with Dr. Dick. Unclear the patient has been taking diabetic medications prior to admission; daughter confirms that she does not routinely monitor blood sugars. Creatinine 0.9 following hydration, BUN remains elevated at 40. Continue fluids. Dr. Niño's office does not have any advanced directives on file, full code order written in absence of prior known directives. Cultures pending-continue aztreonam Mild troponin elevation without ST elevation. Trending downward. Continue IV BB and Aspirin supp. 02/15/17 Patient remains encephalopathic and metabolically unstable. Potassium, phosphorus, and magnesium supplementation ongoing. Remains acidotic although no longer with high anion gap. No evidence of respiratory acidosis or lactic acidosis. Volatile acids negative on admission. Persistent tachypnea and tachycardia. Continue high volume fluid replacement therapy. Remains on insulin drip. Speech therapy evaluation-unable to take oral at this time due to altered level of consciousness. Blood pressure borderline low early this afternoon; hypertensive at other times. Continues to require IV metoprolol for tachycardia. Blood cultures negative, UA mixed species-discontinue antibiotics. 02/16/17 Patient remains encephalopathic and metabolically unstable. Mental status is slowly improving but she remained somnolent and responses are inconsistent. Marked hypokalemia today-received 80 mEq IV potassium. IV fluids discontinued due to volume overload, chest x-ray/BNP to be checked in a.m. Acidosis resolved after bicarbonate infusion, continue to monitor with discontinuation of fluids. Volatile acids negative on admission, lactic acid unremarkable, PCO2 low consistent with respiratory compensation. Dr. Dick has converted to subcutaneous insulin, advancing diet as mental status permits. Blood pressure stabilizing, borderline low late this afternoon but no significant hypertension today. Episodic tachycardia persists. Oral monae initiated. Blood cultures negative, UA mixed species-antibiotics discontinued 02/15. Tylenol/[place] (home medication) ordered for back pain. Mild troponin elevation without ST elevation. Trending downward. Continue IV BB and Aspirin supp. 02/17/17 Hypoglycemic overnight, insulin adjusted earlier. Diet advanced today and hopefully will begin to see stabilization of oral intake and glucoses. Off bicarbonate infusion without recurrent acidosis. Continues to require potassium replacement. Phosphorus low again today-may be recurring problem with refeeding. Oral supplement initiated. On aspirin and atenolol/chlorthalidone for non-ST elevation [place]. Continues to have low-grade tachycardia. Blood pressure stable but do not permit pushing beta monae to higher dose. Chest x-ray improved, oxygenation stable. Additional diuresis not indicated despite elevated proBNP. Encephalopathy continues to clear. Schedule [place] per home regimen. Resume oral PPI twice a day-home dose. If stable overnight will move out of the ICU tomorrow. Code status again and updated to limited code with intubation only reflecting patient's repetitively reported which; this was discussed with her daughter who confirms that the patient has expressed similar plans previously. 02/18/17 Blood sugar stable with insulin reduction made yesterday by Dr. Dick. Continue same. Pured diet with nectar thickened liquids, add Magic cups for nutritional supplement. Remains on low-volume fluids due to poor oral intake. Brief run NSVT last night, magnesium 1.7-2 g supplemental Mag given IV. Discontinue chlorthalidone; continue atenolol per cardiology. Overall electrolytes improving-reassess phosphorus tomorrow following initiation of by mouth replacement. Blood pressure low normal, asymptomatic. When necessary [place] added to avoid need for IV narcotics. Will review outpatient records to determine what imaging of her back or hip was done recently. Exam not remarkable but MRI of LS spine previously demonstrated degenerative disease and small herniation. Stable to transfer out of the ICU today. Continue PT/OT--notes indicate patient declined to participate with multiple activities today. Appears depressed, initiate mirtazapine. 02/19/17 Isolated episode of hypoglycemia yesterday-current to scale insulin initiated. Poor oral intake, utilizing nutritional supplements. Recurrent hypokalemia required IV supplementation this morning. Repeat potassium pending, anticipate adding potassium to fluids. Phosphorus improved, decrease frequency of oral phosphorus replacement. Telemetry unremarkable overnight, minor sinus dysrhythmia but no recurrent nonsustained VT. Aspirin/beta monae for non-ST elevation [place] Outpatient x-rays of lumbar spine and right hip obtained February 02 demonstrating degenerative changes but no acute pathology, degenerative disc disease in the lumbar spine had progressed since films in 2014. Reports on paper chart. [place] 3 times a day and prn for pain. Continue PT/OT. Up in chair as tolerates. Discontinue Monahan catheter. Mirtazapine initiated 02/18 for suspected depression and anorexia. 02/20/17 Decrease IVF to 50 cc/hr as oral drive improving. Continue Nystatin due to resolving thrush. Magnesium bolus initiated by cardiology as magnesium 1.5 this am. Start Lidoderm to right hip/low back to help pain. Will add Neurontin 300mg at night as well. Continue routine [place]. Pt has not used prn [place] or Dilaudid. Aspirin/beta monae for non-ST elevation [place]. Dr Dick restarting outpatient linagliptin and glimepiride today. Continue PT/OT. Up in chair as tolerates. Encourage activities. CM looking into Skilled care vs IRU for post discharge care. Continue mirtazapine initiated 02/18 for depression/anorexia.
[2017-02-20] MEDS: LIDOCAINE 5% PATCH TOP SCH (14:18)
[2017-02-20] MEDS: 1/2 NS with KCL 20mEq 1,000 ML IV SCH (15:04)
[2017-02-20] MEDS: INSULIN ASPART 100unit/ml INJECTION SQ PRN ×2 (15:16→21:04)
--- NOTE | 2017-02-20 17:14 | Cardiology Progress Note ---
Subjective Principal diagnosis: elevated troponin <Lucille Landry - 02/20/17 17:14> Interval history: Fartun is seen in follow up for elevated troponin. She is awake and cooperative. She denies chest pain or pressure. <Lucille Landry - 02/21/17 10:53> Exam Vital signs: Temperature 98.1 F 02/21/17 08:00 Pulse Rate 91 02/21/17 08:00 Respiratory Rate 16 02/21/17 08:00 Blood Pressure 130/89 02/21/17 08:00 Pulse Oximetry 93 02/21/17 08:00 <Kenny Agudelo - 02/21/17 11:06> Temperature 97.7 F 02/20/17 16:24 Pulse Rate 84 02/20/17 16:24 Respiratory Rate 20 02/20/17 16:24 Blood Pressure 117/61 02/20/17 16:24 Pulse Oximetry 97 02/20/17 16:24 <Lucille Landry - 02/20/17 17:14> - Constitutional no acute distress, cooperative <Lucille Landry - 02/20/17 17:14> - Routine HEENT Exam Head: Present: normocephalic <Lucille Landry 02/20/17 17:14> ENT: Present: mucous membranes moist <Lucille Landry 02/20/17 17:14> - Routine Neck Exam Absent: JVD, carotid bruit <Lucille Landry 02/20/17 17:14> - Routine Chest/Breast/Axilla Exam Chest wall: Absent: tenderness <Lucille Landry 02/20/17 17:14> - Routine Respiratory Exam Present: CTA bilaterally. Absent: rales, wheezes <Lucille Landry 02/20/17 17:14> - Routine Cardiovascular Exam Present: RRR, no murmur. Absent: JVD <FrantzLucille Barnes 02/20/17 17:14> - Routine Abdominal Exam Present: soft, normoactive bowel sounds <Lucille Landry 02/20/17 17:14> - Routine Extremities Exam Present: no edema <FrantzLucille Barnes 02/20/17 17:14> - Routine Skin Exam Present: intact, dry, warm <Lucille Landry 02/20/17 17:14> - Routine Neurological Exam Present: alert, oriented X3 <Lucille Landry 02/20/17 17:14> - Routine Psychiatric Exam Present: normal affect, normal thought process <Lucille Landry 02/20/17 17: 14> - Urinary Catheter Management Urethral Cath placed during this visit: no <Ken Agudeloin - 02/21/17 11:06> yes, but has since been removed by the nurse <Lucille Landry 02/21/17 10:55> Urethral indwelling: Yes <Lucille Landry 02/20/17 17:14> Insertion date: 02/13/17 <Lucille Landry 02/20/17 17:14> Insertion time: 16:45 <Lucille Landry 02/20/17 17:14> Removal date: 02/19/17 <Lucille Landry 02/20/17 17:14> Removal time: 13:17 <Lucille Landry 02/20/17 17:14> Progress Note-A&P (1) Diabetes mellitus type 2, uncontrolled, without complications Problem details: Fair control now, more stable. Status: Chronic Current Visit: No (2) Altered mental status Status: Resolved Current Visit: Yes (3) DKA, type 2 Status: Acute Current Visit: Yes (4) High anion gap metabolic acidosis Status: Acute Current Visit: Yes (5) Elevated troponin Problem details: Non STEMI, stable. Status: Acute Current Visit: Yes (6) Hypokalemia Status: Acute Current Visit: Yes <Kenny Agudelo - 02/21/17 11:06> (1) Elevated troponin Problem details: Non STEMI, stable. Status: Acute Assessment and plan: Conservative management, continue Aspirin and BB Current Visit: Yes (2) DKA, type 2 Status: Acute Current Visit: Yes (3) Diabetes mellitus type 2, uncontrolled, without complications Problem details: Fair control now, more stable. Status: Chronic Current Visit: No (4) Altered mental status Status: Resolved Current Visit: Yes (5) High anion gap metabolic acidosis Status: Acute Current Visit: Yes (6) Hypokalemia Status: Acute Assessment and plan: tachycardic, replace K+ (3.4 today) Current Visit: Yes <Lucille Landry - 02/21/17 10:55> - Time Spent With Patient Total time spent is greater than 50% in coordination of care (as documented) at patient's floor/unit and/or counseling patient: <Kenny Agudelo - 02/21/17 11:06> Total time spent is greater than 50% in coordination of care (as documented) at patient's floor/unit and/or counseling patient: <Lucille Landry - 02/20/17 17:14> less than 15 minutes <Lucille Landry - 02/20/17 17:27> - Attestation Attestation Narrative: Recommendation After examining the patient I agree with the above assessment. I am involved in the formulation of the patient's plan of care. <JammieKenny - 02/21/17 11:06> Sepsis Assessment - Evaluation Sepsis screening result: No Definite Risk <Frantz,Amy Cameron - 02/20/17 17:14> Hospital Course Summary Disclaimer: The visit summary below is not to be considered part of the above Progress Note. <JammieKenny - 02/21/17 11:06> The visit summary below is not to be considered part of the above Progress Note. <FrantzLucille Barnes - 02/20/17 17:14> Hospital Course: 02/13/17-admission Admit to CCU. DKA protocol With patient's possible history of chronic steroid use, monitor for hypotension and may require stress dose steroids. Check magnesium and phosphorus Continue on telemetry Monahan catheter was placed to obtain urine sample and to monitor urine output Aztreonam 1 g IV every 6 for UTI in a patient with multiple drug allergies SCDs for DVT prophylaxis Protonix IV in place of her oral lansoprazole Ice chips only for now Consult Dr. Dick tomorrow Consult Dr. Agudelo tomorrow regarding elevated troponin Start aspirin 300 mg per rectum 02/14/17 Patient remains metabolically unstable and encephalopathic. Persistent tachypnea and tachycardia. Persistent acidosis with development of hypophosphatemia, hypomagnesemia, and hypophosphatemia with treatment of DKA as anticipated. Electrolyte replacement initiated earlier today and will require ongoing monitoring of labs and fluid adjustment. Acidosis worsened slightly in the past couple of hours after insulin drip discontinued due to low blood sugars-D5 being readmitted to fluids after consultation with Dr. Dick. Unclear the patient has been taking diabetic medications prior to admission; daughter confirms that she does not routinely monitor blood sugars. Creatinine 0.9 following hydration, BUN remains elevated at 40. Continue fluids. Dr. Niño's office does not have any advanced directives on file, full code order written in absence of prior known directives. Cultures pending-continue aztreonam Mild troponin elevation without ST elevation. Trending downward. Continue IV BB and Aspirin supp. 02/15/17 Patient remains encephalopathic and metabolically unstable. Potassium, phosphorus, and magnesium supplementation ongoing. Remains acidotic although no longer with high anion gap. No evidence of respiratory acidosis or lactic acidosis. Volatile acids negative on admission. Persistent tachypnea and tachycardia. Continue high volume fluid replacement therapy. Remains on insulin drip. Speech therapy evaluation-unable to take oral at this time due to altered level of consciousness. Blood pressure borderline low early this afternoon; hypertensive at other times. Continues to require IV metoprolol for tachycardia. Blood cultures negative, UA mixed species-discontinue antibiotics. 02/16/17 Patient remains encephalopathic and metabolically unstable. Mental status is slowly improving but she remained somnolent and responses are inconsistent. Marked hypokalemia today-received 80 mEq IV potassium. IV fluids discontinued due to volume overload, chest x-ray/BNP to be checked in a.m. Acidosis resolved after bicarbonate infusion, continue to monitor with discontinuation of fluids. Volatile acids negative on admission, lactic acid unremarkable, PCO2 low consistent with respiratory compensation. Dr. Dick has converted to subcutaneous insulin, advancing diet as mental status permits. Blood pressure stabilizing, borderline low late this afternoon but no significant hypertension today. Episodic tachycardia persists. Oral monae initiated. Blood cultures negative, UA mixed species-antibiotics discontinued 02/15. Tylenol/[place] (home medication) ordered for back pain. Mild troponin elevation without ST elevation. Trending downward. Continue IV BB and Aspirin supp. 02/17/17 Hypoglycemic overnight, insulin adjusted earlier. Diet advanced today and hopefully will begin to see stabilization of oral intake and glucoses. Off bicarbonate infusion without recurrent acidosis. Continues to require potassium replacement. Phosphorus low again today-may be recurring problem with refeeding. Oral supplement initiated. On aspirin and atenolol/chlorthalidone for non-ST elevation IA. Continues to have low-grade tachycardia. Blood pressure stable but do not permit pushing beta monae to higher dose. Chest x-ray improved, oxygenation stable. Additional diuresis not indicated despite elevated proBNP. Encephalopathy continues to clear. Schedule [place] per home regimen. Resume oral PPI twice a day-home dose. If stable overnight will move out of the ICU tomorrow. Code status again and updated to limited code with intubation only reflecting patient's repetitively reported which; this was discussed with her daughter who confirms that the patient has expressed similar plans previously. 02/18/17 Blood sugar stable with insulin reduction made yesterday by Dr. Dick. Continue same. Pured diet with nectar thickened liquids, add Magic cups for nutritional supplement. Remains on low-volume fluids due to poor oral intake. Brief run NSVT last night, magnesium 1.7-2 g supplemental Mag given IV. Discontinue chlorthalidone; continue atenolol per cardiology. Overall electrolytes improving-reassess phosphorus tomorrow following initiation of by mouth replacement. Blood pressure low normal, asymptomatic. When necessary [place] added to avoid need for IV narcotics. Will review outpatient records to determine what imaging of her back or hip was done recently. Exam not remarkable but MRI of LS spine previously demonstrated degenerative disease and small herniation. Stable to transfer out of the ICU today. Continue PT/OT--notes indicate patient declined to participate with multiple activities today. Appears depressed, initiate mirtazapine. 02/19/17 Isolated episode of hypoglycemia yesterday-current to scale insulin initiated. Poor oral intake, utilizing nutritional supplements. Recurrent hypokalemia required IV supplementation this morning. Repeat potassium pending, anticipate adding potassium to fluids. Phosphorus improved, decrease frequency of oral phosphorus replacement. Telemetry unremarkable overnight, minor sinus dysrhythmia but no recurrent nonsustained VT. Aspirin/beta monae for non-ST elevation IA Outpatient x-rays of lumbar spine and right hip obtained February 02 demonstrating degenerative changes but no acute pathology, degenerative disc disease in the lumbar spine had progressed since films in 2014. Reports on paper chart. [place] 3 times a day and prn for pain. Continue PT/OT. Up in chair as tolerates. Discontinue Monahan catheter. Mirtazapine initiated 02/18 for suspected depression and anorexia. 02/20/17 Decrease IVF to 50 cc/hr as oral drive improving. Continue Nystatin due to resolving thrush. Magnesium bolus initiated by cardiology as magnesium 1.5 this am. Start Lidoderm to right hip/low back to help pain. Will add Neurontin 300mg at night as well. Continue routine [place]. Pt has not used prn [place] or Dilaudid. Aspirin/beta monae for non-ST elevation IA. Dr Dick restarting outpatient linagliptin and glimepiride today. Continue PT/OT. Up in chair as tolerates. Encourage activities. CM looking into Skilled care vs IRU for post discharge care. Continue mirtazapine initiated 02/18 for depression/anorexia. <Lucille Landry - 02/21/17 10:53>
[2017-02-20] MEDS: GABAPENTIN 300 MG CAPSULE PO SCH (20:53)
[2017-02-20] MEDS: MIRTAZAPINE 15 MG TABLET PO SCH (20:53)
[2017-02-20] MEDS: LIDOCAINE PATCH REMOVAL TOP SCH (21:07)
[2017-02-21] MEDS: SALINE FLUSH 10ml SYRINGE IVF PRN (05:19)
[2017-02-21] MEDS: PANTOPRAZOLE 40 MG TABLET PO SCH ×2 (06:02→20:41)
[2017-02-21] MEDS: INSULIN ASPART 100unit/ml INJECTION SQ PRN ×4 (06:17→20:41)
--- NOTE | 2017-02-21 07:57 | Endocrinology Progress Note ---
Progress Note-A&P (1) Altered mental status Status: Resolved Assessment and plan: At baseline mental status. Current Visit: Yes (2) Elevated troponin Problem details: Non STEMI, stable. Status: Acute Assessment and plan: per Dr. Agudelo Current Visit: Yes (3) Diabetes mellitus type 2, uncontrolled, without complications Problem details: Fair control now, more stable. Status: Chronic Assessment and plan: Control worsened after insulin was discontinued. Will need a larger dose of glimepiride, and possibly basal insulin also. Increase glimepiride to 4 mg q AM. Current Visit: No (4) Hip pain, right Status: Acute Assessment and plan: Now getting adequate relief. Current Visit: Yes - Time Spent With Patient Total time spent is greater than 50% in coordination of care (as documented) at patient's floor/unit and/or counseling patient: less than 15 minutes Subjective Principal diagnosis: type 2 diabetes, uncontrolled Interval history: Fartun is seen in follow up for uncontrolled diabetes. After switching from insulin to presumably her usual doses of oral agents yesterday her glucose levels hattie. Ate dinner well last night. Has better hip pain control. Exam Vital signs: Temperature 98.6 F 02/21/17 03:29 Pulse Rate 86 02/21/17 03:29 Respiratory Rate 16 02/21/17 03:29 Blood Pressure 120/70 02/21/17 03:29 Pulse Oximetry 98 02/21/17 03:29 - Constitutional no acute distress - Routine HEENT Exam Head: Present: normocephalic, atraumatic Eye: Present: EOMI, PERRL ENT: Present: mucous membranes moist - Routine Neck Exam Absent: lymphadenopathy, thyromegaly - Routine Respiratory Exam Absent: rales, wheezes - Routine Cardiovascular Exam Present: RRR - Routine Abdominal Exam Present: soft, normoactive bowel sounds. Absent: tenderness - Routine Extremities Exam Absent: cyanosis, no edema - Routine Psychiatric Exam Present: normal affect, normal thought process, cooperative - Additional findings Additional findings: Laboratory Tests 02/20/17 02/20/17 02/20/17 11:19 15:13 21:00 Glucometer 173 312 341 02/21/17 06:03 Glucometer 251 - Urinary Catheter Management Urethral Cath placed during this visit: yes, but has since been removed by the nurse Urethral indwelling: Yes Insertion date: 02/13/17 Insertion time: 16:45 Removal date: 02/19/17 Removal time: 13:17 Progress Note: Quality - Stroke Onset of Symptoms Time: 10:00
[2017-02-21] MEDS: NYSTATIN 500,000 units/5 ml ORAL LIQUID PO SCH ×4 (08:43→20:40)
[2017-02-21] MEDS: LIDOCAINE 5% PATCH TOP SCH (08:43)
[2017-02-21] MEDS: ENOXAPARIN 40 MG/0.4 ML INJECTION SQ SCH (08:43)
[2017-02-21] MEDS: HYDROCODONE/APAP 7.5 MG/325 MG TABLET PO SCH ×3 (08:44→20:40)
[2017-02-21] MEDS: PHOSPHORUS 250 MG TABLET PO SCH ×2 (08:44→16:51)
[2017-02-21] MEDS: ATENOLOL 50 MG TABLET PO SCH (08:45)
[2017-02-21] MEDS: ASPIRIN 81 MG CHEWABLE TABLET PO SCH (08:45)
[2017-02-21] MEDS: EYE EACH EYE SCH ×3 (08:47→20:41)
[2017-02-21] MEDS: BRIMONIDINE 0.15% EACH EYE SCH ×3 (08:47→20:41)
[2017-02-21] MEDS: GLIMEPIRIDE 4 MG TABLET PO SCH (08:50)
--- NOTE | 2017-02-21 11:34 | Progress Note ---
<Keesha Burden V - Last Filed: 02/21/17 11:31> Subjective: Fartun is seen this morning. She is resting in bed eating breakfast this morning. She is able to tolerating eating a purred diet without significant pain. She denies having shortness of breath or chest pain. She does complain of having ongoing back pain however feels that the lidoderm patch may be helping. BP 130/89. Objective Vital signs: Temperature 98.1 F 02/21/17 08:00 Pulse Rate 88 02/21/17 08:00 Respiratory Rate 16 02/21/17 08:00 Blood Pressure 130/89 02/21/17 08:00 Pulse Oximetry 93 02/21/17 08:00 Cardiac Ectopy: Occasional PVC's Height/Weight/BMI: Height 1.63 m Weight 64.2 kg Body Mass Index 23.1 - Constitutional Present: no acute distress, well nourished, well developed - Routine HEENT Exam Eye: Present: EOMI ENT: Present: mucous membranes moist, dentition normal - Routine Respiratory Exam Present: CTA bilaterally. Absent: wheezes - Routine Cardiovascular Exam Present: RRR, S1, S2. Absent: murmur - Routine Abdominal Exam Present: soft, normoactive bowel sounds, non distended. Absent: tenderness - Routine Extremities Exam Present: pulses intact - Routine Back/Spine/Pelvis Exam Back/Spine: Present: full ROM - Routine Skin Exam Present: intact, dry, warm - Routine Neurological Exam Present: alert, CN II-XII intact, moving all extremities - Routine Lymphatic Exam Lymphatic: Absent: adenopathy - Routine Psychiatric Exam Present: cooperative Results - Labs CBC & Chem 7: 02/21/17 04:42 02/21/17 04:42 Microbiology Results: Microbiology 02/13/17 17:10 Urine, Cath Monahan Urine Culture - Final Mixed Bacterial Yahaira - ABG Interpretation ABG results: 02/15/17 11:30 ABG pH 7.270 L ABG pCO2 28 L ABG pO2 79 L ABG HCO3 13 L ABG Total CO2 13.8 L ABG O2 Saturation 94.0 L ABG Base Excess -12.6 L Assessment and Plan (1) DKA, type 2 Current visit: Yes Status: Acute Assessment and Plan: Impression: Severe DKA-pH of 7.0, HCO3< 5, blood sugar>500 on admission - resolved. Type 2 diabetes mellitus on oral hypoglycemics-A1C 10.8 Encephalopathy secondary to DKA - resolved Acute kidney injury, probable dehydration-POA, baseline 07/30/2015-1.13 No underlying CKD. Non-ST elevation DC, mildly elevated troponin without chest pain or ST segment elevation NSVT Volume overload Thrush Suspected UTI-ruled out PVCs Emesis prior to admission Systemic lupus erythematosus Possible chronic steroid use-previous records showed she was on prednisone 5 mg daily Hypertension Leukocytosis-possibly stress from DKA versus sepsis. Lactate was normal. Frequent PVCs Metabolic acidosis - Resolved Hypophosphatemia, hypomagnesemia, hypokalemia, hypocalcemia, hyperchlorhydria Back pain/sciatica Probable depression History of multiple antibiotic allergies Plan: Continue with Nystatin, Appears to be tolerating eating well today. Appreciate Dr Bejarano expertise regarding glycemic control. BGM this morning elevated at 265. Home meds resumed. Continue with Lidoderm patch and Neurontin for pain Magnesium was replaced yesterday. Morning lab pending currently. Case discussed with CM regarding skilled placement. Out of town daughter to be her later today. Gabriela Goodman. Will discuss with attending Sepsis Assessment - Evaluation Sepsis screening result: No Definite Risk Hospital Course Summary Disclaimer: The visit summary below is not to be considered part of the above Progress Note. Hospital Course: 02/13/17-admission Admit to CCU. DKA protocol With patient's possible history of chronic steroid use, monitor for hypotension and may require stress dose steroids. Check magnesium and phosphorus Continue on telemetry Monahan catheter was placed to obtain urine sample and to monitor urine output Aztreonam 1 g IV every 6 for UTI in a patient with multiple drug allergies SCDs for DVT prophylaxis Protonix IV in place of her oral lansoprazole Ice chips only for now Consult Dr. Dick tomorrow Consult Dr. Agudelo tomorrow regarding elevated troponin Start aspirin 300 mg per rectum 02/14/17 Patient remains metabolically unstable and encephalopathic. Persistent tachypnea and tachycardia. Persistent acidosis with development of hypophosphatemia, hypomagnesemia, and hypophosphatemia with treatment of DKA as anticipated. Electrolyte replacement initiated earlier today and will require ongoing monitoring of labs and fluid adjustment. Acidosis worsened slightly in the past couple of hours after insulin drip discontinued due to low blood sugars-D5 being readmitted to fluids after consultation with Dr. Dick. Unclear the patient has been taking diabetic medications prior to admission; daughter confirms that she does not routinely monitor blood sugars. Creatinine 0.9 following hydration, BUN remains elevated at 40. Continue fluids. Dr. Niño's office does not have any advanced directives on file, full code order written in absence of prior known directives. Cultures pending-continue aztreonam Mild troponin elevation without ST elevation. Trending downward. Continue IV BB and Aspirin supp. 02/15/17 Patient remains encephalopathic and metabolically unstable. Potassium, phosphorus, and magnesium supplementation ongoing. Remains acidotic although no longer with high anion gap. No evidence of respiratory acidosis or lactic acidosis. Volatile acids negative on admission. Persistent tachypnea and tachycardia. Continue high volume fluid replacement therapy. Remains on insulin drip. Speech therapy evaluation-unable to take oral at this time due to altered level of consciousness. Blood pressure borderline low early this afternoon; hypertensive at other times. Continues to require IV metoprolol for tachycardia. Blood cultures negative, UA mixed species-discontinue antibiotics. 02/16/17 Patient remains encephalopathic and metabolically unstable. Mental status is slowly improving but she remained somnolent and responses are inconsistent. Marked hypokalemia today-received 80 mEq IV potassium. IV fluids discontinued due to volume overload, chest x-ray/BNP to be checked in a.m. Acidosis resolved after bicarbonate infusion, continue to monitor with discontinuation of fluids. Volatile acids negative on admission, lactic acid unremarkable, PCO2 low consistent with respiratory compensation. Dr. Dick has converted to subcutaneous insulin, advancing diet as mental status permits. Blood pressure stabilizing, borderline low late this afternoon but no significant hypertension today. Episodic tachycardia persists. Oral monae initiated. Blood cultures negative, UA mixed species-antibiotics discontinued 02/15. Tylenol/Damascus (home medication) ordered for back pain. Mild troponin elevation without ST elevation. Trending downward. Continue IV BB and Aspirin supp. 02/17/17 Hypoglycemic overnight, insulin adjusted earlier. Diet advanced today and hopefully will begin to see stabilization of oral intake and glucoses. Off bicarbonate infusion without recurrent acidosis. Continues to require potassium replacement. Phosphorus low again today-may be recurring problem with refeeding. Oral supplement initiated. On aspirin and atenolol/chlorthalidone for non-ST elevation DC. Continues to have low-grade tachycardia. Blood pressure stable but do not permit pushing beta monae to higher dose. Chest x-ray improved, oxygenation stable. Additional diuresis not indicated despite elevated proBNP. Encephalopathy continues to clear. Schedule Damascus per home regimen. Resume oral PPI twice a day-home dose. If stable overnight will move out of the ICU tomorrow. Code status again and updated to limited code with intubation only reflecting patient's repetitively reported which; this was discussed with her daughter who confirms that the patient has expressed similar plans previously. 02/18/17 Blood sugar stable with insulin reduction made yesterday by Dr. Dick. Continue same. Pured diet with nectar thickened liquids, add Magic cups for nutritional supplement. Remains on low-volume fluids due to poor oral intake. Brief run NSVT last night, magnesium 1.7-2 g supplemental Mag given IV. Discontinue chlorthalidone; continue atenolol per cardiology. Overall electrolytes improving-reassess phosphorus tomorrow following initiation of by mouth replacement. Blood pressure low normal, asymptomatic. When necessary Damascus added to avoid need for IV narcotics. Will review outpatient records to determine what imaging of her back or hip was done recently. Exam not remarkable but MRI of LS spine previously demonstrated degenerative disease and small herniation. Stable to transfer out of the ICU today. Continue PT/OT--notes indicate patient declined to participate with multiple activities today. Appears depressed, initiate mirtazapine. 02/19/17 Isolated episode of hypoglycemia yesterday-current to scale insulin initiated. Poor oral intake, utilizing nutritional supplements. Recurrent hypokalemia required IV supplementation this morning. Repeat potassium pending, anticipate adding potassium to fluids. Phosphorus improved, decrease frequency of oral phosphorus replacement. Telemetry unremarkable overnight, minor sinus dysrhythmia but no recurrent nonsustained VT. Aspirin/beta monae for non-ST elevation DC Outpatient x-rays of lumbar spine and right hip obtained February 02 demonstrating degenerative changes but no acute pathology, degenerative disc disease in the lumbar spine had progressed since films in 2014. Reports on paper chart. Damascus 3 times a day and prn for pain. Continue PT/OT. Up in chair as tolerates. Discontinue Monahan catheter. Mirtazapine initiated 02/18 for suspected depression and anorexia. 02/20/17 Decrease IVF to 50 cc/hr as oral drive improving. Continue Nystatin due to resolving thrush. Magnesium bolus initiated by cardiology as magnesium 1.5 this am. Start Lidoderm to right hip/low back to help pain. Will add Neurontin 300mg at night as well. Continue routine Damascus. Pt has not used prn Damascus or Dilaudid. Aspirin/beta monae for non-ST elevation DC. Dr Dick restarting outpatient linagliptin and glimepiride today. Continue PT/OT. Up in chair as tolerates. Encourage activities. CM looking into Skilled care vs IRU for post discharge care. Continue mirtazapine initiated 02/18 for depression/anorexia. 02/21/17 Plan: Continue with Nystatin, Appears to be tolerating eating well today. Appreciate Dr Bejarano expertise regarding glycemic control. BGM this morning elevated at 265. Home meds resumed. Continue with Lidoderm patch and Neurontin for pain Magnesium was replaced yesterday. Morning lab pending currently. Case discussed with CM regarding skilled placement. Out of town daughter to be her later today. Gabriela Goodman. Will discuss with attending <Nick Patel - Last Filed: 02/21/17 19:50> Objective Vital signs: Temperature 98.3 F 02/21/17 16:00 Pulse Rate 92 02/21/17 16:00 Respiratory Rate 18 02/21/17 16:00 Blood Pressure 108/55 02/21/17 16:00 Pulse Oximetry 96 02/21/17 16:00 Height/Weight/BMI: Height 1.63 m Weight 64.2 kg Body Mass Index 23.1 Results - Labs CBC & Chem 7: 02/21/17 04:42 02/21/17 04:42 Microbiology Results: Microbiology 02/13/17 17:10 Urine, Cath Monahan Urine Culture - Final Mixed Bacterial Yahaira - ABG Interpretation ABG results: 02/15/17 11:30 ABG pH 7.270 L ABG pCO2 28 L ABG pO2 79 L ABG HCO3 13 L ABG Total CO2 13.8 L ABG O2 Saturation 94.0 L ABG Base Excess -12.6 L Assessment and Plan (1) DKA, type 2 Current visit: Yes Status: Acute Assessment and Plan: Impression: Severe DKA-pH of 7.0, HCO3< 5, blood sugar>500 on admission - resolved. Type 2 diabetes mellitus on oral hypoglycemics-A1C 10.8 Encephalopathy secondary to DKA - resolved Acute kidney injury, probable dehydration-POA, baseline 07/30/2015-1.13 No underlying CKD. Non-ST elevation DC, mildly elevated troponin without chest pain or ST segment elevation NSVT Volume overload Thrush Suspected UTI-ruled out PVCs Emesis prior to admission Systemic lupus erythematosus Possible chronic steroid use-previous records showed she was on prednisone 5 mg daily Hypertension Leukocytosis-possibly stress from DKA versus sepsis. Lactate was normal. Frequent PVCs Metabolic acidosis - Resolved Hypophosphatemia, hypomagnesemia, hypokalemia, hypocalcemia, hyperchlorhydria Back pain/sciatica Probable depression History of multiple antibiotic allergies Have independently interviewed and examined pt. Chart reviewed. Case discussed with CM and my PROPOSAL DEVELOPMENT MANAGER. Care plan developed with my supervision; agree with above. Eating more-still with discomfort as she eats. Food not always to her liking. No nausea or ab pain. Breathing well. Lidoderm helping pain, but feels 2 would be better - on for her hip and one for low back. Lungs: decreased, no distress CV: regular AB: soft nt/nd MSE: awake alert Plan: Will d/c IVF as patient taking oral better. Will add additional Lidoderm to cover both hip and low back areas of pain. CM working on discharge disposition. Continue supportive care. Hospital Course Summary Disclaimer: The visit summary below is not to be considered part of the above Progress Note.
[2017-02-21] MEDS: 1/2 NS with KCL 20mEq 1,000 ML IV SCH (12:19)
--- NOTE | 2017-02-21 14:05 | Cardiology Progress Note ---
Subjective Principal diagnosis: elevated troponin <FrantzLucille lewis - 02/21/17 14:05> Interval history: Fartun is seen in follow up for elevated troponin. She is laying in her bed, she denies chest pain or palpitations, dyspnea or dizziness. <FrantzLucille Cameron - 02/21/17 15:49> Exam Vital signs: Temperature 99.0 F 02/22/17 12:26 Pulse Rate 104 H 02/22/17 12:26 Respiratory Rate 18 02/22/17 12:26 Blood Pressure 100/58 02/22/17 12:26 Pulse Oximetry 90 02/22/17 12:26 <Kenny Agudelo - 02/28/17 08:08> Temperature 98.8 F 02/21/17 12:00 Pulse Rate 96 02/21/17 12:00 Respiratory Rate 18 02/21/17 12:00 Blood Pressure 117/63 02/21/17 12:00 Pulse Oximetry 94 02/21/17 12:00 <Lucille Landry - 02/21/17 14:05> - Constitutional no acute distress, well nourished, cooperative <FrantzLucille lewis 02/21/17 14: 05> - Routine HEENT Exam Head: Present: normocephalic <Lucille Landry 02/21/17 14:05> ENT: Present: mucous membranes moist <Lucille Landry 02/21/17 14:05> - Routine Neck Exam Absent: JVD, carotid bruit <Lucille Landry 02/21/17 14:05> - Routine Chest/Breast/Axilla Exam Chest wall: Absent: tenderness <Lucille Landry 02/21/17 14:05> - Routine Respiratory Exam Present: CTA bilaterally. Absent: rales, wheezes <Lucille Landry 02/21/17 14:05> - Routine Cardiovascular Exam Present: RRR, no murmur <Lucille Landry 02/21/17 14:05> - Routine Abdominal Exam Present: soft, normoactive bowel sounds <Lucille Landry 02/21/17 14:05> - Routine Extremities Exam Present: no edema <Lucille Landry 02/21/17 14:05> - Routine Skin Exam Present: intact, dry, warm <Lucille Landry 02/21/17 14:05> - Routine Neurological Exam Present: alert, oriented X3 <Lucille Landry 02/21/17 14:05> - Routine Psychiatric Exam Present: normal affect, normal thought process <Lucille Landry 02/21/17 14: 05> - Urinary Catheter Management Urethral Cath placed during this visit: no <Kenny Agudelo 02/28/17 08:08> yes, but has since been removed by the nurse <Lucille Landry 02/23/17 11:47> Urethral indwelling: Yes <Lucille Landry 02/21/17 14:05> Insertion date: 02/13/17 <Lucille Landry 02/21/17 14:05> Insertion time: 16:45 <Lucille Landry 02/21/17 14:05> Removal date: 02/19/17 <Lucille Landry 02/21/17 14:05> Removal time: 13:17 <Lucille Landry 02/21/17 14:05> Progress Note-A&P - Time Spent With Patient Total time spent is greater than 50% in coordination of care (as documented) at patient's floor/unit and/or counseling patient: <Kenny Agudelo 02/28/17 08:08> Total time spent is greater than 50% in coordination of care (as documented) at patient's floor/unit and/or counseling patient: <Lucille Landry 02/21/17 14:05> less than 15 minutes <Lucille Landry 02/23/17 11:47> - Attestation Attestation Narrative: Recommendation After examining the patient I agree with the above assessment. I am involved in the formulation of the patient's plan of care. <Kenny Agudelo 02/28/17 08:08> (1) Diabetes mellitus type 2, uncontrolled, without complications Problem details: Worse control despite poor oral intake. Status: Chronic (2) DKA, type 2 Status: Acute (3) Elevated troponin Problem details: Non STEMI, stable. Status: Acute <Kenny Agudelo 02/28/17 08:08> (1) Elevated troponin Problem details: Non STEMI, stable. Status: Acute Assessment and plan: Conservative management, continue Aspirin and BB (2) DKA, type 2 Status: Acute (3) Diabetes mellitus type 2, uncontrolled, without complications Problem details: Worse control despite poor oral intake. Status: Chronic <Lucille Landry - 02/23/17 11:46> Sepsis Assessment - Evaluation Sepsis screening result: No Definite Risk <Lucille Landry - 02/21/17 14:05> Hospital Course Summary Disclaimer: The visit summary below is not to be considered part of the above Progress Note. <JammieKenny - 02/28/17 08:08> The visit summary below is not to be considered part of the above Progress Note. <Lucille Landry - 02/21/17 14:05> Hospital Course: 02/13/17-admission Admit to CCU. DKA protocol With patient's possible history of chronic steroid use, monitor for hypotension and may require stress dose steroids. Check magnesium and phosphorus Continue on telemetry Monahan catheter was placed to obtain urine sample and to monitor urine output Aztreonam 1 g IV every 6 for UTI in a patient with multiple drug allergies SCDs for DVT prophylaxis Protonix IV in place of her oral lansoprazole Ice chips only for now Consult Dr. Dick tomorrow Consult Dr. Agudelo tomorrow regarding elevated troponin Start aspirin 300 mg per rectum 02/14/17 Patient remains metabolically unstable and encephalopathic. Persistent tachypnea and tachycardia. Persistent acidosis with development of hypophosphatemia, hypomagnesemia, and hypophosphatemia with treatment of DKA as anticipated. Electrolyte replacement initiated earlier today and will require ongoing monitoring of labs and fluid adjustment. Acidosis worsened slightly in the past couple of hours after insulin drip discontinued due to low blood sugars-D5 being readmitted to fluids after consultation with Dr. Dick. Unclear the patient has been taking diabetic medications prior to admission; daughter confirms that she does not routinely monitor blood sugars. Creatinine 0.9 following hydration, BUN remains elevated at 40. Continue fluids. Dr. Niño's office does not have any advanced directives on file, full code order written in absence of prior known directives. Cultures pending-continue aztreonam Mild troponin elevation without ST elevation. Trending downward. Continue IV BB and Aspirin supp. 02/15/17 Patient remains encephalopathic and metabolically unstable. Potassium, phosphorus, and magnesium supplementation ongoing. Remains acidotic although no longer with high anion gap. No evidence of respiratory acidosis or lactic acidosis. Volatile acids negative on admission. Persistent tachypnea and tachycardia. Continue high volume fluid replacement therapy. Remains on insulin drip. Speech therapy evaluation-unable to take oral at this time due to altered level of consciousness. Blood pressure borderline low early this afternoon; hypertensive at other times. Continues to require IV metoprolol for tachycardia. Blood cultures negative, UA mixed species-discontinue antibiotics. 02/16/17 Patient remains encephalopathic and metabolically unstable. Mental status is slowly improving but she remained somnolent and responses are inconsistent. Marked hypokalemia today-received 80 mEq IV potassium. IV fluids discontinued due to volume overload, chest x-ray/BNP to be checked in a.m. Acidosis resolved after bicarbonate infusion, continue to monitor with discontinuation of fluids. Volatile acids negative on admission, lactic acid unremarkable, PCO2 low consistent with respiratory compensation. Dr. Dick has converted to subcutaneous insulin, advancing diet as mental status permits. Blood pressure stabilizing, borderline low late this afternoon but no significant hypertension today. Episodic tachycardia persists. Oral monae initiated. Blood cultures negative, UA mixed species-antibiotics discontinued 02/15. Tylenol/[place] (home medication) ordered for back pain. Mild troponin elevation without ST elevation. Trending downward. Continue IV BB and Aspirin supp. 02/17/17 Hypoglycemic overnight, insulin adjusted earlier. Diet advanced today and hopefully will begin to see stabilization of oral intake and glucoses. Off bicarbonate infusion without recurrent acidosis. Continues to require potassium replacement. Phosphorus low again today-may be recurring problem with refeeding. Oral supplement initiated. On aspirin and atenolol/chlorthalidone for non-ST elevation [place]. Continues to have low-grade tachycardia. Blood pressure stable but do not permit pushing beta monae to higher dose. Chest x-ray improved, oxygenation stable. Additional diuresis not indicated despite elevated proBNP. Encephalopathy continues to clear. Schedule [place] per home regimen. Resume oral PPI twice a day-home dose. If stable overnight will move out of the ICU tomorrow. Code status again and updated to limited code with intubation only reflecting patient's repetitively reported which; this was discussed with her daughter who confirms that the patient has expressed similar plans previously. 02/18/17 Blood sugar stable with insulin reduction made yesterday by Dr. Dick. Continue same. Pured diet with nectar thickened liquids, add Magic cups for nutritional supplement. Remains on low-volume fluids due to poor oral intake. Brief run NSVT last night, magnesium 1.7-2 g supplemental Mag given IV. Discontinue chlorthalidone; continue atenolol per cardiology. Overall electrolytes improving-reassess phosphorus tomorrow following initiation of by mouth replacement. Blood pressure low normal, asymptomatic. When necessary [place] added to avoid need for IV narcotics. Will review outpatient records to determine what imaging of her back or hip was done recently. Exam not remarkable but MRI of LS spine previously demonstrated degenerative disease and small herniation. Stable to transfer out of the ICU today. Continue PT/OT--notes indicate patient declined to participate with multiple activities today. Appears depressed, initiate mirtazapine. 02/19/17 Isolated episode of hypoglycemia yesterday-current to scale insulin initiated. Poor oral intake, utilizing nutritional supplements. Recurrent hypokalemia required IV supplementation this morning. Repeat potassium pending, anticipate adding potassium to fluids. Phosphorus improved, decrease frequency of oral phosphorus replacement. Telemetry unremarkable overnight, minor sinus dysrhythmia but no recurrent nonsustained VT. Aspirin/beta monae for non-ST elevation [place] Outpatient x-rays of lumbar spine and right hip obtained February 02 demonstrating degenerative changes but no acute pathology, degenerative disc disease in the lumbar spine had progressed since films in 2014. Reports on paper chart. [place] 3 times a day and prn for pain. Continue PT/OT. Up in chair as tolerates. Discontinue Monahan catheter. Mirtazapine initiated 02/18 for suspected depression and anorexia. 02/20/17 Decrease IVF to 50 cc/hr as oral drive improving. Continue Nystatin due to resolving thrush. Magnesium bolus initiated by cardiology as magnesium 1.5 this am. Start Lidoderm to right hip/low back to help pain. Will add Neurontin 300mg at night as well. Continue routine [place]. Pt has not used prn [place] or Dilaudid. Aspirin/beta monae for non-ST elevation [place]. Dr Dick restarting outpatient linagliptin and glimepiride today. Continue PT/OT. Up in chair as tolerates. Encourage activities. CM looking into Skilled care vs IRU for post discharge care. Continue mirtazapine initiated 02/18 for depression/anorexia. 02/21/17 Plan: Continue with Nystatin, Appears to be tolerating eating well today. Appreciate Dr Bejarano expertise regarding glycemic control. BGM this morning elevated at 265. Home meds resumed. Continue with Lidoderm patch and Neurontin for pain Magnesium was replaced yesterday. Morning lab pending currently. Case discussed with CM regarding skilled placement. Out of town daughter to be her later today. Gabriela Goodman. Will discuss with attending <Lucille Landry - 02/21/17 14:05>
[2017-02-21] MEDS: MIRTAZAPINE 15 MG TABLET PO SCH (20:41)
[2017-02-21] MEDS: LIDOCAINE PATCH REMOVAL TOP SCH (20:42)
[2017-02-21] MEDS: GABAPENTIN 300 MG CAPSULE PO SCH (21:17)
[2017-02-22] MEDS: PANTOPRAZOLE 40 MG TABLET PO SCH (05:57)
[2017-02-22] MEDS: INSULIN ASPART 100unit/ml INJECTION SQ PRN ×3 (06:21→16:00)
[2017-02-22] MEDS ORDERED: INSULIN GLARGINE 100unit/ml INJECTION SQ SCH (07:30)
--- NOTE | 2017-02-22 08:04 | Endocrinology Progress Note ---
Progress Note-A&P (1) Diabetes mellitus type 2, uncontrolled, without complications Problem details: Worse control despite poor oral intake. Status: Chronic Assessment and plan: Uncontrolled on maximum doses of 2 oral agents. Will need insulin. Add 12 units Lantus daily. Current Visit: No (2) Elevated troponin Problem details: Non STEMI, stable. Status: Acute Assessment and plan: per Dr. Agudelo Current Visit: Yes (3) Altered mental status Status: Resolved Assessment and plan: At baseline mental status. Current Visit: Yes - Time Spent With Patient less than 15 minutes Subjective Principal diagnosis: type 2 diabetes mellitus, uncontrolled Interval history: Not eating much, but sugars are still in 200's and 300's after switching to oral agents. Exam Vital signs: Temperature 98.9 F 02/22/17 07:52 Pulse Rate 103 H 02/22/17 07:52 Respiratory Rate 95 H 02/22/17 07:52 Blood Pressure 139/69 02/22/17 07:52 Pulse Oximetry 95 02/22/17 07:52 - Constitutional no acute distress, well nourished, well developed - Routine HEENT Exam Head: Present: normocephalic, atraumatic ENT: Present: mucous membranes moist - Routine Neck Exam Absent: lymphadenopathy, thyromegaly - Routine Respiratory Exam Absent: rales - Routine Cardiovascular Exam Present: RRR - Routine Abdominal Exam Present: soft, normoactive bowel sounds. Absent: tenderness - Routine Extremities Exam Absent: edema - Routine Skin Exam Absent: cyanosis - Routine Neurological Exam Present: alert, oriented X3, normal speech - Routine Psychiatric Exam Present: normal affect - Additional findings Additional findings: Laboratory Tests 02/21/17 02/21/17 02/21/17 10:25 14:59 20:05 Glucometer 265 385 380 02/22/17 06:00 Glucometer 325 - Urinary Catheter Management Urethral Cath placed during this visit: yes, but has since been removed by the nurse Urethral indwelling: Yes Insertion date: 02/13/17 Insertion time: 16:45 Removal date: 02/19/17 Removal time: 13:17 Progress Note: Quality - Stroke Onset of Symptoms Time: 10:00
[2017-02-22] MEDS: ENOXAPARIN 40 MG/0.4 ML INJECTION SQ SCH (08:55)
[2017-02-22] MEDS: NYSTATIN 500,000 units/5 ml ORAL LIQUID PO SCH ×2 (08:56→12:31)
[2017-02-22] MEDS: BRIMONIDINE 0.15% EACH EYE SCH (08:56)
[2017-02-22] MEDS: EYE EACH EYE SCH (08:56)
[2017-02-22] MEDS: ASPIRIN 81 MG CHEWABLE TABLET PO SCH (08:57)
[2017-02-22] MEDS: PHOSPHORUS 250 MG TABLET PO SCH (08:57)
[2017-02-22] MEDS: ATENOLOL 50 MG TABLET PO SCH (08:57)
[2017-02-22] MEDS: GLIMEPIRIDE 4 MG TABLET PO SCH (08:57)
[2017-02-22] MEDS: HYDROCODONE/APAP 7.5 MG/325 MG TABLET PO SCH (08:59)
[2017-02-22] MEDS ORDERED: LIDOCAINE 5% PATCH TOP SCH (09:00)
[2017-02-22 12:27] VITALS: BP 100/58; PULSE 104; RESP 18; TEMP 99; O2SAT 90
[2017-02-22] MEDS: ACETAMINOPHEN 325 MG TABLET PO PRN (12:31)
[2017-02-22] MEDS: NS FLUSH BAG 500ml IV PRN (13:23)
[2017-02-22] MEDS: MAGNESIUM SULFATE 1gm PREMIX 1 GM/100 ML BAG IV SCH ×2 (13:23→14:34)
--- NOTE | 2017-02-22 13:27 | Discharge Instructions ---
Discharge Plan - Med Rec/Dispo Dariusz Instructions: Diabetic Ketoacidosis (GEN) Prescriptions: New Aspirin Chewable [ASA] 81 mg PO DAILY tab.chew Enoxaparin Sodium [Lovenox] 40 mg SQ DAILY syringe Gabapentin [Neurontin] 300 mg PO HS capsule Hydrocodone/APAP 7.5/325 [Howell 7.5/325] 1 tab PO Q6H PRN tablet PRN Reason: Pain Insulin Glargine,Hum.rec.anlog [Lantus] 12 unit SQ AMI vial Mirtazapine [Remeron] 7.5 mg PO HS tablet Phosphorus Neutral [K-Phos *Neutral* Tablet] 500 mg PO BIDWM tablet Acetaminophen [Tylenol] 650 mg PO QID PRN tablet PRN Reason: Discomfort Atenolol [Tenormin] 50 mg PO DAILY tablet Glimepiride [Amaryl] 4 mg PO WB tablet Lidocaine Patch Removal [Lidoderm Patch Removal] 1 removal TOP 2100 patch Nystatin Oral Liq. [Mycostatin] 5 ml PO QID udc Continue Calcium Citrate/Vitamin D2 [Zachary-Citrate Plus Vitamin D Tab] 1 tab PO DAILY Alphagan P 1 drop EACH EYE TID Linagliptin [Tradjenta] 5 mg PO DAILY Multivit-Min/FA/Lycopen/Lutein [Centrum Silver Tablet] 1 tab PO DAILY Prevacid (Lansoprazole) 30 mg capsule,delayed release 30 mg PO BID cap Discontinued Hydrocodone/APAP 7.5/325 [Howell 7.5/325] 1 tab PO TID Sitagliptin [Januvia] 100 mg PO DAILY Bepotastine Besilate [Bepreve] 1 drop EACH EYE BID Atenolol/Chlorthalidone 50/25 [Tenoretic] 1 tab PO DAILY Glimepiride [Amaryl] 1 mg PO DAILY Ciprofloxacin [Cipro] 250 mg PO Q12HR metformin 500 mg tablet 500 mg PO DAILY 30 Days #30 tab No Action Linagliptin [Tradjenta] 5 mg PO BID Discharge Instructions/Outpatient Orders: Final Provider Discharge Instructions Location: Determined By Patient - Disposition 62 To [facility] [place]
--- NOTE | 2017-02-22 13:54 | Discharge Summary ---
Discharge Information Date of admission: 02/13/17 15:45 Anticipated date of discharge: 02/22/17 Attending Physician: Nick Patel MD Primary care physician: Rodolfo Niño MD Consults: Physician Consult: Eric Dick Reason For Exam: dka, type 2 DM Physician Consult: Kenny Agudelo Reason For Exam: elevated troponin Wholesale Account Manager Consult Dietary Consult IRU Screening [Inpatient Rehab Screening] - Discharge Diagnosis (1) DKA, type 2 Status: Acute Discharge Diagnosis: Discharge Diagnosis: Severe DKA-pH of 7.0, HCO3< 5, blood sugar>500 on admission - resolved. Associated conditions and complications: Type 2 diabetes mellitus on oral hypoglycemics-A1C 10.8 Encephalopathy secondary to DKA - resolved Acute kidney injury, probable dehydration-POA, baseline 07/30/2015-1.13 No underlying CKD. Non-ST elevation FL, mildly elevated troponin without chest pain or ST segment elevation NSVT Volume overload Thrush Suspected UTI-ruled out PVCs Emesis prior to admission Systemic lupus erythematosus Possible chronic steroid use-previous records showed she was on prednisone 5 mg daily Hypertension Leukocytosis-possibly stress from DKA versus sepsis. Lactate was normal. Frequent PVCs Metabolic acidosis - Resolved Hypophosphatemia, hypomagnesemia, hypokalemia, hypocalcemia, hyperchlorhydria Back pain/sciatica Probable depression History of multiple antibiotic allergies - Procedures Procedures: Date of Exam: 02/14/17 Type of Exam: US echo doppler complete Left atrium is mildly dilated. Left ventricle end-diastolic dimension is normal. Left ventricle wall thickness is increased. LV systolic function is normal with ejection fraction of 60%. Right atrium is normal. Right ventricle is normal. Aortic root dimension is normal. Mitral valve annulus is calcified. Mitral valve leaflets are normal with mild mitral regurgitation. Aortic valve is a trileaflet structure with no stenosis or insufficiency. Tricuspid valve shows olmb-ad-nrhlwmsn tricuspid regurgitation with moderate pulmonary hypertension with estimated pulmonary artery systolic pressure of 61. Pulmonary valve shows mild pulmonary insufficiency. There is no pericardial effusion. IMPRESSION 1. Normal LV systolic function with ejection fraction of 60%. 2. Left atrial dilation. 3. Left ventricular hypertrophy. 4. Mitral annulus calcification with mild mitral regurgitation. 5. Daaj-qb-tvaofipt tricuspid regurgitation with moderate pulmonary hypertension with estimated pulmonary artery systolic pressure of 61. 6. Mild pulmonary insufficiency. - Laboratory Labs: Admit Lab 02/13/17 12:58 WBC 18.1 H Hgb 15.3 Hct 47.0 H MCV 92.2 Plt Count 521 H Neutrophils % (Manual) 77.0 H Band Neutrophils % 2.0 Admit Lab 02/13/17 12:58 Sodium 133 L Potassium 5.0 Chloride 92 L Carbon Dioxide < 5 L* Anion Gap TNP BUN 56.0 H* Creatinine 2.0 H GFR Calculation 24 BUN/Creatinine Ratio 28 H Calculated Osmolality 301 H Calcium 12.1 H Total Bilirubin 0.70 AST 21 ALT 30 Troponin I 0.123 H TSH 0.98 Laboratory Tests 02/13/17 16:40 Hemoglobin A1c 10.8 H 02/22/17 05:27 02/22/17 05:27 - Microbiology Microbiology 02/13/17 17:10 Urine, Cath Monahan Urine Culture - Final Mixed Bacterial Yahaira History of Present Illness HPI: Patient is a pleasant 76-year-old female who recently began receiving services from [employer] which is a 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 They became to see her this morning stated that Fartun stated she wasn't feeling well and wanted her to go to the store and pecan picker her medicines. When the aide came back Fartun was minimally responsive and on the floor covered in emesis. EMS was called and the patient was found to have a very high blood sugar. She was treated with insulin and brought into the emergency room. In the ER blood sugar was 446. Sodium was 133, potassium 5.0, carbon dioxide less than 5, BUN 56, creatinine 2.0, the patient was minimally responsive. She was given 2 L of fluids wide open. She was given 4 units of regular insulin IV push 1 and then given another 6 units IV push 1. On my arrival she was more alert. She is however drowsy and somewhat confused. She denied any pain. I specifically any chest pain. She denied shortness of breath. She does have nausea. She is not currently vomiting. She knows she is in the hospital. She thought she was in [place]. She does not know the year or the month. History is difficult to obtain because of patient's decreased level of consciousness. Records were obtained from her developmental therapist office and her primary care office. For complete details of the H&P refer to that document. Objective Vital signs: Temperature 99.0 F 02/22/17 12:26 Pulse Rate 104 H 02/22/17 12:26 Respiratory Rate 18 02/22/17 12:26 Blood Pressure 100/58 02/22/17 12:26 Pulse Oximetry 90 02/22/17 12:26 Cardiac Ectopy: Occasional PVC's Height/Weight/BMI: Height 1.63 m Weight 63.6 kg Body Mass Index 23.1 - Constitutional Present: no acute distress, well nourished, well developed - Routine HEENT Exam Head: Present: normocephalic, atraumatic Eye: Present: EOMI, PERRL ENT: Present: mucous membranes moist - Routine Respiratory Exam Present: CTA bilaterally. Absent: rales, respiratory distress, wheezes - Routine Cardiovascular Exam Present: RRR - Routine Abdominal Exam Present: soft, normoactive bowel sounds, non distended, non tender - Routine Extremities Exam Present: no edema. Absent: cyanosis, clubbing - Routine Musculoskeletal Exam Musculoskeletal: Present: no clubbing or cyanosis, no joint swelling - Routine Skin Exam Present: intact, warm - Routine Neurological Exam Present: alert, CN II-XII intact, moving all extremities, vision grossly intact , hearing grossly intact. Absent: motor deficit - Routine Psychiatric Exam Absent: anxious, agitated Hospital Course This is a general summary of the patient's hospital course. For more details refer to the complete medical record. Hospital course: 02/13/17-admission Admit to CCU. DKA protocol With patient's possible history of chronic steroid use, monitor for hypotension and may require stress dose steroids. Check magnesium and phosphorus Continue on telemetry Monahan catheter was placed to obtain urine sample and to monitor urine output Aztreonam 1 g IV every 6 for UTI in a patient with multiple drug allergies SCDs for DVT prophylaxis Protonix IV in place of her oral lansoprazole Ice chips only for now Consult Dr. Dick tomorrow Consult Dr. Agudelo tomorrow regarding elevated troponin Start aspirin 300 mg per rectum 02/14/17 Patient remains metabolically unstable and encephalopathic. Persistent tachypnea and tachycardia. Persistent acidosis with development of hypophosphatemia, hypomagnesemia, and hypophosphatemia with treatment of DKA as anticipated. Electrolyte replacement initiated earlier today and will require ongoing monitoring of labs and fluid adjustment. Acidosis worsened slightly in the past couple of hours after insulin drip discontinued due to low blood sugars-D5 being readmitted to fluids after consultation with Dr. Dick. Unclear the patient has been taking diabetic medications prior to admission; daughter confirms that she does not routinely monitor blood sugars. Creatinine 0.9 following hydration, BUN remains elevated at 40. Continue fluids. Dr. Niño's office does not have any advanced directives on file, full code order written in absence of prior known directives. Cultures pending-continue aztreonam Mild troponin elevation without ST elevation. Trending downward. Continue IV BB and Aspirin supp. 02/15/17 Patient remains encephalopathic and metabolically unstable. Potassium, phosphorus, and magnesium supplementation ongoing. Remains acidotic although no longer with high anion gap. No evidence of respiratory acidosis or lactic acidosis. Volatile acids negative on admission. Persistent tachypnea and tachycardia. Continue high volume fluid replacement therapy. Remains on insulin drip. Speech therapy evaluation-unable to take oral at this time due to altered level of consciousness. Blood pressure borderline low early this afternoon; hypertensive at other times. Continues to require IV metoprolol for tachycardia. Blood cultures negative, UA mixed species-discontinue antibiotics. 02/16/17 Patient remains encephalopathic and metabolically unstable. Mental status is slowly improving but she remained somnolent and responses are inconsistent. Marked hypokalemia today-received 80 mEq IV potassium. IV fluids discontinued due to volume overload, chest x-ray/BNP to be checked in a.m. Acidosis resolved after bicarbonate infusion, continue to monitor with discontinuation of fluids. Volatile acids negative on admission, lactic acid unremarkable, PCO2 low consistent with respiratory compensation. Dr. Dick has converted to subcutaneous insulin, advancing diet as mental status permits. Blood pressure stabilizing, borderline low late this afternoon but no significant hypertension today. Episodic tachycardia persists. Oral monae initiated. Blood cultures negative, UA mixed species-antibiotics discontinued 02/15. Tylenol/[facility] (home medication) ordered for back pain. Mild troponin elevation without ST elevation. Trending downward. Continue IV BB and Aspirin supp. 02/17/17 Hypoglycemic overnight, insulin adjusted earlier. Diet advanced today and hopefully will begin to see stabilization of oral intake and glucoses. Off bicarbonate infusion without recurrent acidosis. Continues to require potassium replacement. Phosphorus low again today-may be recurring problem with refeeding. Oral supplement initiated. On aspirin and atenolol/chlorthalidone for non-ST elevation FL. Continues to have low-grade tachycardia. Blood pressure stable but do not permit pushing beta monae to higher dose. Chest x-ray improved, oxygenation stable. Additional diuresis not indicated despite elevated proBNP. Encephalopathy continues to clear. Schedule [facility] per home regimen. Resume oral PPI twice a day-home dose. If stable overnight will move out of the ICU tomorrow. Code status again and updated to limited code with intubation only reflecting patient's repetitively reported which; this was discussed with her daughter who confirms that the patient has expressed similar plans previously. 02/18/17 Blood sugar stable with insulin reduction made yesterday by Dr. Dick. Continue same. Pured diet with nectar thickened liquids, add Magic cups for nutritional supplement. Remains on low-volume fluids due to poor oral intake. Brief run NSVT last night, magnesium 1.7-2 g supplemental Mag given IV. Discontinue chlorthalidone; continue atenolol per cardiology. Overall electrolytes improving-reassess phosphorus tomorrow following initiation of by mouth replacement. Blood pressure low normal, asymptomatic. When necessary [facility] added to avoid need for IV narcotics. Will review outpatient records to determine what imaging of her back or hip was done recently. Exam not remarkable but MRI of LS spine previously demonstrated degenerative disease and small herniation. Stable to transfer out of the ICU today. Continue PT/OT--notes indicate patient declined to participate with multiple activities today. Appears depressed, initiate mirtazapine. 02/19/17 Isolated episode of hypoglycemia yesterday-current to scale insulin initiated. Poor oral intake, utilizing nutritional supplements. Recurrent hypokalemia required IV supplementation this morning. Repeat potassium pending, anticipate adding potassium to fluids. Phosphorus improved, decrease frequency of oral phosphorus replacement. Telemetry unremarkable overnight, minor sinus dysrhythmia but no recurrent nonsustained VT. Aspirin/beta monae for non-ST elevation FL Outpatient x-rays of lumbar spine and right hip obtained February 02 demonstrating degenerative changes but no acute pathology, degenerative disc disease in the lumbar spine had progressed since films in 2014. Reports on paper chart. [facility] 3 times a day and prn for pain. Continue PT/OT. Up in chair as tolerates. Discontinue Monahan catheter. Mirtazapine initiated 02/18 for suspected depression and anorexia. 02/20/17 Decrease IVF to 50 cc/hr as oral drive improving. Continue Nystatin due to resolving thrush. Magnesium bolus initiated by cardiology as magnesium 1.5 this am. Start Lidoderm to right hip/low back to help pain. Will add Neurontin 300mg at night as well. Continue routine [facility]. Pt has not used prn [facility] or Dilaudid. Aspirin/beta monae for non-ST elevation FL. Dr Dick restarting outpatient linagliptin and glimepiride today. Continue PT/OT. Up in chair as tolerates. Encourage activities. CM looking into Skilled care vs IRU for post discharge care. Continue mirtazapine initiated 02/18 for depression/anorexia. 02/21/17 Continue with Nystatin, Appears to be tolerating eating well today. Appreciate Dr Bejarano expertise regarding glycemic control. BGM this morning elevated at 265. Home meds resumed. Continue with Lidoderm patch and Neurontin for pain Magnesium was replaced yesterday. Morning lab pending currently. Case discussed with CM regarding skilled placement. Out of town daughter to be her later today. Gabriela Goodman. 02/22/17 Oral intake improving. Pain to hip and back decreasing with Lidoderm patch. Lab stable. IRU screen placed. Patient did participate with therapy this afternoon. Patient accepted to IRU for continued therapy. As medically stable will discharge to IRU in stable condition. See orders for details. Time spent with patient: discharge greater than 30 minutes DVT Prophylaxis: SCD's, Lovenox Discharge Plan - Med Rec/Dispo Dariusz Instructions: Diabetic Ketoacidosis (GEN) Prescriptions: New Aspirin Chewable [ASA] 81 mg PO DAILY tab.chew Enoxaparin Sodium [Lovenox] 40 mg SQ DAILY syringe Gabapentin [Neurontin] 300 mg PO HS capsule Hydrocodone/APAP 7.5/325 [[facility] 7.5/325] 1 tab PO Q6H PRN tablet PRN Reason: Pain Insulin Glargine,Hum.rec.anlog [Lantus] 12 unit SQ AMI vial Mirtazapine [Remeron] 7.5 mg PO HS tablet Phosphorus Neutral [K-Phos *Neutral* Tablet] 500 mg PO BIDWM tablet Acetaminophen [Tylenol] 650 mg PO QID PRN tablet PRN Reason: Discomfort Atenolol [Tenormin] 50 mg PO DAILY tablet Glimepiride [Amaryl] 4 mg PO WB tablet Lidocaine Patch Removal [Lidoderm Patch Removal] 1 removal TOP 2100 patch Nystatin Oral Liq. [Mycostatin] 5 ml PO QID udc Continue Calcium Citrate/Vitamin D2 [Zachary-Citrate Plus Vitamin D Tab] 1 tab PO DAILY Alphagan P 1 drop EACH EYE TID Linagliptin [Tradjenta] 5 mg PO DAILY Multivit-Min/FA/Lycopen/Lutein [Centrum Silver Tablet] 1 tab PO DAILY Prevacid (Lansoprazole) 30 mg capsule,delayed release 30 mg PO BID cap Discontinued Hydrocodone/APAP 7.5/325 [[facility] 7.5/325] 1 tab PO TID Sitagliptin [Januvia] 100 mg PO DAILY Bepotastine Besilate [Bepreve] 1 drop EACH EYE BID Atenolol/Chlorthalidone 50/25 [Tenoretic] 1 tab PO DAILY Glimepiride [Amaryl] 1 mg PO DAILY Ciprofloxacin [Cipro] 250 mg PO Q12HR metformin 500 mg tablet 500 mg PO DAILY 30 Days #30 tab No Action Linagliptin [Tradjenta] 5 mg PO BID Discharge Instructions/Outpatient Orders: Final Provider Discharge Instructions Location: Determined By Patient - Disposition [facility] To [facility] - Attestation Attestation Narrative: 02/22/17 14:02 I have independently interviewed and examined patient prior to discharge. Case discussed with CM and pt's daughter. Medically stable for discharge to IRU.
== END 2017-02-22 16:00 | DRG 637 ==
LOC: ED 11:48 → CCU 15:45 → MED 02-18 13:57
PROVIDERS: ADMIT Internal Medicine; ATTEND Hospitalist

== ENCOUNTER 2017-02-22 16:00 | Inpatient (IN) ==
[2017-02-22 17:20] VITALS: BMI 25.6
[2017-02-22] MEDS: MAGNESIUM SULFATE 1gm PREMIX 1 GM/100 ML BAG IV SCH ×2 (18:41→18:42)
[2017-02-22] MEDS: PHOSPHORUS 250 MG TABLET PO SCH (18:46)
[2017-02-22] MEDS: NYSTATIN 500,000 units/5 ml ORAL LIQUID PO SCH ×2 (18:46→20:43)
[2017-02-22] MEDS: HYDROCODONE/APAP 7.5 MG/325 MG TABLET PO PRN (18:51)
[2017-02-22] MEDS: BRIMONIDINE 0.15% EACH EYE SCH (20:44)
[2017-02-22] MEDS: EYE EACH EYE SCH (20:44)
[2017-02-22] MEDS: MIRTAZAPINE 15 MG TABLET PO SCH (20:44)
[2017-02-22] MEDS: GABAPENTIN 300 MG CAPSULE PO SCH (20:44)
[2017-02-22] MEDS: PANTOPRAZOLE 40 MG TABLET PO SCH (20:46)
[2017-02-22] MEDS: LIDOCAINE PATCH REMOVAL TOP SCH (20:55)
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
[2017-02-22] MEDS: INSULIN ASPART 100unit/ml INJECTION SQ PRN ×2 (22:20→22:23)
--- NOTE | 2017-02-22 22:24 | IRU 24Hr Post Admit Eval ---
24 Hr Post Admission Physical - Relevant Changes Relevant Changes: No Reviewed: I have reviewed the patient's information and concur with the finding and results of the pre-admission screen. Certification: I certify the patient for rehabilitation. - Patient Condition (1) Myopathy Status: Acute Code(s): G72.9 - Myopathy, unspecified Classification: Present on IRF Admission, IRF Tx That Should Address Diagnosis, Diagnosis Requiring Medical Follow Up (2) Diabetes mellitus type 2, uncontrolled, without complications Onset Date: ~2004 Status: Chronic Qualifiers: Diabetes mellitus usp insulin use: without remote computer terminal operator use Qualified Code(s): E11.65 - Type 2 diabetes mellitus with hyperglycemia Code(s): E11.65 - Type 2 diabetes mellitus with hyperglycemia Classification: Present on IRF Admission, IRF Tx That Should Address Diagnosis, Diagnosis Requiring Medical Follow Up (3) Diabetic peripheral neuropathy associated with type 2 diabetes mellitus Status: Chronic Code(s): E11.42 - Type 2 diabetes mellitus with diabetic polyneuropathy Classification: Present on IRF Admission, IRF Tx That Should Address Diagnosis, Diagnosis Requiring Medical Follow Up (4) Hip pain, right Status: Acute Code(s): M25.551 - Pain in right hip Classification: Present on IRF Admission, IRF Tx That Should Address Diagnosis, Diagnosis Requiring Medical Follow Up (5) Hypomagnesemia Status: Acute Code(s): E83.42 - Hypomagnesemia Classification: Diagnosis Requiring Medical Follow Up - Prior Functional Status Lives With: Alone Residence Type: Apartment/Private Home Assitive Devices: Front Wheeled Walker Prior Functional Status: Indep. at home or school - Current Functional Status Failed Alternative Therapy: Arrived from Acute Care Patient Requirements: The patient requires oversight by rehabilitation physician to manage their rehabilitation treatment plan and multidisciplinary approach to care that can only be provided in an IRF and requires a multidisciplinary approach to care, provided by professional PTs, OTs, STs, dieticians, RTs, rehabilitation nurses and is not available in lesser levels of care. Speech Therapy Minutes: 30 Physical Therapy Minutes: 90 Occupational Therapy Minutes: 90 Therapy: The patient is to receive therapy at least [address] Treatment Plan: Swallow Retraining/Exercises, Swallow Precautions, Modified Diet ST Treatment Plan Frequency: Daily ST Treatment Plan Duration: Two Weeks - Complications/Comorbidities Impact on Functional Outcomes: her disuse myopathy will impact her functional progress. In addition she is at risk for hyperglycemia and hypoglycemia with the institution of new medications. Barriers to Discharge: Weakness, Endurance - Plan to Avoid Complications Plan to Avoid Complications: The patient cannot receive this care in a lesser intensive setting such as Longterm or Outpatient Therapy due to the patient requiring the following close monitoring of blood glucose levels, close monitoring of blood pressures in view of her recent non-ST segment elevated myocardial infarction,.
[2017-02-22] MEDS ORDERED: ALTEPLASE (Cathflo*) 2mg INJECTION IV ONE (22:53)
[2017-02-22] MEDS: SALINE FLUSH 10ml SYRINGE IV PRN ×3 (23:08→23:53)
[2017-02-23] MEDS: INSULIN ASPART 100unit/ml INJECTION SQ PRN ×3 (05:00→21:41)
[2017-02-23] MEDS: PANTOPRAZOLE 40 MG TABLET PO SCH ×3 (05:01→21:29)
[2017-02-23] MEDS: SALINE FLUSH 10ml SYRINGE IV PRN ×4 (05:14→06:32)
[2017-02-23] MEDS: ACETAMINOPHEN 325 MG TABLET PO PRN ×2 (06:32→12:34)
[2017-02-23] MEDS ORDERED: INSULIN GLARGINE 100unit/ml INJECTION SQ SCH ×2 (07:30→10:20)
[2017-02-23] MEDS: LIDOCAINE 5% PATCH TOP SCH (08:10)
[2017-02-23] MEDS: GLIMEPIRIDE 4 MG TABLET PO SCH (08:42)
[2017-02-23] MEDS: ASPIRIN 81 MG CHEWABLE TABLET PO SCH (08:42)
[2017-02-23] MEDS: PHOSPHORUS 250 MG TABLET PO SCH ×2 (08:42→20:15)
[2017-02-23] MEDS: EYE EACH EYE SCH ×3 (08:44→21:29)
[2017-02-23] MEDS: ENOXAPARIN 40 MG/0.4 ML INJECTION SQ SCH (08:44)
[2017-02-23] MEDS: NYSTATIN 500,000 units/5 ml ORAL LIQUID PO SCH ×4 (08:44→21:29)
[2017-02-23] MEDS: BRIMONIDINE 0.15% EACH EYE SCH ×3 (08:44→21:29)
[2017-02-23] MEDS: ATENOLOL 50 MG TABLET PO SCH (08:52)
[2017-02-23] MEDS: HYDROCODONE/APAP 7.5 MG/325 MG TABLET PO PRN ×2 (08:52→22:06)
[2017-02-23] MEDS ORDERED: FALL RISK - PHARMACY CONSULT MC PRN (09:33)
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
[2017-02-23] MEDS ORDERED: INSULIN ASPART 100unit/ml INJECTION SQ ONE (11:08)
[2017-02-23] MEDS ORDERED: NEOMYCIN/POLYMYXIN/BACITRACIN OINT PACKET TP ONE (12:43)
[2017-02-23] MEDS: MAGNESIUM OXIDE 400 MG TABLET PO SCH (21:29)
[2017-02-23] MEDS: MIRTAZAPINE 15 MG TABLET PO SCH (21:29)
[2017-02-23] MEDS: GABAPENTIN 300 MG CAPSULE PO SCH (21:29)
[2017-02-23] MEDS: LIDOCAINE PATCH REMOVAL TOP SCH (21:50)
[2017-02-24] MEDS: ACETAMINOPHEN 325 MG TABLET PO PRN (04:28)
[2017-02-24] MEDS: PANTOPRAZOLE 40 MG TABLET PO SCH ×2 (05:40→22:03)
[2017-02-24] MEDS: INSULIN ASPART 100unit/ml INJECTION SQ PRN ×4 (06:38→22:54)
[2017-02-24] MEDS: LIDOCAINE 5% PATCH TOP SCH (08:18)
[2017-02-24] MEDS: HYDROCODONE/APAP 7.5 MG/325 MG TABLET PO PRN ×2 (08:19→14:35)
[2017-02-24] MEDS: NYSTATIN 500,000 units/5 ml ORAL LIQUID PO SCH ×4 (08:20→22:05)
[2017-02-24] MEDS: ATENOLOL 50 MG TABLET PO SCH (08:20)
[2017-02-24] MEDS: GLIMEPIRIDE 4 MG TABLET PO SCH (08:20)
[2017-02-24] MEDS: MAGNESIUM OXIDE 400 MG TABLET PO SCH ×2 (08:20→22:04)
[2017-02-24] MEDS: ENOXAPARIN 40 MG/0.4 ML INJECTION SQ SCH (08:20)
[2017-02-24] MEDS: PHOSPHORUS 250 MG TABLET PO SCH ×2 (08:20→18:06)
[2017-02-24] MEDS: EYE EACH EYE SCH ×3 (08:24→22:05)
[2017-02-24] MEDS: BRIMONIDINE 0.15% EACH EYE SCH ×3 (08:24→22:05)
[2017-02-24] MEDS: ASPIRIN 81 MG CHEWABLE TABLET PO SCH (08:24)
--- NOTE | 2017-02-24 10:11 | IRU Progress Note ---
- Subjective/Serverity of Illness Fartun was evaluated today in her room. She is undergoing therapy. Patient states that she is getting stronger. She was able to walk with the assistance of 1 person today. This is certainly a substantial improvement compared to when I saw her previously. She denies any chest pain. Denies any shortness of breath. Continues to have an irregular heartbeat. Blood sugars are reviewed as well. She is now on oral agents plus basal. With regard to therapies, she continues to require maximal assistance for transfers. She is cooperative apparently and is working with therapies. Update on medical issues: 1. Disuse myopathy: Continues to have evidence of muscle weakness primarily in the lower extremities but also somewhat in the upper 70s. She is cooperating with therapy. 2. Diabetes mellitus type 2, newly on insulin and not well controlled. Blood sugars are reviewed. She is quite variable from a high of 426 down to a low 142. 3. Recent non-ST segment elevated myocardial infarction: Current lung exam is negative and clear. Denies any chest pain. Denies shortness of breath. 4. Hypomagnesemia: Initially her magnesium was 1.6 but has fallen to 1.4. This may play a role in her muscle weakness as well. 5. Evidence of protein calorie malnutrition with reduced appetite and hypoalbuminemia. Her prealbumin is low, confirming the presence of significant malnutrition. 6. Dysphagia: Evaluation by speech therapy and progress. Exam Vital Signs: Temperature 98.6 F 02/24/17 09:54 Pulse Rate 97 02/24/17 08:00 Respiratory Rate 18 02/24/17 08:00 Blood Pressure 118/71 02/24/17 08:00 Pulse Oximetry 96 02/24/17 08:00 Height/Weight/BMI: Height 1.57 m Weight 63.6 kg Body Mass Index 25.6 Comments: The patient is awake, alert and oriented and in no acute distress. Appears "asthenic." Pupils are equal. The neck is supple. Chest: Clear to auscultation bilaterally. Cor: irregular rhythm with no gallop nor click. Does have systolic murmur. Abd: soft with normo-active bowel sounds. There are no masses, no tenderness and no guarding. Extremities: No edema is noted. There are good pulses in both ankles. No cyanosis is present. Muscle weakness noted although not quantified today. Results IRU - Labs Labs: Laboratory including magnesium and blood sugars are reviewed. Hemoglobin slightly low at 9.9. 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 Requires physical therapy and occupational therapy. Patient is cooperating with therapy. I reviewed the therapy notes in detail. (2) Diabetes mellitus type 2, uncontrolled, without complications Qualifiers: Diabetes mellitus alf insulin use: without terminal block assembler use Qualified Code(s): E11.65 - Type 2 diabetes mellitus with hyperglycemia Problem details: Worse control despite poor oral intake. Current visit: No Status: Chronic Blood sugars remain variable. She recently has had diabetic ketoacidosis. Appreciate hospitalist management. (3) Diabetic peripheral neuropathy associated with type 2 diabetes mellitus Problem details: Better. Current visit: No Status: Chronic Patient has evidence of neuropathy which will be a factor in her functional improvement. (4) Hip pain, right Current visit: No Status: Acute Hip pain is an impediment to progress as well. Working with therapy in this regard. (5) Hypomagnesemia Current visit: Yes Status: Acute Magnesium continues to be slightly on the low side. Per hospitalist service. Hypomagnesemia could be a factor in her muscle weakness. (6) Anemia Qualifiers: Anemia type: unspecified type Qualified Code(s): D64.9 - Anemia, unspecified Current visit: Yes Status: Acute Patient's hemoglobin is 9.9. Etiology not clear. Could be nutritional. We will pursue with iron studies and occult blood assessment. (7) Protein-calorie malnutrition, moderate Current visit: Yes Status: Acute Prealbumin is 4.5. Albumin low as well. Has evidence for malnutrition. Dietitian is consulted. DVT Prophylaxis: SCD's, Lovenox Resuscitation Status: Full Code - Course Hospital Course: Mega Loyd MD: 02/24/17 10:19 Patient is cooperative with therapy. Still requires maximal assistance for transfers etc. Patient is noted to be malnourished on the basis of low. Albumin. Dietitian consulted. Has a bit worsening anemia at 9.9. Iron studies and occult blood will be assessed. Her blood sugars remain quite variable. - Interventions to Obtain Goals PT Treatment Plan: Balance/Proprioception, Functional Activities, Manual Therapy , Patient/Family Education, Ultrasound OT Treatment Plan: ADL (Basic Care), Balance Training, Joint Mobilization, Pt./ Family Education, Ther. Exercise for ADL Goals Progress/Modifications: Time spent with patient and on floor reviewing data and documentin minutes Barriers to dismissal: Right hip pain, motivation, myopathic weakness Medical decision-making: We will assess her anemia with iron studies and occult blood testing. Low magnesium may play a role in her myelopathic weakness. Blood sugars remain variable. All these are being addressed.
[2017-02-24] MEDS ORDERED: FALL RISK - PHARMACY CONSULT MC PRN (10:21)
--- NOTE | 2017-02-24 10:23 | IRU Plan of Care ---
[facility] Overall Plan of Care - Date Date: 02/24/17 - Patient Impairments (1) Myopathy Code(s): G72.9 - Myopathy, unspecified Status: Acute Classification: Present on IRF Admission, IRF Tx That Should Address Diagnosis, Diagnosis Requiring Medical Follow Up (2) Diabetes mellitus type 2, uncontrolled, without complications Qualifiers: Diabetes mellitus shelter insulin use: without shelter use Qualified Code(s): E11.65 - Type 2 diabetes mellitus with hyperglycemia Code(s): E11.65 - Type 2 diabetes mellitus with hyperglycemia Status: Chronic Classification: Present on IRF Admission, IRF Tx That Should Address Diagnosis, Diagnosis Requiring Medical Follow Up (3) Diabetic peripheral neuropathy associated with type 2 diabetes mellitus Code(s): E11.42 - Type 2 diabetes mellitus with diabetic polyneuropathy Status : Chronic Classification: Present on IRF Admission, IRF Tx That Should Address Diagnosis, Diagnosis Requiring Medical Follow Up (4) Hip pain, right Code(s): M25.551 - Pain in right hip Status: Acute Classification: Present on IRF Admission, IRF Tx That Should Address Diagnosis, Diagnosis Requiring Medical Follow Up (5) Hypomagnesemia Code(s): E83.42 - Hypomagnesemia Status: Acute Classification: Diagnosis Requiring Medical Follow Up (6) Anemia Qualifiers: Anemia type: unspecified type Qualified Code(s): D64.9 - Anemia, unspecified Code(s): D64.9 - Anemia, unspecified Status: Acute (7) Protein-calorie malnutrition, moderate Code(s): E44.0 - Moderate protein-calorie malnutrition Status: Acute - Relevant Changes Relevant Changes: No Reviewed: I have reviewed the patient's information and concur with the finding and results of the pre-admission screen. Certification: I certify the patient for rehabilitation. - Medical Prognosis Medical Prognosis: Good Vital Signs: Last Vital Signs Temp 98.6 F 02/24/17 09:54 Pulse 97 02/24/17 08:00 Resp 18 02/24/17 08:00 BP 118/71 02/24/17 08:00 Pulse Ox 96 02/24/17 08:00 - Anticipated Interventions Anticipated Interventions: The patient requires inpatient IRF care for PT, OT, and/or ST for residuals remaining from [] resulting in muscular weakness and strength deficits. Strength Deficits: Right Lower Extremity, Left Lower Extremity - FIM Ambulation Distance: 3 Wheelchair Propulsion Distance: 47 Toileting Adaptive Equipment: Commode Number of Continent Voids: 1 Number of Incontinent Voids: 1 - Current Functional Status Failed Alternative Therapy: Arrived from Acute Care Patient Requires: The patient requires oversight by rehabilitation physician to manage their rehabilitation treatment plan and multidisciplinary approach to care that can only be provided in an IRF and requires a multidisciplinary approach to care, provided by professional PTs, OTs, STs, dieticians, RTs, rehabilitation nurses and is not available in lesser levels of care. Physical Therapy Minutes: 90 Occupational Therapy Minutes: 90 Therapy: The patient is to receive therapy at least [address] Treatment Plan: Evaluation Only ST Treatment Plan Duration: N/A ST Treatment Plan Frequency: N/A - Anticipated LOS/Outcomes Anticipated Functional Outcome: Anticipated functional outcome includes modified independent functioning for dressing, transfers and ambulation. Anticipated Length of Stay: 14 Anticipated DC Destination: Home, Self Care, Home Health Service Home Safety Plan: The patient will be provided with the development of a Home Safety Plan for return to a home or home-like environment and and to ensure safety post discharge. - Plan to Avoid Complications Barriers to Attaining Goals: Weakness, Endurance, Comprehension, Pain Control Plan to Avoid Complications: The patient cannot receive this care in a lesser intensive setting such as Penitentiary or Outpatient Therapy due to the patient requiring the following : Close monitoring of patient's blood sugars, pulmonary status in view of her recent myocardial infarction as well as cardiac status. .
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
[2017-02-24] MEDS ORDERED: MAGNESIUM OXIDE 400 MG TABLET PO ONE (15:20)
--- NOTE | 2017-02-24 16:31 | Progress Note ---
<BennieKhushboo D - Last Filed: 02/24/17 16:25> Subjective: Fartun was resting in bed. Today has been a tough day for PT. She is having more back pain. She doesn't like her current pain medication schedule - RN at bedside and will talk to Dr. Loyd about changing dosing schedule. Otherwise doing fair - doesn't care for the food but denies n/v or pain. No chest pain or dyspnea. Objective Vital signs: Temperature 98.3 F 02/24/17 15:50 Pulse Rate 92 02/24/17 15:50 Respiratory Rate 18 02/24/17 15:50 Blood Pressure 98/47 02/24/17 15:50 Pulse Oximetry 94 02/24/17 15:50 Height/Weight/BMI: Height 1.57 m Weight 63.6 kg Body Mass Index 25.6 - Constitutional Present: mild distress, well nourished, well developed - Routine Respiratory Exam Present: decreased breath sounds - Routine Cardiovascular Exam Present: RRR, S1, S2 - Routine Abdominal Exam Present: soft, normoactive bowel sounds, non distended, non tender - Routine Extremities Exam Present: no edema, pulses intact - Routine Skin Exam Present: intact, pallor, warm, ecchymosis - Routine Neurological Exam Present: alert, oriented X3, CN II-XII intact - Routine Psychiatric Exam Present: normal affect, normal thought process, cooperative Results - Labs CBC & Chem 7: 02/23/17 05:12 02/24/17 05:06 Assessment and Plan (1) Myopathy Current visit: Yes Status: Acute Assessment and Plan: Impression Hypokalemia & hypomagnesemia Normocytic anemia Myopathy Oral Thrush Diabetes - insulin requiring Hypertension Recent NSTEMI Lupus Chronic back pain Severe protein calorie malnutrition Plan RN will discuss pain medication schedule with Dr. Loyd. BP still slightly low at times; improved slightly since yesterday. Atenolol 50 mg - could consider decreasing if BP stays low. K and mg low - oral replacement ordered & will recheck in am. BG tends to run high vs. low, but better than yesterday since increasing am Lantus to 15 U. Anemia - iron studies pending. She's on Lovenox + ASA. Plt stable. Sepsis Assessment - Evaluation Sepsis screening result: No Definite Risk Hospital Course Summary Disclaimer: The visit summary below is not to be considered part of the above Progress Note. Hospital Course: 02/23/17- initial consultation Impression Myopathy Oral Thrush Diabetes Hypertension Lupus Chronic back pain Plan Agree with admission to IRU under the care of Dr Loyd for ongoing strengthening Encourage work with PT/OT- Prior to hospitalization patient resides independently Continue with PO nystatin for treatment of oral thrust. Recheck serum magnesium this morning. It is on the low end of normal at 1.6. Will add oral Mag-Ox 400 milligrams twice a day. Recheck magnesium, phosphorus and BMP tomorrow morning to follow electrolytes Continue to monitor blood sugars. Will increase Lantus to 15 units every morning. Continue with PO Trajenta and Amaryl as well as Sliding scale Novolog Lidoderm patch and [place] for chronic back pain Protonix for GI protection Lovenox subcutaneous daily for DVT prophylaxis The hospitalist services will continue to follow patient in medical management. Existing comorbidities during her stay in the IRU unit. At time of discharge her medical care will return to her primary care provider Dr Niño 02/24/17 RN will discuss pain medication schedule with Dr. Loyd. BP still slightly low at times; improved slightly since yesterday. Atenolol 50 mg - could consider decreasing if BP stays low. K and mg low - oral replacement ordered & will recheck in am. BG tends to run high vs. low, but better than yesterday since increasing am Lantus to 15 U. Anemia - iron studies pending. She's on Lovenox + ASA. Plt stable. <Nick Patel - Last Filed: 02/24/17 19:33> Objective Vital signs: Temperature 98.3 F 02/24/17 15:50 Pulse Rate 92 02/24/17 15:50 Respiratory Rate 18 02/24/17 15:50 Blood Pressure 98/47 02/24/17 15:50 Pulse Oximetry 94 02/24/17 15:50 Height/Weight/BMI: Height 1.57 m Weight 63.6 kg Body Mass Index 25.6 Results - Labs CBC & Chem 7: 02/23/17 05:12 02/24/17 05:06 Assessment and Plan (1) Myopathy Current visit: Yes Status: Acute Resuscitation Status: Full Code Assessment and Plan: ASSESSMENT Hypokalemia & hypomagnesemia Normocytic anemia Myopathy Oral Thrush Diabetes - insulin requiring Hypertension Recent NSTEMI Lupus Chronic back pain Severe protein calorie malnutrition Have independently interviewed and examined pt. Chart reviewed. Case discussed with my VEHICLE INSURANCE AGENT. Above care plan developed with my supervision; agree with above. Doing fair. Pain still an issue. Tolerating therapy, but completely worn out by afternoon. Eating fair. No nausea. Breathing well. Lungs: clear CV: regular AB: soft nt/nd MSE: awake alert Plan: Replace potassium and magnesium. Monitor BP. Continue with glycemic control. Encourage oral intake. Encourage therapy. Medically stable for IRU floor activities. Hospital Course Summary Disclaimer: The visit summary below is not to be considered part of the above Progress Note.
[2017-02-24] MEDS: MIRTAZAPINE 15 MG TABLET PO SCH (22:04)
[2017-02-24] MEDS: HYDROCODONE/APAP 7.5 MG/325 MG TABLET PO SCH (22:04)
[2017-02-24] MEDS: GABAPENTIN 300 MG CAPSULE PO SCH (22:04)
[2017-02-24] MEDS: LIDOCAINE PATCH REMOVAL TOP SCH (22:04)
[2017-02-25] MEDS: HYDROCODONE/APAP 7.5 MG/325 MG TABLET PO SCH ×4 (05:36→20:50)
[2017-02-25] MEDS: PANTOPRAZOLE 40 MG TABLET PO SCH ×2 (05:37→20:48)
--- NOTE | 2017-02-25 09:27 | Progress Note ---
Subjective: Fartun was seen scooting herself backwards in her wheelchair towards her room. She states she feels terrible - nauseated and has abdominal pain. I assisted her back to her room, and she was placed back in bed. She received her pain pill around 0530 this am on an empty stomach, but states that usually it doesn' t cause any GI upset. No sweating/fevers. No SOA or chest pain. After resting for a while, her symptoms improved and she was able to work with therapy. BM yesterday. Objective Vital signs: Temperature 99.0 F 02/25/17 08:00 Pulse Rate 95 02/25/17 08:00 Respiratory Rate 18 02/25/17 08:00 Blood Pressure 143/75 H 02/25/17 08:00 Pulse Oximetry 93 02/25/17 08:00 Height/Weight/BMI: Height 1.57 m Weight 63.6 kg Body Mass Index 25.6 - Constitutional Present: mild distress, well nourished, well developed, thin - Routine HEENT Exam ENT: Present: mucous membranes moist, oropharynx clear - Routine Respiratory Exam Present: CTA bilaterally - Routine Cardiovascular Exam Present: RRR, S1, S2 - Routine Abdominal Exam Present: soft, normoactive bowel sounds, non distended, non tender - Routine Extremities Exam Present: no edema, pulses intact - Routine Skin Exam Present: dry, pallor, warm - Routine Neurological Exam Present: alert, oriented X3, normal speech - Routine Psychiatric Exam Present: normal affect, cooperative Results - Labs CBC & Chem 7: 02/23/17 05:12 02/25/17 03:45 Assessment and Plan (1) Myopathy Current visit: Yes Status: Acute DVT Prophylaxis: Lovenox GI Prophylaxis: Protonix Assessment and Plan: ASSESSMENT Hypokalemia & hypomagnesemia Normocytic anemia Myopathy Oral Thrush Diabetes - insulin requiring Hypertension Recent NSTEMI Lupus Chronic back pain Severe protein calorie malnutrition PLAN mild nausea this am, possible relationship with taking [place] on an empty stomach. Improved after rest. Biotene added for dry mouth. Potassium improved to 4.1 but Mg still low at 1.4 - increase MagOx to 800 mg BID. Hyperglycemia - Increase Lantus to 17U. May need to add mealtime insulin. Iron studies pending. Sepsis Assessment - Evaluation Sepsis screening result: No Definite Risk Hospital Course Summary Disclaimer: The visit summary below is not to be considered part of the above Progress Note. Hospital Course: Hypokalemia & hypomagnesemia Normocytic anemia Myopathy Oral Thrush Diabetes - insulin requiring Hypertension Recent NSTEMI Lupus Chronic back pain Severe protein calorie malnutrition 02/23/17 Agree with admission to IRU under the care of Dr Loyd for ongoing strengthening Encourage work with PT/OT- Prior to hospitalization patient resides independently Continue with PO nystatin for treatment of oral thrust. Recheck serum magnesium this morning. It is on the low end of normal at 1.6. Will add oral Mag-Ox 400 milligrams twice a day. Recheck magnesium, phosphorus and BMP tomorrow morning to follow electrolytes Continue to monitor blood sugars. Will increase Lantus to 15 units every morning. Continue with PO Trajenta and Amaryl as well as Sliding scale Novolog Lidoderm patch and [place] for chronic back pain 02/24/17 RN will discuss pain medication schedule with Dr. Loyd. BP still slightly low at times; improved slightly since yesterday. Atenolol 50 mg - could consider decreasing if BP stays low. K and mg low - oral replacement ordered & will recheck in am. BG tends to run high vs. low, but better than yesterday since increasing am Lantus to 15 U. Anemia - iron studies pending. She's on Lovenox + ASA. Plt stable. 02/25/17 mild nausea this am, possible relationship with taking [place] on an empty stomach. Improved after rest. Biotene added for dry mouth. Potassium improved to 4.1 but Mg still low at 1.4 - increase MagOx to 800 mg BID. Hyperglycemia - Increase Lantus to 17U. May need to add mealtime insulin. Iron studies pending. 02/25/17 09:33
[2017-02-25] MEDS: NYSTATIN 500,000 units/5 ml ORAL LIQUID PO SCH ×4 (09:37→20:47)
[2017-02-25] MEDS: LIDOCAINE 5% PATCH TOP SCH (09:37)
[2017-02-25] MEDS: PHOSPHORUS 250 MG TABLET PO SCH ×2 (09:38→17:44)
[2017-02-25] MEDS: GLIMEPIRIDE 4 MG TABLET PO SCH (09:38)
[2017-02-25] MEDS: ENOXAPARIN 40 MG/0.4 ML INJECTION SQ SCH (09:38)
[2017-02-25] MEDS: ATENOLOL 50 MG TABLET PO SCH (09:38)
[2017-02-25] MEDS: BRIMONIDINE 0.15% EACH EYE SCH ×3 (09:39→20:48)
[2017-02-25] MEDS: EYE EACH EYE SCH ×3 (09:39→20:48)
[2017-02-25] MEDS: ASPIRIN 81 MG CHEWABLE TABLET PO SCH (09:43)
[2017-02-25] MEDS: INSULIN GLARGINE 100unit/ml INJECTION SQ SCH (09:43)
[2017-02-25] MEDS: MAGNESIUM OXIDE 400 MG TABLET PO SCH ×2 (09:52→20:46)
[2017-02-25] MEDS: INSULIN ASPART 100unit/ml INJECTION SQ PRN ×3 (11:42→20:49)
[2017-02-25] MEDS: SALIVA SUBSTITUTE MOUTHWASH 237ml MM SCH ×4 (11:42→20:48)
[2017-02-25] MEDS: INSULIN REGULAR, HUMAN 100 UNIT/ML INJECTION SQ SCH (17:44)
[2017-02-25] MEDS: MIRTAZAPINE 15 MG TABLET PO SCH (20:46)
[2017-02-25] MEDS: GABAPENTIN 300 MG CAPSULE PO SCH (20:47)
[2017-02-25] MEDS: LIDOCAINE PATCH REMOVAL TOP SCH (21:24)
[2017-02-26] MEDS: INSULIN ASPART 100unit/ml INJECTION SQ PRN ×2 (06:26→20:13)
[2017-02-26] MEDS: HYDROCODONE/APAP 7.5 MG/325 MG TABLET PO SCH ×4 (08:18→20:16)
[2017-02-26] MEDS: PANTOPRAZOLE 40 MG TABLET PO SCH ×2 (08:19→20:12)
[2017-02-26] MEDS ORDERED: HYDROCODONE/APAP 7.5 MG/325 MG TABLET PO ONE (09:43)
[2017-02-26] MEDS: INSULIN GLARGINE 100unit/ml INJECTION SQ SCH (10:04)
[2017-02-26] MEDS: INSULIN REGULAR, HUMAN 100 UNIT/ML INJECTION SQ SCH ×2 (10:05→12:08)
[2017-02-26] MEDS: EYE EACH EYE SCH ×3 (10:05→20:13)
[2017-02-26] MEDS: BRIMONIDINE 0.15% EACH EYE SCH ×3 (10:05→20:13)
[2017-02-26] MEDS: NYSTATIN 500,000 units/5 ml ORAL LIQUID PO SCH ×4 (10:05→20:13)
[2017-02-26] MEDS: LIDOCAINE 5% PATCH TOP SCH (10:05)
[2017-02-26] MEDS: ENOXAPARIN 40 MG/0.4 ML INJECTION SQ SCH (10:06)
[2017-02-26] MEDS: PHOSPHORUS 250 MG TABLET PO SCH ×2 (10:07→17:24)
[2017-02-26] MEDS: ASPIRIN 81 MG CHEWABLE TABLET PO SCH (10:07)
[2017-02-26] MEDS: ATENOLOL 50 MG TABLET PO SCH (10:07)
[2017-02-26] MEDS: GLIMEPIRIDE 4 MG TABLET PO SCH (10:07)
[2017-02-26] MEDS: SALIVA SUBSTITUTE MOUTHWASH 237ml MM SCH ×5 (10:08→20:14)
[2017-02-26] MEDS: MAGNESIUM OXIDE 400 MG TABLET PO SCH ×2 (10:21→20:12)
[2017-02-26] MEDS ORDERED: FALL RISK - PHARMACY CONSULT MC PRN (10:38)
[2017-02-26] MEDS ORDERED: BACLOFEN 10 MG TABLET PO PRN (17:38)
--- NOTE | 2017-02-26 17:49 | Progress Note ---
Subjective: Fartun is seen today in follow up. Nursing reports that she has been c/o shoulder pain and "hurts all over." Patient has a known hx of Lupus. Is not currently on any medication for that. H&P to acute setting reports that patient has most likely been on Prednisone 5mg chronically for pain. Patient currently tells me that both shoulders hurt. States that she is having difficulty in setting up due to pain. Denies neck pain, but chart reveals a history of cervical radiculopathy. She has no limitations in ROM of neck. She denies a history of heart issues, but she was noted to be admitted with a NSTEMI. She initially denies chest pain, but then reports that her chest is hurting over the left side "aching". Denies radiation into her back. No N/V, but not eating much. Does endorse an occasional cough that "hurts like hell." Cannot endorse if it is productive or not. She does report chronic LBP. She is a poor historian, so difficult to determine underlying cause of pain. Objective Vital signs: Temperature 98.4 F 02/26/17 16:00 Pulse Rate 83 02/26/17 16:44 Respiratory Rate 16 02/26/17 16:00 Blood Pressure 94/56 02/26/17 16:44 Pulse Oximetry 95 02/26/17 16:44 Height/Weight/BMI: Height 1.57 m Weight 63.6 kg Body Mass Index 25.6 Comments: Past EKG reviewed- PVCs noted. - Constitutional Present: no acute distress, thin, cooperative Comments: She seems to be a bit confused. - Routine HEENT Exam Head: Present: normocephalic, atraumatic Eye: Present: EOMI, PERRL ENT: Present: mucous membranes moist - Routine Respiratory Exam Present: decreased breath sounds, CTA bilaterally. Absent: accessory muscle use , dyspnea, rhonchi, wheezes, crackles Comments: Anterior exam. - Routine Cardiovascular Exam Present: RRR, S1, S2, no murmur Comments: Some mild TTP on left chest wall. - Routine Abdominal Exam Present: soft, normoactive bowel sounds, tenderness, non distended Comments: Mild epigastric TTP - Routine Extremities Exam Present: edema (trace) Comments: She seems to have full ROM of arms despite c/o difficulty with movement. No obvious deformities of arms. - Routine Back/Spine/Pelvis Exam Back/Spine: Absent: CVA tenderness, paraspinal tenderness, vertebral tenderness (I did palpate her c-spine and upper thoracic spine. there is not tenderness, mass or deformity. She has full ability to flex chin to chest w/o c/o pain. ) - Routine Musculoskeletal Exam Musculoskeletal: Present: no clubbing or cyanosis, other (She does have some foot drop bilaterally. ) - Routine Skin Exam Present: intact, dry, warm Comments: +Muscle wasting. +small bruises. - Routine Neurological Exam Present: alert - Routine Psychiatric Exam Present: cooperative. Absent: good insight, good judgment Comments: She is confused, poor historian. Results - Labs CBC & Chem 7: 02/23/17 05:12 02/25/17 03:45 - Impressions Most recent CXR reviewed. EKG reviewed. Assessment and Plan (1) Myopathy Current visit: Yes Status: Acute DVT Prophylaxis: SCD's GI Prophylaxis: Protonix Resuscitation Status: Full Code Assessment and Plan: ASSESSMENT Hypokalemia & hypomagnesemia Normocytic anemia Myopathy Oral Thrush Diabetes - insulin requiring Hypertension Recent NSTEMI Lupus Chronic back pain Severe protein calorie malnutrition Atypical shoulder pain. Cognitive impairment. PLAN 02/26/17 *Bilateral shoulder and generalized pain- unclear etiology. Will check EKG, troponin and add tele due to recent NSTEMI (R/O atypical presentation). Try low dose baclofen for pain. Could be lupus flair- restart prednisone at 10mg. Will need to decrease down to 5mg once pain is controlled. Continue Gabapentin at bedtime. Recent myopathy. CPK was normal at last assessment *BG is reviewed. improving. Change mealtime insulin to Novolog. Hold if not eating. Continue Lantus and Linagliptin and Amaryl. *Hypomagnesemia Replacing PO. Consider adding IV replacement if remains low due to risk of arrhythmia. *Severe malnutrition Continue PO supplements. May need to look at calorie count- she has not been eating well today. Does not want to sit up to take a drink for me, but did so and did fine. Assess labs tomorrow. Continue to monitor. Chart, documentation and imaging reviewed during this visit. Have spoken with nurse several times today. - Time spent with patient greater than 35 minutes Coordination of Care: >50% of visit spent providing counseling/coordination of care Sepsis Assessment - Evaluation Sepsis screening result: No Definite Risk Hospital Course Summary Disclaimer: The visit summary below is not to be considered part of the above Progress Note. Hospital Course: Hypokalemia & hypomagnesemia Normocytic anemia Myopathy Oral Thrush Diabetes - insulin requiring Hypertension Recent NSTEMI Lupus Chronic back pain Severe protein calorie malnutrition 02/23/17 Agree with admission to IRU under the care of Dr Loyd for ongoing strengthening Encourage work with PT/OT- Prior to hospitalization patient resides independently Continue with PO nystatin for treatment of oral thrust. Recheck serum magnesium this morning. It is on the low end of normal at 1.6. Will add oral Mag-Ox 400 milligrams twice a day. Recheck magnesium, phosphorus and BMP tomorrow morning to follow electrolytes Continue to monitor blood sugars. Will increase Lantus to 15 units every morning. Continue with PO Trajenta and Amaryl as well as Sliding scale Novolog Lidoderm patch and [place] for chronic back pain 02/24/17 RN will discuss pain medication schedule with Dr. Loyd. BP still slightly low at times; improved slightly since yesterday. Atenolol 50 mg - could consider decreasing if BP stays low. K and mg low - oral replacement ordered & will recheck in am. BG tends to run high vs. low, but better than yesterday since increasing am Lantus to 15 U. Anemia - iron studies pending. She's on Lovenox + ASA. Plt stable. 02/25/17 mild nausea this am, possible relationship with taking [place] on an empty stomach. Improved after rest. Biotene added for dry mouth. Potassium improved to 4.1 but Mg still low at 1.4 - increase MagOx to 800 mg BID. Hyperglycemia - Increase Lantus to 17U. May need to add mealtime insulin. Iron studies pending. 02/25/17 09:33 02/26/17 18:00 02/26/17 *Bilateral shoulder and generalized pain- unclear etiology. Will check EKG, troponin and add tele due to recent NSTEMI (R/O atypical presentation). Try low dose baclofen for pain. Could be lupus flair- restart prednisone at 10mg. Will need to decrease down to 5mg once pain is controlled. Continue Gabapentin at bedtime. Recent myopathy. CPK was normal at last assessment *BG is reviewed. improving. Change mealtime insulin to Novolog. Hold if not eating. Continue Lantus and Linagliptin and Amaryl. *Hypomagnesemia Replacing PO. Consider adding IV replacement if remains low due to risk of arrhythmia. *Severe malnutrition Continue PO supplements. May need to look at calorie count- she has not been eating well today. Does not want to sit up to take a drink for me, but did so and did fine. Assess labs tomorrow. Continue to monitor. Chart, documentation and imaging reviewed during this visit. Have spoken with nurse several times today.
[2017-02-26] MEDS: PredniSONE 10 MG TABLET PO SCH (19:17)
[2017-02-26] MEDS: MIRTAZAPINE 15 MG TABLET PO SCH (20:12)
[2017-02-26] MEDS: GABAPENTIN 300 MG CAPSULE PO SCH (20:12)
[2017-02-26] MEDS: SALINE FLUSH 10ml SYRINGE IV PRN (20:13)
[2017-02-26] MEDS: LIDOCAINE PATCH REMOVAL TOP SCH (20:26)
[2017-02-27] MEDS: PANTOPRAZOLE 40 MG TABLET PO SCH ×2 (05:49→21:09)
[2017-02-27] MEDS: HYDROCODONE/APAP 7.5 MG/325 MG TABLET PO SCH ×4 (05:49→21:09)
[2017-02-27] MEDS: LIDOCAINE 5% PATCH TOP SCH ×2 (05:55→08:36)
[2017-02-27] MEDS: INSULIN ASPART 100unit/ml INJECTION SQ PRN ×3 (06:27→21:21)
--- NOTE | 2017-02-27 09:09 | Progress Note ---
Subjective: Fartun is seen today in follow up while eating breakfast. She states that she is in pain "all over" however will not give any specifics. She is frustrated that she did not receive tea with breakfast. Nursing staff reports that she is not eager to get up work or move. Reported she did have a loose stool overnight. BP intermittently low, however this morning 131/67. Objective Vital signs: Temperature 99.3 F 02/27/17 07:53 Pulse Rate 99 02/27/17 07:53 Respiratory Rate 18 02/27/17 07:53 Blood Pressure 131/67 02/27/17 07:53 Pulse Oximetry 94 02/27/17 07:53 Height/Weight/BMI: Height 1.57 m Weight 63.6 kg Body Mass Index 25.6 - Constitutional Present: no acute distress, well nourished, well developed - Routine HEENT Exam Eye: Present: EOMI ENT: Present: mucous membranes moist, dentition normal - Routine Respiratory Exam Present: CTA bilaterally. Absent: wheezes - Routine Cardiovascular Exam Present: RRR, S1, S2. Absent: murmur - Routine Abdominal Exam Present: soft, normoactive bowel sounds, non distended. Absent: tenderness - Routine Extremities Exam Present: full ROM, normal capillary refill - Routine Back/Spine/Pelvis Exam Back/Spine: Present: paraspinal tenderness - Routine Skin Exam Present: intact, dry, warm - Routine Neurological Exam Present: alert, oriented X3, CN II-XII intact - Routine Lymphatic Exam Lymphatic: Absent: adenopathy - Routine Psychiatric Exam Present: normal affect, cooperative Results - Labs CBC & Chem 7: 02/27/17 05:37 02/27/17 05:37 Assessment and Plan (1) Myopathy Current visit: Yes Status: Acute Assessment and Plan: ASSESSMENT Hypokalemia & hypomagnesemia Normocytic anemia Myopathy Oral Thrush Diabetes - insulin requiring Hypertension Recent NSTEMI Lupus Chronic back pain Severe protein calorie malnutrition Atypical shoulder pain. Cognitive impairment. PLAN 02/27/17 Continues to complain of generalized- Continue with Lidoderm patch, [place], and gabapentin Continue with increased prednisone dose of 10mg daily (chronic dose 5 mg daily) Continue to monitor blood sugars. Currently on Trajenta, Amaryl, Lantus 13 units daily, Novolog 5 units with meals Monitor for current evidence of loose stools. This may be secondary to increase magnesium dosing. Recheck Electrolytes, magnesium and phosphorus tomorrow. Continue to encourage work with PT and OT for ongoing strengthening Sepsis Assessment - Evaluation Sepsis screening result: No Definite Risk Hospital Course Summary Disclaimer: The visit summary below is not to be considered part of the above Progress Note. Hospital Course: Hypokalemia & hypomagnesemia Normocytic anemia Myopathy Oral Thrush Diabetes - insulin requiring Hypertension Recent NSTEMI Lupus Chronic back pain Severe protein calorie malnutrition 02/23/17 Agree with admission to IRU under the care of Dr Loyd for ongoing strengthening Encourage work with PT/OT- Prior to hospitalization patient resides independently Continue with PO nystatin for treatment of oral thrust. Recheck serum magnesium this morning. It is on the low end of normal at 1.6. Will add oral Mag-Ox 400 milligrams twice a day. Recheck magnesium, phosphorus and BMP tomorrow morning to follow electrolytes Continue to monitor blood sugars. Will increase Lantus to 15 units every morning. Continue with PO Trajenta and Amaryl as well as Sliding scale Novolog Lidoderm patch and [place] for chronic back pain 02/24/17 RN will discuss pain medication schedule with Dr. Loyd. BP still slightly low at times; improved slightly since yesterday. Atenolol 50 mg - could consider decreasing if BP stays low. K and mg low - oral replacement ordered & will recheck in am. BG tends to run high vs. low, but better than yesterday since increasing am Lantus to 15 U. Anemia - iron studies pending. She's on Lovenox + ASA. Plt stable. 02/25/17 mild nausea this am, possible relationship with taking [place] on an empty stomach. Improved after rest. Biotene added for dry mouth. Potassium improved to 4.1 but Mg still low at 1.4 - increase MagOx to 800 mg BID. Hyperglycemia - Increase Lantus to 17U. May need to add mealtime insulin. Iron studies pending. 02/25/17 09:33 02/26/17 18:00 02/26/17 *Bilateral shoulder and generalized pain- unclear etiology. Will check EKG, troponin and add tele due to recent NSTEMI (R/O atypical presentation). Try low dose baclofen for pain. Could be lupus flair- restart prednisone at 10mg. Will need to decrease down to 5mg once pain is controlled. Continue Gabapentin at bedtime. Recent myopathy. CPK was normal at last assessment *BG is reviewed. improving. Change mealtime insulin to Novolog. Hold if not eating. Continue Lantus and Linagliptin and Amaryl. *Hypomagnesemia Replacing PO. Consider adding IV replacement if remains low due to risk of arrhythmia. *Severe malnutrition Continue PO supplements. May need to look at calorie count- she has not been eating well today. Does not want to sit up to take a drink for me, but did so and did fine. Assess labs tomorrow. Continue to monitor. Chart, documentation and imaging reviewed during this visit. Have spoken with nurse several times today. PLAN 02/27/17 Continues to complain of generalized- Continue with Lidoderm patch, [place], and gabapentin Continue with increased prednisone dose of 10mg daily (chronic dose 5 mg daily) Continue to monitor blood sugars. Currently on Trajenta, Amaryl, Lantus 13 units daily, Novolog 5 units with meals Monitor for current evidence of loose stools. This may be secondary to increase magnesium dosing. Recheck Electrolytes, magnesium and phosphorus tomorrow. Continue to encourage work with PT and OT for ongoing strengthening
[2017-02-27] MEDS: INSULIN GLARGINE 100unit/ml INJECTION SQ SCH (09:31)
[2017-02-27] MEDS: ASPIRIN 81 MG CHEWABLE TABLET PO SCH (09:32)
[2017-02-27] MEDS: EYE EACH EYE SCH ×3 (09:32→21:09)
[2017-02-27] MEDS: INSULIN ASPART 100unit/ml INJECTION SQ SCH ×3 (09:32→17:52)
[2017-02-27] MEDS: BRIMONIDINE 0.15% EACH EYE SCH ×3 (09:32→21:09)
[2017-02-27] MEDS: ATENOLOL 50 MG TABLET PO SCH (09:33)
[2017-02-27] MEDS: PHOSPHORUS 250 MG TABLET PO SCH ×2 (09:34→17:52)
[2017-02-27] MEDS: GLIMEPIRIDE 4 MG TABLET PO SCH (09:34)
[2017-02-27] MEDS: PredniSONE 10 MG TABLET PO SCH (09:34)
[2017-02-27] MEDS: MAGNESIUM OXIDE 400 MG TABLET PO SCH ×2 (09:34→21:10)
[2017-02-27] MEDS: SALIVA SUBSTITUTE MOUTHWASH 237ml MM SCH ×5 (09:35→21:13)
[2017-02-27] MEDS: ENOXAPARIN 40 MG/0.4 ML INJECTION SQ SCH (09:35)
--- NOTE | 2017-02-27 10:03 | IRU Progress Note ---
- Subjective/Serverity of Illness Fartun was evaluated in her room. She primarily complains of a lot of back pain and right hip pain. She says that she had a lot of pain yesterday getting up to go to the dining area yesterday evening and for that reason did not really go. States that she did not eat. Her oral intake is poor. She is receiving supplements of mighty shakes. She is being followed by dietitian as well. With regard to therapies, she is slowly improving. She requires minimal assistance for transfers. Ambulatory distance is quite low but improved. 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 She is slowly improving with therapy. 2. Diabetes mellitus type 2, newly on insulin and not well controlled. She has had a recent episode of diabetic ketoacidosis. Her blood sugars are reviewed in detail. Most are over 200. She is on basal insulin plus mealtime insulin plus oral agents including transient. Tolerates all this well. Has had no hypoglycemic episodes. 3. Recent non-ST segment elevated myocardial infarction: Denies chest pain at the present time. She denies shortness of breath. 4. Hypomagnesemia: This remains low at 1.5. 5. Evidence of protein calorie malnutrition with reduced appetite and hypoalbuminemia. Continues to struggle with anorexia and poor oral intake. Pre- albumin was low. She is being followed by dietitian. Receiving mighty shakes as supplement. 6. Dysphagia: Followed by speech therapy. Has minimal impairments. She is on regular consistency foods and thin liquids. As well as much better and 90 position. Exam Vital Signs: Temperature 99.3 F 02/27/17 07:53 Pulse Rate 99 02/27/17 07:53 Respiratory Rate 18 02/27/17 07:53 Blood Pressure 131/67 02/27/17 07:53 Pulse Oximetry 94 02/27/17 07:53 Height/Weight/BMI: Height 1.57 m Weight 63.6 kg Body Mass Index 25.6 Comments: The patient is awake, alert and oriented. Does complain of significant back pain and right hip pain. She says this limits her activities. Pupils are equal. The neck is supple. Chest: Clear to auscultation bilaterally. Cor: RR with no gallop, click nor murmur Abd: soft with normo-active bowel sounds. There are no masses, no tenderness and no guarding. Extremities: No edema is noted. There are good pulses in both ankles. No cyanosis is present. Results IRU - Labs Labs: Have reviewed progress notes from hospitalists as well as laboratory results indicating magnesium still a bit low. Remains on magnesium supplement 800 mg twice daily. Sepsis Assessment - Evaluation Sepsis screening result: No Definite Risk IRU A/P (1) Myopathy Current visit: Yes Status: Acute Continues to have evidence of significant muscle weakness. Likely this is related to disuse myopathy. She is slowly improving with therapies. Ambulatory distance is very short however. (2) Diabetes mellitus type 2, uncontrolled, without complications Qualifiers: Diabetes mellitus terminal gauger insulin use: without terminal gauger use Qualified Code(s): E11.65 - Type 2 diabetes mellitus with hyperglycemia Problem details: Worse control despite poor oral intake. Current visit: No Status: Chronic Blood sugars are monitored carefully. Many are over 200. She is on mealtime insulin plus basal plus oral. No hypoglycemic episodes noted. (3) Diabetic peripheral neuropathy associated with type 2 diabetes mellitus Problem details: Better. Current visit: No Status: Chronic (4) Hip pain, right Current visit: No Status: Acute Continues to complain of right hip pain. (5) Hypomagnesemia Current visit: Yes Status: Acute She is on supplemental magnesium. Remains a bit low at 1.5. (6) Anemia Qualifiers: Anemia type: unspecified type Qualified Code(s): D64.9 - Anemia, unspecified Current visit: Yes Status: Acute (7) Protein-calorie malnutrition, moderate Current visit: Yes Status: Acute Oral intake is quite poor. Has minimal impairments with regard to dysphagia and seems to swallow okay if in 90 position. She is receiving mighty shakes and is followed by dietary. DVT Prophylaxis: SCD's Resuscitation Status: Full Code - Course Hospital Course: Mega Loyd MD: 02/24/17 10:19 Patient is cooperative with therapy. Still requires maximal assistance for transfers etc. Patient is noted to be malnourished on the basis of low. Albumin. Dietitian consulted. Has a bit worsening anemia at 9.9. Iron studies and occult blood will be assessed. Her blood sugars remain quite variable. 02/27/17 10:06 Progress is slow. She is cooperative with therapy. Continues to ambulate short distances. She is improving with regard to transfers. Magnesium remains a bit low but she is on supplement. Blood sugars remain reasonable at around 200. She is on oral agent plus basal plus mealtime. - Interventions to Obtain Goals PT Treatment Plan: Balance/Proprioception, Functional Activities, Manual Therapy , Patient/Family Education, Ultrasound OT Treatment Plan: ADL (Basic Care), Balance Training, Joint Mobilization, Pt./ Family Education, Ther. Exercise for ADL Goals Progress/Modifications: Time spent with patient and on floor reviewing data and documentin minutes Barriers to dismissal: Muscle weakness, blood sugars, pain in right hip and low back. Medical decision-making: Reviewed complex data regarding blood sugars, magnesium , as well as multiple therapists notes and dietitian and oral intake numbers. Her back pain and right hip pain continues to be barriers to her progress. She is making slow progress and her medical factors do play a role in this.
--- NOTE | 2017-02-27 11:39 | XRay Report ---
Indication: right post pelvic pain Procedure: XR pelvis 1-2V: Encounter: Initial Comparison: Concurrent lumbar spine radiographs, pelvic CT 12/19/2014 Technique: A single AP view of the pelvis was obtained Findings: Bony mineralization is normal. The visualized osseous structures appear intact with no acute fracture identified. Mild degenerative arthrosis of the hips, SI joints, and symphysis pubis. Degenerative spondylosis of the visualized lower lumbar spine. No focal radiographically apparent soft tissue swelling. No radiopaque foreign body. Calcified pelvic phleboliths. Impression: 1. Mild degenerative arthrosis of the hips, SI joints, and symphysis pubis. 2. Degenerative spondylosis of the visualized lower lumbar spine. .
--- NOTE | 2017-02-27 11:43 | XRay Report ---
EXAM: XR lumbar spine 2-3V DATE: 02/27/2017 10:53 AM Encounter: Initial INDICATION: chronic pain right post hip/lumbar spine, no known trauma COMPARISON: Lumbar spine MRI 02/17/2015, lumbar spine CT 02/16/2015 TECHNIQUE: 3 views of the lumbar spine were obtained. FINDINGS: Five non rib-bearing lumbar type vertebrae are identified. Generalized osteopenia. Prominent compression deformity of L1, new since the prior imaging in 2014. Additional height loss of the superior endplate of L4 suggestive of a broad-based Schmorl's node deformity. Possible trace anterolisthesis of L5-S1 secondary to hypertrophic facet arthropathy. Rotatory scoliosis. Multilevel degenerative disc disease and facet arthropathy. The sacroiliac joints are normal. The visualized bowel gas pattern is unremarkable. IMPRESSION: 1. Prominent compression deformity of L1, new since prior imaging in 2014. MRI recommended for further evaluation of acuity. 2. Rotoscoliosis with multilevel degenerative spondylosis, which could also be more fully characterized with MRI. 3. Height loss of the superior endplate of L4 suspected to be due to a broad-based Schmorl's node deformity. .
--- NOTE | 2017-02-27 12:35 | Progress Note ---
Progress Note: Lumbar spine film noted with possibly new compression fracture at L1. We will pursue with MRI.
--- NOTE | 2017-02-27 15:46 | Magnetic Resonance Report ---
EXAM: MR lumbar spine wo con DATE: 02/27/2017 12:36 PM ENCOUNTER: Initial COMPARISON: Lumbar spine radiographs of the same day, lumbar spine MRI 02/17/2015, lumbar spine CT 02/16/2015 INDICATION: back pain; comp fx L1 TECHNIQUE: Multi-planar multi-weighted magnetic resonance imaging of the lumbar spine was performed without intravenous contrast using the standard lumbar spine protocol. FINDINGS: The previously identified compression deformity of L1, which is new since prior imaging in 2014, appears predominantly sclerotic/low in signal intensity on both T1 and T2 imaging suggestive of a subacute to chronic fracture. There may be minimal edema within the posterior endplate which is mildly retropulsed. Depression of the superior endplate of L4 is not edematous and most consistent with a broad-based Schmorl's node deformity. Lordosis of the lumbar spine is maintained. Mild grade 1 anterolisthesis of L5-S1 secondary to hypertrophic facet arthropathy, similar to 2015. Multilevel degenerative disc disease with mild disc space height loss. No other suspicious marrow replacing process or osseous lesions. The conus terminates at L1. No clumping of intrathecal nerve roots. Bilateral renal cortical atrophy and small cysts. Limited views of the abdomen and pelvis are otherwise unremarkable. Degenerative changes at each level are as follows: T12-L1: No significant disc bulging, spinal canal stenosis, or neural foraminal narrowing. L1-L2: Mild disc bulge and facet arthropathy without resulting spinal canal stenosis or neural foraminal narrowing. L2-L3: Mildly worsened disc bulge and facet arthropathy without resulting spinal canal stenosis or neural foraminal narrowing. L3-L4: Unchanged disc bulge and bilateral facet arthropathy without resulting spinal canal stenosis or neural foraminal narrowing. L4-L5: Unchanged disc bulge and bilateral facet arthropathy resulting in mild right neural foraminal narrowing without significant spinal canal stenosis. L5-S1: Unchanged disc bulge/pseudodisc bulge related to degenerative anterolisthesis and bilateral facet arthropathy resulting in mild bilateral neural foraminal narrowing without significant spinal canal stenosis. IMPRESSION: 1. Compression fracture of L1, although new since 2014, demonstrates imaging characteristics most suggestive of a subacute to chronic fracture which is unlikely to gain significant benefit from vertebroplasty. 2. 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 3. Multilevel degenerative spondylosis, similar to mildly progressed from the prior examination in 2014, resulting in mild neural foraminal narrowing without significant spinal canal stenosis as detailed above. .
[2017-02-27] MEDS: LIDOCAINE PATCH REMOVAL TOP SCH (21:10)
[2017-02-27] MEDS: MIRTAZAPINE 15 MG TABLET PO SCH (21:10)
[2017-02-27] MEDS: GABAPENTIN 300 MG CAPSULE PO SCH (21:10)
[2017-02-27] MEDS ORDERED: FALL RISK - PHARMACY CONSULT MC PRN (22:39)
[2017-02-28] MEDS: HYDROCODONE/APAP 7.5 MG/325 MG TABLET PO SCH ×4 (05:55→20:10)
[2017-02-28] MEDS: PANTOPRAZOLE 40 MG TABLET PO SCH ×2 (05:55→20:10)
[2017-02-28] MEDS: LIDOCAINE 5% PATCH TOP SCH (08:15)
[2017-02-28] MEDS: SALIVA SUBSTITUTE MOUTHWASH 237ml MM SCH ×5 (08:15→20:12)
[2017-02-28] MEDS: MAGNESIUM OXIDE 400 MG TABLET PO SCH ×2 (08:52→20:09)
[2017-02-28] MEDS: ASPIRIN 81 MG CHEWABLE TABLET PO SCH (08:52)
[2017-02-28] MEDS: PredniSONE 10 MG TABLET PO SCH (08:52)
[2017-02-28] MEDS: ATENOLOL 50 MG TABLET PO SCH (08:52)
[2017-02-28] MEDS: PHOSPHORUS 250 MG TABLET PO SCH ×2 (08:52→20:09)
[2017-02-28] MEDS: GLIMEPIRIDE 4 MG TABLET PO SCH (08:52)
[2017-02-28] MEDS: ENOXAPARIN 40 MG/0.4 ML INJECTION SQ SCH (08:53)
[2017-02-28] MEDS: INSULIN GLARGINE 100unit/ml INJECTION SQ SCH (08:53)
[2017-02-28] MEDS: INSULIN ASPART 100unit/ml INJECTION SQ SCH ×3 (08:53→17:57)
[2017-02-28] MEDS: BRIMONIDINE 0.15% EACH EYE SCH ×3 (08:54→20:10)
[2017-02-28] MEDS: SALINE FLUSH 10ml SYRINGE IV PRN (08:54)
[2017-02-28] MEDS: EYE EACH EYE SCH ×3 (08:54→20:10)
--- NOTE | 2017-02-28 10:28 | IRU Progress Note ---
- Subjective/Serverity of Illness Fartun continues to complain of low back pain as well as pain in the right hip area. MRI was done demonstrating chronic compression fracture of L1 without evidence of significant marrow edema. This likely would not respond well to vertebroplasty. In addition, she does not really have much in the way of stenoses either foraminal nor central spinal. She wonders about a steroid injection. I'm not certain this would be of great benefit in the absence of stenoses. Her therapy is greatly hindered because of the pain. In fact she is not making much progress at all. She is able to ambulate with assistance of 1 person some 60 feet. 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 She is able to ambulate some 60 feet with assistance of 1 person. However she is not really progressing with therapy due to significant back pain. 2. Diabetes mellitus type 2, newly on insulin and not well controlled. She has had a recent episode of diabetic ketoacidosis. Her blood sugars are reviewed in detail. Blood sugars are improved. No hypoglycemic readings are noted. However her appetite is not good. Dietitian recommends checking several vitamin levels as well as zinc. 3. Recent non-ST segment elevated myocardial infarction: Denies chest pain at the present time. She denies shortness of breath. 4. Hypomagnesemia: She is on supplemental magnesium. Remains low however. 5. Evidence of protein calorie malnutrition with reduced appetite and hypoalbuminemia. Continues to struggle with anorexia and poor oral intake. Pre- albumin was low. She is being followed by dietitian. Receiving mighty shakes as supplement. Please see above discussion regarding checking several levels including zinc and vitamin levels. 6. Dysphagia: Followed by speech therapy. Has minimal impairments. She is on regular consistency foods and thin liquids. As well as much better and 90 position. 7. Anemia: Her hemoglobin is 9.2. Iron studies reveal low serum iron but also low TIBC and normal ferritin. Likely this is anemia of chronic disease. May be nutritional. Exam Vital Signs: Temperature 98.6 F 02/28/17 08:00 Pulse Rate 94 02/28/17 08:00 Respiratory Rate 20 02/28/17 08:00 Blood Pressure 143/78 H 02/28/17 08:00 Pulse Oximetry 95 02/28/17 08:00 Height/Weight/BMI: Height 1.57 m Weight 63.6 kg Body Mass Index 25.6 Comments: The patient is awake, alert and oriented and in no acute distress. Pupils are equal. The neck is supple. Chest: Clear to auscultation bilaterally. Cor: RR with no gallop, click nor murmur Abd: soft with normo-active bowel sounds. There are no masses, no tenderness and no guarding. Extremities: No edema is noted. There are good pulses in both ankles. No cyanosis is present. Results IRU - Labs Labs: Reviewed MRI results. She has a chronic appearing compression fracture at L1, new since 2014 but not recent enough to benefit from intervention. Sepsis Assessment - Evaluation Sepsis screening result: No Definite Risk IRU A/P (1) Myopathy Current visit: Yes Status: Acute Continues to display muscle weakness. Not able to make much progress due to pain in the right hip and low back. I am discussing with radiology the benefit of doing an epidural or not. Consideration given to local modalities as well. (2) Diabetes mellitus type 2, uncontrolled, without complications Qualifiers: Diabetes mellitus lobsterman insulin use: without usp use Qualified Code(s): E11.65 - Type 2 diabetes mellitus with hyperglycemia Problem details: Worse control despite poor oral intake. Current visit: No Status: Chronic Her blood sugars are improved. (3) Diabetic peripheral neuropathy associated with type 2 diabetes mellitus Problem details: Better. Current visit: No Status: Chronic (4) Hip pain, right Current visit: No Status: Acute MRI reviewed without definite explanation for her pain. (5) Hypomagnesemia Current visit: Yes Status: Acute Remains on magnesium supplement. (6) Anemia Qualifiers: Anemia type: other cause Other causes of anemia: chronic disease, other Qualified Code(s): D63.8 - Anemia in other chronic diseases classified elsewhere Current visit: Yes Status: Acute Her anemia appears to be consistent with chronic disease. (7) Protein-calorie malnutrition, moderate Current visit: Yes Status: Acute Continues to require supplements. We will check levels of vitamin B12, B6, folate, D3 and zinc. DVT Prophylaxis: SCD's Resuscitation Status: Full Code - Course Hospital Course: Mega Loyd MD: 02/24/17 10:19 Patient is cooperative with therapy. Still requires maximal assistance for transfers etc. Patient is noted to be malnourished on the basis of low. Albumin. Dietitian consulted. Has a bit worsening anemia at 9.9. Iron studies and occult blood will be assessed. Her blood sugars remain quite variable. 02/27/17 10:06 Progress is slow. She is cooperative with therapy. Continues to ambulate short distances. She is improving with regard to transfers. Magnesium remains a bit low but she is on supplement. Blood sugars remain reasonable at around 200. She is on oral agent plus basal plus mealtime. 02/28/17 10:32 Her therapy is hindered due to severe pain in the low back and right hip. We will consider local modalities. I have contacted radiology to see if an epidural might be appropriate. Several blood tests ordered per recommendation of dietitian. - Interventions to Obtain Goals PT Treatment Plan: Balance/Proprioception, Functional Activities, Manual Therapy , Patient/Family Education, Ultrasound OT Treatment Plan: ADL (Basic Care), Balance Training, Joint Mobilization, Pt./ Family Education, Ther. Exercise for ADL Goals Progress/Modifications: Time spent with patient and on floor reviewing data and documentin minutes Barriers to dismissal: Pain in right hip and low back. Medical decision-making: Consider reassessing iron but she has evidence of anemia chronic disease. Have discussed with dietitian. Has poor oral intake. We will check levels of vitamin B12, B6, folate D3 and zinc. We are discussing with radiology regarding the benefit of an epidural steroid. Also we will discuss with therapy local modalities.
--- NOTE | 2017-02-28 14:23 | IRU Team Meeting ---
IRU Team Meeting - Nursing Vital Signs: Vital Signs - 24 hr 02/27/17 15:47 02/27/17 16:00 02/27/17 21:18 Temperature 97.1 F 99.5 F Pulse Rate 88 112 H 87 Respiratory Rate 16 18 Blood Pressure 120/88 147/67 H Pulse Oximetry 93 91 02/28/17 00:00 02/28/17 08:00 02/28/17 08:03 Temperature 98.6 F Pulse Rate 85 94 83 Respiratory Rate 20 Blood Pressure 143/78 H Pulse Oximetry 95 02/28/17 11:30 02/28/17 12:00 Temperature Pulse Rate 76 Respiratory Rate Blood Pressure 96/46 124/66 Pulse Oximetry 97 Current Medications: Acetaminophen (Tylenol) 650 mg PO QID PRN PRN Reason: Discomfort Last Admin: 02/24/17 04:28 Dose: 650 mg Acetaminophen/Hydrocodone Bitart ([place] 7.5/325) 1 tab PO ACHS [facility] Last Admin: 02/28/17 12:56 Dose: 1 tab Acetaminophen/Hydrocodone Bitart ([place] 7.5/325) 1 tab PO Q6H PRN PRN Reason: Pain Aspirin (Asa) 81 mg PO DAILY [facility] Last Admin: 02/28/17 08:52 Dose: 81 mg Atenolol (Tenormin) 50 mg PO DAILY [facility] Last Admin: 02/28/17 08:52 Dose: 50 mg Baclofen (Lioresal) 5 mg PO Q6H PRN PRN Reason: Spasms Brimonidine Tartrate (Alphagan P 0.15% Eye Drops) 1 drop EACH EYE TID [facility] Last Admin: 02/28/17 08:54 Dose: 1 drop Enoxaparin Sodium (Lovenox) 40 mg SQ DAILY [facility] Last Admin: 02/28/17 08:53 Dose: 40 mg Gabapentin (Neurontin) 300 mg PO HS [facility] Last Admin: 02/27/17 21:10 Dose: 300 mg Glimepiride (Amaryl) 4 mg PO WB [facility] Last Admin: 02/28/17 08:52 Dose: 4 mg Insulin Aspart (Novolog) 0 unit SQ SS PRN; Protocol PRN Reason: Hyperglycemia Last Admin: 02/27/17 21:21 Dose: 3 unit Insulin Aspart (Novolog) 5 unit SQ TIDWM [facility] Last Admin: 02/28/17 13:38 Dose: Not Given Insulin Glargine (Lantus) 17 unit SQ AMI [facility] Last Admin: 02/28/17 08:53 Dose: 17 unit Lidocaine (Lidoderm) 2 patch TOP DAILY [facility] Last Admin: 02/28/17 08:15 Dose: 2 patch Lidocaine HCl/Dextrose (Lidoderm Patch Removal) 2 removal TOP 2100 [facility] Last Admin: 02/27/17 21:10 Dose: 2 removal Linagliptin (Tradjenta) 5 mg PO DAILY [facility] Last Admin: 02/28/17 08:52 Dose: 5 mg Magnesium Oxide (Magox) 800 mg PO BID [facility] Last Admin: 02/28/17 08:52 Dose: 800 mg Mirtazapine (Remeron) 7.5 mg PO HS [facility] Last Admin: 02/27/17 21:10 Dose: 7.5 mg Pantoprazole Sodium (Protonix Tab) 40 mg PO BID/E [facility] Last Admin: 02/28/17 05:55 Dose: 40 mg Prednisone (Deltasone) 10 mg PO WB [facility] Last Admin: 02/28/17 08:52 Dose: 10 mg Saliva Substitute (Biotene Dry Mouth Oral Rinse) 15 ml MM 5XD [facility] Last Admin: 02/28/17 13:37 Dose: Not Given Sodium Chloride (Iv Flush) 10 ml IV PRN PRN PRN Reason: Flushing Last Admin: 02/28/17 08:54 Dose: 10 ml Sodium Phosphate (K-Phos *Neutral* Tablet) 500 mg PO BIDWM [facility] Last Admin: 02/28/17 08:52 Dose: 500 mg Current Medical Issues: Diabetes mellitus, on insulin, severe right hip and low back pain, protein calorie malnutrition Comments: I certify that I personally led the interdisciplinary team meeting and agree with comments, barriers and goals indicated. Team meeting was held in the patient's room with the patient and the following family members present: patient alone - Dietary Due to her protein calorie malnutrition in association with her diabetes, she has been seen by the dietitian on several occasions. Supplements in terms of mighty shakes have been added. She is on a 2000-calorie consistent carbohydrate diet. In addition we are assessing several vitamin and mineral levels. - Physical Therapy Comments: Patient is require maximal assistance for ambulation. Complains of pain in the right hip primarily with sitting but also with ambulation. Has improved and other parameters. - Occupational Therapy Comments: She is minimal assistance for most ADLs. Does require contact-guard assistance and moderate assistance for bathing. - Goals 1. Improve right hip pain from 9/10 to a goal of 6/10 while walking 2. Climb 3 steps with one handrail at supervision level 3. Walk with walker at supervision level 4. Transfers with contact-guard assistance 5. Supervision level walking at 100 feet 6. Avoidance of hypoglycemic episodes 7. Up twice daily in recliner besides therapy times. - Barriers to Discharge Barriers to Attaining Goals: Endurance, Pain Control, Other (blood sugar control (avoidance of hypoglycemia)) - Care Plan Anticipated DC Destination: Home, Self Care I have led this team conference and agree with the plan. Anticipated Length of Stay (days): 7
--- NOTE | 2017-02-28 14:58 | Progress Note ---
Progress Note: I have discussed with radiology the issue of the epidural steroid injection. Radiologist does feel it would be appropriate to give it a try. However she is on baby aspirin daily plus Lovenox. She needs to be off the aspirin for 5 days. We will discontinue that at the present time but continue Lovenox and stop it closer to the time of the procedure.
[2017-02-28] MEDS: MIRTAZAPINE 15 MG TABLET PO SCH (20:09)
[2017-02-28] MEDS: GABAPENTIN 300 MG CAPSULE PO SCH (20:10)
[2017-02-28] MEDS: LIDOCAINE PATCH REMOVAL TOP SCH (20:12)
[2017-02-28] MEDS: INSULIN ASPART 100unit/ml INJECTION SQ PRN (20:20)
[2017-03-01] MEDS: PANTOPRAZOLE 40 MG TABLET PO SCH ×2 (05:54→21:18)
[2017-03-01] MEDS: HYDROCODONE/APAP 7.5 MG/325 MG TABLET PO SCH ×4 (05:54→21:28)
[2017-03-01] MEDS: INSULIN ASPART 100unit/ml INJECTION SQ PRN ×4 (06:17→21:40)
[2017-03-01] MEDS: INSULIN ASPART 100unit/ml INJECTION SQ SCH ×2 (08:39→18:18)
[2017-03-01] MEDS: MAGNESIUM OXIDE 400 MG TABLET PO SCH (08:43)
[2017-03-01] MEDS: GLIMEPIRIDE 4 MG TABLET PO SCH (08:43)
[2017-03-01] MEDS: PHOSPHORUS 250 MG TABLET PO SCH ×2 (08:43→17:54)
[2017-03-01] MEDS: ATENOLOL 50 MG TABLET PO SCH (08:43)
[2017-03-01] MEDS: EYE EACH EYE SCH ×3 (08:44→21:28)
[2017-03-01] MEDS: PredniSONE 10 MG TABLET PO SCH (08:44)
[2017-03-01] MEDS: ENOXAPARIN 40 MG/0.4 ML INJECTION SQ SCH (08:44)
[2017-03-01] MEDS: INSULIN GLARGINE 100unit/ml INJECTION SQ SCH (08:44)
[2017-03-01] MEDS: BRIMONIDINE 0.15% EACH EYE SCH ×3 (08:44→21:28)
[2017-03-01] MEDS: SALIVA SUBSTITUTE MOUTHWASH 237ml MM SCH ×5 (08:47→21:20)
--- NOTE | 2017-03-01 09:40 | Progress Note ---
<BennieKhushboo Annie - Last Filed: 03/01/17 10:00> Subjective: Pt had a brief run of PAT around shift change this am. She was resting in bed and completely asymptomatic. She denies any history of cardiac dysrhythmia. She denied any palpitations, chest pain, or dyspnea at that moment or previously. She is complaining of "bumps" in her mouth which are painful. She also states that her appetite had been improving - she was looking forward to breakfast until she took a bite of ketchup on her potatoes, then completely lost her appetite. She also is having some nausea and vomiting - but it's actually from sinus drainage. She has to cough it up sometimes. She fears she has a " bacterial infection" in her sinuses. Her sinus symptoms started 2 days ago. She also complains of temporal and maxillary pressure/headache. No dizziness. Therapy is trying an air cushion in her chair today to try to minimize lower back pain and hip pain that she gets if she sits in a regular chair. She also reports 3 episodes of diarrhea last night. Objective Vital signs: Temperature 99.5 F 03/01/17 07:53 Pulse Rate 98 03/01/17 07:53 Respiratory Rate 24 03/01/17 07:53 Blood Pressure 136/68 03/01/17 07:53 Pulse Oximetry 98 03/01/17 07:53 Height/Weight/BMI: Height 1.57 m Weight 63.6 kg Body Mass Index 25.6 - Constitutional Present: no acute distress - Routine HEENT Exam Head: Present: normocephalic Eye: Absent: conjunctival icterus, scleral injection ENT: Absent: oropharynx clear (thrush) - Routine Respiratory Exam Present: CTA bilaterally - Routine Cardiovascular Exam Present: RRR, S1, S2 - Routine Abdominal Exam Present: soft, normoactive bowel sounds, non distended, non tender - Routine Extremities Exam Present: no edema, pulses intact - Routine Musculoskeletal Exam Musculoskeletal: Present: limited range of motion - Routine Skin Exam Present: intact, dry, warm, ecchymosis (arms) - Routine Neurological Exam Present: alert, oriented X3 Results - Labs CBC & Chem 7: 02/27/17 05:37 02/28/17 05:23 Assessment and Plan (1) Myopathy Current visit: Yes Status: Acute Resuscitation Status: Full Code Assessment and Plan: ASSESSMENT Hypokalemia & hypomagnesemia PAT - asymptomatic Normocytic anemia Myopathy Oral Thrush Diabetes - insulin requiring Hypertension Recent NSTEMI Lupus Chronic back pain Severe protein calorie malnutrition Atypical shoulder pain. Cognitive impairment. Allergic rhinitis PLAN Repeat BMP and MG today - K has stabilized but Mg continues to run low. PAT this am - asymptomatic; recent NSTEMI. Check Troponin and re-consult Dr. Agudelo (he saw her while hospitalized on acute). Telemetry strips reviewed. Diarrhea - check stool for C. diff; recently treated with 3 days of aztreonam (-02/15). Nystatin for thrush - recommend extended course; this was just dc'd on 02/26/17. Labile blood sugars - up to 300 yesterday afternoon, but occasionally hypoglycemic. Hgb A1c was 10.8% on 02/13/17. Will increase supper insulin to 7U - of note, her daily prednisone was increased to 10 mg (up from 5) on 02/26/17 to try to achieve better pain control. The higher steroid dose undoubtedly is increasing her sugars and contributing to thrush. Allergic rhinitis - start Flonase. Do not recommend abx at this time. Sepsis Assessment - Evaluation Sepsis screening result: No Definite Risk Hospital Course Summary Disclaimer: The visit summary below is not to be considered part of the above Progress Note. Hospital Course: Hypokalemia & hypomagnesemia Normocytic anemia Myopathy Oral Thrush Diabetes - insulin requiring Hypertension Recent NSTEMI Lupus Chronic back pain Severe protein calorie malnutrition 02/23/17 Agree with admission to IRU under the care of Dr Loyd for ongoing strengthening Encourage work with PT/OT- Prior to hospitalization patient resides independently Continue with PO nystatin for treatment of oral thrust. Recheck serum magnesium this morning. It is on the low end of normal at 1.6. Will add oral Mag-Ox 400 milligrams twice a day. Recheck magnesium, phosphorus and BMP tomorrow morning to follow electrolytes Continue to monitor blood sugars. Will increase Lantus to 15 units every morning. Continue with PO Trajenta and Amaryl as well as Sliding scale Novolog Lidoderm patch and Clearwater for chronic back pain 02/24/17 RN will discuss pain medication schedule with Dr. Loyd. BP still slightly low at times; improved slightly since yesterday. Atenolol 50 mg - could consider decreasing if BP stays low. K and mg low - oral replacement ordered & will recheck in am. BG tends to run high vs. low, but better than yesterday since increasing am Lantus to 15 U. Anemia - iron studies pending. She's on Lovenox + ASA. Plt stable. 02/25/17 mild nausea this am, possible relationship with taking Clearwater on an empty stomach. Improved after rest. Biotene added for dry mouth. Potassium improved to 4.1 but Mg still low at 1.4 - increase MagOx to 800 mg BID. Hyperglycemia - Increase Lantus to 17U. May need to add mealtime insulin. Iron studies pending. 02/25/17 09:33 02/26/17 18:00 02/26/17 *Bilateral shoulder and generalized pain- unclear etiology. Will check EKG, troponin and add tele due to recent NSTEMI (R/O atypical presentation). Try low dose baclofen for pain. Could be lupus flair- restart prednisone at 10mg. Will need to decrease down to 5mg once pain is controlled. Continue Gabapentin at bedtime. Recent myopathy. CPK was normal at last assessment *BG is reviewed. improving. Change mealtime insulin to Novolog. Hold if not eating. Continue Lantus and Linagliptin and Amaryl. *Hypomagnesemia Replacing PO. Consider adding IV replacement if remains low due to risk of arrhythmia. *Severe malnutrition Continue PO supplements. May need to look at calorie count- she has not been eating well today. Does not want to sit up to take a drink for me, but did so and did fine. Assess labs tomorrow. Continue to monitor. Chart, documentation and imaging reviewed during this visit. Have spoken with nurse several times today. PLAN 02/27/17 Continues to complain of generalized- Continue with Lidoderm patch, Clearwater, and gabapentin Continue with increased prednisone dose of 10mg daily (chronic dose 5 mg daily) Continue to monitor blood sugars. Currently on Trajenta, Amaryl, Lantus 13 units daily, Novolog 5 units with meals Monitor for current evidence of loose stools. This may be secondary to increase magnesium dosing. Recheck Electrolytes, magnesium and phosphorus tomorrow. Continue to encourage work with PT and OT for ongoing strengthening 03/01/17 Repeat BMP and MG today - K has stabilized but Mg continues to run low. PAT this am - asymptomatic; recent NSTEMI. Check Troponin and re-consult Dr. Agudelo (he saw her while hospitalized on acute). Diarrhea - check stool for C. diff; recently treated with 3 days of aztreonam (-02/15). Nystatin for thrush - recommend extended course; this was just dc'd on 02/26/17. Labile blood sugars - up to 300 yesterday afternoon, but occasionally hypoglycemic. Hgb A1c was 10.8% on 02/13/17. Will increase supper insulin to 7U - of note, her daily prednisone was increased to 10 mg (up from 5) on 02/26/17 to try to achieve better pain control. The higher steroid dose undoubtedly is increasing her sugars and contributing to thrush. Allergic rhinitis - start Flonase. Do not recommend abx at this time. <Omaira Dennis - Last Filed: 03/01/17 20:03> Objective Vital signs: Temperature 99.0 F 03/01/17 19:39 Pulse Rate 83 03/01/17 19:39 Respiratory Rate 12 03/01/17 19:39 Blood Pressure 125/66 03/01/17 19:39 Pulse Oximetry 95 03/01/17 19:39 Height/Weight/BMI: Height 1.57 m Weight 61 kg Body Mass Index 25.6 Results - Labs CBC & Chem 7: 02/27/17 05:37 03/01/17 10:19 Assessment and Plan (1) Myopathy Current visit: Yes Status: Acute Assessment and Plan: 03/01/2017-I reviewed this chart, the patient history, and the [employer]'s/PA's documented findings as above. We discussed and formulated the assessment and plan as above with the additions below.-Dr. Dennis The patient was seen in her room this evening. Her only complaint is of diarrhea. She denies any abdominal pain. She states she did eat a good supper. She denies any chest pain or shortness of breath. She does complain of hip pain. She states her nasal congestion is better after starting Flonase. On exam she was sleeping on my arrival and awakens but is drowsy. Chest is clear to auscultation. Cardiovascular reveals a regular rate and rhythm. Abdomen is soft and nontender. Extremities are free of edema. Stool for C. difficile was negative. Regarding the patient's diabetes with labile blood sugars, if she continues to be labile, would consider reconsult eating Dr. Dick. Blood sugars have been difficult to control with her intermittent by mouth intake and recent increase in steroids. Regarding diarrhea, C. difficile was negative. Will hold oral magnesium with her diarrhea. Recheck magnesium level tomorrow, if still low she might benefit from IV magnesium. Hospital Course Summary Disclaimer: The visit summary below is not to be considered part of the above Progress Note. Addendum entered and electronically signed by Khushboo Avery APRN 03/01/17 12: 39: Patient's blood sugar was 48 around lunch, and told her RN that she wasn't feeling well. RN held breakfast Novolog because Fartun didn't eat well. RN is going to hold lunch Novolog as well. Pt is drinking juice and feels better. Has seen Dr. Dick in the past - will consult him for recommendations. Addendum entered and electronically signed by Khushboo Avery APRN 03/01/17 15: 52: Dr. Dick is not available until Monday, Mar 06. Will stop the noon dose of Novolog; hold insulin if not eating well.
[2017-03-01] MEDS: LIDOCAINE 5% PATCH TOP SCH (10:03)
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
--- NOTE | 2017-03-01 10:52 | IRU Progress Note ---
- Subjective/Serverity of Illness Fartun was evaluated in her room today. She has a number of medical issues going on at the present time. She continues to have some nausea. Has some postnasal drainage resulting in occasional emesis according to the patient. In addition, she has developed thrush particular on the left buccal mucosa. She has had this in the past. She has also developed loose stools and has had 3 loose stools overnight. Still has been ordered for C. difficile. She continues to decline to sit up in a chair. Has a lot of pain in the right buttock area. MRI and AP pelvis films were again reviewed. We are holding her aspirin at the present time in anticipation of epidural steroid injection on Monday. That will be 5 days off of aspirin. She remains on Lovenox at the present time but I have ordered that to be stopped after the doses on Monday. That would leave her off at least 24 hours. She developed a brief run of what appeared to be PAT this morning. Cardiology has been reconsulted. Apparently this was fairly asymptomatic. Appetite is borderline. Her blood sugars are running a bit high. Did have a hypoglycemic episode yesterday. 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 Has a lot of right buttock pain which limits her ability to progress well. 2. Diabetes mellitus type 2, newly on insulin and not well controlled. Recent DKA episode. She was hypoglycemic yesterday. However since that time her sugars been running a bit higher. 3. Recent non-ST segment elevated myocardial infarction: Denies chest pain at the present time. She denies shortness of breath. Had brief run of PAT this morning. Cardiology is reconsulted. 4. Hypomagnesemia: She is on supplemental magnesium. Remains low however. 5. Evidence of protein calorie malnutrition with reduced appetite and hypoalbuminemia. Anorexia continues to be an issue. She is on supplemental mighty shakes. 6. Dysphagia: Followed by speech therapy. Has minimal impairments. She is on regular consistency foods and thin liquids. As well as much better and 90 position. 7. Anemia: Her hemoglobin is 9.2. Appears to have anemia of chronic disease. No evidence of active blood loss noted. Exam Vital Signs: Temperature 99.5 F 03/01/17 07:53 Pulse Rate 98 03/01/17 07:53 Respiratory Rate 24 03/01/17 07:53 Blood Pressure 136/68 03/01/17 07:53 Pulse Oximetry 98 03/01/17 07:53 Height/Weight/BMI: Height 1.57 m Weight 63.6 kg Body Mass Index 25.6 Comments: The patient is awake, alert and oriented and in no acute distress at present. However she specifically does not wish to sit up in a chair due to pain in the right buttock. That was one of our goals for this week was to have her sit up in the chair at least 30 minutes twice daily. She refuses this at the present time. I tried to encourage her to try it even with good padding etc. However she does not wish to do this. Pupils are equal. The neck is supple. Intraoral exam does show a patch of what appears to be thrush on the left buccal mucosa. Chest: Clear to auscultation bilaterally. Cor: RR with no gallop, click nor murmur Abd: soft with normo-active bowel sounds. There are no masses, no tenderness and no guarding. Extremities: No edema is noted. There are good pulses in both ankles. No cyanosis is present. Internal and external rotation equivocally cause some discomfort in the right groin. Straight leg raising remains negative. Results IRU - Labs Labs: Blood sugars reviewed in detail. They're running a bit high. Sepsis Assessment - Evaluation Sepsis screening result: No Definite Risk IRU A/P (1) Myopathy Current visit: Yes Status: Acute Continues to have evidence of disuse myopathy. Progression is slow with regard to therapy because of the right hip pain. (2) Diabetes mellitus type 2, uncontrolled, without complications Qualifiers: Diabetes mellitus technician terminal and repeater insulin use: without mcfp use Qualified Code(s): E11.65 - Type 2 diabetes mellitus with hyperglycemia Problem details: Worse control despite poor oral intake. Current visit: No Status: Chronic Had hypoglycemic episode yesterday but otherwise blood sugars are running a bit high at the present time. (3) Diabetic peripheral neuropathy associated with type 2 diabetes mellitus Problem details: Better. Current visit: No Status: Chronic (4) Hip pain, right Current visit: No Status: Acute Etiology of her right hip pain is somewhat obscure to me. I discussed with Dr. Guzman who will see her. AP pelvis shows minimal arthritic change apparently. MRI of the lumbar spine is equivocal for abnormalities. However I reviewed with radiology and they're willing to try an epidural next week after being off aspirin for 5 days. (5) Hypomagnesemia Current visit: Yes Status: Acute (6) Anemia Qualifiers: Anemia type: other cause Other causes of anemia: chronic disease, other Qualified Code(s): D63.8 - Anemia in other chronic diseases classified elsewhere Current visit: Yes Status: Acute (7) Protein-calorie malnutrition, moderate Current visit: Yes Status: Acute Supplements are provided. (8) Oral candidiasis Current visit: Yes Status: Acute Has evidence of oral candidiasis in left buccal mucosa. Nystatin has been ordered. (9) Diarrhea Qualifiers: Diarrhea type: unspecified type Qualified Code(s): R19.7 - Diarrhea, unspecified Current visit: Yes Status: Acute She has developed 3 loose stools overnight. Still is being tested for C. difficile. No abdominal pain. No fever. DVT Prophylaxis: SCD's Resuscitation Status: Full Code - Course Hospital Course: Mega Loyd MD: 02/24/17 10:19 Patient is cooperative with therapy. Still requires maximal assistance for transfers etc. Patient is noted to be malnourished on the basis of low. Albumin. Dietitian consulted. Has a bit worsening anemia at 9.9. Iron studies and occult blood will be assessed. Her blood sugars remain quite variable. 02/27/17 10:06 Progress is slow. She is cooperative with therapy. Continues to ambulate short distances. She is improving with regard to transfers. Magnesium remains a bit low but she is on supplement. Blood sugars remain reasonable at around 200. She is on oral agent plus basal plus mealtime. 02/28/17 10:32 Her therapy is hindered due to severe pain in the low back and right hip. We will consider local modalities. I have contacted radiology to see if an epidural might be appropriate. Several blood tests ordered per recommendation of dietitian. 03/01/17 10:58 New medical problems have developed in terms of PAT this morning, oral candidiasis, diarrhea. In addition, she continues to run blood sugars that are a bit too high after having a hypoglycemic episode yesterday. Continues to have pain in the right hip area. I have consulted Dr. Guzman in this regard. - Interventions to Obtain Goals PT Treatment Plan: Balance/Proprioception, Functional Activities, Manual Therapy , Patient/Family Education, Ultrasound OT Treatment Plan: ADL (Basic Care), Balance Training, Joint Mobilization, Pt./ Family Education, Ther. Exercise for ADL Goals Progress/Modifications: Time spent with patient and on floor reviewing data and documentin minutes Barriers to dismissal: Right hip pain, diarrhea, PAT and recent NV Medical decision-making: Multiple interventions have been initiated. I am holding the Lovenox beginning Monday night in anticipation of epidural on Monday. Dr. Guzman is been consulted and I specifically spoke with him regarding her right hip pain. Stool is being tested for C. difficile. Nystatin has been ordered for her oral candidiasis. Blood sugars remain too high and we will monitor this carefully.
[2017-03-01] MEDS: FLUTICASONE NASAL SPRAY 50mcg EA NOSTRIL SCH (11:51)
[2017-03-01] MEDS: MAGNESIUM SULFATE 1gm PREMIX 1 GM/100 ML BAG IV SCH ×4 (11:53→17:39)
[2017-03-01] MEDS ORDERED: INSULIN ASPART 100unit/ml INJECTION SQ SCH (12:00)
[2017-03-01] MEDS: NYSTATIN 500,000 units/5 ml ORAL LIQUID PO SCH ×3 (13:57→21:20)
[2017-03-01] MEDS: SALINE FLUSH 10ml SYRINGE IV PRN ×2 (16:02→21:44)
[2017-03-01] MEDS: MIRTAZAPINE 15 MG TABLET PO SCH (21:18)
[2017-03-01] MEDS: GABAPENTIN 300 MG CAPSULE PO SCH (21:18)
[2017-03-01] MEDS: ATENOLOL 25 MG TABLET PO SCH (21:30)
[2017-03-01] MEDS: LIDOCAINE PATCH REMOVAL TOP SCH (23:01)
[2017-03-02] MEDS: HYDROCODONE/APAP 7.5 MG/325 MG TABLET PO SCH ×4 (06:24→20:21)
[2017-03-02] MEDS: PANTOPRAZOLE 40 MG TABLET PO SCH ×2 (06:24→20:20)
[2017-03-02] MEDS: INSULIN GLARGINE 100unit/ml INJECTION SQ SCH (07:41)
[2017-03-02] MEDS ORDERED: INSULIN ASPART 100unit/ml INJECTION SQ SCH (08:00)
[2017-03-02] MEDS: ATENOLOL 25 MG TABLET PO SCH ×2 (08:17→20:20)
[2017-03-02] MEDS: GLIMEPIRIDE 4 MG TABLET PO SCH (08:17)
[2017-03-02] MEDS: FLUTICASONE NASAL SPRAY 50mcg EA NOSTRIL SCH (08:18)
[2017-03-02] MEDS: PHOSPHORUS 250 MG TABLET PO SCH ×2 (08:18→17:53)
[2017-03-02] MEDS: PredniSONE 10 MG TABLET PO SCH (08:18)
[2017-03-02] MEDS: SALIVA SUBSTITUTE MOUTHWASH 237ml MM SCH ×4 (08:53→20:21)
[2017-03-02] MEDS: EYE EACH EYE SCH ×3 (08:54→20:23)
[2017-03-02] MEDS: NYSTATIN 500,000 units/5 ml ORAL LIQUID PO SCH ×4 (08:54→20:22)
[2017-03-02] MEDS: BRIMONIDINE 0.15% EACH EYE SCH ×3 (08:54→20:23)
[2017-03-02] MEDS: ENOXAPARIN 40 MG/0.4 ML INJECTION SQ SCH (08:54)
--- NOTE | 2017-03-02 10:04 | Consult Note ---
- Consultation Back and R post hip pain 76 yo female who has had back and R post hip pain since Jan 31. No history of fall. Admitted earlier because she passed out at home probably due to diabetic issues. Denies other traunma. Uses walker at home. Her symptoms are aggrevated by sitting and walking. xrays here reveal an L1 compression fx that was not there in 2014 but according to the MRI is not acute. Hips are ok on plain films. By history probably has osteoporosis. Exam: good ROM of hip,no sacroiliac tenderness very tender over sciatic notch and ischial tuberosity on the R generally weak Impression: Osteoporosis, jo lumbar Compression Fx L1-?duration R post hip and back pain Plan: epidural on Monday calcitonin nasal spray- may help back symptoms check with Dr Dick on use of forteo or reclast for osteoporosis treatment increase calcium to BID If symptoms persist consider bone scan to look for occult malignancy
[2017-03-02] MEDS: INSULIN ASPART 100unit/ml INJECTION SQ PRN ×3 (10:07→20:47)
[2017-03-02] MEDS ORDERED: MAGIC MOUTHWASH 5ml PO PRN (11:40)
[2017-03-02] MEDS: LIDOCAINE 5% PATCH TOP SCH (11:44)
--- NOTE | 2017-03-02 14:45 | Progress Note ---
Subjective: Fartun is seen today in follow up for her back and hip pain. She is seen while resting in bed, having just completed a shower with therapy. She reports that she feels "shaky" and is noted to be drinking a mighty shake on exam. Review of her recent labs reveals that her bloods sugars have been extremely liable with highs around 353 and lows around 48. Nursing is present on exam and obtained a blood sugar which was 92. She states that she is feeling better now, while drinking the mighty shake and is also give some cheese. She denies any other new complaints including no chest pain, shortness of breath, abdominal pain, nausea, vomiting or dysuria. She currently rates her back pain at 6/10. She reports that her sinus drainage has significantly improved with the Flonase and denies interest in trying treatment with antihistamine such as zyrtec for seasonal allergies. She continues to have some soreness to her tongue related to her thrush but states that it is getting better with the nystatin. She was seen by ortho regarding her concern pertaining to her right knee and the new clicking sensation. Recent knee x-ray was negative and no new recommendations per ortho. She is scheduled to have an epidural on Tuesday 03/06 and is currently holding her ASA in preparation for her procedure, but remains on Lovenox. Her appetite is stable and her bowels are moving. Recent BMP is unremarkable with only hyperglycemia noted. Magnesium improved to 2.5. Serial troponins on 03/01 revealed 0.048 at 1019, 0.039 at 1545 and 0.041 at 2134. Objective Vital signs: Temperature 98.5 F 03/02/17 07:45 Pulse Rate 90 03/02/17 14:16 Respiratory Rate 16 03/02/17 07:45 Blood Pressure 124/58 03/02/17 14:16 Pulse Oximetry 93 03/02/17 07:45 Rhythm: Normal Sinus Rhythm Height/Weight/BMI: Height 5 ft 2 in Weight 134 lb 7.712 oz Body Mass Index 25.6 - Constitutional Present: no acute distress, well nourished, well developed, cooperative - Routine HEENT Exam Head: Present: normocephalic, atraumatic Eye: Present: PERRL. Absent: conjunctival icterus ENT: Present: mucous membranes moist - Routine Respiratory Exam Present: CTA bilaterally. Absent: stridor, wheezes, crackles - Routine Cardiovascular Exam Present: RRR, S1, S2 - Routine Abdominal Exam Present: soft, normoactive bowel sounds, non distended, non tender - Routine Extremities Exam Present: no edema, pulses intact - Routine Back/Spine/Pelvis Exam Back/Spine: Present: pain with flexion, pain with rotation - Routine Musculoskeletal Exam Musculoskeletal: Present: moving extremities well, limited range of motion ( secondary to back pain) - Routine Skin Exam Present: intact, dry. Absent: jaundice Comments: afebrile - Routine Neurological Exam Present: alert, oriented X3, moving all extremities, normal speech - Routine Lymphatic Exam Lymphatic: Absent: lymphedema - Routine Psychiatric Exam Present: normal affect, cooperative Results - Labs CBC & Chem 7: 02/27/17 05:37 03/02/17 04:45 Assessment and Plan (1) Myopathy Current visit: Yes Status: Acute DVT Prophylaxis: SCD's, Lovenox GI Prophylaxis: Protonix Resuscitation Status: Full Code Assessment and Plan: Assessment Myopathy Oral Thrush Diabetes Hypertension Lupus Chronic back pain Hypomagnesium - resolved 03/02. Hypermagnesium - acute, 03/02. Plan Patient feels she is making good progress with therapy. Continue to encourage work with therapies to maximize functional ability and strength. Continue treatment plan and pain control per Dr. Loyd. C. diff was negative. Monitor closely for signs of constipation in light of narcotic pain control. Continue with PO nystatin for treatment of oral thrust. Magic mouth wash as needed for pain. Thrush improving. Serum magnesium was 1.6 on 03/01. Mg improved to 2.5 (hypermagnesemia) following 2g Magnesium IV on 03/01. Continue to hold Oral Mag-Ox 400 milligrams twice a day in light of hypermagnesemia and recent diarrhea. Will recheck mag in AM and continue to monitor periodically. Blood sugars remain liable ranging between 48 and 353. Continue to monitor blood sugars closely. Review of blood sugar checks reveals hypoglycemia episodes during morning hours with hyperglycemia in the afternoons and evenings. Lantus was increased to 15 units every morning on 03/01 in conjunction with Novolog 5 units in the AM and 7 units in the PM. Will continue with Lantus 15 units in AM. Decrease morning insulin to 3 units in light of hypoglycemia episodes. Continue with po Trajenta and Amaryl as well as Sliding scale NovoLog as needed. Dr. Dick has been consulted and is expected to see the patient upon his return from being out of town on 03/06/17. Continue Lidoderm patch and Fletcher for chronic back pain. Protonix for GI protection. Lovenox subcutaneous daily for DVT prophylaxis. Recheck CBC and BMP in AM to monitor blood counts, electrolytes and renal function. - Time spent with patient 25 - 35 minutes Hospital Course Summary Disclaimer: The visit summary below is not to be considered part of the above Progress Note. Hospital Course: 03/01/17 Repeat BMP and MG today - K has stabilized but Mg continues to run low. PAT this am - asymptomatic; recent NSTEMI. Check Troponin and re-consult Dr. Agudelo (he saw her while hospitalized on acute). Diarrhea - check stool for C. diff; recently treated with 3 days of aztreonam (-02/15). Nystatin for thrush - recommend extended course; this was just dc'd on 02/26/17. Labile blood sugars - up to 300 yesterday afternoon, but occasionally hypoglycemic. Hgb A1c was 10.8% on 02/13/17. Will increase supper insulin to 7U - of note, her daily prednisone was increased to 10 mg (up from 5) on 02/26/17 to try to achieve better pain control. The higher steroid dose undoubtedly is increasing her sugars and contributing to thrush. Allergic rhinitis - start Flonase. Do not recommend abx at this time. 03/01/17 Cardiology SVT: nonsustained. asymptomatic. Add atenolol 25mg at bedtime. Hypomagnesemia: Mag 1.3 today, replace with 4 gms Mag IV, repeat mag in am 03/02/17- [place]. Assessment Myopathy Oral Thrush Diabetes Hypertension Lupus Chronic back pain Hypomagnesium - resolved 03/02. Hypermagnesium - acute, 03/02. Plan Patient feels she is making good progress with therapy. Continue to encourage work with therapies to maximize functional ability and strength. Continue treatment plan and pain control per Dr. Loyd. C. diff was negative. Monitor closely for signs of constipation in light of narcotic pain control. Continue with PO nystatin for treatment of oral thrust. Magic mouth wash as needed for pain. Thrush improving. Serum magnesium was 1.6 on 03/01. Mg improved to 2.5 (hypermagnesemia) following 2g Magnesium IV on 03/01. Continue to hold Oral Mag-Ox 400 milligrams twice a day in light of hypermagnesemia and recent diarrhea. Will recheck mag in AM and continue to monitor periodically. Blood sugars remain liable ranging between 48 and 353. Continue to monitor blood sugars closely. Review of blood sugar checks reveals hypoglycemia episodes during morning hours with hyperglycemia in the afternoons and evenings. Lantus was increased to 15 units every morning on 03/01 in conjunction with Novolog 5 units in the AM and 7 units in the PM. Will continue with Lantus 15 units in AM. Decrease morning insulin to 3 units in light of hypoglycemia episodes. Continue with po Trajenta and Amaryl as well as Sliding scale NovoLog as needed. Dr. Dick has been consulted and is expected to see the patient upon his return from being out of town on 03/06/17. Continue Lidoderm patch and Fletcher for chronic back pain. Protonix for GI protection. Lovenox subcutaneous daily for DVT prophylaxis. Recheck CBC and BMP in AM to monitor blood counts, electrolytes and renal function.
--- NOTE | 2017-03-02 16:11 | Cardiology Progress Note ---
Subjective Principal diagnosis: SVT <Lucille Landry - 03/02/17 16:46> Interval history: Fartun is seen in follow up for non sustained SVT and low magnesium. She states she is not any better and not any worse. She states her breathing is fine , denies chest pain or pressure, denies palpitations. <Lucille Landry - 03/02/17 16:46> Exam Vital signs: Temperature 98.2 F 03/03/17 08:00 Pulse Rate 100 03/03/17 08:00 Respiratory Rate 18 03/03/17 08:00 Blood Pressure 141/69 H 03/03/17 08:00 Pulse Oximetry 94 03/03/17 08:00 <Kenny Agudelo - 03/03/17 14:16> Temperature 98.5 F 03/02/17 07:45 Pulse Rate 90 03/02/17 14:16 Respiratory Rate 16 03/02/17 07:45 Blood Pressure 124/58 03/02/17 14:16 Pulse Oximetry 93 03/02/17 07:45 <FrantzLucille Barnes 03/02/17 16:11> - Constitutional no acute distress, well nourished, cooperative <FrantzLucille Barnes 03/02/17 16: 46> - Routine HEENT Exam Head: Present: normocephalic <FrantzLucille Barnes 03/02/17 16:46> ENT: Present: mucous membranes moist <FrantzLucille Barnes 03/02/17 16:46> - Routine Neck Exam Absent: JVD, carotid bruit <FrantzLucille Cameron 03/02/17 16:46> - Routine Chest/Breast/Axilla Exam Chest wall: Absent: tenderness <FrantzLucille Barnes 03/02/17 16:46> - Routine Respiratory Exam Present: CTA bilaterally. Absent: rales, wheezes <FrantzLucille lewis Cameron 03/02/17 16:46> - Routine Cardiovascular Exam Present: RRR, no murmur. Absent: JVD <FrantzLucille Cameron 03/02/17 16:46> - Routine Abdominal Exam Present: soft, normoactive bowel sounds <Lucille Landry Cameron 03/02/17 16:46> - Routine Extremities Exam Present: no edema <Lucille Landry - 03/02/17 16:46> - Routine Skin Exam Present: intact, dry, warm <Lucille Landry - 03/02/17 16:46> - Routine Neurological Exam Present: alert, oriented X3 <Lucille Landry - 03/02/17 16:46> - Routine Psychiatric Exam Present: normal affect, normal thought process <Lucille Landry - 03/02/17 16: 46> - Additional findings Additional findings: Laboratory Results - last 24 hr 03/01/17 03/01/17 03/02/17 21:19 21:34 04:45 Turbidity < 20 Sodium 137 Potassium 4.3 Chloride 102 Carbon Dioxide 28 Anion Gap 7 BUN 18.0 H Creatinine 0.7 GFR Calculation 81 BUN/Creatinine Ratio 26 Glucose 132 H Glucometer 353 Calculated Osmolality 268 Calcium 8.3 L Phosphorus 4.0 Magnesium 2.5 H D Icterus Index < 2 Troponin I 0.041 Albumin 2.5 L Specimen Hemolysis < 15 < 15 03/02/17 03/02/17 03/02/17 10:02 11:11 13:51 Turbidity Sodium Potassium Chloride Carbon Dioxide Anion Gap BUN Creatinine GFR Calculation BUN/Creatinine Ratio Glucose Glucometer 156 92 173 Calculated Osmolality Calcium Phosphorus Magnesium Icterus Index Troponin I Albumin Specimen Hemolysis 03/02/17 15:47 Turbidity Sodium Potassium Chloride Carbon Dioxide Anion Gap BUN Creatinine GFR Calculation BUN/Creatinine Ratio Glucose Glucometer 283 Calculated Osmolality Calcium Phosphorus Magnesium Icterus Index Troponin I Albumin Specimen Hemolysis Acetaminophen (Tylenol) 650 mg PO QID PRN PRN Reason: Discomfort Last Admin: 02/24/17 04:28 Dose: 650 mg Acetaminophen/Hydrocodone Bitart (Harleigh 7.5/325) 1 tab PO ACHS ADRIANA Last Admin: 03/02/17 11:44 Dose: 1 tab Acetaminophen/Hydrocodone Bitart (Harleigh 7.5/325) 1 tab PO Q6H PRN PRN Reason: Pain Atenolol (Tenormin) 25 mg PO HS ADRIANA Atenolol (Tenormin) 50 mg PO QAM ADRIANA Baclofen (Lioresal) 5 mg PO Q6H PRN PRN Reason: Spasms Last Admin: 03/01/17 08:43 Dose: 5 mg Brimonidine Tartrate (Alphagan P 0.15% Eye Drops) 1 drop EACH EYE TID ADRIANA Last Admin: 03/02/17 08:54 Dose: 1 drop Enoxaparin Sodium (Lovenox) 40 mg SQ DAILY [facility] Stop: 03/04/17 23:59 Last Admin: 03/02/17 08:54 Dose: 40 mg Fluticasone Propionate (Flonase) 2 spray EA NOSTRIL DAILY [facility] Last Admin: 03/02/17 08:18 Dose: 2 spray Gabapentin (Neurontin) 300 mg PO HS [facility] Last Admin: 03/01/17 21:18 Dose: 300 mg Glimepiride (Amaryl) 4 mg PO WB [facility] Last Admin: 03/02/17 08:17 Dose: 4 mg Insulin Aspart (Novolog) 7 unit SQ WS [facility] Last Admin: 03/01/17 18:18 Dose: Not Given Insulin Aspart (Novolog) 0 unit SQ SS PRN; Protocol PRN Reason: Hyperglycemia Last Admin: 03/02/17 10:07 Dose: 1 unit Insulin Aspart (Novolog) 3 unit SQ WB [facility] Insulin Glargine (Lantus) 17 unit SQ AMI [facility] Last Admin: 03/02/17 07:41 Dose: 17 unit Lidocaine (Lidoderm) 2 patch TOP DAILY [facility] Last Admin: 03/02/17 11:44 Dose: 2 patch Lidocaine HCl (Magic Mouthwash (Lido/Maalox/Carafate)) 5 ml PO Q4H PRN Lidocaine HCl/Dextrose (Lidoderm Patch Removal) 2 removal TOP 2100 [facility] Last Admin: 03/01/17 23:01 Dose: 2 removal Linagliptin (Tradjenta) 5 mg PO DAILY [facility] Last Admin: 03/02/17 08:18 Dose: 5 mg Magnesium Oxide (Magox) 800 mg PO BID [facility] Last Admin: 03/01/17 08:43 Dose: 800 mg Mirtazapine (Remeron) 7.5 mg PO HS [facility] Last Admin: 03/01/17 21:18 Dose: 7.5 mg Nystatin (Mycostatin) 5 ml PO QID [facility] Last Admin: 03/02/17 13:54 Dose: 5 ml Pantoprazole Sodium (Protonix Tab) 40 mg PO BID/E [facility] Last Admin: 03/02/17 06:24 Dose: 40 mg Prednisone (Deltasone) 10 mg PO WB [facility] Last Admin: 03/02/17 08:18 Dose: 10 mg Saliva Substitute (Biotene Dry Mouth Oral Rinse) 15 ml MM 5XD [facility] Last Admin: 03/02/17 11:44 Dose: Not Given Sodium Chloride (Iv Flush) 10 ml IV PRN PRN PRN Reason: Flushing Last Admin: 03/01/17 21:44 Dose: 10 ml Sodium Phosphate (K-Phos *Neutral* Tablet) 500 mg PO BIDWM [facility] Last Admin: 03/02/17 08:18 Dose: 500 mg <Lucille Landry - 03/02/17 16:46> Assessment and Plan - Assessment and Plan (1) Diabetes mellitus type 2, uncontrolled, without complications Problem details: Worse control despite poor oral intake. Current visit: No Status: Chronic (2) Hypomagnesemia Current visit: Yes Status: Acute (3) Oral candidiasis Current visit: Yes Status: Acute (4) Diarrhea Current visit: Yes Status: Resolved (5) SVT (supraventricular tachycardia) Current visit: Yes Status: Acute <Kenny Agudelo - 03/03/17 14:16> (1) Hypomagnesemia Current visit: Yes Status: Acute 2.4 today. (2) Oral candidiasis Current visit: Yes Status: Acute (3) Diarrhea Current visit: Yes Status: Acute C. Diff. negative (4) Diabetes mellitus type 2, uncontrolled, without complications Problem details: Worse control despite poor oral intake. Current visit: No Status: Chronic (5) SVT (supraventricular tachycardia) Current visit: Yes Status: Acute No further dysrhythmias. Continue to monitor telemetry and electrolytes <Lucille Landry - 03/02/17 16:41> - Attestation Attestation Narrative: 03/03/17 14:16 Recommendation After examining the patient I agree with the above assessment. I am involved in the formulation of the patient's plan of care. <Kenny Agudelo - 03/03/17 14:16> Hospital Course Summary Disclaimer: The visit summary below is not to be considered part of the above Progress Note. <Kenny Agudelo - 03/03/17 14:16> The visit summary below is not to be considered part of the above Progress Note. <Lucille Landry - 03/02/17 16:11> Hospital Course: 03/01/17 Repeat BMP and MG today - K has stabilized but Mg continues to run low. PAT this am - asymptomatic; recent NSTEMI. Check Troponin and re-consult Dr. Agudelo (he saw her while hospitalized on acute). Diarrhea - check stool for C. diff; recently treated with 3 days of aztreonam (-02/15). Nystatin for thrush - recommend extended course; this was just dc'd on 02/26/17. Labile blood sugars - up to 300 yesterday afternoon, but occasionally hypoglycemic. Hgb A1c was 10.8% on 02/13/17. Will increase supper insulin to 7U - of note, her daily prednisone was increased to 10 mg (up from 5) on 02/26/17 to try to achieve better pain control. The higher steroid dose undoubtedly is increasing her sugars and contributing to thrush. Allergic rhinitis - start Flonase. Do not recommend abx at this time. 03/01/17 Cardiology SVT: nonsustained. asymptomatic. Add atenolol 25mg at bedtime. Hypomagnesemia: Mag 1.3 today, replace with 4 gms Mag IV, repeat mag in am 03/02/17- [place]. Assessment Myopathy Oral Thrush Diabetes Hypertension Lupus Chronic back pain Hypomagnesium - resolved 03/02. Hypermagnesium - acute, 03/02. Plan Patient feels she is making good progress with therapy. Continue to encourage work with therapies to maximize functional ability and strength. Continue treatment plan and pain control per Dr. Loyd. C. diff was negative. Monitor closely for signs of constipation in light of narcotic pain control. Continue with PO nystatin for treatment of oral thrust. Magic mouth wash as needed for pain. Thrush improving. Serum magnesium was 1.6 on 03/01. Mg improved to 2.5 (hypermagnesemia) following 2g Magnesium IV on 03/01. Continue to hold Oral Mag-Ox 400 milligrams twice a day in light of hypermagnesemia and recent diarrhea. Will recheck mag in AM and continue to monitor periodically. Blood sugars remain liable ranging between 48 and 353. Continue to monitor blood sugars closely. Review of blood sugar checks reveals hypoglycemia episodes during morning hours with hyperglycemia in the afternoons and evenings. Lantus was increased to 15 units every morning on 03/01 in conjunction with Novolog 5 units in the AM and 7 units in the PM. Will continue with Lantus 15 units in AM. Decrease morning insulin to 3 units in light of hypoglycemia episodes. Continue with po Trajenta and Amaryl as well as Sliding scale NovoLog as needed. Dr. Dick has been consulted and is expected to see the patient upon his return from being out of town on 03/06/17. Continue Lidoderm patch and Harleigh for chronic back pain. Protonix for GI protection. Lovenox subcutaneous daily for DVT prophylaxis. Recheck CBC and BMP in AM to monitor blood counts, electrolytes and renal function. 03/02/17 No further dysrhythmias. Continue to monitor telemetry and electrolytes <Lucille Landry - 03/02/17 16:46>
[2017-03-02] MEDS: INSULIN ASPART 100unit/ml INJECTION SQ SCH (17:14)
[2017-03-02] MEDS: SALINE FLUSH 10ml SYRINGE IV PRN (17:53)
[2017-03-02] MEDS: MIRTAZAPINE 15 MG TABLET PO SCH (20:19)
[2017-03-02] MEDS: GABAPENTIN 300 MG CAPSULE PO SCH (20:21)
[2017-03-02] MEDS: LIDOCAINE PATCH REMOVAL TOP SCH (20:23)
[2017-03-02] MEDS ORDERED: FALL RISK - PHARMACY CONSULT MC PRN (21:40)
[2017-03-03] MEDS: PANTOPRAZOLE 40 MG TABLET PO SCH ×2 (06:04→21:11)
[2017-03-03] MEDS: HYDROCODONE/APAP 7.5 MG/325 MG TABLET PO SCH ×4 (06:05→21:11)
--- NOTE | 2017-03-03 08:30 | IRU Progress Note ---
- Subjective/Serverity of Illness Fartun was evaluated she was in her bed in her room. She continues to complain of severe pain in the right buttock when she is sitting or with ambulation. Dr. Guzman did see her and recommended epidural on Monday as well as consideration for treatment for osteoporosis. In addition, she has been followed by cardiology. She appears to be stable in this regard. Magnesium is improved. Denies any chest pains. With regard to therapies, I have reviewed the notes and have work with therapists. She is more consistent with transfers. She was enthusiastic to go to the kitchen to do cooking yesterday but then lost enthusiasm after she developed more pain and voided apparently. With regard to her diarrhea, she states that has resolved. 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 She is making some progress with regard to transfers. She is more consistent. Her magnesium is now approaching normal. 2. Diabetes mellitus type 2, newly on insulin and not well controlled. Recent DKA episode. Blood sugars are reviewed and overall are doing better. 3. Recent non-ST segment elevated myocardial infarction: She has had some nonsustained PSVT. Cardiology following. Denies chest pain. 4. Hypomagnesemia: She is on supplemental magnesium. The knees him improved at 2.5. 5. Evidence of protein calorie malnutrition with reduced appetite and hypoalbuminemia. She continues on supplements. Albumin remains a bit low. 6. Dysphagia: Followed by speech therapy. Has minimal impairments. She is on regular consistency foods and thin liquids. As well as much better and 90 position. 7. Anemia: Her hemoglobin is 9.2. Appears to have anemia of chronic disease. No evidence of active blood loss noted. 8. Right buttock pain: Etiology is not totally clear. We are planning to do an epidural on Monday. Lovenox will be held after the dose on Monday. Appreciate Dr. Guzman's input. We will see how the epidural goes and then decide on osteoporosis evaluation and treatment. Exam Vital Signs: Temperature 98.5 F 03/02/17 20:34 Pulse Rate 81 03/03/17 00:00 Respiratory Rate 17 03/02/17 20:34 Blood Pressure 122/65 03/02/17 20:34 Pulse Oximetry 94 03/02/17 20:34 Height/Weight/BMI: Height 1.57 m Weight 61 kg Body Mass Index 25.6 Comments: The patient is awake, alert and oriented and in no acute distress. Apparently has pain only with sitting or with ambulating distances. Pupils are equal. The neck is supple. Chest: Clear to auscultation bilaterally. Cor: RR with no gallop, click nor murmur Abd: soft with normo-active bowel sounds. There are no masses, no tenderness and no guarding. Extremities: No edema is noted. There are good pulses in both ankles. No cyanosis is present. IRU A/P (1) Myopathy Current visit: Yes Status: Acute Continues to work with therapy although variable in progress. She is working assistance in transfers. (2) Diabetes mellitus type 2, uncontrolled, without complications Qualifiers: Diabetes mellitus mcfp insulin use: without intermission coordinator use Qualified Code(s): E11.65 - Type 2 diabetes mellitus with hyperglycemia Problem details: Worse control despite poor oral intake. Current visit: No Status: Chronic Blood sugars are reviewed. Followed by hospitalists and endocrinology. Sugars are improved. (3) Diabetic peripheral neuropathy associated with type 2 diabetes mellitus Problem details: Better. Current visit: No Status: Chronic (4) Hip pain, right Current visit: No Status: Acute Appreciate Dr. Guzman's input. Etiology of the right buttock pain not clear. We are planning to do an epidural on Monday after holding Lovenox after Monday's dose. If not improving, consider nuclear medicine bone scan and/or DEXA scan. (5) Hypomagnesemia Current visit: Yes Status: Acute Magnesium is improved at 2.5. Remains on supplements. (6) Anemia Qualifiers: Anemia type: other cause Other causes of anemia: chronic disease, other Qualified Code(s): D63.8 - Anemia in other chronic diseases classified elsewhere Current visit: Yes Status: Acute Hemoglobin stable at 9.2. (7) Protein-calorie malnutrition, moderate Current visit: Yes Status: Acute Continues on supplements. Albumin a bit low at 2.5. (8) Oral candidiasis Current visit: Yes Status: Acute (9) Diarrhea Qualifiers: Diarrhea type: unspecified type Qualified Code(s): R19.7 - Diarrhea, unspecified Current visit: Yes Status: Resolved She states her loose stools have resolved. DVT Prophylaxis: SCD's, Lovenox Resuscitation Status: Full Code - Course Hospital Course: Mega Loyd MD: 02/24/17 10:19 Patient is cooperative with therapy. Still requires maximal assistance for transfers etc. Patient is noted to be malnourished on the basis of low. Albumin. Dietitian consulted. Has a bit worsening anemia at 9.9. Iron studies and occult blood will be assessed. Her blood sugars remain quite variable. 02/27/17 10:06 Progress is slow. She is cooperative with therapy. Continues to ambulate short distances. She is improving with regard to transfers. Magnesium remains a bit low but she is on supplement. Blood sugars remain reasonable at around 200. She is on oral agent plus basal plus mealtime. 02/28/17 10:32 Her therapy is hindered due to severe pain in the low back and right hip. We will consider local modalities. I have contacted radiology to see if an epidural might be appropriate. Several blood tests ordered per recommendation of dietitian. 03/01/17 10:58 New medical problems have developed in terms of PAT this morning, oral candidiasis, diarrhea. In addition, she continues to run blood sugars that are a bit too high after having a hypoglycemic episode yesterday. Continues to have pain in the right hip area. I have consulted Dr. Guzman in this regard. 03/03/17 08:32 Continues to complain of pain in the right hip area. Appreciate Dr. Guzman's input. Planning for epidural on Monday. Last Lovenox dose on Monday. If epidural is not helpful, consider nuclear medicine bone scan. She is more consistent with transfers. However continues in general to be variable with regard to therapies. - Interventions to Obtain Goals PT Treatment Plan: Balance/Proprioception, Functional Activities, Manual Therapy , Patient/Family Education, Ultrasound OT Treatment Plan: ADL (Basic Care), Balance Training, Joint Mobilization, Pt./ Family Education, Ther. Exercise for ADL Goals Progress/Modifications: Time spent with patient and on floor reviewing data and documentin minutes Barriers to dismissal: Motivation, right buttock pain, variable blood sugars Medical decision-making: Review data regarding her right buttock pain. Considered various options in terms of metastatic disease, foraminal stenosis etc. We will try the epidural on Monday and we have arranged for Lovenox to be stopped after the Monday's dose. If not improved we will consider nuclear medicine bone scan. Spent some time encouraging patient to participate fully with therapy.
[2017-03-03] MEDS: INSULIN GLARGINE 100unit/ml INJECTION SQ SCH (09:08)
[2017-03-03] MEDS: SALINE FLUSH 10ml SYRINGE IV PRN ×2 (09:09→18:24)
[2017-03-03] MEDS: INSULIN ASPART 100unit/ml INJECTION SQ SCH ×2 (09:09→18:09)
[2017-03-03] MEDS: GLIMEPIRIDE 4 MG TABLET PO SCH (09:10)
[2017-03-03] MEDS: ATENOLOL 50 MG TABLET PO SCH (09:11)
[2017-03-03] MEDS: NYSTATIN 500,000 units/5 ml ORAL LIQUID PO SCH ×4 (09:11→21:12)
[2017-03-03] MEDS: PredniSONE 10 MG TABLET PO SCH (09:11)
[2017-03-03] MEDS: PHOSPHORUS 250 MG TABLET PO SCH ×2 (09:11→18:10)
[2017-03-03] MEDS: BRIMONIDINE 0.15% EACH EYE SCH ×4 (10:17→21:12)
[2017-03-03] MEDS: EYE EACH EYE SCH ×4 (10:17→21:12)
[2017-03-03] MEDS: SALIVA SUBSTITUTE MOUTHWASH 237ml MM SCH ×5 (10:19→21:13)
[2017-03-03] MEDS: FLUTICASONE NASAL SPRAY 50mcg EA NOSTRIL SCH (10:20)
[2017-03-03] MEDS: ENOXAPARIN 40 MG/0.4 ML INJECTION SQ SCH (10:20)
[2017-03-03] MEDS: LIDOCAINE 5% PATCH TOP SCH (10:21)
--- NOTE | 2017-03-03 13:39 | Cardiology Progress Note ---
Subjective Principal diagnosis: SVT <Lucille Landry 03/03/17 13:44> Interval history: Fartun is seen in follow up for non sustained SVT and low magnesium. She denies complaints. She denies chest pain or pressure, denies palpitations. <Lucille Landry 03/03/17 13:44> Exam Vital signs: Temperature 98.4 F 03/07/17 08:49 Pulse Rate 88 03/07/17 08:49 Respiratory Rate 18 03/07/17 08:49 Blood Pressure 119/62 03/07/17 08:49 Pulse Oximetry 96 03/07/17 08:49 <Kenny Agudelo - 03/07/17 12:48> Temperature 98.2 F 03/03/17 08:00 Pulse Rate 100 03/03/17 08:00 Respiratory Rate 18 03/03/17 08:00 Blood Pressure 141/69 H 03/03/17 08:00 Pulse Oximetry 94 03/03/17 08:00 <Lucille Landry 03/03/17 13:44> - Constitutional no acute distress, cooperative <Lucille Landry 03/03/17 13:44> - Routine HEENT Exam Head: Present: normocephalic <Lucille Landry 03/03/17 13:44> ENT: Present: mucous membranes moist <Lucille Landry 03/03/17 13:44> - Routine Neck Exam Absent: JVD, carotid bruit <Lucille Landry 03/03/17 13:44> - Routine Chest/Breast/Axilla Exam Chest wall: Absent: tenderness <Lucille Landry 03/03/17 13:44> - Routine Respiratory Exam Present: CTA bilaterally. Absent: rales, wheezes <Lucille Landry 03/03/17 13:44> - Routine Cardiovascular Exam Present: RRR, no murmur. Absent: JVD <Lucille Landry 03/03/17 13:44> - Routine Abdominal Exam Present: soft, normoactive bowel sounds <Lucille Landry 03/03/17 13:44> - Routine Extremities Exam Present: no edema <Lucille Landry 03/03/17 13:44> - Routine Skin Exam Present: intact, dry, warm <Lucille Landry M - 03/03/17 13:44> - Routine Neurological Exam Present: alert, oriented X3 <Lucille Landry - 03/03/17 13:44> - Routine Psychiatric Exam Present: normal affect, normal thought process <Lucille Landry M - 03/03/17 13: 44> - Additional findings Additional findings: Laboratory Results - last 24 hr 02/28/17 03/02/17 03/02/17 11:14 13:51 15:47 Glucometer 173 283 Zinc 0.74 03/02/17 03/02/17 03/02/17 17:04 17:20 17:25 Glucometer 358 356 350 Zinc 03/02/17 03/02/17 03/03/17 19:07 20:40 06:07 Glucometer 285 249 134 Zinc 03/03/17 03/03/17 03/03/17 10:14 11:21 11:37 Glucometer 116 56 70 Zinc 03/03/17 12:00 Glucometer 88 Zinc Acetaminophen (Tylenol) 650 mg PO QID PRN PRN Reason: Discomfort Last Admin: 02/24/17 04:28 Dose: 650 mg Acetaminophen/Hydrocodone Bitart ([place] 7.5/325) 1 tab PO ACHS [facility] Last Admin: 03/03/17 12:30 Dose: 1 tab Acetaminophen/Hydrocodone Bitart ([place] 7.5/325) 1 tab PO Q6H PRN PRN Reason: Pain Atenolol (Tenormin) 25 mg PO HS [facility] Last Admin: 03/02/17 20:20 Dose: 25 mg Atenolol (Tenormin) 50 mg PO QAM [facility] Last Admin: 03/03/17 09:11 Dose: 50 mg Baclofen (Lioresal) 5 mg PO Q6H PRN PRN Reason: Spasms Last Admin: 03/01/17 08:43 Dose: 5 mg Brimonidine Tartrate (Alphagan P 0.15% Eye Drops) 1 drop EACH EYE TID [facility] Last Admin: 03/03/17 10:17 Dose: 1 drop Enoxaparin Sodium (Lovenox) 40 mg SQ DAILY [facility] Stop: 03/04/17 23:59 Last Admin: 03/03/17 10:20 Dose: 40 mg Fluticasone Propionate (Flonase) 2 spray EA NOSTRIL DAILY [facility] Last Admin: 03/03/17 10:20 Dose: 2 spray Gabapentin (Neurontin) 300 mg PO HS [facility] Last Admin: 03/02/17 20:21 Dose: 300 mg Glimepiride (Amaryl) 4 mg PO WB [facility] Last Admin: 03/03/17 09:10 Dose: 4 mg Insulin Aspart (Novolog) 7 unit SQ WS [facility] Last Admin: 03/02/17 17:14 Dose: 7 unit Insulin Aspart (Novolog) 0 unit SQ SS PRN; Protocol PRN Reason: Hyperglycemia Last Admin: 03/02/17 20:47 Dose: 2 unit Insulin Aspart (Novolog) 3 unit SQ WB [facility] Last Admin: 03/03/17 09:09 Dose: 3 unit Insulin Glargine (Lantus) 17 unit SQ AMI [facility] Last Admin: 03/03/17 09:08 Dose: 17 unit Lidocaine (Lidoderm) 2 patch TOP DAILY [facility] Last Admin: 03/03/17 10:21 Dose: 2 patch Lidocaine HCl (Magic Mouthwash (Lido/Maalox/Carafate)) 5 ml PO Q4H PRN Lidocaine HCl/Dextrose (Lidoderm Patch Removal) 2 removal TOP 2100 [facility] Last Admin: 03/02/17 20:23 Dose: 2 removal Linagliptin (Tradjenta) 5 mg PO DAILY [facility] Last Admin: 03/03/17 09:12 Dose: 5 mg Magnesium Oxide (Magox) 800 mg PO BID [facility] Last Admin: 03/01/17 08:43 Dose: 800 mg Mirtazapine (Remeron) 7.5 mg PO HS [facility] Last Admin: 03/02/17 20:19 Dose: 7.5 mg Nystatin (Mycostatin) 5 ml PO QID [facility] Last Admin: 03/03/17 09:11 Dose: 5 ml Pantoprazole Sodium (Protonix Tab) 40 mg PO BID/E [facility] Last Admin: 03/03/17 06:04 Dose: 40 mg Prednisone (Deltasone) 10 mg PO WB [facility] Last Admin: 03/03/17 09:11 Dose: 10 mg Saliva Substitute (Biotene Dry Mouth Oral Rinse) 15 ml MM 5XD [facility] Last Admin: 03/03/17 10:19 Dose: Not Given Sodium Chloride (Iv Flush) 10 ml IV PRN PRN PRN Reason: Flushing Last Admin: 03/03/17 09:09 Dose: 10 ml Sodium Phosphate (K-Phos *Neutral* Tablet) 500 mg PO BIDWM [facility]RI[facility] Last Admin: 03/03/17 09:11 Dose: 500 mg <Lucille Landry - 03/03/17 13:44> Assessment and Plan - Assessment and Plan (1) Diabetes mellitus type 2, uncontrolled, without complications Problem details: Still uncontrolled. Current visit: No Status: Chronic (2) Hypomagnesemia Current visit: Yes Status: Acute (3) Oral candidiasis Current visit: Yes Status: Resolved (4) Diarrhea Current visit: Yes Status: Resolved (5) SVT (supraventricular tachycardia) Current visit: Yes Status: Acute <Kenny Agudelo - 03/07/17 12:48> (1) Hypomagnesemia Current visit: Yes Status: Acute Mag 1.7 today, Give 2gm IV, recheck in AM (2) Oral candidiasis Current visit: Yes Status: Resolved (3) Diarrhea Current visit: Yes Status: Resolved (4) Diabetes mellitus type 2, uncontrolled, without complications Problem details: Worse control despite poor oral intake. Current visit: No Status: Chronic (5) SVT (supraventricular tachycardia) Current visit: Yes Status: Acute Had AFib with aberrancy this am. Mag is 1.7 today, replace with 2 gms IV, recheck in AM <Lucille Landry - 03/06/17 13:10> - Attestation Attestation Narrative: 03/07/17 12:48 Recommendation After examining the patient I agree with the above assessment. I am involved in the formulation of the patient's plan of care. <Kenny Agudelo - 03/07/17 12:48> Hospital Course Summary Disclaimer: The visit summary below is not to be considered part of the above Progress Note. <Kenny Agudelo - 03/07/17 12:48> The visit summary below is not to be considered part of the above Progress Note. <Lucille Landry - 03/03/17 13:44> Hospital Course: 03/01/17 Repeat BMP and MG today - K has stabilized but Mg continues to run low. PAT this am - asymptomatic; recent NSTEMI. Check Troponin and re-consult Dr. Agudelo (he saw her while hospitalized on acute). Diarrhea - check stool for C. diff; recently treated with 3 days of aztreonam (-02/15). Nystatin for thrush - recommend extended course; this was just dc'd on 02/26/17. Labile blood sugars - up to 300 yesterday afternoon, but occasionally hypoglycemic. Hgb A1c was 10.8% on 02/13/17. Will increase supper insulin to 7U - of note, her daily prednisone was increased to 10 mg (up from 5) on 02/26/17 to try to achieve better pain control. The higher steroid dose undoubtedly is increasing her sugars and contributing to thrush. Allergic rhinitis - start Flonase. Do not recommend abx at this time. 03/01/17 Cardiology SVT: nonsustained. asymptomatic. Add atenolol 25mg at bedtime. Hypomagnesemia: Mag 1.3 today, replace with 4 gms Mag IV, repeat mag in am 03/02/17- [place]. Assessment Myopathy Oral Thrush Diabetes Hypertension Lupus Chronic back pain Hypomagnesium - resolved 03/02. Hypermagnesium - acute, 03/02. Plan Patient feels she is making good progress with therapy. Continue to encourage work with therapies to maximize functional ability and strength. Continue treatment plan and pain control per Dr. Loyd. C. diff was negative. Monitor closely for signs of constipation in light of narcotic pain control. Continue with PO nystatin for treatment of oral thrust. Magic mouth wash as needed for pain. Thrush improving. Serum magnesium was 1.6 on 03/01. Mg improved to 2.5 (hypermagnesemia) following 2g Magnesium IV on 03/01. Continue to hold Oral Mag-Ox 400 milligrams twice a day in light of hypermagnesemia and recent diarrhea. Will recheck mag in AM and continue to monitor periodically. Blood sugars remain liable ranging between 48 and 353. Continue to monitor blood sugars closely. Review of blood sugar checks reveals hypoglycemia episodes during morning hours with hyperglycemia in the afternoons and evenings. Lantus was increased to 15 units every morning on 03/01 in conjunction with Novolog 5 units in the AM and 7 units in the PM. Will continue with Lantus 15 units in AM. Decrease morning insulin to 3 units in light of hypoglycemia episodes. Continue with po Trajenta and Amaryl as well as Sliding scale NovoLog as needed. Dr. Dick has been consulted and is expected to see the patient upon his return from being out of town on 03/06/17. Continue Lidoderm patch and [place] for chronic back pain. Protonix for GI protection. Lovenox subcutaneous daily for DVT prophylaxis. Recheck CBC and BMP in AM to monitor blood counts, electrolytes and renal function. 03/02/17 No further dysrhythmias. Continue to monitor telemetry and electrolytes 03/03/17 17:39 Had AFib with aberrancy this am. Mag is 1.7 today, replace with 2 gms IV, recheck in AM <Lucille Landry - 03/03/17 17:39>
[2017-03-03] MEDS: INSULIN ASPART 100unit/ml INJECTION SQ PRN (14:42)
[2017-03-03] MEDS: HYDROCODONE/APAP 7.5 MG/325 MG TABLET PO PRN (14:47)
[2017-03-03] MEDS: MAGNESIUM SULFATE 1gm PREMIX 1 GM/100 ML BAG IV SCH ×2 (18:23→19:51)
[2017-03-03] MEDS: GABAPENTIN 300 MG CAPSULE PO SCH (21:12)
[2017-03-03] MEDS: ATENOLOL 25 MG TABLET PO SCH (21:12)
[2017-03-03] MEDS: MIRTAZAPINE 15 MG TABLET PO SCH (21:12)
[2017-03-03] MEDS: LIDOCAINE PATCH REMOVAL TOP SCH (21:14)
[2017-03-04] MEDS: PANTOPRAZOLE 40 MG TABLET PO SCH ×2 (06:05→21:24)
[2017-03-04] MEDS: HYDROCODONE/APAP 7.5 MG/325 MG TABLET PO SCH ×4 (06:05→21:23)
[2017-03-04] MEDS: HYDROCODONE/APAP 7.5 MG/325 MG TABLET PO PRN (09:04)
[2017-03-04] MEDS: LIDOCAINE 5% PATCH TOP SCH (09:05)
[2017-03-04] MEDS: ENOXAPARIN 40 MG/0.4 ML INJECTION SQ SCH (09:06)
[2017-03-04] MEDS: SALINE FLUSH 10ml SYRINGE IV PRN ×2 (09:06→21:34)
[2017-03-04] MEDS: INSULIN GLARGINE 100unit/ml INJECTION SQ SCH (09:18)
[2017-03-04] MEDS: INSULIN ASPART 100unit/ml INJECTION SQ SCH ×2 (09:19→17:56)
[2017-03-04] MEDS: ATENOLOL 50 MG TABLET PO SCH (09:20)
[2017-03-04] MEDS: PHOSPHORUS 250 MG TABLET PO SCH ×2 (09:20→17:56)
[2017-03-04] MEDS: BRIMONIDINE 0.15% EACH EYE SCH ×3 (09:21→21:24)
[2017-03-04] MEDS: EYE EACH EYE SCH ×3 (09:21→21:24)
[2017-03-04] MEDS: GLIMEPIRIDE 4 MG TABLET PO SCH (09:21)
[2017-03-04] MEDS: PredniSONE 10 MG TABLET PO SCH (09:21)
[2017-03-04] MEDS: NYSTATIN 500,000 units/5 ml ORAL LIQUID PO SCH ×4 (09:22→21:25)
[2017-03-04] MEDS: SALIVA SUBSTITUTE MOUTHWASH 237ml MM SCH ×5 (09:22→21:24)
[2017-03-04] MEDS: FLUTICASONE NASAL SPRAY 50mcg EA NOSTRIL SCH (09:23)
[2017-03-04] MEDS ORDERED: DEXTROSE 50% SYRINGE 50ml (1 AMP) IVP ONE (11:13)
--- NOTE | 2017-03-04 12:57 | Progress Note ---
Subjective: Fartun is seen today in follow up following notification from nursing staff reveling hypoglycemia. BGM at 1100 was low in the 40's. She was given PO intake as well as 1/2 amp of dextrose. Sugar trends reviewed. It appears patient is often hypoglycemic in the late morning following therapy. She states today she was symptomatic as she felt that her vision was "funny". Denies altered mentation, diaphoresis. Objective Vital signs: Temperature 98.1 F 03/04/17 07:28 Pulse Rate 78 03/04/17 07:28 Respiratory Rate 20 03/04/17 07:28 Blood Pressure 117/56 03/04/17 07:28 Pulse Oximetry 94 03/04/17 07:28 Height/Weight/BMI: Height 1.57 m Weight 61 kg Body Mass Index 25.6 - Constitutional Present: no acute distress, well nourished, well developed - Routine HEENT Exam Eye: Present: EOMI ENT: Present: mucous membranes moist, dentition normal - Routine Respiratory Exam Present: CTA bilaterally. Absent: wheezes - Routine Cardiovascular Exam Present: RRR, S1, S2. Absent: murmur - Routine Abdominal Exam Present: soft, normoactive bowel sounds, non distended. Absent: tenderness - Routine Extremities Exam Present: normal capillary refill - Routine Skin Exam Present: dry, warm - Routine Neurological Exam Present: alert, oriented X3, CN II-XII intact - Routine Lymphatic Exam Lymphatic: Absent: adenopathy - Routine Psychiatric Exam Present: normal affect Results - Labs CBC & Chem 7: 03/04/17 06:04 03/04/17 06:04 Assessment and Plan (1) Myopathy Current visit: Yes Status: Acute Assessment and Plan: Assessment Myopathy Oral Thrush Diabetes Hypertension Lupus Chronic back pain Hypomagnesium - resolved 03/02. Hypermagnesium - resolved Plan In light of acute hypoglycemia. We will change her morning time diabetes regimen. It appears that she is becoming hypoglycemic following morning therapy as she feels she does work moderately hard during that time. Will discontinue oxygen the and discontinue breakfast NovoLog. Continue with Amaryl, NovoLog with lunch and supper. Will monitor Accu-Cheks carefully. Dr. Dick is consulted and planning to see patient on Tuesday 03/06 Morning laboratory studies reviewed. Magnesium continues to be normal. Hemoglobin is stable at 9.6. Continue work with PT and OT for ongoing strengthening as patient did reside independently prior to acute hospitalization. Continue Lidoderm patch and [place] for chronic back pain. Protonix for GI protection. Lovenox subcutaneous daily for DVT prophylaxis. Treatment plan discussed with attending, Dr. Dennis [place] Hospital Course Summary Disclaimer: The visit summary below is not to be considered part of the above Progress Note. Hospital Course: 03/01/17 Repeat BMP and MG today - K has stabilized but Mg continues to run low. PAT this am - asymptomatic; recent NSTEMI. Check Troponin and re-consult Dr. Agudelo (he saw her while hospitalized on acute). Diarrhea - check stool for C. diff; recently treated with 3 days of aztreonam (-02/15). Nystatin for thrush - recommend extended course; this was just dc'd on 02/26/17. Labile blood sugars - up to 300 yesterday afternoon, but occasionally hypoglycemic. Hgb A1c was 10.8% on 02/13/17. Will increase supper insulin to 7U - of note, her daily prednisone was increased to 10 mg (up from 5) on 02/26/17 to try to achieve better pain control. The higher steroid dose undoubtedly is increasing her sugars and contributing to thrush. Allergic rhinitis - start Flonase. Do not recommend abx at this time. 03/01/17 Cardiology SVT: nonsustained. asymptomatic. Add atenolol 25mg at bedtime. Hypomagnesemia: Mag 1.3 today, replace with 4 gms Mag IV, repeat mag in am 03/02/17- [place]. Assessment Myopathy Oral Thrush Diabetes Hypertension Lupus Chronic back pain Hypomagnesium - resolved 03/02. Hypermagnesium - acute, 03/02. Plan Patient feels she is making good progress with therapy. Continue to encourage work with therapies to maximize functional ability and strength. Continue treatment plan and pain control per Dr. Loyd. C. diff was negative. Monitor closely for signs of constipation in light of narcotic pain control. Continue with PO nystatin for treatment of oral thrust. Magic mouth wash as needed for pain. Thrush improving. Serum magnesium was 1.6 on 03/01. Mg improved to 2.5 (hypermagnesemia) following 2g Magnesium IV on 03/01. Continue to hold Oral Mag-Ox 400 milligrams twice a day in light of hypermagnesemia and recent diarrhea. Will recheck mag in AM and continue to monitor periodically. Blood sugars remain liable ranging between 48 and 353. Continue to monitor blood sugars closely. Review of blood sugar checks reveals hypoglycemia episodes during morning hours with hyperglycemia in the afternoons and evenings. Lantus was increased to 15 units every morning on 03/01 in conjunction with Novolog 5 units in the AM and 7 units in the PM. Will continue with Lantus 15 units in AM. Decrease morning insulin to 3 units in light of hypoglycemia episodes. Continue with po Trajenta and Amaryl as well as Sliding scale NovoLog as needed. Dr. Dick has been consulted and is expected to see the patient upon his return from being out of town on 03/06/17. Continue Lidoderm patch and [place] for chronic back pain. Protonix for GI protection. Lovenox subcutaneous daily for DVT prophylaxis. Recheck CBC and BMP in AM to monitor blood counts, electrolytes and renal function. 03/02/17 No further dysrhythmias. Continue to monitor telemetry and electrolytes 03/03/17 17:39 Had AFib with aberrancy this am. Mag is 1.7 today, replace with 2 gms IV, recheck in AM 03/04-Plan In light of acute hypoglycemia. We will change her morning time diabetes regimen. It appears that she is becoming hypoglycemic following morning therapy as she feels she does work moderately hard during that time. Will discontinue oxygen the and discontinue breakfast NovoLog. Continue with Amaryl, NovoLog with lunch and supper. Will monitor Accu-Cheks carefully. Dr. Dick is consulted and planning to see patient on Tuesday 03/06 Morning laboratory studies reviewed. Magnesium continues to be normal. Hemoglobin is stable at 9.6. Continue work with PT and OT for ongoing strengthening as patient did reside independently prior to acute hospitalization. Continue Lidoderm patch and [place] for chronic back pain. Protonix for GI protection. Lovenox subcutaneous daily for DVT prophylaxis. Treatment plan discussed with attending, Dr. Dennis
[2017-03-04] MEDS: INSULIN ASPART 100unit/ml INJECTION SQ PRN ×2 (15:22→21:42)
[2017-03-04] MEDS: LIDOCAINE PATCH REMOVAL TOP SCH (21:25)
[2017-03-04] MEDS: GABAPENTIN 300 MG CAPSULE PO SCH (21:25)
[2017-03-04] MEDS: MIRTAZAPINE 15 MG TABLET PO SCH (21:25)
[2017-03-04] MEDS: ATENOLOL 25 MG TABLET PO SCH (21:26)
[2017-03-05] MEDS: PANTOPRAZOLE 40 MG TABLET PO SCH ×2 (05:32→21:12)
[2017-03-05] MEDS: HYDROCODONE/APAP 7.5 MG/325 MG TABLET PO SCH ×4 (05:32→21:13)
[2017-03-05] MEDS: INSULIN ASPART 100unit/ml INJECTION SQ PRN ×4 (05:43→21:15)
[2017-03-05] MEDS: SALIVA SUBSTITUTE MOUTHWASH 237ml MM SCH ×5 (10:19→21:13)
[2017-03-05] MEDS: BRIMONIDINE 0.15% EACH EYE SCH ×3 (10:20→21:12)
[2017-03-05] MEDS: FLUTICASONE NASAL SPRAY 50mcg EA NOSTRIL SCH (10:20)
[2017-03-05] MEDS: EYE EACH EYE SCH ×3 (10:20→21:12)
[2017-03-05] MEDS: PHOSPHORUS 250 MG TABLET PO SCH ×2 (10:21→17:57)
[2017-03-05] MEDS: PredniSONE 10 MG TABLET PO SCH (10:22)
[2017-03-05] MEDS: NYSTATIN 500,000 units/5 ml ORAL LIQUID PO SCH ×4 (10:22→21:12)
[2017-03-05] MEDS: GLIMEPIRIDE 4 MG TABLET PO SCH (10:22)
[2017-03-05] MEDS: ATENOLOL 50 MG TABLET PO SCH (10:22)
[2017-03-05] MEDS: LIDOCAINE 5% PATCH TOP SCH (10:23)
[2017-03-05] MEDS: INSULIN GLARGINE 100unit/ml INJECTION SQ SCH (10:26)
[2017-03-05] MEDS: SALINE FLUSH 10ml SYRINGE IV PRN ×2 (10:41→17:59)
[2017-03-05] MEDS ORDERED: FALL RISK - PHARMACY CONSULT XX ONE (13:14)
[2017-03-05] MEDS: INSULIN ASPART 100unit/ml INJECTION SQ SCH (17:51)
[2017-03-05] MEDS: LIDOCAINE PATCH REMOVAL TOP SCH (21:13)
[2017-03-05] MEDS: MIRTAZAPINE 15 MG TABLET PO SCH (21:13)
[2017-03-05] MEDS: GABAPENTIN 300 MG CAPSULE PO SCH (21:13)
[2017-03-05] MEDS: ATENOLOL 25 MG TABLET PO SCH (21:15)
[2017-03-06] MEDS: PANTOPRAZOLE 40 MG TABLET PO SCH ×2 (06:31→21:51)
[2017-03-06] MEDS: HYDROCODONE/APAP 7.5 MG/325 MG TABLET PO SCH ×4 (06:31→21:51)
[2017-03-06] MEDS: SALIVA SUBSTITUTE MOUTHWASH 237ml MM SCH ×4 (08:33→21:50)
[2017-03-06] MEDS: FLUTICASONE NASAL SPRAY 50mcg EA NOSTRIL SCH (08:35)
[2017-03-06] MEDS: INSULIN GLARGINE 100unit/ml INJECTION SQ SCH (08:35)
[2017-03-06] MEDS: EYE EACH EYE SCH ×3 (08:36→21:51)
[2017-03-06] MEDS: ATENOLOL 50 MG TABLET PO SCH (08:36)
[2017-03-06] MEDS: PredniSONE 10 MG TABLET PO SCH (08:36)
[2017-03-06] MEDS: LIDOCAINE 5% PATCH TOP SCH (08:36)
[2017-03-06] MEDS: BRIMONIDINE 0.15% EACH EYE SCH ×3 (08:36→21:51)
[2017-03-06] MEDS: GLIMEPIRIDE 4 MG TABLET PO SCH (08:36)
[2017-03-06] MEDS: NYSTATIN 500,000 units/5 ml ORAL LIQUID PO SCH ×4 (08:36→21:52)
--- NOTE | 2017-03-06 08:41 | Progress Note ---
Subjective: Fartun was getting ready for the day, working with PT. She states that she is very limited by pain, and is scheduled to have an epidural today. She realistically hopes that this will bring her pain down to a manageable level ( she does not expect it to completely resolve). Otherwise, she has no other acute complaints. She hasn't had any nausea for the last couple of days; oral intake has been fair. She denies any abdominal pain. No chest pain or SOA. BGM still labile - Dr. Dick has seen her today. Objective Vital signs: Temperature 98.7 F 03/06/17 08:00 Pulse Rate 108 H 03/06/17 08:00 Respiratory Rate 16 03/06/17 08:00 Blood Pressure 145/76 H 03/06/17 08:00 Pulse Oximetry 95 03/06/17 08:00 Rhythm: Normal Sinus Rhythm Height/Weight/BMI: Height 1.57 m Weight 61 kg Body Mass Index 25.6 - Constitutional Present: no acute distress, thin - Routine HEENT Exam Head: Present: normocephalic Eye: Absent: conjunctival icterus ENT: Present: mucous membranes moist, oropharynx clear (no thrush seen) - Routine Respiratory Exam Present: CTA bilaterally - Routine Cardiovascular Exam Present: RRR, S1, S2 - Routine Abdominal Exam Present: soft, normoactive bowel sounds, non distended, non tender - Routine Extremities Exam Present: no edema, pulses intact - Routine Skin Exam Present: intact, dry, pallor, warm - Routine Neurological Exam Present: alert, oriented X3, normal speech - Routine Psychiatric Exam Present: normal affect, normal thought process, cooperative Results - Labs CBC & Chem 7: 03/04/17 06:04 03/06/17 04:31 Assessment and Plan (1) Myopathy Current visit: Yes Status: Acute Resuscitation Status: Full Code Assessment and Plan: Assessment Myopathy Oral Thrush Diabetes Hypertension Lupus Chronic back pain Hypomagnesium - resolved 03/02. SVT, nonsustained - 03/01/17 - Dr. Agudelo started atenolol 25 mg HS A-fib with aberrancy - 03/03 (mg was low at that time) Recent NSTEMI Plan K was elevated at 6.0 on this am's lab (though specimen was grossly hemolyzed). KPhos was placed on hold per the telehospitalist. Repeat BMP ordered for 11. Repeat BMP, Mg, and Phos tomorrow morning. Resume MagOx - level dropped again to 1.5. Dr. Dick has evaluated her and is managing diabetic meds. He also started Forteo for osteoporosis treatment. Epidural scheduled for today. Decrease Prednisone back to her routine dose of [address] Agudelo added atenolol 25 mg HS for SVT. Continue Nystatin for thrush - started on 03/01/17 Hospital Course Summary Disclaimer: The visit summary below is not to be considered part of the above Progress Note. Hospital Course: 03/01/17 Repeat BMP and MG today - K has stabilized but Mg continues to run low. PAT this am - asymptomatic; recent NSTEMI. Check Troponin and re-consult Dr. Agudelo (he saw her while hospitalized on acute). Diarrhea - check stool for C. diff; recently treated with 3 days of aztreonam (-02/15). Nystatin for thrush - recommend extended course; this was just dc'd on 02/26/17. Labile blood sugars - up to 300 yesterday afternoon, but occasionally hypoglycemic. Hgb A1c was 10.8% on 02/13/17. Will increase supper insulin to 7U - of note, her daily prednisone was increased to 10 mg (up from 5) on 02/26/17 to try to achieve better pain control. The higher steroid dose undoubtedly is increasing her sugars and contributing to thrush. Allergic rhinitis - start Flonase. Do not recommend abx at this time. 03/01/17 Cardiology SVT: nonsustained. asymptomatic. Add atenolol 25mg at bedtime. Hypomagnesemia: Mag 1.3 today, replace with 4 gms Mag IV, repeat mag in am 03/02/17 Patient feels she is making good progress with therapy. Continue to encourage work with therapies to maximize functional ability and strength. Continue treatment plan and pain control per Dr. Loyd. C. diff was negative. Monitor closely for signs of constipation in light of narcotic pain control. Continue with PO nystatin for treatment of oral thrust. Magic mouth wash as needed for pain. Thrush improving. Serum magnesium was 1.6 on 03/01. Mg improved to 2.5 (hypermagnesemia) following 2g Magnesium IV on 03/01. Continue to hold Oral Mag-Ox 400 milligrams twice a day in light of hypermagnesemia and recent diarrhea. Will recheck mag in AM and continue to monitor periodically. Blood sugars remain liable ranging between 48 and 353. Continue to monitor blood sugars closely. Review of blood sugar checks reveals hypoglycemia episodes during morning hours with hyperglycemia in the afternoons and evenings. Lantus was increased to 15 units every morning on 03/01 in conjunction with Novolog 5 units in the AM and 7 units in the PM. Will continue with Lantus 15 units in AM. Decrease morning insulin to 3 units in light of hypoglycemia episodes. Continue with po Trajenta and Amaryl as well as Sliding scale NovoLog as needed. Dr. Dick has been consulted and is expected to see the patient upon his return from being out of town on 03/06/17. Continue Lidoderm patch and [place] for chronic back pain. 03/02/17 No further dysrhythmias. Continue to monitor telemetry and electrolytes 03/03/17 Had AFib with aberrancy this am. Mag is 1.7 today, replace with 2 gms IV, recheck in AM 03/06/17 K was elevated at 6.0 on this am's lab (though specimen was grossly hemolyzed). KPhos was placed on hold per the telehospitalist. Repeat BMP ordered for 11. Repeat BMP, Mg, and Phos tomorrow morning. Resume MagOx - level dropped again to 1.5. Dr. Dick has evaluated her and is managing diabetic meds. He also started Forteo for osteoporosis treatment. Epidural scheduled for today. Decrease Prednisone back to her routine dose of [address] Agudelo added atenolol 25 mg HS for SVT. Continue Nystatin for thrush - started on 03/01/17
[2017-03-06] MEDS ORDERED: INSULIN ASPART 100unit/ml INJECTION SQ SCH (08:43)
--- NOTE | 2017-03-06 09:49 | Consultation ---
DATE OF CONSULT 03/06/2017 REASON FOR CONSULTATION Diabetes and osteoporosis. HISTORY OF PRESENT ILLNESS Mrs. Holloway was originally admitted to CCU on 02/13/2017 with diabetic ketoacidosis and encephalopathy. She also had a [id number] ME which was followed by Dr. Agudelo. The DKA resolved quickly, but she was seen to need insulin added to her oral agents that she had previously been taking at home with poor control. Her hemoglobin A1c was 10.4% and she admitted that she ran blood sugars in the 100s in the mornings but usually in the 300s in the evenings. On 02/22/2017, she was transferred to the IRU on her oral agents and basal insulin. Postprandial blood sugars were seen to be elevated so prandial insulin was added. However, she did have some episodes of hypoglycemia in the late morning after her physical therapy sessions so the breakfast insulin has been discontinued. She is currently taking glimepiride 4 mg q.a.m., 7 units of NovoLog with supper and 17 units of Lantus q.a.m. She has also been started on prednisone 10 mg q.a.m. to help with back pain. In evaluation of her back pain , she was found to have a compression fracture of L1 that was new since a prior study in 2014 but did not look acute at this time. Dr. Guzman saw her in consultation and suggested calcitonin to help with the back pain and the use of Forteo or Reclast for longer term treatment of the osteoporosis. PAST MEDICAL HISTORY Type 2 diabetes mellitus, uncontrolled. Hypertension. Chronic kidney disease. Diabetic peripheral neuropathy. Cervical radiculopathy. Chronic low back pain. Compression fracture of L1. Chronic pain of left knee. Diverticulitis. Cataracts. Gastroesophageal reflux disease. SLE. Shingles. SURGICAL HISTORY Cataract excision. Tubal ligation. Right ankle pinning. Left knee surgery. Dental extractions. FAMILY HISTORY Remarkable for prostate cancer and breast cancer. SOCIAL HISTORY The patient does not smoke tobacco nor drink alcohol. ALLERGIES Multiple (see EMR). REVIEW OF SYSTEMS Otherwise noncontributory. PHYSICAL EXAMINATION VITAL SIGNS: Afebrile. Blood pressure 145/76. Pulse 108. Respirations 16. GENERAL: Well-developed, well-nourished female, alert and oriented. She is sitting up eating breakfast. HEENT: Unremarkable. NECK: Without thyromegaly. LUNGS: Clear. HEART: Regular rate and rhythm. ABDOMEN: Normal bowel sounds. EXTREMITIES: Without edema. Glucometer readings for the past 24 hours were 287, 185, 341, and 101 fasting this morning. ASSESSMENT 1. Type 2 diabetes mellitus, uncontrolled. She needs a larger dose of suppertime insulin but we should probably leave her off morning insulin to ensure that she does not become hypoglycemic after physical therapy sessions. 2. Long-term chronic insulin. She will likely need to stay on insulin after dismissal home to keep her diabetes better controlled. 3. L1 compression fracture, causing significant pain. 4. Osteoporosis. Since she has already had a fracture she should be treated aggressively with anti-resorptive medication. We can start her on Forteo and try to get this approved for outpatient use with a prior authorization from Medicare. We should also check her vitamin D level. RECOMMENDATIONS Increase supper insulin to try to achieve blood sugar after supper in the low one 100s. Check 25 hydroxy vitamin D level. Start Forteo daily and file a prior authorization form. Thank you very much for asking me to assist in caring for this nice woman again. I will follow her along with you while she remains in rehab. ASHLEY
--- NOTE | 2017-03-06 10:15 | IRU Progress Note ---
- Subjective/Serverity of Illness Fartun was evaluated in her room. She continues to complain of severe pain in the right hip and leg. Hurts to sit and hurts to walk. Despite this she states that she can get out of bed by herself. However therapy notes would indicate otherwise. Main barrier to discharge is her pain in the right hip area. Has been seen by Dr. Guzman which we appreciate. In addition, her blood sugars remain variable. She has had some hypoglycemic spells down into the 40s. Has been seen in consultation by Dr. Dick and insulin has been adjusted with increase in suppertime insulin. Morning insulin has been reduced. She denies any chest pain or shortness of breath. We talked about doing an epidural steroid. Aspirin has been held for about a week and Lovenox was held over the last 36 hours. An order has been placed for epidural steroid into the lumbar area. 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 She remains quite variable. She tends to dictate what therapists can do. She is making some progress but pain is a significant limitation. 2. Diabetes mellitus type 2, newly on insulin and not well controlled. Has had some hypoglycemic episodes. Dr. Dick has seen her and has adjusted her insulin. We will continue to monitor carefully. 3. Recent non-ST segment elevated myocardial infarction: Appears to be fairly stable at this point. She denies any chest pain or shortness of breath. 4. Hypomagnesemia: She is on supplemental magnesium. Despite this her magnesium remains a bit low at 1.5. There is likely variable absorption. 5. Evidence of protein calorie malnutrition with reduced appetite and hypoalbuminemia. She continues on supplements. She is taking mighty shakes. 6. Dysphagia: Continues to be followed by speech therapy. 7. Anemia: Her hemoglobin is 9.2. Appears to have anemia of chronic disease. Blood count is stable. 8. Right buttock pain: Etiology remains obscure. MRI of lumbar spine was not terribly remarkable. Have discussed with radiology. We are requesting a lumbar epidural steroid today on the right. 9. Hyperkalemia: Potassium today is 6.0. We will repeat the BMP for comparison. No definite evidence of hemolysis. I reviewed her medications and she is not on any potassium supplements nor MATTY inhibitor's at present. Exam Vital Signs: Temperature 98.7 F 03/06/17 08:00 Pulse Rate 86 03/06/17 08:00 Respiratory Rate 16 03/06/17 08:00 Blood Pressure 145/76 H 03/06/17 08:00 Pulse Oximetry 95 03/06/17 08:00 Height/Weight/BMI: Height 1.57 m Weight 61 kg Body Mass Index 25.6 Comments: The patient is awake, alert and oriented and in no acute distress. However, patient does complain of pain when she moves, sits or ambulates. Pupils are equal. The neck is supple. Chest: Clear to auscultation bilaterally. Cor: RR with no gallop, click nor murmur Abd: soft with normo-active bowel sounds. There are no masses, no tenderness and no guarding. Extremities: No edema is noted. There are good pulses in both ankles. No cyanosis is present. Results IRU - Labs Labs: I reviewed other progress notes and consultation. Also reviewed lab with potassium of 6.0. IRU A/P (1) Myopathy Current visit: Yes Status: Acute Continues to have muscle weakness. She is variable with therapies but making little progress. Pain is a major limitation. (2) Diabetes mellitus type 2, uncontrolled, without complications Qualifiers: Diabetes mellitus supervisor intermediates insulin use: without supervisor intermediates use Qualified Code(s): E11.65 - Type 2 diabetes mellitus with hyperglycemia Problem details: Worse control despite poor oral intake. Current visit: No Status: Chronic Blood sugars remain variable. She has had some hypoglycemic episodes. Insulin has been adjusted. She is on prednisone for the back pain. (3) Diabetic peripheral neuropathy associated with type 2 diabetes mellitus Problem details: Better. Current visit: No Status: Chronic (4) Hip pain, right Current visit: No Status: Acute Continues with significant pain in the right hip. Etiology not totally clear. Appreciate Dr. Guzman's input. We will try an epidural steroid today. If not improved we'll try other options. (5) Hypomagnesemia Current visit: Yes Status: Acute Magnesium remains a bit low despite supplementation. She is 1.5 at the present time. (6) Anemia Qualifiers: Anemia type: other cause Other causes of anemia: chronic disease, other Qualified Code(s): D63.8 - Anemia in other chronic diseases classified elsewhere Current visit: Yes Status: Acute (7) Protein-calorie malnutrition, moderate Current visit: Yes Status: Acute (8) Oral candidiasis Current visit: Yes Status: Resolved (9) Diarrhea Qualifiers: Diarrhea type: unspecified type Qualified Code(s): R19.7 - Diarrhea, unspecified Current visit: Yes Status: Resolved (10) Hyperkalemia Current visit: Yes Status: Acute Potassium today is 6.0. We will repeat that. She is not on any potassium supplementation nor MATTY inhibitor's. DVT Prophylaxis: SCD's, Lovenox Resuscitation Status: Full Code - Course Hospital Course: Mega Loyd MD: 02/24/17 10:19 Patient is cooperative with therapy. Still requires maximal assistance for transfers etc. Patient is noted to be malnourished on the basis of low. Albumin. Dietitian consulted. Has a bit worsening anemia at 9.9. Iron studies and occult blood will be assessed. Her blood sugars remain quite variable. 02/27/17 10:06 Progress is slow. She is cooperative with therapy. Continues to ambulate short distances. She is improving with regard to transfers. Magnesium remains a bit low but she is on supplement. Blood sugars remain reasonable at around 200. She is on oral agent plus basal plus mealtime. 02/28/17 10:32 Her therapy is hindered due to severe pain in the low back and right hip. We will consider local modalities. I have contacted radiology to see if an epidural might be appropriate. Several blood tests ordered per recommendation of dietitian. 03/01/17 10:58 New medical problems have developed in terms of PAT this morning, oral candidiasis, diarrhea. In addition, she continues to run blood sugars that are a bit too high after having a hypoglycemic episode yesterday. Continues to have pain in the right hip area. I have consulted Dr. Guzman in this regard. 03/03/17 08:32 Continues to complain of pain in the right hip area. Appreciate Dr. Guzman's input. Planning for epidural on Monday. Last Lovenox dose on Monday. If epidural is not helpful, consider nuclear medicine bone scan. She is more consistent with transfers. However continues in general to be variable with regard to therapies. 03/06/17 10:20 Lovenox has been held for over 36 hours. We are requesting epidural steroid in the lumbar spine right side today. Potassium is 6.0. She is on no potassium supplementation. We will check a repeat BMP. Pain continues to be the limiting factor. Her blood sugars are variable and she has been seen by Dr. Dick with changes in insulin regimen. Participation in therapy is variable. - Interventions to Obtain Goals PT Treatment Plan: Balance/Proprioception, Functional Activities, Manual Therapy , Patient/Family Education, Ultrasound OT Treatment Plan: ADL (Basic Care), Balance Training, Joint Mobilization, Pt./ Family Education, Ther. Exercise for ADL Goals Progress/Modifications: Epidural steroid will be given today. If that has not helped her pain we'll try other modalities. In addition, she will need to increase participation in therapy. Her blood sugars are variable and we will continue to monitor these. Her potassium is elevated today and this will be repeated. Time spent with patient and on floor reviewing data and documentin minutes Barriers to dismissal: Pain in right hip and leg, participation Medical decision-making: Hyperkalemia is being addressed. Sugars are variable and she has had some hypoglycemic episodes. Her back pain and right hip pain continues to be barriers to progress. I have reviewed with radiology and they are willing to do an epidural steroid.
[2017-03-06] MEDS: INSULIN ASPART 100unit/ml INJECTION SQ PRN ×3 (10:40→21:57)
[2017-03-06] MEDS: TERIPARATIDE 600 MCG SQ SCH (10:40)
--- NOTE | 2017-03-06 11:13 | Progress Note ---
Progress Note: Please see prior progress note. The patient's repeat potassium is 4.3. There is no 6.0 potassium must have been an artifact.
[2017-03-06] MEDS ORDERED: ERGOCALCIFEROL 50,000 UNIT CAPSULE PO SCH (13:15)
--- NOTE | 2017-03-06 13:20 | Cardiology Progress Note ---
Subjective Principal diagnosis: SVT <Lucille Landry - 03/06/17 13:21> Interval history: Fartun is seen in follow up for non sustained SVT and low magnesium. She denies chest pain or pressure, denies palpitations. <Lucille Landry - 03/06/17 13:21> Exam Vital signs: Temperature 98.4 F 03/07/17 08:49 Pulse Rate 88 03/07/17 08:49 Respiratory Rate 18 03/07/17 08:49 Blood Pressure 119/62 03/07/17 08:49 Pulse Oximetry 96 03/07/17 08:49 <Kenny Agudelo - 03/07/17 12:59> Temperature 98.7 F 03/06/17 08:00 Pulse Rate 86 03/06/17 08:00 Respiratory Rate 16 03/06/17 08:00 Blood Pressure 145/76 H 03/06/17 08:00 Pulse Oximetry 95 03/06/17 08:00 <Lucille Landry 03/06/17 13:21> - Constitutional no acute distress, cooperative <Lucille Landry 03/06/17 13:21> - Routine HEENT Exam Head: Present: normocephalic <Lucille Landry 03/06/17 13:21> ENT: Present: mucous membranes moist <Lucille Landry 03/06/17 13:21> - Routine Neck Exam Absent: JVD, carotid bruit <Lucille Landry 03/06/17 13:21> - Routine Chest/Breast/Axilla Exam Chest wall: Absent: tenderness <Lucille Landry 03/06/17 13:21> - Routine Respiratory Exam Present: CTA bilaterally. Absent: rales, wheezes <Lucille Landry 03/06/17 13:21> - Routine Cardiovascular Exam Present: RRR, no murmur. Absent: JVD <Lucille Landry 03/06/17 13:21> - Routine Abdominal Exam Present: soft, normoactive bowel sounds <Lucille Landry 03/06/17 13:21> - Routine Skin Exam Present: intact, dry, warm <Lucille Landry 03/06/17 13:21> - Routine Neurological Exam Present: alert, oriented X3 <Lucille Landry - 03/06/17 13:21> - Routine Psychiatric Exam Present: normal affect, normal thought process <Lucille Landry - 03/06/17 13: 21> - Additional findings Additional findings: Laboratory Results - last 24 hr 03/05/17 03/05/17 03/06/17 14:09 20:18 04:31 Turbidity < 20 Sodium 145 H D Potassium 6.0 H D Chloride 107 Carbon Dioxide 25 Anion Gap 13 BUN 20.0 H Creatinine 0.7 GFR Calculation 81 BUN/Creatinine Ratio 29 H Glucose 101 Glucometer 185 341 Calculated Osmolality 282 H Calcium 9.0 Magnesium 1.5 L D Icterus Index < 2 Specimen Hemolysis 103 H 03/06/17 03/06/17 10:13 10:16 Turbidity < 20 Sodium 140 Potassium 4.3 D Chloride 102 Carbon Dioxide 24 Anion Gap 14 BUN 21.0 H Creatinine 0.8 GFR Calculation 70 BUN/Creatinine Ratio 26 Glucose 177 H Glucometer 228 Calculated Osmolality 276 Calcium 8.8 Magnesium Icterus Index < 2 Specimen Hemolysis < 15 Acetaminophen (Tylenol) 650 mg PO QID PRN PRN Reason: Discomfort Last Admin: 02/24/17 04:28 Dose: 650 mg Acetaminophen/Hydrocodone Bitart (Tucker 7.5/325) 1 tab PO ACHS [facility] Last Admin: 03/06/17 11:29 Dose: 1 tab Acetaminophen/Hydrocodone Bitart (Tucker 7.5/325) 1 tab PO Q6H PRN PRN Reason: Pain Last Admin: 03/04/17 09:04 Dose: 1 tab Ascorbic Acid (Vitamin C) 500 mg PO DAILY [facility] Atenolol (Tenormin) 25 mg PO HS [facility] Last Admin: 03/05/17 21:15 Dose: 25 mg Atenolol (Tenormin) 50 mg PO QAM [facility] Last Admin: 03/06/17 08:36 Dose: 50 mg Baclofen (Lioresal) 5 mg PO Q6H PRN PRN Reason: Muscle Spasms / PAIN Last Admin: 03/01/17 08:43 Dose: 5 mg Brimonidine Tartrate (Alphagan P 0.15% Eye Drops) 1 drop EACH EYE TID [facility] Last Admin: 03/06/17 08:36 Dose: 1 drop Ergocalciferol (Vitamin D-2) 50,000 unit PO Q7D [facility] Fluticasone Propionate (Flonase) 2 spray EA NOSTRIL DAILY [facility] Last Admin: 03/06/17 08:35 Dose: 2 spray Gabapentin (Neurontin) 300 mg PO HS [facility] Last Admin: 03/05/17 21:13 Dose: 300 mg Glimepiride (Amaryl) 4 mg PO WB [facility] Last Admin: 03/06/17 08:36 Dose: 4 mg Magnesium Sulfate/Dextrose (Mag Sulf 1gm Premix) 1 gm in 100 mls @ 100 mls/hr IV Q1H [facility] Stop: 03/06/17 15:08 Insulin Aspart (Novolog) 0 unit SQ SS PRN; Protocol PRN Reason: Hyperglycemia Last Admin: 03/06/17 10:40 Dose: 2 unit Insulin Aspart (Novolog) 8 unit SQ WS [facility] Insulin Glargine (Lantus) 17 unit SQ AMI [facility] Last Admin: 03/06/17 08:35 Dose: 17 unit Lidocaine (Lidoderm) 2 patch TOP DAILY [facility] Last Admin: 03/06/17 08:36 Dose: 2 patch Lidocaine HCl (Magic Mouthwash (Lido/Maalox/Carafate)) 5 ml PO Q4H PRN Last Admin: 03/03/17 16:10 Dose: 5 ml Lidocaine HCl/Dextrose (Lidoderm Patch Removal) 2 removal TOP 2100 [facility] Last Admin: 03/05/17 21:13 Dose: 2 removal Magnesium Oxide (Magox) 800 mg PO BID [facility] Last Admin: 03/01/17 08:43 Dose: 800 mg Mirtazapine (Remeron) 7.5 mg PO HS [facility] Last Admin: 03/05/17 21:13 Dose: 7.5 mg Nystatin (Mycostatin) 5 ml PO QID [facility] Last Admin: 03/06/17 08:36 Dose: 5 ml Pantoprazole Sodium (Protonix Tab) 40 mg PO BID/E [facility] Last Admin: 03/06/17 06:31 Dose: 40 mg Prednisone (Deltasone) 5 mg PO WB [facility] Pyridoxine HCl (Vitamin B-6) 100 mg PO DAILY [facility] Saliva Substitute (Biotene Dry Mouth Oral Rinse) 15 ml MM 5XD [facility] Last Admin: 03/06/17 11:26 Dose: 15 ml Sodium Chloride (Iv Flush) 10 ml IV PRN PRN PRN Reason: Flushing Last Admin: 03/05/17 17:59 Dose: 10 ml Teriparatide Acetate (Forteo) 20 mcg SQ DAILY [facility] Last Admin: 03/06/17 10:40 Dose: 20 mcg <Lucille Landry - 03/06/17 13:21> Assessment and Plan - Assessment and Plan (1) Diabetes mellitus type 2, uncontrolled, without complications Problem details: Still uncontrolled. Current visit: No Status: Chronic (2) Hypomagnesemia Current visit: Yes Status: Acute (3) Oral candidiasis Current visit: Yes Status: Resolved (4) Diarrhea Current visit: Yes Status: Resolved (5) SVT (supraventricular tachycardia) Current visit: Yes Status: Acute <Kenny Agudelo - 03/07/17 12:59> (1) Hypomagnesemia Current visit: Yes Status: Acute Mag 1.5 today. Replace Mag with 2gm IV (2) Oral candidiasis Current visit: Yes Status: Resolved (3) Diarrhea Current visit: Yes Status: Resolved (4) Diabetes mellitus type 2, uncontrolled, without complications Problem details: Still uncontrolled. Current visit: No Status: Chronic (5) SVT (supraventricular tachycardia) Current visit: Yes Status: Acute No further dysrhythmia on telemetry, will continue to monitor <Lucille Landry - 03/07/17 11:28> - Attestation Attestation Narrative: 03/07/17 12:59 Recommendation After examining the patient I agree with the above assessment. I am involved in the formulation of the patient's plan of care. <Kenny Agudelo - 03/07/17 12:59> Hospital Course Summary Disclaimer: The visit summary below is not to be considered part of the above Progress Note. <Kenny Agudelo - 03/07/17 12:59> The visit summary below is not to be considered part of the above Progress Note. <Lucille Landry - 03/06/17 13:21> Hospital Course: 03/01/17 Repeat BMP and MG today - K has stabilized but Mg continues to run low. PAT this am - asymptomatic; recent NSTEMI. Check Troponin and re-consult Dr. Aguedlo (he saw her while hospitalized on acute). Diarrhea - check stool for C. diff; recently treated with 3 days of aztreonam (-02/15). Nystatin for thrush - recommend extended course; this was just dc'd on 02/26/17. Labile blood sugars - up to 300 yesterday afternoon, but occasionally hypoglycemic. Hgb A1c was 10.8% on 02/13/17. Will increase supper insulin to 7U - of note, her daily prednisone was increased to 10 mg (up from 5) on 02/26/17 to try to achieve better pain control. The higher steroid dose undoubtedly is increasing her sugars and contributing to thrush. Allergic rhinitis - start Flonase. Do not recommend abx at this time. 03/01/17 Cardiology SVT: nonsustained. asymptomatic. Add atenolol 25mg at bedtime. Hypomagnesemia: Mag 1.3 today, replace with 4 gms Mag IV, repeat mag in am 03/02/17- [place]. Assessment Myopathy Oral Thrush Diabetes Hypertension Lupus Chronic back pain Hypomagnesium - resolved 03/02. Hypermagnesium - acute, 03/02. Plan Patient feels she is making good progress with therapy. Continue to encourage work with therapies to maximize functional ability and strength. Continue treatment plan and pain control per Dr. Loyd. C. diff was negative. Monitor closely for signs of constipation in light of narcotic pain control. Continue with PO nystatin for treatment of oral thrust. Magic mouth wash as needed for pain. Thrush improving. Serum magnesium was 1.6 on 03/01. Mg improved to 2.5 (hypermagnesemia) following 2g Magnesium IV on 03/01. Continue to hold Oral Mag-Ox 400 milligrams twice a day in light of hypermagnesemia and recent diarrhea. Will recheck mag in AM and continue to monitor periodically. Blood sugars remain liable ranging between 48 and 353. Continue to monitor blood sugars closely. Review of blood sugar checks reveals hypoglycemia episodes during morning hours with hyperglycemia in the afternoons and evenings. Lantus was increased to 15 units every morning on 03/01 in conjunction with Novolog 5 units in the AM and 7 units in the PM. Will continue with Lantus 15 units in AM. Decrease morning insulin to 3 units in light of hypoglycemia episodes. Continue with po Trajenta and Amaryl as well as Sliding scale NovoLog as needed. Dr. Dick has been consulted and is expected to see the patient upon his return from being out of town on 03/06/17. Continue Lidoderm patch and Tucker for chronic back pain. Protonix for GI protection. Lovenox subcutaneous daily for DVT prophylaxis. Recheck CBC and BMP in AM to monitor blood counts, electrolytes and renal function. 03/02/17 No further dysrhythmias. Continue to monitor telemetry and electrolytes 03/03/17 17:39 Had AFib with aberrancy this am. Mag is 1.7 today, replace with 2 gms IV, recheck in AM 03/06/17 No further dysrhythmia on telemetry, will continue to monitor Mag 1.5 today. Replace Mag with 2gm IV <Lucille Landry - 03/07/17 11:29>
[2017-03-06] MEDS: MAGNESIUM SULFATE 1gm PREMIX 1 GM/100 ML BAG IV SCH ×2 (13:35→15:03)
[2017-03-06] MEDS ORDERED: NS FLUSH BAG 500ml IV PRN (13:37)
[2017-03-06] MEDS ORDERED: METHYLPREDNISOLONE ONE (14:08)
[2017-03-06] MEDS ORDERED: LIDOCAINE 1% (10mg/ml) 5ml PF SDV ONE (14:09)
--- NOTE | 2017-03-06 16:41 | Fluoroscopy Report ---
Indication:right sided sciatica/low back pain Procedure:FL epidural inj. spine w fl/ca LUMBAR EPIDURAL INJECTION: The patient has low back and radicular pain. The patient has not had any previous epidurals. The details of the procedure, including the benefits, risks, and alternatives were explained to the patient. All of their questions were answered. They stated that they understood and wished to proceed. Informed consent was then obtained. A pre-procedural timeout was performed to confirm the correct patient and procedure. Utilizing aseptic technique, local lidocaine anesthetic, and fluoroscopic guidance throughout, a 22-gauge spinal needle was directed into the lumbar epidural space via an interlaminar approach at the L5-S1 level. Less than 1 cc of air contrast was injected to assure proper positioning of the needle tip. Due to the patient's suspected iodinated contrast allergy, no iodinated contrast was used during this procedure. A fluoroscopic image was then taken and archived. Subsequently, 120 mg Depo-Medrol was injected into the epidural space. The patient tolerated the procedure well. IMPRESSION: Successful lumbar epidural steroid injection. Fluoroscopy dose: 12.49 mGy (Cumulative air kerma) Silver Beal RPA/DYLAN performed this under my personal supervision. .
[2017-03-06] MEDS: LIDOCAINE PATCH REMOVAL TOP SCH (21:51)
[2017-03-06] MEDS: MIRTAZAPINE 15 MG TABLET PO SCH (21:52)
[2017-03-06] MEDS: MAGNESIUM OXIDE 400 MG TABLET PO SCH (21:52)
[2017-03-06] MEDS: GABAPENTIN 300 MG CAPSULE PO SCH (21:52)
[2017-03-06] MEDS: ATENOLOL 25 MG TABLET PO SCH (21:53)
[2017-03-07] MEDS: PANTOPRAZOLE 40 MG TABLET PO SCH ×2 (05:40→21:08)
[2017-03-07] MEDS: HYDROCODONE/APAP 7.5 MG/325 MG TABLET PO SCH ×4 (05:40→21:08)
[2017-03-07] MEDS: INSULIN ASPART 100unit/ml INJECTION SQ PRN ×3 (07:25→15:21)
[2017-03-07] MEDS ORDERED: INSULIN ASPART 100unit/ml INJECTION SQ SCH ×2 (07:35→11:30)
--- NOTE | 2017-03-07 07:58 | Endocrinology Progress Note ---
Subjective Principal diagnosis: Type 2 diabetes mellitus Interval history: Hip pain unchanged. Did receive epidural yesterday. Sugars running very high. Eating better. Denies back pain. Exam Vital signs: Temperature 98.1 F 03/06/17 19:53 Pulse Rate 78 03/07/17 00:00 Respiratory Rate 20 03/06/17 19:53 Blood Pressure 105/57 03/06/17 19:53 Pulse Oximetry 94 03/06/17 19:53 - Constitutional no acute distress, well nourished, well developed - Routine HEENT Exam Head: Present: normocephalic, atraumatic Eye: Present: EOMI ENT: Present: mucous membranes moist - Routine Neck Exam Absent: lymphadenopathy, thyromegaly - Routine Respiratory Exam Absent: rales, rhonchi - Routine Cardiovascular Exam Present: RRR - Routine Abdominal Exam Present: soft, normoactive bowel sounds. Absent: tenderness - Routine Extremities Exam Absent: cyanosis, edema - Routine Neurological Exam Present: alert, oriented X3, moving all extremities - Routine Psychiatric Exam Present: normal affect, normal thought process - Additional findings Additional findings: Laboratory Tests 02/28/17 03/06/17 03/06/17 11:14 10:16 13:54 Glucometer 228 364 25-OH Vitamin D Total 35 03/06/17 03/07/17 19:50 06:02 Glucometer 281 255 25-OH Vitamin D Total Assessment and Plan (1) Osteoporosis Current visit: Yes Status: Chronic Started on Forteo yesterday. PA has been sent in for Medicare approval of drug as outpatient. (2) Diabetes mellitus type 2, uncontrolled, without complications Problem details: Still uncontrolled. Current visit: No Status: Chronic Uncontrolled diabetes. Will increase basal insulin, supper insulin, and start lunch insulin today.
[2017-03-07] MEDS: INSULIN GLARGINE 100unit/ml INJECTION SQ SCH (08:55)
[2017-03-07] MEDS: SALIVA SUBSTITUTE MOUTHWASH 237ml MM SCH ×5 (08:55→21:07)
[2017-03-07] MEDS: EYE EACH EYE SCH ×3 (08:56→21:08)
[2017-03-07] MEDS: BRIMONIDINE 0.15% EACH EYE SCH ×3 (08:56→21:08)
[2017-03-07] MEDS: FLUTICASONE NASAL SPRAY 50mcg EA NOSTRIL SCH (08:56)
[2017-03-07] MEDS: PredniSONE 5 MG TABLET PO SCH (08:56)
[2017-03-07] MEDS: GLIMEPIRIDE 4 MG TABLET PO SCH (08:56)
[2017-03-07] MEDS: LIDOCAINE 5% PATCH TOP SCH (08:58)
[2017-03-07] MEDS: PYRIDOXINE 100mg TABLET PO SCH (08:59)
[2017-03-07] MEDS: ASCORBIC ACID 500 MG TABLET PO SCH (08:59)
[2017-03-07] MEDS: ATENOLOL 50 MG TABLET PO SCH (08:59)
[2017-03-07] MEDS: NYSTATIN 500,000 units/5 ml ORAL LIQUID PO SCH ×4 (08:59→21:09)
[2017-03-07] MEDS: TERIPARATIDE 600 MCG SQ SCH (09:01)
[2017-03-07] MEDS: MAGNESIUM OXIDE 400 MG TABLET PO SCH ×2 (09:20→21:09)
--- NOTE | 2017-03-07 09:40 | IRU Progress Note ---
- Subjective/Serverity of Illness Fartun was evaluated in her room today. She underwent epidural steroid injection in the lumbar spine yesterday by radiology. She says that thus far there is no benefit. Still has tenderness to palpate in the right posterior hip area. Also hurts to walk and hurts to sit on the right hip. Has been seen by Dr. Dick with regard to her diabetes. Blood sugars are running a bit too high. He has increased basal insulin and at about noontime insulin. No hypoglycemic episodes have been noted. She denies any diarrhea at present. Denies any shortness of breath or chest pain. 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 Continues to work with physical therapy and occupational therapy. Team meeting this We will decide further interventions etc. 2. Diabetes mellitus type 2, newly on insulin and not well controlled. Dr. Dick has seen. I discussed with him this morning. Insulin has been adjusted with more nasal insulin and adding on at noontime insulin. 3. Recent non-ST segment elevated myocardial infarction: Was seen by cardiology. She is stable in this regard. 4. Hypomagnesemia: She is on supplemental magnesium. Continue to monitor. Low magnesium may be a factor in her muscle strength however. 5. Evidence of protein calorie malnutrition with reduced appetite and hypoalbuminemia. She continues on supplements. She is taking mighty shakes. 6. Dysphagia: Continues to be followed by speech therapy. 7. Anemia: Her hemoglobin is 9.2. Appears to have anemia of chronic disease. Blood count is stable. 8. Right buttock pain: She underwent epidural steroid yesterday. Etiology of the pain continues to be a bit obscure. 9. Hyperkalemia: Upon repeat, the potassium came back to normal. Likely related to hemolysis. Exam Vital Signs: Temperature 98.4 F 03/07/17 08:49 Pulse Rate 88 03/07/17 08:49 Respiratory Rate 18 03/07/17 08:49 Blood Pressure 119/62 03/07/17 08:49 Pulse Oximetry 96 03/07/17 08:49 Height/Weight/BMI: Height 1.57 m Weight 61 kg Body Mass Index 25.6 Comments: The patient is awake, alert and oriented and in no acute distress. Pupils are equal. The neck is supple. Chest: Clear to auscultation bilaterally. Cor: RR with no gallop, click nor murmur Abd: soft with normo-active bowel sounds. There are no masses, no tenderness and no guarding. Extremities: No edema is noted. There are good pulses in both ankles. No cyanosis is present. Continues to be quite tender in the right posterior hip area. Results IRU - Labs Labs: Reviewed laboratory and other notes. IRU A/P (1) Myopathy Current visit: Yes Status: Acute Continues to have myopathic weakness. Likely this is related to disuse. Pain in the right hip continues to be a significant limiting factor. 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 Current visit: No Status: Chronic Appreciate Dr. Dick's input. Her insulin has been adjusted. Continue to monitor blood sugars carefully and avoid hypoglycemia. (3) Diabetic peripheral neuropathy associated with type 2 diabetes mellitus Problem details: Better. Current visit: No Status: Chronic (4) Hip pain, right Current visit: No Status: Acute Received epidural steroid yesterday. Anticipating improvement in the next 24 hours. (5) Hypomagnesemia Current visit: Yes Status: Acute (6) Anemia Qualifiers: Anemia type: other cause Other causes of anemia: chronic disease, other Qualified Code(s): D63.8 - Anemia in other chronic diseases classified elsewhere Current visit: Yes Status: Acute (7) Protein-calorie malnutrition, moderate Current visit: Yes Status: Acute Remains on supplements for protein calorie malnutrition. (8) Oral candidiasis Current visit: Yes Status: Resolved (9) Diarrhea Qualifiers: Diarrhea type: unspecified type Qualified Code(s): R19.7 - Diarrhea, unspecified Current visit: Yes Status: Resolved (10) Hyperkalemia Current visit: Yes Status: Resolved Likely the elevated potassium was artifactual in nature. Upon repeat it was normal. DVT Prophylaxis: SCD's, Lovenox Resuscitation Status: Full Code - Course Hospital Course: Mega Loyd MD: 02/24/17 10:19 Patient is cooperative with therapy. Still requires maximal assistance for transfers etc. Patient is noted to be malnourished on the basis of low. Albumin. Dietitian consulted. Has a bit worsening anemia at 9.9. Iron studies and occult blood will be assessed. Her blood sugars remain quite variable. 02/27/17 10:06 Progress is slow. She is cooperative with therapy. Continues to ambulate short distances. She is improving with regard to transfers. Magnesium remains a bit low but she is on supplement. Blood sugars remain reasonable at around 200. She is on oral agent plus basal plus mealtime. 02/28/17 10:32 Her therapy is hindered due to severe pain in the low back and right hip. We will consider local modalities. I have contacted radiology to see if an epidural might be appropriate. Several blood tests ordered per recommendation of dietitian. 03/01/17 10:58 New medical problems have developed in terms of PAT this morning, oral candidiasis, diarrhea. In addition, she continues to run blood sugars that are a bit too high after having a hypoglycemic episode yesterday. Continues to have pain in the right hip area. I have consulted Dr. Guzman in this regard. 03/03/17 08:32 Continues to complain of pain in the right hip area. Appreciate Dr. Guzman's input. Planning for epidural on Monday. Last Lovenox dose on Monday. If epidural is not helpful, consider nuclear medicine bone scan. She is more consistent with transfers. However continues in general to be variable with regard to therapies. 03/06/17 10:20 Lovenox has been held for over 36 hours. We are requesting epidural steroid in the lumbar spine right side today. Potassium is 6.0. She is on no potassium supplementation. We will check a repeat BMP. Pain continues to be the limiting factor. Her blood sugars are variable and she has been seen by Dr. Dick with changes in insulin regimen. Participation in therapy is variable. 03/07/17 09:41 Continue to work with patient. Repeat potassium was normal. Pain in right hip continues to be a limiting factor. Blood sugars are variable and are running too high. Dr. Dick has adjusted insulin. Participation in therapy continues to be variable. - Interventions to Obtain Goals PT Treatment Plan: Balance/Proprioception, Functional Activities, Manual Therapy , Patient/Family Education, Ultrasound OT Treatment Plan: ADL (Basic Care), Balance Training, Joint Mobilization, Pt./ Family Education, Ther. Exercise for ADL Goals Progress/Modifications: Time spent with patient and on floor reviewing data and documentin minutes Barriers to dismissal: Pain in right hip, elevated blood sugars, compliance with therapy Medical decision-making: Discussed with Dr. Dick. Review blood sugars. These are running too high. Insulin has been adjusted and we will make sure there is no evidence of hypoglycemia by close monitoring. In addition, has been started on Forteo for possible osteoporosis. Alternative interventions will be entertained if epidural is ineffective for her right hip pain.
--- NOTE | 2017-03-07 11:07 | Progress Note ---
Subjective: Fartun is seen today in follow up for her hip pain and uncontrolled blood sugars. She is seen in her room, preparing to participate in therapy. She reports that she is feeling stronger each day but continues to complain of hip pain, currently 09/19. She received an epidural injection yesterday, 03/06/17, but has not had any relief as yet, though admits that it might take up to 48 hours so she remains optimistic. She denies any other complains or concerns. Review of her medical records and nursing notes indicates that she is doing well overall. BMP today was stable. Blood sugars remain unstable. She was seen and evaluated by Dr. Dick (endocrinology) and he adjusted her insulins. Current regimen includes Novolog 4 units at lunch, Novolog 9 units at supper and Lantus 20 units in AM. Repeat magnesium was within normal limits this morning at 2.0. Phosphorus stable at 3.3. Appetite improving and bowels moving. Objective Vital signs: Temperature 98.4 F 03/07/17 08:49 Pulse Rate 88 03/07/17 08:49 Respiratory Rate 18 03/07/17 08:49 Blood Pressure 119/62 03/07/17 08:49 Pulse Oximetry 96 03/07/17 08:49 Rhythm: Normal Sinus Rhythm Height/Weight/BMI: Height 5 ft 2 in Weight 134 lb 7.712 oz Body Mass Index 25.6 - Constitutional Present: no acute distress, well nourished, well developed, cooperative - Routine HEENT Exam Head: Present: normocephalic, atraumatic Eye: Present: PERRL. Absent: conjunctival icterus ENT: Present: mucous membranes moist - Routine Respiratory Exam Present: CTA bilaterally - Routine Cardiovascular Exam Present: RRR, S1, S2 - Routine Abdominal Exam Present: soft, normoactive bowel sounds, non distended, non tender - Routine Extremities Exam Present: pulses intact - Routine Back/Spine/Pelvis Exam Comments: limited ROM of back secondary to hip pain. - Routine Musculoskeletal Exam Musculoskeletal: Present: moving extremities well - Routine Skin Exam Present: intact, dry, warm Comments: afebrile - Routine Neurological Exam Present: alert, moving all extremities, normal speech - Routine Psychiatric Exam Present: cooperative Results - Labs CBC & Chem 7: 03/04/17 06:04 03/07/17 06:45 Assessment and Plan (1) Myopathy Current visit: Yes Status: Acute GI Prophylaxis: Protonix Resuscitation Status: Full Code Assessment and Plan: Assessment Myopathy Oral Thrush Diabetes Hypertension Lupus Chronic back pain Hypomagnesium - resolved 03/02. SVT, nonsustained - 03/01/17 - Dr. Agudelo started atenolol 25 mg HS A-fib with aberrancy - 03/03 (mg was low at that time) Recent NSTEMI Plan - 03/07/17 Overall, Fartun is making slow gains and feels as if she is getting stronger each day. Continues to have pain in hip. Received epidural on 03/06/17. No relief as yet. Continue to encourage participation in therapies and pain control per Dr. Loyd. Repeat BMP this AM was unremarkable with potassium at 4.7. Mg at 2.0 and Phos at 3.3. Continue to monitor periodically throughout admission. Will recheck . Dr. Dick has evaluated her and is managing diabetic meds. He also started Forteo for osteoporosis treatment. Insulins adjusted per Dr. Dick with current regimen including Lantus 20 units in AM, Novolog 4 units at lunch and Novolog 9 units at supper. Appetite improving. Continue to monitor blood sugars closely. Decrease Prednisone back to her routine dose of 5 mg. Anticipate improvement in blood sugars with reduced prednisone. Continue Nystatin for thrush - started on 03/01/17. Thrush improving. Magic mouthwash as needed. Blood pressure and heart rate stable (recent SVT). Medications being managed by Dr. Agudelo. Continue to monitor closely on telemetry. - Time spent with patient greater than 35 minutes Hospital Course Summary Disclaimer: The visit summary below is not to be considered part of the above Progress Note. Hospital Course: 03/01/17 Repeat BMP and MG today - K has stabilized but Mg continues to run low. PAT this am - asymptomatic; recent NSTEMI. Check Troponin and re-consult Dr. Agudelo (he saw her while hospitalized on acute). Diarrhea - check stool for C. diff; recently treated with 3 days of aztreonam (-02/15). Nystatin for thrush - recommend extended course; this was just dc'd on 02/26/17. Labile blood sugars - up to 300 yesterday afternoon, but occasionally hypoglycemic. Hgb A1c was 10.8% on 02/13/17. Will increase supper insulin to 7U - of note, her daily prednisone was increased to 10 mg (up from 5) on 02/26/17 to try to achieve better pain control. The higher steroid dose undoubtedly is increasing her sugars and contributing to thrush. Allergic rhinitis - start Flonase. Do not recommend abx at this time. 03/01/17 Cardiology SVT: nonsustained. asymptomatic. Add atenolol 25mg at bedtime. Hypomagnesemia: Mag 1.3 today, replace with 4 gms Mag IV, repeat mag in am 03/02/17- [place]. Assessment Myopathy Oral Thrush Diabetes Hypertension Lupus Chronic back pain Hypomagnesium - resolved 03/02. Hypermagnesium - acute, 03/02. Plan Patient feels she is making good progress with therapy. Continue to encourage work with therapies to maximize functional ability and strength. Continue treatment plan and pain control per Dr. Loyd. C. diff was negative. Monitor closely for signs of constipation in light of narcotic pain control. Continue with PO nystatin for treatment of oral thrust. Magic mouth wash as needed for pain. Thrush improving. Serum magnesium was 1.6 on 03/01. Mg improved to 2.5 (hypermagnesemia) following 2g Magnesium IV on 03/01. Continue to hold Oral Mag-Ox 400 milligrams twice a day in light of hypermagnesemia and recent diarrhea. Will recheck mag in AM and continue to monitor periodically. Blood sugars remain liable ranging between 48 and 353. Continue to monitor blood sugars closely. Review of blood sugar checks reveals hypoglycemia episodes during morning hours with hyperglycemia in the afternoons and evenings. Lantus was increased to 15 units every morning on 03/01 in conjunction with Novolog 5 units in the AM and 7 units in the PM. Will continue with Lantus 15 units in AM. Decrease morning insulin to 3 units in light of hypoglycemia episodes. Continue with po Trajenta and Amaryl as well as Sliding scale NovoLog as needed. Dr. Dick has been consulted and is expected to see the patient upon his return from being out of town on 03/06/17. Continue Lidoderm patch and [place] for chronic back pain. Protonix for GI protection. Lovenox subcutaneous daily for DVT prophylaxis. Recheck CBC and BMP in AM to monitor blood counts, electrolytes and renal function. 03/02/17 No further dysrhythmias. Continue to monitor telemetry and electrolytes 03/03/17 17:39 Had AFib with aberrancy this am. Mag is 1.7 today, replace with 2 gms IV, recheck in AM 03/07/17 11:13 Plan - 03/07/17 Overall, Fartun is making slow gains and feels as if she is getting stronger each day. Continues to have pain in hip. Received epidural on 03/06/17. No relief as yet. Continue to encourage participation in therapies and pain control per Dr. Loyd. Repeat BMP this AM was unremarkable with potassium at 4.7. Mg at 2.0 and Phos at 3.3. Continue to monitor periodically throughout admission. Will recheck . Dr. Dick has evaluated her and is managing diabetic meds. He also started Forteo for osteoporosis treatment. Insulins adjusted per Dr. Dick with current regimen including Lantus 20 units in AM, Novolog 4 units at lunch and Novolog 9 units at supper. Appetite improving. Continue to monitor blood sugars closely. Decrease Prednisone back to her routine dose of 5 mg. Anticipate improvement in blood sugars with reduced prednisone. Continue Nystatin for thrush - started on 03/01/17. Thrush improving. Magic mouthwash as needed. Blood pressure and heart rate stable (recent SVT). Medications being managed by Dr. Agudelo. Continue to monitor closely on telemetry.
--- NOTE | 2017-03-07 11:33 | Cardiology Progress Note ---
Subjective Principal diagnosis: SVT <Lucille Landry - 03/07/17 11:33> Interval history: Fartun is seen in follow up for non sustained SVT and low magnesium. She is in the dining room eating her breakfast. She denies chest pain or pressure, denies palpitations, asks to remove telemetry. <Lucille Landry - 03/07/17 11:33> Exam Vital signs: Temperature 98.7 F 03/08/17 23:31 Pulse Rate 99 03/09/17 08:00 Respiratory Rate 16 03/09/17 07:38 Blood Pressure 149/81 H 03/09/17 07:38 Pulse Oximetry 96 03/09/17 07:38 <Kenny Agudelo - 03/09/17 13:26> Temperature 98.4 F 03/07/17 08:49 Pulse Rate 88 03/07/17 08:49 Respiratory Rate 18 03/07/17 08:49 Blood Pressure 119/62 03/07/17 08:49 Pulse Oximetry 96 03/07/17 08:49 <Lucille Landry 03/07/17 11:33> - Constitutional no acute distress, well nourished, well developed, cooperative <Lucille Landry 03/07/17 11:33> - Routine HEENT Exam Head: Present: normocephalic <Lucille Landry 03/07/17 11:33> ENT: Present: mucous membranes moist <Lucille Landry 03/07/17 11:33> - Routine Neck Exam Absent: JVD, carotid bruit <Lucille Landry 03/07/17 11:33> - Routine Chest/Breast/Axilla Exam Chest wall: Absent: tenderness <Lucille Landry 03/07/17 11:33> - Routine Respiratory Exam Present: CTA bilaterally. Absent: rales, wheezes <Lucille Landry 03/07/17 11:33> - Routine Cardiovascular Exam Present: RRR, no murmur. Absent: JVD <Lucille Landry 03/07/17 11:33> - Routine Abdominal Exam Present: soft, normoactive bowel sounds <Lucille Landry 03/07/17 11:33> - Routine Extremities Exam Present: no edema <Lucille Landry - 03/07/17 11:33> - Routine Skin Exam Present: intact, dry, warm <Lucille Landry - 03/07/17 11:33> - Routine Neurological Exam Present: alert, oriented X3 <Lucille Landry - 03/07/17 11:33> - Routine Psychiatric Exam Present: normal affect, normal thought process <Lucille Landry - 03/07/17 11: 33> - Additional findings Additional findings: Abnormal Lab Results 03/06/17 03/06/17 03/07/17 13:54 19:50 04:52 Turbidity Cancelled Sodium Cancelled Potassium Cancelled Chloride Cancelled Carbon Dioxide Cancelled Anion Gap Cancelled BUN Cancelled Creatinine Cancelled GFR Calculation Cancelled BUN/Creatinine Ratio Cancelled Glucose Cancelled Glucometer 364 281 Calculated Osmolality Cancelled Calcium Cancelled Phosphorus Cancelled Magnesium Cancelled Icterus Index Cancelled Specimen Hemolysis Cancelled 03/07/17 03/07/17 03/07/17 06:02 06:45 08:41 Turbidity < 20 Sodium 136 Potassium 4.7 Chloride 103 Carbon Dioxide 25 Anion Gap 8 BUN 24.0 H Creatinine 0.7 GFR Calculation 81 BUN/Creatinine Ratio 34 H Glucose 186 H Glucometer 255 188 Calculated Osmolality 271 Calcium 8.7 Phosphorus 3.3 Magnesium 2.0 D Icterus Index < 2 Specimen Hemolysis < 15 03/07/17 10:58 Turbidity Sodium Potassium Chloride Carbon Dioxide Anion Gap BUN Creatinine GFR Calculation BUN/Creatinine Ratio Glucose Glucometer 348 Calculated Osmolality Calcium Phosphorus Magnesium Icterus Index Specimen Hemolysis Acetaminophen (Tylenol) 650 mg PO QID PRN PRN Reason: Discomfort Last Admin: 02/24/17 04:28 Dose: 650 mg Acetaminophen/Hydrocodone Bitart (Melvin 7.5/325) 1 tab PO ACHS [facility] Last Admin: 03/07/17 11:25 Dose: 1 tab Acetaminophen/Hydrocodone Bitart (Melvin 7.5/325) 1 tab PO Q6H PRN PRN Reason: Pain Last Admin: 03/04/17 09:04 Dose: 1 tab Ascorbic Acid (Vitamin C) 500 mg PO DAILY [facility] Last Admin: 03/07/17 08:59 Dose: 500 mg Atenolol (Tenormin) 25 mg PO HS [facility] Last Admin: 03/06/17 21:53 Dose: 25 mg Atenolol (Tenormin) 50 mg PO QAM [facility] Last Admin: 03/07/17 08:59 Dose: 50 mg Baclofen (Lioresal) 5 mg PO Q6H PRN PRN Reason: Muscle Spasms / PAIN Last Admin: 03/01/17 08:43 Dose: 5 mg Brimonidine Tartrate (Alphagan P 0.15% Eye Drops) 1 drop EACH EYE TID [facility] Last Admin: 03/07/17 08:56 Dose: 1 drop Ergocalciferol (Vitamin D-2) 50,000 unit PO Q7D [facility] Last Admin: 03/06/17 13:35 Dose: 50,000 unit Fluticasone Propionate (Flonase) 2 spray EA NOSTRIL DAILY [facility] Last Admin: 03/07/17 08:56 Dose: 2 spray Gabapentin (Neurontin) 300 mg PO HS [facility] Last Admin: 03/06/17 21:52 Dose: 300 mg Glimepiride (Amaryl) 4 mg PO WB [facility] Last Admin: 03/07/17 08:56 Dose: 4 mg Insulin Aspart (Novolog) 0 unit SQ SS PRN; Protocol PRN Reason: Hyperglycemia Last Admin: 03/07/17 11:03 Dose: 4 unit Insulin Aspart (Novolog) 4 unit SQ ACL [facility] Insulin Aspart (Novolog) 9 unit SQ WS [facility] Insulin Glargine (Lantus) 20 unit SQ AMI [facility] Last Admin: 03/07/17 08:55 Dose: 20 unit Lidocaine (Lidoderm) 2 patch TOP DAILY [facility] Last Admin: 03/07/17 08:58 Dose: 2 patch Lidocaine HCl (Magic Mouthwash (Lido/Maalox/Carafate)) 5 ml PO Q4H PRN Last Admin: 03/03/17 16:10 Dose: 5 ml Lidocaine HCl/Dextrose (Lidoderm Patch Removal) 2 removal TOP 2100 [facility] Last Admin: 03/06/17 21:51 Dose: 2 removal Magnesium Oxide (Magox) 800 mg PO BID [facility] Last Admin: 03/07/17 09:20 Dose: 800 mg Mirtazapine (Remeron) 7.5 mg PO HS [facility] Last Admin: 03/06/17 21:52 Dose: 7.5 mg Nystatin (Mycostatin) 5 ml PO QID [facility] Last Admin: 03/07/17 08:59 Dose: 5 ml Pantoprazole Sodium (Protonix Tab) 40 mg PO BID/E [facility] Last Admin: 03/07/17 05:40 Dose: 40 mg Prednisone (Deltasone) 5 mg PO WB [facility] Last Admin: 03/07/17 08:56 Dose: 5 mg Pyridoxine HCl (Vitamin B-6) 100 mg PO DAILY [facility] Last Admin: 03/07/17 08:59 Dose: 100 mg Saliva Substitute (Biotene Dry Mouth Oral Rinse) 15 ml MM 5XD [facility] Last Admin: 03/07/17 11:25 Dose: Not Given Sodium Chloride (Iv Flush) 10 ml IV PRN PRN PRN Reason: Flushing Last Admin: 03/05/17 17:59 Dose: 10 ml Sodium Chloride (Normal Saline) 500 ml IV PRN PRN Last Admin: 03/06/17 13:41 Dose: 500 ml Teriparatide Acetate (Forteo) 20 mcg SQ DAILY [facility] Last Admin: 03/07/17 09:01 Dose: 20 mcg <Lucille Landry - 03/07/17 11:33> Assessment and Plan - Assessment and Plan (1) Diabetes mellitus type 2, uncontrolled, without complications Problem details: Still uncontrolled. Current visit: Yes Status: Chronic (2) Hypomagnesemia Current visit: Yes Status: Acute (3) Oral candidiasis Current visit: Yes Status: Resolved (4) Diarrhea Current visit: Yes Status: Resolved (5) SVT (supraventricular tachycardia) Current visit: Yes Status: Acute <Kenny Agudelo - 03/09/17 13:26> (1) Hypomagnesemia Current visit: Yes Status: Acute Mag 2.0 today. (2) Oral candidiasis Current visit: Yes Status: Resolved (3) Diarrhea Current visit: Yes Status: Resolved (4) Diabetes mellitus type 2, uncontrolled, without complications Problem details: Still uncontrolled. Current visit: Yes Status: Chronic (5) SVT (supraventricular tachycardia) Current visit: Yes Status: Acute No further dysrhythmia on telemetry, will continue to monitor <Lucille Landry - 03/08/17 14:10> - Attestation Attestation Narrative: 03/09/17 13:26 Recommendation After examining the patient I agree with the above assessment. I am involved in the formulation of the patient's plan of care. <Kenny Agudelo - 03/09/17 13:26> Hospital Course Summary Disclaimer: The visit summary below is not to be considered part of the above Progress Note. <Kenny Agudelo - 03/09/17 13:26> The visit summary below is not to be considered part of the above Progress Note. <Lucille Landry - 03/07/17 11:33> Hospital Course: 03/01/17 Repeat BMP and MG today - K has stabilized but Mg continues to run low. PAT this am - asymptomatic; recent NSTEMI. Check Troponin and re-consult Dr. Agudelo (he saw her while hospitalized on acute). Diarrhea - check stool for C. diff; recently treated with 3 days of aztreonam (-02/15). Nystatin for thrush - recommend extended course; this was just dc'd on 02/26/17. Labile blood sugars - up to 300 yesterday afternoon, but occasionally hypoglycemic. Hgb A1c was 10.8% on 02/13/17. Will increase supper insulin to 7U - of note, her daily prednisone was increased to 10 mg (up from 5) on 02/26/17 to try to achieve better pain control. The higher steroid dose undoubtedly is increasing her sugars and contributing to thrush. Allergic rhinitis - start Flonase. Do not recommend abx at this time. 03/01/17 Cardiology SVT: nonsustained. asymptomatic. Add atenolol 25mg at bedtime. Hypomagnesemia: Mag 1.3 today, replace with 4 gms Mag IV, repeat mag in am 03/02/17- [place]. Assessment Myopathy Oral Thrush Diabetes Hypertension Lupus Chronic back pain Hypomagnesium - resolved 03/02. Hypermagnesium - acute, 03/02. Plan Patient feels she is making good progress with therapy. Continue to encourage work with therapies to maximize functional ability and strength. Continue treatment plan and pain control per Dr. Loyd. C. diff was negative. Monitor closely for signs of constipation in light of narcotic pain control. Continue with PO nystatin for treatment of oral thrust. Magic mouth wash as needed for pain. Thrush improving. Serum magnesium was 1.6 on 03/01. Mg improved to 2.5 (hypermagnesemia) following 2g Magnesium IV on 03/01. Continue to hold Oral Mag-Ox 400 milligrams twice a day in light of hypermagnesemia and recent diarrhea. Will recheck mag in AM and continue to monitor periodically. Blood sugars remain liable ranging between 48 and 353. Continue to monitor blood sugars closely. Review of blood sugar checks reveals hypoglycemia episodes during morning hours with hyperglycemia in the afternoons and evenings. Lantus was increased to 15 units every morning on 03/01 in conjunction with Novolog 5 units in the AM and 7 units in the PM. Will continue with Lantus 15 units in AM. Decrease morning insulin to 3 units in light of hypoglycemia episodes. Continue with po Trajenta and Amaryl as well as Sliding scale NovoLog as needed. Dr. Dick has been consulted and is expected to see the patient upon his return from being out of town on 03/06/17. Continue Lidoderm patch and Melvin for chronic back pain. Protonix for GI protection. Lovenox subcutaneous daily for DVT prophylaxis. Recheck CBC and BMP in AM to monitor blood counts, electrolytes and renal function. 03/02/17 No further dysrhythmias. Continue to monitor telemetry and electrolytes 03/03/17 17:39 Had AFib with aberrancy this am. Mag is 1.7 today, replace with 2 gms IV, recheck in AM 03/06/17 No further dysrhythmia on telemetry, will continue to monitor Mag 1.5 today. Replace Mag with 2gm IV 03/07/17 11:32 Mag 2.0 today, No further dysrhythmia on telemetry, will continue to monitor <Lucille Landry - 03/07/17 11:33>
--- NOTE | 2017-03-07 14:31 | IRU Team Meeting ---
IRU Team Meeting - Nursing Vital Signs: Vital Signs - 24 hr 03/06/17 15:32 03/06/17 19:53 03/07/17 00:00 Temperature 98.6 F 98.1 F Pulse Rate 89 84 78 Respiratory Rate 20 20 Blood Pressure 130/65 105/57 Pulse Oximetry 93 94 03/07/17 07:55 03/07/17 08:49 Temperature 98.4 F Pulse Rate 104 H 88 Respiratory Rate 18 Blood Pressure 119/62 Pulse Oximetry 96 Current Medications: Acetaminophen (Tylenol) 650 mg PO QID PRN PRN Reason: Discomfort Last Admin: 02/24/17 04:28 Dose: 650 mg Acetaminophen/Hydrocodone Bitart ([place] 7.5/325) 1 tab PO ACHS [facility] Last Admin: 03/07/17 11:25 Dose: 1 tab Acetaminophen/Hydrocodone Bitart ([place] 7.5/325) 1 tab PO Q6H PRN PRN Reason: Pain Last Admin: 03/04/17 09:04 Dose: 1 tab Ascorbic Acid (Vitamin C) 500 mg PO DAILY [facility] Last Admin: 03/07/17 08:59 Dose: 500 mg Atenolol (Tenormin) 25 mg PO HS [facility] Last Admin: 03/06/17 21:53 Dose: 25 mg Atenolol (Tenormin) 50 mg PO QAM [facility] Last Admin: 03/07/17 08:59 Dose: 50 mg Baclofen (Lioresal) 5 mg PO Q6H PRN PRN Reason: Muscle Spasms / PAIN Last Admin: 03/01/17 08:43 Dose: 5 mg Brimonidine Tartrate (Alphagan P 0.15% Eye Drops) 1 drop EACH EYE TID [facility] Last Admin: 03/07/17 08:56 Dose: 1 drop Ergocalciferol (Vitamin D-2) 50,000 unit PO Q7D [facility] Last Admin: 03/06/17 13:35 Dose: 50,000 unit Fluticasone Propionate (Flonase) 2 spray EA NOSTRIL DAILY [facility] Last Admin: 03/07/17 08:56 Dose: 2 spray Gabapentin (Neurontin) 300 mg PO HS [facility] Last Admin: 03/06/17 21:52 Dose: 300 mg Glimepiride (Amaryl) 4 mg PO WB [facility] Last Admin: 09/26/17 08:56 Dose: 4 mg Insulin Aspart (Novolog) 0 unit SQ SS PRN; Protocol PRN Reason: Hyperglycemia Last Admin: 03/07/17 11:03 Dose: 4 unit Insulin Aspart (Novolog) 4 unit SQ ACL [facility] Insulin Aspart (Novolog) 9 unit SQ WS [facility] Insulin Glargine (Lantus) 20 unit SQ AMI [facility] Last Admin: 03/07/17 08:55 Dose: 20 unit Lidocaine (Lidoderm) 2 patch TOP DAILY [facility] Last Admin: 03/07/17 08:58 Dose: 2 patch Lidocaine HCl (Magic Mouthwash (Lido/Maalox/Carafate)) 5 ml PO Q4H PRN Last Admin: 03/03/17 16:10 Dose: 5 ml Lidocaine HCl/Dextrose (Lidoderm Patch Removal) 2 removal TOP 2100 [facility] Last Admin: 03/06/17 21:51 Dose: 2 removal Magnesium Oxide (Magox) 800 mg PO BID [facility] Last Admin: 03/07/17 09:20 Dose: 800 mg Mirtazapine (Remeron) 7.5 mg PO HS [facility] Last Admin: 03/06/17 21:52 Dose: 7.5 mg Nystatin (Mycostatin) 5 ml PO QID [facility] Last Admin: 03/07/17 08:59 Dose: 5 ml Pantoprazole Sodium (Protonix Tab) 40 mg PO BID/E [facility] Last Admin: 03/07/17 05:40 Dose: 40 mg Prednisone (Deltasone) 5 mg PO WB [facility] Last Admin: 03/07/17 08:56 Dose: 5 mg Pyridoxine HCl (Vitamin B-6) 100 mg PO DAILY [facility] Last Admin: 03/07/17 08:59 Dose: 100 mg Saliva Substitute (Biotene Dry Mouth Oral Rinse) 15 ml MM 5XD [facility] Last Admin: 03/07/17 11:25 Dose: Not Given Sodium Chloride (Iv Flush) 10 ml IV PRN PRN PRN Reason: Flushing Last Admin: 03/05/17 17:59 Dose: 10 ml Sodium Chloride (Normal Saline) 500 ml IV PRN PRN Last Admin: 03/06/17 13:41 Dose: 500 ml Teriparatide Acetate (Forteo) 20 mcg SQ DAILY [facility] Last Admin: 03/07/17 09:01 Dose: 20 mcg Comments: I certify that I personally led the interdisciplinary team meeting and agree with comments, barriers and goals indicated. Team meeting was held in the patient's room with the patient and the following family members present: Patient's son Fartun continues to struggle with right hip pain. She underwent epidural steroid injection yesterday. We're continuing to monitor her blood sugars which have been elevated recently. - Dietary She is followed by the dietitian. She is consuming a 2000-calorie consistent carbohydrate diet with additions of mighty shakes. Vitamin D and vitamin B6 have been determined to be low and she is on supplements for that. - Physical Therapy Comments: She is functioning at a supervision level with most transfers. She is walking with a front-wheeled walker. A trial of various modalities for pain relief for her right hip has occurred without much benefit. Right hip pain limits progress. However she is improving toward dismissal. - Occupational Therapy Comments: She is supervision level for lower body dressing, toileting, hygiene, transfers and most ADLs. Some variable consistency is noted. - Goals Improvement in left hip pain, control of blood sugars, improved endurance,. Previous goal was to walk 3 stairs with supervision level. Was able to walk 4 steps with contact guard assistance. Previous pain goal was 6 out of 10 but it remains at 9 out of 10. Previous goal was to walk 30 feet with supervision and she was able to walk greater than 90 feet with supervision. - Barriers to Discharge Barriers to Attaining Goals: Endurance, Pain Control, Medical Limitation - Care Plan Anticipated DC Destination: Home Health Service I have led this team conference and agree with the plan. Anticipated Length of Stay (days): 4 (days)
[2017-03-07] MEDS: SALINE FLUSH 10ml SYRINGE IV PRN ×2 (17:50→21:25)
[2017-03-07] MEDS: LIDOCAINE PATCH REMOVAL TOP SCH (21:09)
[2017-03-07] MEDS: GABAPENTIN 300 MG CAPSULE PO SCH (21:09)
[2017-03-07] MEDS: ATENOLOL 25 MG TABLET PO SCH (21:09)
[2017-03-07] MEDS: MIRTAZAPINE 15 MG TABLET PO SCH (21:10)
[2017-03-08] MEDS: INSULIN ASPART 100unit/ml INJECTION SQ PRN ×3 (01:43→20:27)
[2017-03-08] MEDS: HYDROCODONE/APAP 7.5 MG/325 MG TABLET PO SCH ×4 (06:11→20:30)
[2017-03-08] MEDS: PANTOPRAZOLE 40 MG TABLET PO SCH ×2 (06:11→20:32)
[2017-03-08] MEDS ORDERED: INSULIN ASPART 100unit/ml INJECTION SQ SCH (07:28)
--- NOTE | 2017-03-08 07:43 | Endocrinology Progress Note ---
Subjective Principal diagnosis: Type 2 diabetes mellitus, uncontrolled Interval history: Still reports sugars are "bouncing all around." Exam Vital signs: Temperature 98.3 F 03/08/17 00:00 Pulse Rate 81 03/08/17 00:00 Respiratory Rate 16 03/08/17 00:00 Blood Pressure 122/67 03/08/17 00:00 Pulse Oximetry 98 03/08/17 00:00 - Constitutional no acute distress - Routine HEENT Exam Head: Present: normocephalic, atraumatic Eye: Present: EOMI ENT: Present: mucous membranes moist - Routine Neck Exam Absent: thyromegaly - Routine Respiratory Exam Absent: wheezes - Routine Cardiovascular Exam Present: RRR - Routine Abdominal Exam Present: soft, normoactive bowel sounds - Routine Extremities Exam Absent: cyanosis, edema - Routine Skin Exam Present: dry, warm - Routine Neurological Exam Present: alert, oriented X3 - Routine Psychiatric Exam Present: normal affect, normal thought process - Additional findings Additional findings: Laboratory Tests 03/07/17 03/07/17 03/07/17 08:41 10:58 13:52 Glucometer 188 348 385 03/07/17 03/08/17 03/08/17 21:07 00:15 06:09 Glucometer 77 293 181 Assessment and Plan (1) Diabetes mellitus type 2, uncontrolled, without complications Problem details: Still uncontrolled. Current visit: Yes Status: Chronic Will need SOME insulin for breakfast to prevent glucose rising into 300's. Will start low to avoid post-exercise hypoglycemia. (2) Osteoporosis Problem details: On Forteo for history of L1 compression fracture. Current visit: Yes Status: Chronic Continue Forteo.
[2017-03-08] MEDS: SALIVA SUBSTITUTE MOUTHWASH 237ml MM SCH (08:30)
--- NOTE | 2017-03-08 09:27 | IRU Progress Note ---
- Subjective/Serverity of Illness Fartun was evaluated in her room today. She is doing better she states. She indicates the pain in the right hip is perhaps slightly decreased although not dramatically so. Epidural steroid injection was 2 days ago. She states that arrangements are being made for her to go home and she is comfortable with that. Has been seen by Dr. Dick as well as cardiology. Rhythm has been stable. Her blood sugars continue to be variable. Dr. Dick added on morning insulin. 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 She states the pain may be perhaps slightly improved since the epidural. Continues to work with therapy. Plan dismissal in 2 days. 2. Diabetes mellitus type 2, newly on insulin and not well controlled. Dr. Dick has seen again. Added on morning insulin. Sugars are somewhat variable. She has seen educator senior clinical. 3. Recent non-ST segment elevated myocardial infarction: Continues to be followed by cardiology. No chest pain is reported. 4. Hypomagnesemia: Has received additional supplemental magnesium. Magnesium now normal today. 5. Evidence of protein calorie malnutrition with reduced appetite and hypoalbuminemia. She continues on supplements. She is taking mighty shakes. 6. Dysphagia: Continues to be followed by speech therapy. 7. Anemia: This appears to be consistent with anemia of chronic disease. Her counts are stable. Denies lightheadedness. 8. Right buttock pain: Continues to have pain in the right buttock. She thinks it may be perhaps a bit better although not dramatically so. She is working with therapy. 9. Hyperkalemia: This is resolved and likely was related to hemolysis. Exam Vital Signs: Temperature 98 F 03/08/17 08:00 Pulse Rate 86 03/08/17 08:00 Respiratory Rate 20 03/08/17 08:00 Blood Pressure 137/94 H 03/08/17 08:00 Pulse Oximetry 97 03/08/17 08:00 Height/Weight/BMI: Height 1.57 m Weight 61 kg Body Mass Index 25.6 Comments: The patient is awake, alert and oriented and in no acute distress. She is lying in bed. Pupils are equal. The neck is supple. Chest: Clear to auscultation bilaterally. Cor: RR with no gallop, click nor murmur Abd: soft with normo-active bowel sounds. There are no masses, no tenderness and no guarding. Extremities: No edema is noted. There are good pulses in both ankles. No cyanosis is present. Results IRU - Labs Labs: Reviewed blood sugars. They're variable. Some are in the 60s. Some are over 200. Blood pressure and vital signs are stable. IRU A/P (1) Myopathy Current visit: Yes Status: Acute Her muscle weakness is slowly improving. May be related to low magnesium to some degree. (2) Diabetes mellitus type 2, uncontrolled, without complications Qualifiers: Diabetes mellitus residential insulin use: without residential use Qualified Code(s): E11.65 - Type 2 diabetes mellitus with hyperglycemia Problem details: Still uncontrolled. Current visit: Yes Status: Chronic Patient is newly on insulin during this hospitalization. Is followed by Dr. Dick. Insulin has been adjusted. She has seen the educator senior clinical. We will continue to monitor carefully. (3) Diabetic peripheral neuropathy associated with type 2 diabetes mellitus Problem details: Better. Current visit: No Status: Chronic (4) Hip pain, right Current visit: No Status: Acute She indicates the pain in the right hip may be slightly improved since the epidural. Continues to work with therapy. Anticipate dismissal in 2 days. (5) Hypomagnesemia Current visit: Yes Status: Acute With supplementation, magnesium level is now normal. (6) Anemia Qualifiers: Anemia type: other cause Other causes of anemia: chronic disease, other Qualified Code(s): D63.8 - Anemia in other chronic diseases classified elsewhere Current visit: Yes Status: Acute (7) Protein-calorie malnutrition, moderate Current visit: Yes Status: Acute (8) Oral candidiasis Current visit: Yes Status: Resolved (9) Diarrhea Qualifiers: Diarrhea type: unspecified type Qualified Code(s): R19.7 - Diarrhea, unspecified Current visit: Yes Status: Resolved (10) Hyperkalemia Current visit: Yes Status: Resolved DVT Prophylaxis: SCD's, Lovenox Resuscitation Status: Full Code - Course Hospital Course: Mega Loyd MD: 02/24/17 10:19 Patient is cooperative with therapy. Still requires maximal assistance for transfers etc. Patient is noted to be malnourished on the basis of low. Albumin. Dietitian consulted. Has a bit worsening anemia at 9.9. Iron studies and occult blood will be assessed. Her blood sugars remain quite variable. 02/27/17 10:06 Progress is slow. She is cooperative with therapy. Continues to ambulate short distances. She is improving with regard to transfers. Magnesium remains a bit low but she is on supplement. Blood sugars remain reasonable at around 200. She is on oral agent plus basal plus mealtime. 02/28/17 10:32 Her therapy is hindered due to severe pain in the low back and right hip. We will consider local modalities. I have contacted radiology to see if an epidural might be appropriate. Several blood tests ordered per recommendation of dietitian. 03/01/17 10:58 New medical problems have developed in terms of PAT this morning, oral candidiasis, diarrhea. In addition, she continues to run blood sugars that are a bit too high after having a hypoglycemic episode yesterday. Continues to have pain in the right hip area. I have consulted Dr. Guzman in this regard. 03/03/17 08:32 Continues to complain of pain in the right hip area. Appreciate Dr. Guzman's input. Planning for epidural on Monday. Last Lovenox dose on Monday. If epidural is not helpful, consider nuclear medicine bone scan. She is more consistent with transfers. However continues in general to be variable with regard to therapies. 03/06/17 10:20 Lovenox has been held for over 36 hours. We are requesting epidural steroid in the lumbar spine right side today. Potassium is 6.0. She is on no potassium supplementation. We will check a repeat BMP. Pain continues to be the limiting factor. Her blood sugars are variable and she has been seen by Dr. Dick with changes in insulin regimen. Participation in therapy is variable. 03/07/17 09:41 Continue to work with patient. Repeat potassium was normal. Pain in right hip continues to be a limiting factor. Blood sugars are variable and are running too high. Dr. Dick has adjusted insulin. Participation in therapy continues to be variable. 03/08/17 09:29 She believes there has been some improvement with regard to her right hip pain. Blood sugars are variable. Dr. Dick has again adjusted insulin added on breakfast insulin. Participation in therapy still is somewhat variable. Anticipate going home on Monday. - Interventions to Obtain Goals PT Treatment Plan: Balance/Proprioception, Functional Activities, Manual Therapy , Patient/Family Education, Ultrasound OT Treatment Plan: ADL (Basic Care), Balance Training, Joint Mobilization, Pt./ Family Education, Ther. Exercise for ADL Goals Progress/Modifications: Time spent with patient and on floor reviewing data and documentin minutes Barriers to dismissal: Pain in right hip, muscle weakness, endurance Medical decision-making: Insulin has been adjusted. Electrolytes are reviewed. Magnesium is now normal.
[2017-03-08] MEDS: GLIMEPIRIDE 4 MG TABLET PO SCH (09:37)
[2017-03-08] MEDS: EYE EACH EYE SCH ×3 (09:38→20:29)
[2017-03-08] MEDS: PredniSONE 5 MG TABLET PO SCH (09:38)
[2017-03-08] MEDS: BRIMONIDINE 0.15% EACH EYE SCH ×3 (09:38→20:29)
[2017-03-08] MEDS: LIDOCAINE 5% PATCH TOP SCH (09:41)
[2017-03-08] MEDS: ATENOLOL 50 MG TABLET PO SCH (09:42)
[2017-03-08] MEDS: NYSTATIN 500,000 units/5 ml ORAL LIQUID PO SCH ×4 (09:42→20:30)
[2017-03-08] MEDS: MAGNESIUM OXIDE 400 MG TABLET PO SCH ×2 (09:42→20:31)
[2017-03-08] MEDS: TERIPARATIDE 600 MCG SQ SCH (09:43)
[2017-03-08] MEDS: PYRIDOXINE 100mg TABLET PO SCH (09:43)
[2017-03-08] MEDS: ASCORBIC ACID 500 MG TABLET PO SCH (09:43)
[2017-03-08] MEDS: FLUTICASONE NASAL SPRAY 50mcg EA NOSTRIL SCH (09:46)
[2017-03-08] MEDS: INSULIN ASPART 100unit/ml INJECTION SQ SCH ×2 (10:11→18:10)
[2017-03-08] MEDS: INSULIN GLARGINE 100unit/ml INJECTION SQ SCH (10:12)
[2017-03-08] MEDS ORDERED: SALIVA SUBSTITUTE MOUTHWASH 237ml MM PRN (13:15)
--- NOTE | 2017-03-08 14:13 | Cardiology Progress Note ---
Subjective Principal diagnosis: SVT <Lucille Landry 03/08/17 14:13> Interval history: Fartun is seen in the dining room on IRU this morning in follow up for non sustained SVT and low magnesium. She denies chest pain or pressure, denies palpitations, asks when she can remove telemetry. <Lucille Landry 03/08/17 14:13> Exam Vital signs: Temperature 98.4 F 03/10/17 08:00 Pulse Rate 87 03/10/17 08:00 Respiratory Rate 18 03/10/17 08:00 Blood Pressure 157/90 H 03/10/17 08:00 Pulse Oximetry 95 03/10/17 08:00 <JammieKenny - 03/14/17 13:57> Temperature 98 F 03/08/17 08:00 Pulse Rate 86 03/08/17 08:00 Respiratory Rate 20 03/08/17 08:00 Blood Pressure 137/94 H 03/08/17 08:00 Pulse Oximetry 97 03/08/17 08:00 <Lucille Landry 03/08/17 14:13> - Constitutional no acute distress, cooperative <Lucille Landry 03/08/17 14:13> - Routine HEENT Exam Head: Present: normocephalic <Lucille Landry 03/08/17 14:13> ENT: Present: mucous membranes moist <Lucille Landry 03/08/17 14:13> - Routine Neck Exam Absent: JVD, carotid bruit <Lucille Landry 03/08/17 14:13> - Routine Chest/Breast/Axilla Exam Chest wall: Absent: tenderness <Lucille Landry 03/08/17 14:13> - Routine Respiratory Exam Present: CTA bilaterally. Absent: rales, wheezes <Lucille Landry 03/08/17 14:13> - Routine Cardiovascular Exam Present: RRR, no murmur. Absent: JVD <Lucille Landry 03/08/17 14:13> - Routine Abdominal Exam Present: soft, normoactive bowel sounds <Lucille Landry 03/08/17 14:13> - Routine Extremities Exam Present: no edema <Lucille Landry - 03/08/17 14:13> - Routine Skin Exam Present: intact, dry, warm <Lucille Landry - 03/08/17 14:13> - Routine Neurological Exam Present: alert, oriented X3 <Lucille Landry - 03/08/17 14:13> - Routine Psychiatric Exam Present: normal affect, normal thought process <Lucille Landry - 03/08/17 14: 13> - Additional findings Additional findings: Abnormal Lab Results 03/07/17 03/08/17 03/08/17 21:07 00:15 06:09 Glucometer 77 293 181 03/08/17 03/08/17 03/08/17 09:48 11:50 14:06 Glucometer 201 266 66 Acetaminophen (Tylenol) 650 mg PO QID PRN PRN Reason: Discomfort Last Admin: 02/24/17 04:28 Dose: 650 mg Acetaminophen/Hydrocodone Bitart ([place] 7.5/325) 1 tab PO ACHS [facility] Last Admin: 03/08/17 11:30 Dose: 1 tab Acetaminophen/Hydrocodone Bitart ([place] 7.5/325) 1 tab PO Q6H PRN PRN Reason: Pain Last Admin: 03/04/17 09:04 Dose: 1 tab Ascorbic Acid (Vitamin C) 500 mg PO DAILY [facility] Last Admin: 03/08/17 09:43 Dose: 500 mg Atenolol (Tenormin) 25 mg PO HS [facility] Last Admin: 03/07/17 21:09 Dose: 25 mg Atenolol (Tenormin) 50 mg PO QAM [facility] Last Admin: 03/08/17 09:42 Dose: 50 mg Baclofen (Lioresal) 5 mg PO Q6H PRN PRN Reason: Muscle Spasms / PAIN Last Admin: 03/01/17 08:43 Dose: 5 mg Brimonidine Tartrate (Alphagan P 0.15% Eye Drops) 1 drop EACH EYE TID [facility] Last Admin: 03/08/17 09:38 Dose: 1 drop Ergocalciferol (Vitamin D-2) 50,000 unit PO Q7D [facility] Last Admin: 03/06/17 13:35 Dose: 50,000 unit Fluticasone Propionate (Flonase) 2 spray EA NOSTRIL DAILY [facility] Last Admin: 03/08/17 09:46 Dose: 2 spray Gabapentin (Neurontin) 300 mg PO HS [facility] Last Admin: 03/07/17 21:09 Dose: 300 mg Glimepiride (Amaryl) 4 mg PO WB [facility] Last Admin: 03/08/17 09:37 Dose: 4 mg Insulin Aspart (Novolog) 0 unit SQ SS PRN; Protocol PRN Reason: Hyperglycemia Last Admin: 03/08/17 06:17 Dose: 1 unit Insulin Aspart (Novolog) 5 unit SQ ACB [facility] Last Admin: 03/08/17 10:11 Dose: 5 unit Insulin Aspart (Novolog) 6 unit SQ ACL [facility] Last Admin: 03/08/17 12:04 Dose: 6 unit Insulin Aspart (Novolog) 8 unit SQ WS [facility] Insulin Glargine (Lantus) 20 unit SQ AMI [facility] Last Admin: 03/08/17 10:12 Dose: 20 unit Lidocaine (Lidoderm) 2 patch TOP DAILY [facility] Last Admin: 03/08/17 09:41 Dose: 2 patch Lidocaine HCl (Magic Mouthwash (Lido/Maalox/Carafate)) 5 ml PO Q4H PRN Last Admin: 03/03/17 16:10 Dose: 5 ml Lidocaine HCl/Dextrose (Lidoderm Patch Removal) 2 removal TOP 2100 [facility] Last Admin: 03/07/17 21:09 Dose: 2 removal Magnesium Oxide (Magox) 800 mg PO BID [facility] Last Admin: 03/08/17 09:42 Dose: 800 mg Mirtazapine (Remeron) 7.5 mg PO HS [facility] Last Admin: 03/07/17 21:10 Dose: 7.5 mg Nystatin (Mycostatin) 5 ml PO QID [facility] Last Admin: 03/08/17 13:17 Dose: 5 ml Pantoprazole Sodium (Protonix Tab) 40 mg PO BID/E [facility] Last Admin: 03/08/17 06:11 Dose: 40 mg Prednisone (Deltasone) 5 mg PO WB [facility] Last Admin: 03/08/17 09:38 Dose: 5 mg Pyridoxine HCl (Vitamin B-6) 100 mg PO DAILY [facility] Last Admin: 03/08/17 09:43 Dose: 100 mg Saliva Substitute (Biotene Dry Mouth Oral Rinse) 15 ml MM 5XD PRN PRN Reason: Dry mouth Sodium Chloride (Iv Flush) 10 ml IV PRN PRN PRN Reason: Flushing Last Admin: 03/07/17 21:25 Dose: 10 ml Sodium Chloride (Normal Saline) 500 ml IV PRN PRN Last Admin: 03/06/17 13:41 Dose: 500 ml Teriparatide Acetate (Forteo) 20 mcg SQ DAILY [facility] Last Admin: 03/08/17 09:43 Dose: 20 mcg <Lucille Landry - 03/08/17 14:13> Assessment and Plan - Assessment and Plan (1) Diabetes mellitus type 2, uncontrolled, without complications Problem details: Still uncontrolled. Status: Chronic (2) Hypomagnesemia Status: Resolved (3) Oral candidiasis Status: Resolved (4) Diarrhea Status: Resolved (5) SVT (supraventricular tachycardia) Status: Acute <Kenny Agudelo - 03/14/17 13:57> (1) Hypomagnesemia Status: Acute (2) Oral candidiasis Status: Resolved (3) Diarrhea Status: Resolved (4) Diabetes mellitus type 2, uncontrolled, without complications Problem details: Still uncontrolled. Status: Chronic (5) SVT (supraventricular tachycardia) Status: Acute No events on telemetry monitoring last couple days, continue to monitor <Lucille Landry - 03/09/17 14:29> - Attestation Attestation Narrative: 03/14/17 13:57 Recommendation After examining the patient I agree with the above assessment. I am involved in the formulation of the patient's plan of care. <Kenny Agudelo - 03/14/17 13:57> Hospital Course Summary Disclaimer: The visit summary below is not to be considered part of the above Progress Note. <Kenny Agudelo - 03/14/17 13:57> The visit summary below is not to be considered part of the above Progress Note. <Lucille Landry - 03/08/17 14:13> Hospital Course: 03/01/17 Repeat BMP and MG today - K has stabilized but Mg continues to run low. PAT this am - asymptomatic; recent NSTEMI. Check Troponin and re-consult Dr. Agudelo (he saw her while hospitalized on acute). Diarrhea - check stool for C. diff; recently treated with 3 days of aztreonam (-02/15). Nystatin for thrush - recommend extended course; this was just dc'd on 02/26/17. Labile blood sugars - up to 300 yesterday afternoon, but occasionally hypoglycemic. Hgb A1c was 10.8% on 02/13/17. Will increase supper insulin to 7U - of note, her daily prednisone was increased to 10 mg (up from 5) on 02/26/17 to try to achieve better pain control. The higher steroid dose undoubtedly is increasing her sugars and contributing to thrush. Allergic rhinitis - start Flonase. Do not recommend abx at this time. 03/01/17 Cardiology SVT: nonsustained. asymptomatic. Add atenolol 25mg at bedtime. Hypomagnesemia: Mag 1.3 today, replace with 4 gms Mag IV, repeat mag in am 03/02/17- [place]. Assessment Myopathy Oral Thrush Diabetes Hypertension Lupus Chronic back pain Hypomagnesium - resolved 03/02. Hypermagnesium - acute, 03/02. Plan Patient feels she is making good progress with therapy. Continue to encourage work with therapies to maximize functional ability and strength. Continue treatment plan and pain control per Dr. Loyd. C. diff was negative. Monitor closely for signs of constipation in light of narcotic pain control. Continue with PO nystatin for treatment of oral thrust. Magic mouth wash as needed for pain. Thrush improving. Serum magnesium was 1.6 on 03/01. Mg improved to 2.5 (hypermagnesemia) following 2g Magnesium IV on 03/01. Continue to hold Oral Mag-Ox 400 milligrams twice a day in light of hypermagnesemia and recent diarrhea. Will recheck mag in AM and continue to monitor periodically. Blood sugars remain liable ranging between 48 and 353. Continue to monitor blood sugars closely. Review of blood sugar checks reveals hypoglycemia episodes during morning hours with hyperglycemia in the afternoons and evenings. Lantus was increased to 15 units every morning on 03/01 in conjunction with Novolog 5 units in the AM and 7 units in the PM. Will continue with Lantus 15 units in AM. Decrease morning insulin to 3 units in light of hypoglycemia episodes. Continue with po Trajenta and Amaryl as well as Sliding scale NovoLog as needed. Dr. Dick has been consulted and is expected to see the patient upon his return from being out of town on 03/06/17. Continue Lidoderm patch and Austin for chronic back pain. Protonix for GI protection. Lovenox subcutaneous daily for DVT prophylaxis. Recheck CBC and BMP in AM to monitor blood counts, electrolytes and renal function. 03/02/17 No further dysrhythmias. Continue to monitor telemetry and electrolytes 03/03/17 17:39 Had AFib with aberrancy this am. Mag is 1.7 today, replace with 2 gms IV, recheck in AM 03/06/17 No further dysrhythmia on telemetry, will continue to monitor Mag 1.5 today. Replace Mag with 2gm IV 03/07/17 11:32 Mag 2.0 today, No further dysrhythmia on telemetry, will continue to monitor 03/08/17 14:13 No events on telemetry monitoring last couple days, continue to monitor. <Lucille Landry - 03/08/17 14:13>
[2017-03-08] MEDS: ACETAMINOPHEN 325 MG TABLET PO PRN (14:36)
[2017-03-08] MEDS: MIRTAZAPINE 15 MG TABLET PO SCH (20:32)
[2017-03-08] MEDS: ATENOLOL 25 MG TABLET PO SCH (20:32)
[2017-03-08] MEDS: GABAPENTIN 300 MG CAPSULE PO SCH (20:32)
[2017-03-08] MEDS: LIDOCAINE PATCH REMOVAL TOP SCH (20:36)
[2017-03-09] MEDS: SALINE FLUSH 10ml SYRINGE IV PRN (06:04)
[2017-03-09] MEDS: HYDROCODONE/APAP 7.5 MG/325 MG TABLET PO SCH ×4 (06:04→20:28)
[2017-03-09] MEDS: PANTOPRAZOLE 40 MG TABLET PO SCH ×2 (06:04→20:28)
[2017-03-09] MEDS: INSULIN ASPART 100unit/ml INJECTION SQ SCH ×3 (06:07→19:26)
[2017-03-09] MEDS ORDERED: INSULIN ASPART 100unit/ml INJECTION SQ SCH (07:28)
--- NOTE | 2017-03-09 08:17 | Endocrinology Progress Note ---
Subjective Principal diagnosis: Type 2 DM, uncontrolled Interval history: Became hypoglycemic this morning after receiving her breakfast dose of Novolog at 0630 instead of just before breakfast. Otherwise had been doing fairly well after a slightly low glucose of 66 yesterday after lunch. Exam Vital signs: Temperature 98.7 F 03/08/17 23:31 Pulse Rate 82 03/09/17 07:38 Respiratory Rate 16 03/09/17 07:38 Blood Pressure 149/81 H 03/09/17 07:38 Pulse Oximetry 96 03/09/17 07:38 - Constitutional no acute distress, well nourished, well developed - Routine HEENT Exam Head: Present: normocephalic, atraumatic - Routine Neck Exam Absent: thyromegaly - Routine Respiratory Exam Absent: wheezes - Routine Cardiovascular Exam Present: RRR - Routine Abdominal Exam Present: normoactive bowel sounds - Routine Extremities Exam Absent: cyanosis, edema - Routine Neurological Exam Present: alert, oriented X3 - Routine Psychiatric Exam Present: normal affect, normal thought process - Additional findings Additional findings: Laboratory Tests 03/08/17 03/08/17 03/08/17 09:48 11:50 14:06 Glucometer 201 266 66 03/08/17 03/08/17 03/09/17 18:05 19:57 06:06 Glucometer 325 218 116 03/09/17 03/09/17 07:29 07:56 Glucometer 32 75 Assessment and Plan (1) Diabetes mellitus type 2, uncontrolled, without complications Problem details: Still uncontrolled. 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 (2) Osteoporosis Problem details: On Forteo for history of L1 compression fracture. Current visit: Yes Status: Chronic Continue Forteo.
[2017-03-09] MEDS: PYRIDOXINE 100mg TABLET PO SCH (08:41)
[2017-03-09] MEDS: ASCORBIC ACID 500 MG TABLET PO SCH (08:41)
[2017-03-09] MEDS: INSULIN GLARGINE 100unit/ml INJECTION SQ SCH (08:41)
[2017-03-09] MEDS: GLIMEPIRIDE 4 MG TABLET PO SCH (08:42)
[2017-03-09] MEDS: EYE EACH EYE SCH ×3 (08:42→20:27)
[2017-03-09] MEDS: PredniSONE 5 MG TABLET PO SCH (08:42)
[2017-03-09] MEDS: BRIMONIDINE 0.15% EACH EYE SCH ×3 (08:42→20:27)
[2017-03-09] MEDS: ATENOLOL 50 MG TABLET PO SCH (08:42)
[2017-03-09] MEDS: MAGNESIUM OXIDE 400 MG TABLET PO SCH ×2 (08:42→20:28)
[2017-03-09] MEDS: FLUTICASONE NASAL SPRAY 50mcg EA NOSTRIL SCH (08:43)
[2017-03-09] MEDS: NYSTATIN 500,000 units/5 ml ORAL LIQUID PO SCH ×4 (08:43→20:27)
--- NOTE | 2017-03-09 09:21 | Progress Note ---
Subjective: Fartun is seen this morning in follow-up. While working on getting out of bed with therapy. She is had a difficult morning as she was given her breakfast insulin at 0607 and proceeded to have hypoglycemia at 720 down to 32. Patient was symptomatic during this time. She was given oral juice and other snacks glucose did increase to 75. Dr. Dick was notified and came to evaluate patient. Otherwise, patient is doing well and ambulating good using a walker. She has her ongoing lower back pain. However, it is moderately managed. Objective Vital signs: Temperature 98.7 F 03/08/17 23:31 Pulse Rate 82 03/09/17 07:38 Respiratory Rate 16 03/09/17 07:38 Blood Pressure 149/81 H 03/09/17 07:38 Pulse Oximetry 96 03/09/17 07:38 Height/Weight/BMI: Height 1.57 m Weight 56.9 kg Body Mass Index 25.6 - Constitutional Present: no acute distress, well nourished, well developed - Routine HEENT Exam Eye: Present: EOMI ENT: Present: mucous membranes moist, dentition normal - Routine Respiratory Exam Present: CTA bilaterally. Absent: wheezes - Routine Cardiovascular Exam Present: RRR, S1, S2. Absent: murmur - Routine Abdominal Exam Present: soft, normoactive bowel sounds, non distended. Absent: tenderness - Routine Extremities Exam Present: normal capillary refill - Routine Back/Spine/Pelvis Exam Back/Spine: Present: paraspinal tenderness (chronic) - Routine Skin Exam Present: intact, dry, warm - Routine Neurological Exam Present: alert, oriented X3, CN II-XII intact - Routine Lymphatic Exam Lymphatic: Absent: adenopathy - Routine Psychiatric Exam Present: normal affect, cooperative Results - Labs CBC & Chem 7: 03/04/17 06:04 03/07/17 06:45 Assessment and Plan (1) Myopathy Current visit: Yes Status: Acute Assessment and Plan: Assessment Myopathy Oral Thrush Diabetes Hypertension Lupus Chronic back pain Hypomagnesium - resolved 03/02. SVT, nonsustained - 03/01/17 - Dr. Agudelo started atenolol 25 mg HS A-fib with aberrancy - 03/03 (mg was low at that time) Recent NSTEMI Plan - 03/09/17 Lengthy discussion with nursing staff as well as clinical nursing intern regarding appropriate times for mealtime insulin to be given. Dr. Dick request this event be written up as a nursing variant given patient was given insulin 3 hours prior to eating breakfast. Discussed with staff that meal time insulin is not to be given until patient is sitting in dining room and patient is eating. Insulin was changed this morning by Dr Dick- NovoLog 5 units subcutaneous with breakfast, 4 units subcutaneous with lunch, 8 units with supper, basilar insulin Lantus 20 units with breakfast. Continue on baseline prednisone 5 milligrams. Continue to monitor for dysrhythmias. Hopeful for discharge tomorrow Hospital Course Summary Disclaimer: The visit summary below is not to be considered part of the above Progress Note. Hospital Course: 03/01/17 Repeat BMP and MG today - K has stabilized but Mg continues to run low. PAT this am - asymptomatic; recent NSTEMI. Check Troponin and re-consult Dr. Agudelo (he saw her while hospitalized on acute). Diarrhea - check stool for C. diff; recently treated with 3 days of aztreonam (-02/15). Nystatin for thrush - recommend extended course; this was just dc'd on 02/26/17. Labile blood sugars - up to 300 yesterday afternoon, but occasionally hypoglycemic. Hgb A1c was 10.8% on 02/13/17. Will increase supper insulin to 7U - of note, her daily prednisone was increased to 10 mg (up from 5) on 02/26/17 to try to achieve better pain control. The higher steroid dose undoubtedly is increasing her sugars and contributing to thrush. Allergic rhinitis - start Flonase. Do not recommend abx at this time. 03/01/17 Cardiology SVT: nonsustained. asymptomatic. Add atenolol 25mg at bedtime. Hypomagnesemia: Mag 1.3 today, replace with 4 gms Mag IV, repeat mag in am 03/02/17- Mirakian. Assessment Myopathy Oral Thrush Diabetes Hypertension Lupus Chronic back pain Hypomagnesium - resolved 03/02. Hypermagnesium - acute, 03/02. Plan Patient feels she is making good progress with therapy. Continue to encourage work with therapies to maximize functional ability and strength. Continue treatment plan and pain control per Dr. Loyd. C. diff was negative. Monitor closely for signs of constipation in light of narcotic pain control. Continue with PO nystatin for treatment of oral thrust. Magic mouth wash as needed for pain. Thrush improving. Serum magnesium was 1.6 on 03/01. Mg improved to 2.5 (hypermagnesemia) following 2g Magnesium IV on 03/01. Continue to hold Oral Mag-Ox 400 milligrams twice a day in light of hypermagnesemia and recent diarrhea. Will recheck mag in AM and continue to monitor periodically. Blood sugars remain liable ranging between 48 and 353. Continue to monitor blood sugars closely. Review of blood sugar checks reveals hypoglycemia episodes during morning hours with hyperglycemia in the afternoons and evenings. Lantus was increased to 15 units every morning on 03/01 in conjunction with Novolog 5 units in the AM and 7 units in the PM. Will continue with Lantus 15 units in AM. Decrease morning insulin to 3 units in light of hypoglycemia episodes. Continue with po Trajenta and Amaryl as well as Sliding scale NovoLog as needed. Dr. Dick has been consulted and is expected to see the patient upon his return from being out of town on 03/06/17. Continue Lidoderm patch and [place] for chronic back pain. Protonix for GI protection. Lovenox subcutaneous daily for DVT prophylaxis. Recheck CBC and BMP in AM to monitor blood counts, electrolytes and renal function. 03/02/17 No further dysrhythmias. Continue to monitor telemetry and electrolytes 03/03/17 17:39 Had AFib with aberrancy this am. Mag is 1.7 today, replace with 2 gms IV, recheck in AM 03/06/17 No further dysrhythmia on telemetry, will continue to monitor Mag 1.5 today. Replace Mag with 2gm IV 03/07/17 11:32 Mag 2.0 today, No further dysrhythmia on telemetry, will continue to monitor 03/08/17 14:13 No events on telemetry monitoring last couple days, continue to monitor. Plan - 03/09/17 Lengthy discussion with nursing staff as well as clinical nursing intern regarding appropriate times for mealtime insulin to be given. Dr. Dick request this event be written up as a nursing variant given patient was given insulin 3 hours prior to eating breakfast. Discussed with staff that meal time insulin is not to be given until patient is sitting in dining room and patient is eating. Insulin was changed this morning by Dr Dick- Cherelle 5 units subcutaneous with breakfast, 4 units subcutaneous with lunch, 8 units with supper, basilar insulin Lantus 20 units with breakfast. Continue on baseline prednisone 5 milligrams. Continue to monitor for dysrhythmias. Hopeful for discharge tomorrow
[2017-03-09] MEDS: LIDOCAINE 5% PATCH TOP SCH (09:53)
[2017-03-09] MEDS: TERIPARATIDE 600 MCG SQ SCH (09:55)
[2017-03-09] MEDS: ACETAMINOPHEN 325 MG TABLET PO PRN (12:29)
[2017-03-09] MEDS: INSULIN ASPART 100unit/ml INJECTION SQ PRN (14:43)
[2017-03-09] MEDS: HYDROCODONE/APAP 7.5 MG/325 MG TABLET PO PRN (14:47)
--- NOTE | 2017-03-09 17:27 | Cardiology Progress Note ---
Subjective Principal diagnosis: SVT <Lucille Landry - 03/09/17 17:27> Interval history: Fartun is seen in the dining room on IRU this evening in follow up for non sustained SVT and low magnesium. She denies chest pain or pressure, denies palpitations. No further arrhythmias on telemetry, may discontinue telemetry. <Lucille Landry - 03/09/17 17:27> Exam Vital signs: Temperature 98.4 F 03/10/17 08:00 Pulse Rate 87 03/10/17 08:00 Respiratory Rate 18 03/10/17 08:00 Blood Pressure 157/90 H 03/10/17 08:00 Pulse Oximetry 95 03/10/17 08:00 <Kenny Agudelo - 03/15/17 13:27> Temperature 98.7 F 03/08/17 23:31 Pulse Rate 99 03/09/17 08:00 Respiratory Rate 16 03/09/17 07:38 Blood Pressure 149/81 H 03/09/17 07:38 Pulse Oximetry 96 03/09/17 07:38 <Lucille Landry 03/09/17 17:27> - Constitutional no acute distress, well nourished, well developed, cooperative <Lucille aLndry 03/09/17 17:27> - Routine HEENT Exam Head: Present: normocephalic <Lucille Landry 03/09/17 17:27> ENT: Present: mucous membranes moist <Lucille Landry 03/09/17 17:27> - Routine Neck Exam Absent: JVD, carotid bruit <Lucille Landry 03/09/17 17:27> - Routine Chest/Breast/Axilla Exam Chest wall: Absent: tenderness <Lucille Landry 03/09/17 17:27> - Routine Respiratory Exam Present: CTA bilaterally. Absent: rales, wheezes <Lcuille Landry 03/09/17 17:27> - Routine Cardiovascular Exam Present: RRR, no murmur. Absent: JVD <Lucille Landry 03/09/17 17:27> - Routine Abdominal Exam Present: soft, normoactive bowel sounds <Lucille Landry 03/09/17 17:27> - Routine Extremities Exam Present: no edema <Lucille Landry - 03/09/17 17:27> - Routine Skin Exam Present: intact, dry, warm <Lucille Landry - 03/09/17 17:27> - Routine Neurological Exam Present: alert, oriented X3 <Lucille Landry - 03/09/17 17:27> - Routine Psychiatric Exam Present: normal affect, normal thought process <Lucille Landry - 03/09/17 17: 27> - Additional findings Additional findings: Laboratory Results - last 24 hr 03/08/17 03/08/17 03/09/17 18:05 19:57 06:06 Glucometer 325 218 116 03/09/17 03/09/17 03/09/17 07:29 07:56 10:10 Glucometer 32 75 233 03/09/17 14:23 Glucometer 219 Acetaminophen (Tylenol) 650 mg PO QID PRN PRN Reason: Discomfort Last Admin: 03/09/17 12:29 Dose: 650 mg Acetaminophen/Hydrocodone Bitart ([place] 7.5/325) 1 tab PO ACHS [facility] Last Admin: 03/09/17 11:38 Dose: 1 tab Acetaminophen/Hydrocodone Bitart ([place] 7.5/325) 1 tab PO Q6H PRN PRN Reason: Pain Last Admin: 03/09/17 14:47 Dose: 1 tab Ascorbic Acid (Vitamin C) 500 mg PO DAILY [facility] Last Admin: 03/09/17 08:41 Dose: 500 mg Atenolol (Tenormin) 25 mg PO HS [facility] Last Admin: 03/08/17 20:32 Dose: 25 mg Atenolol (Tenormin) 50 mg PO QAM [facility] Last Admin: 03/09/17 08:42 Dose: 50 mg Baclofen (Lioresal) 5 mg PO Q6H PRN PRN Reason: Muscle Spasms / PAIN Last Admin: 03/01/17 08:43 Dose: 5 mg Brimonidine Tartrate (Alphagan P 0.15% Eye Drops) 1 drop EACH EYE TID [facility] Last Admin: 03/09/17 16:47 Dose: Not Given Ergocalciferol (Vitamin D-2) 50,000 unit PO Q7D [facility] Last Admin: 03/06/17 13:35 Dose: 50,000 unit Fluticasone Propionate (Flonase) 2 spray EA NOSTRIL DAILY [facility] Last Admin: 03/09/17 08:43 Dose: 2 spray Gabapentin (Neurontin) 300 mg PO HS [facility] Last Admin: 03/08/17 20:32 Dose: 300 mg Glimepiride (Amaryl) 4 mg PO WB [facility] Last Admin: 03/09/17 08:42 Dose: 4 mg Insulin Aspart (Novolog) 0 unit SQ SS PRN; Protocol PRN Reason: Hyperglycemia Last Admin: 03/09/17 14:43 Dose: 2 unit Insulin Aspart (Novolog) 8 unit SQ WS [facility] Last Admin: 03/08/17 18:10 Dose: 8 unit Insulin Aspart (Novolog) 5 unit SQ 0800 ADRIANA Insulin Aspart (Novolog) 4 unit SQ 1200 [facility] Last Admin: 03/09/17 13:06 Dose: 4 unit Insulin Glargine (Lantus) 20 unit SQ AMI [facility] Last Admin: 03/09/17 08:41 Dose: 20 unit Lidocaine (Lidoderm) 2 patch TOP DAILY [facility] Last Admin: 03/09/17 09:53 Dose: 2 patch Lidocaine HCl (Magic Mouthwash (Lido/Maalox/Carafate)) 5 ml PO Q4H PRN Last Admin: 03/03/17 16:10 Dose: 5 ml Lidocaine HCl/Dextrose (Lidoderm Patch Removal) 2 removal TOP 2100 [facility] Last Admin: 03/08/17 20:36 Dose: 2 removal Magnesium Oxide (Magox) 800 mg PO BID [facility] Last Admin: 03/09/17 08:42 Dose: 800 mg Mirtazapine (Remeron) 7.5 mg PO HS [facility] Last Admin: 03/08/17 20:32 Dose: 7.5 mg Nystatin (Mycostatin) 5 ml PO QID [facility] Last Admin: 03/09/17 13:08 Dose: 5 ml Pantoprazole Sodium (Protonix Tab) 40 mg PO BID/E [facility] Last Admin: 03/09/17 06:04 Dose: 40 mg Prednisone (Deltasone) 5 mg PO WB [facility] Last Admin: 03/09/17 08:42 Dose: 5 mg Pyridoxine HCl (Vitamin B-6) 100 mg PO DAILY [facility] Last Admin: 03/09/17 08:41 Dose: 100 mg Saliva Substitute (Biotene Dry Mouth Oral Rinse) 15 ml MM 5XD PRN PRN Reason: Dry mouth Sodium Chloride (Iv Flush) 10 ml IV PRN PRN PRN Reason: Flushing Last Admin: 03/09/17 06:04 Dose: 10 ml Sodium Chloride (Normal Saline) 500 ml IV PRN PRN Last Admin: 03/06/17 13:41 Dose: 500 ml Teriparatide Acetate (Forteo) 20 mcg SQ DAILY ADRIANA Last Admin: 03/09/17 09:55 Dose: 20 mcg <Lucille Landry - 03/09/17 17:27> Assessment and Plan - Assessment and Plan (1) Diabetes mellitus type 2, uncontrolled, without complications Problem details: Still uncontrolled. Status: Chronic (2) Hypomagnesemia Status: Resolved (3) Oral candidiasis Status: Resolved (4) Diarrhea Status: Resolved (5) SVT (supraventricular tachycardia) Status: Acute <Kenny Agudelo - 03/15/17 13:27> (1) Hypomagnesemia Status: Acute (2) Oral candidiasis Status: Resolved (3) Diarrhea Status: Resolved (4) Diabetes mellitus type 2, uncontrolled, without complications Problem details: Still uncontrolled. Status: Chronic (5) SVT (supraventricular tachycardia) Status: Acute No further arrhythmias on telemetry, may discontinue telemetry. <Lucille Landry - 03/09/17 17:25> - Attestation Attestation Narrative: 03/15/17 13:27 Recommendation After examining the patient I agree with the above assessment. I am involved in the formulation of the patient's plan of care. <Kenny Agudelo - 03/15/17 13:27> Hospital Course Summary Disclaimer: The visit summary below is not to be considered part of the above Progress Note. <Kenny Agudelo - 03/15/17 13:27> The visit summary below is not to be considered part of the above Progress Note. <Lucille Landry - 03/09/17 17:27> Hospital Course: 03/01/17 Repeat BMP and MG today - K has stabilized but Mg continues to run low. PAT this am - asymptomatic; recent NSTEMI. Check Troponin and re-consult Dr. Agudelo (he saw her while hospitalized on acute). Diarrhea - check stool for C. diff; recently treated with 3 days of aztreonam (-02/15). Nystatin for thrush - recommend extended course; this was just dc'd on 02/26/17. Labile blood sugars - up to 300 yesterday afternoon, but occasionally hypoglycemic. Hgb A1c was 10.8% on 02/13/17. Will increase supper insulin to 7U - of note, her daily prednisone was increased to 10 mg (up from 5) on 02/26/17 to try to achieve better pain control. The higher steroid dose undoubtedly is increasing her sugars and contributing to thrush. Allergic rhinitis - start Flonase. Do not recommend abx at this time. 03/01/17 Cardiology SVT: nonsustained. asymptomatic. Add atenolol 25mg at bedtime. Hypomagnesemia: Mag 1.3 today, replace with 4 gms Mag IV, repeat mag in am 03/02/17- Mirakian. Assessment Myopathy Oral Thrush Diabetes Hypertension Lupus Chronic back pain Hypomagnesium - resolved 03/02. Hypermagnesium - acute, 03/02. Plan Patient feels she is making good progress with therapy. Continue to encourage work with therapies to maximize functional ability and strength. Continue treatment plan and pain control per Dr. Loyd. C. diff was negative. Monitor closely for signs of constipation in light of narcotic pain control. Continue with PO nystatin for treatment of oral thrust. Magic mouth wash as needed for pain. Thrush improving. Serum magnesium was 1.6 on 03/01. Mg improved to 2.5 (hypermagnesemia) following 2g Magnesium IV on 03/01. Continue to hold Oral Mag-Ox 400 milligrams twice a day in light of hypermagnesemia and recent diarrhea. Will recheck mag in AM and continue to monitor periodically. Blood sugars remain liable ranging between 48 and 353. Continue to monitor blood sugars closely. Review of blood sugar checks reveals hypoglycemia episodes during morning hours with hyperglycemia in the afternoons and evenings. Lantus was increased to 15 units every morning on 03/01 in conjunction with Novolog 5 units in the AM and 7 units in the PM. Will continue with Lantus 15 units in AM. Decrease morning insulin to 3 units in light of hypoglycemia episodes. Continue with po Trajenta and Amaryl as well as Sliding scale NovoLog as needed. Dr. Dick has been consulted and is expected to see the patient upon his return from being out of town on 03/06/17. Continue Lidoderm patch and [place] for chronic back pain. Protonix for GI protection. Lovenox subcutaneous daily for DVT prophylaxis. Recheck CBC and BMP in AM to monitor blood counts, electrolytes and renal function. 03/02/17 No further dysrhythmias. Continue to monitor telemetry and electrolytes 03/03/17 17:39 Had AFib with aberrancy this am. Mag is 1.7 today, replace with 2 gms IV, recheck in AM 03/06/17 No further dysrhythmia on telemetry, will continue to monitor Mag 1.5 today. Replace Mag with 2gm IV 03/07/17 11:32 Mag 2.0 today, No further dysrhythmia on telemetry, will continue to monitor 03/08/17 14:13 No events on telemetry monitoring last couple days, continue to monitor. 03/09/17 17:27 No further arrhythmias on telemetry, may discontinue telemetry. <Lucille Landry - 03/09/17 17:27>
[2017-03-09] MEDS: ATENOLOL 25 MG TABLET PO SCH (20:28)
[2017-03-09] MEDS: GABAPENTIN 300 MG CAPSULE PO SCH (20:28)
[2017-03-09] MEDS: MIRTAZAPINE 15 MG TABLET PO SCH (20:28)
[2017-03-09] MEDS: LIDOCAINE PATCH REMOVAL TOP SCH (20:35)
[2017-03-09 20:48] VITALS: RESP 18
[2017-03-10] MEDS: PANTOPRAZOLE 40 MG TABLET PO SCH (06:47)
[2017-03-10] MEDS: HYDROCODONE/APAP 7.5 MG/325 MG TABLET PO SCH ×2 (06:47→11:02)
[2017-03-10] MEDS ORDERED: INSULIN ASPART 100unit/ml INJECTION SQ SCH (08:00)
[2017-03-10] MEDS: PYRIDOXINE 100mg TABLET PO SCH (08:16)
[2017-03-10] MEDS: PredniSONE 5 MG TABLET PO SCH (08:16)
[2017-03-10] MEDS: ATENOLOL 50 MG TABLET PO SCH (08:16)
[2017-03-10] MEDS: GLIMEPIRIDE 4 MG TABLET PO SCH (08:16)
[2017-03-10] MEDS: ASCORBIC ACID 500 MG TABLET PO SCH (08:16)
[2017-03-10] MEDS: MAGNESIUM OXIDE 400 MG TABLET PO SCH (08:16)
[2017-03-10] MEDS: NYSTATIN 500,000 units/5 ml ORAL LIQUID PO SCH ×2 (08:20→14:29)
[2017-03-10 08:27] VITALS: BP 157/90; PULSE 87; TEMP 98.4; O2SAT 95
[2017-03-10] MEDS: LIDOCAINE 5% PATCH TOP SCH (08:40)
[2017-03-10] MEDS: FLUTICASONE NASAL SPRAY 50mcg EA NOSTRIL SCH (08:41)
[2017-03-10] MEDS: TERIPARATIDE 600 MCG SQ SCH (08:41)
[2017-03-10] MEDS: INSULIN GLARGINE 100unit/ml INJECTION SQ SCH ×2 (08:43→09:01)
[2017-03-10] MEDS: BRIMONIDINE 0.15% EACH EYE SCH (08:45)
[2017-03-10] MEDS: EYE EACH EYE SCH (08:45)
--- NOTE | 2017-03-10 10:20 | Discharge Instructions ---
Discharge Plan - Med Rec/Dispo Referrals/Follow Up: Kenny Agudelo MD [Physician] - (Dr. Maribell Agudelo on 03/24/17 at 10:00 am for follow-up. [facility] [address] [place] [address] [place] [address] ) Rodolfo Niño MD [Family Provider] - (Dr. Moustapha Niño on 03/16/17 at 9:30 am for Hosp. follow-up. . Please have lab drawn at office visit- BMP, magnesium, phosphorus Clinic [address] [place] [address] [place] [id number]) Prescriptions: New Atenolol [Tenormin] 25 mg PO HS #20 tab Atenolol [Tenormin] 50 mg PO QAM #20 tab Insulin Aspart [NovoLOG] 5 unit SQ 0800 vial Insulin Aspart [NovoLOG] 8 unit SQ WS vial Lidocaine 5% Patch [Lidoderm] 2 patch TOP DAILY #20 patch Magnesium Oxide [Magox] 800 mg PO BID #30 tab Pyridoxine [Vitamin B-6] 100 mg PO DAILY tablet Saliva Substitute Mouthwash [Biotene Dry Mouth Oral Rinse] 15 ml MM 5XD PRN bottle PRN Reason: Dry Mouth Insulin Glargine,Hum.rec.anlog [Lantus] 20 unit SQ AMI vial Insulin Aspart [NovoLOG] 4 unit SQ 1200 vial PredniSONE [Deltasone] 5 mg PO WB tablet Ascorbic Acid [Vitamin C] 500 mg PO DAILY tablet Continue Calcium Citrate/Vitamin D2 [Zachary-Citrate Plus Vitamin D Tab] 1 tab PO DAILY Aspirin Chewable [ASA] 81 mg PO DAILY tab.chew Gabapentin [Neurontin] 300 mg PO HS capsule Phosphorus Neutral [K-Phos *Neutral* Tablet] 500 mg PO BIDWM #30 tab Alphagan P 1 drop EACH EYE TID Multivit-Min/FA/Lycopen/Lutein [Centrum Silver Tablet] 1 tab PO DAILY Acetaminophen [Tylenol] 650 mg PO QID PRN tablet PRN Reason: Discomfort Glimepiride [Amaryl] 4 mg PO WB tablet Mirtazapine [Remeron] 7.5 mg PO HS #15 tab Prevacid (Lansoprazole) 30 mg capsule,delayed release 30 mg PO BID cap Discontinued Linagliptin [Tradjenta] 5 mg PO BID Enoxaparin Sodium [Lovenox] 40 mg SQ DAILY syringe Insulin Glargine,Hum.rec.anlog [Lantus] 12 unit SQ AMI vial Linagliptin [Tradjenta] 5 mg PO DAILY Atenolol [Tenormin] 50 mg PO DAILY tablet Nystatin Oral Liq. [Mycostatin] 5 ml PO QID udc No Action Hydrocodone/APAP 7.5/325 [[place] 7.5/325] 1 tab PO Q6H PRN tablet PRN Reason: Pain Lidocaine Patch Removal [Lidoderm Patch Removal] 1 removal TOP 2100 patch
--- NOTE | 2017-03-10 11:02 | IRU Progress Note ---
- Subjective/Serverity of Illness Fartun was evaluated in her room. She continues to complain of the right hip/ buttock pain. Does not radiate down the leg. She does not think the epidural was of benefit for her. Nevertheless, she is comfortable going home. It mainly hurts to sit on the right buttock. She would like pain medication to go home with which we will provide. She is being counseled by diabetic education at the present time. She will check her blood sugars fasting and 2 hours after each meal until she sees Dr. Dick. She will be going home on insulin and has been instructed in its usage. Hypoglycemic episode noted and reviewed. 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 She is judged to be safe to go home at this time and will be able to care for herself with the assistance of her son. 2. Diabetes mellitus type 2, newly on insulin and not well controlled. Had a hypoglycemic episode yesterday. Is followed by Dr. Dick and will follow-up with him as outpatient. tobacco educator is seeing her this morning. Has been instructed on insulin administration and is able to do that. 3. Recent non-ST segment elevated myocardial infarction: Continues to be followed by cardiology. No chest pain is reported. No further episodes of supraventricular tachycardia have been noted. 4. Hypomagnesemia: Has received additional supplemental magnesium. Magnesium is normal. 5. Evidence of protein calorie malnutrition with reduced appetite and hypoalbuminemia. She continues on supplements. She will require continued encouragement to have adequate oral intake. 6. Dysphagia: Seems to be doing well in this regard. 7. Anemia: This appears to be consistent with anemia of chronic disease. Her counts are stable. Denies lightheadedness. 8. Right buttock pain: Please see above description. 9. Hyperkalemia: This is resolved and likely was related to hemolysis. Exam Vital Signs: Temperature 98.4 F 03/10/17 08:00 Pulse Rate 87 03/10/17 08:00 Respiratory Rate 18 03/10/17 08:00 Blood Pressure 157/90 H 03/10/17 08:00 Pulse Oximetry 95 03/10/17 08:00 Height/Weight/BMI: Height 1.57 m Weight 56.9 kg Body Mass Index 25.6 Comments: The patient is awake, alert and oriented and in no acute distress. Pupils are equal. The neck is supple. Chest: Clear to auscultation bilaterally. Cor: RR with no gallop, click. Systolic murmur noted. Abd: soft with normo-active bowel sounds. There are no masses, no tenderness and no guarding. Extremities: No edema is noted. There are good pulses in both ankles. No cyanosis is present. Right buttock tender to palpate. Results IRU - Labs Labs: Have reviewed blood sugars etc. IRU A/P (1) Myopathy Current visit: Yes Status: Acute Muscle strength has improved and she is stable for dismissal. (2) Diabetes mellitus type 2, uncontrolled, without complications Qualifiers: Diabetes mellitus terminal make up operator insulin use: without terminal make up operator use Qualified Code(s): E11.65 - Type 2 diabetes mellitus with hyperglycemia Problem details: Still uncontrolled. Current visit: Yes Status: Chronic Blood sugars remain variable. Timing of mealtime insulin is critical to avoid hypoglycemia. She is being counseled by the tobacco educator at present. (3) Diabetic peripheral neuropathy associated with type 2 diabetes mellitus Problem details: Better. Current visit: No Status: Chronic (4) Hip pain, right Current visit: No Status: Acute Continues to be plagued by ongoing problems with the right buttock and hip. Etiology of the pain is not clear. (5) Hypomagnesemia Current visit: Yes Status: Resolved (6) Anemia Qualifiers: Anemia type: other cause Other causes of anemia: chronic disease, other Qualified Code(s): D63.8 - Anemia in other chronic diseases classified elsewhere Current visit: Yes Status: Acute (7) Protein-calorie malnutrition, moderate Current visit: Yes Status: Acute (8) Oral candidiasis Current visit: Yes Status: Resolved (9) Diarrhea Qualifiers: Diarrhea type: unspecified type Qualified Code(s): R19.7 - Diarrhea, unspecified Current visit: Yes Status: Resolved (10) Hyperkalemia Current visit: Yes Status: Resolved DVT Prophylaxis: SCD's, Lovenox Resuscitation Status: Full Code - Course Hospital Course: Mega Loyd MD: 02/24/17 10:19 Patient is cooperative with therapy. Still requires maximal assistance for transfers etc. Patient is noted to be malnourished on the basis of low. Albumin. Dietitian consulted. Has a bit worsening anemia at 9.9. Iron studies and occult blood will be assessed. Her blood sugars remain quite variable. 02/27/17 10:06 Progress is slow. She is cooperative with therapy. Continues to ambulate short distances. She is improving with regard to transfers. Magnesium remains a bit low but she is on supplement. Blood sugars remain reasonable at around 200. She is on oral agent plus basal plus mealtime. 02/28/17 10:32 Her therapy is hindered due to severe pain in the low back and right hip. We will consider local modalities. I have contacted radiology to see if an epidural might be appropriate. Several blood tests ordered per recommendation of dietitian. 03/01/17 10:58 New medical problems have developed in terms of PAT this morning, oral candidiasis, diarrhea. In addition, she continues to run blood sugars that are a bit too high after having a hypoglycemic episode yesterday. Continues to have pain in the right hip area. I have consulted Dr. Guzman in this regard. 03/03/17 08:32 Continues to complain of pain in the right hip area. Appreciate Dr. Guzman's input. Planning for epidural on Monday. Last Lovenox dose on Monday. If epidural is not helpful, consider nuclear medicine bone scan. She is more consistent with transfers. However continues in general to be variable with regard to therapies. 03/06/17 10:20 Lovenox has been held for over 36 hours. We are requesting epidural steroid in the lumbar spine right side today. Potassium is 6.0. She is on no potassium supplementation. We will check a repeat BMP. Pain continues to be the limiting factor. Her blood sugars are variable and she has been seen by Dr. Dick with changes in insulin regimen. Participation in therapy is variable. 03/07/17 09:41 Continue to work with patient. Repeat potassium was normal. Pain in right hip continues to be a limiting factor. Blood sugars are variable and are running too high. Dr. Dick has adjusted insulin. Participation in therapy continues to be variable. 03/08/17 09:29 She believes there has been some improvement with regard to her right hip pain. Blood sugars are variable. Dr. Dick has again adjusted insulin added on breakfast insulin. Participation in therapy still is somewhat variable. Anticipate going home on Monday. 03/10/17 11:03 Patient has made progress with therapy. She'll be dismissed home today. - Interventions to Obtain Goals PT Treatment Plan: Balance/Proprioception, Functional Activities, Gait Training , Patient/Family Education, Therapeutic Exercise OT Treatment Plan: ADL (Basic Care), Balance Training, Joint Mobilization, Pt./ Family Education, Ther. Exercise for ADL Goals Progress/Modifications: Dismiss today.
--- NOTE | 2017-03-10 11:08 | Discharge Instructions ---
Discharge Plan - Med Rec/Dispo Referrals/Follow Up: Kenny Agudelo MD [Physician] - (Dr. Maribell Agudelo on 03/24/17 at 10:00 am for follow-up. [facility] [address] [place] [address] [place] [id number] ) Rodolfo Niño MD [Family Provider] - (Dr. Moustapha Niño on 03/16/17 at 9:30 am for Hosp. follow-up. . Please have lab drawn at office visit- BMP, magnesium, phosphorus Clinic [address] [place] [address] [place] [id number]) Prescriptions: New Atenolol [Tenormin] 25 mg PO HS #20 tab Atenolol [Tenormin] 50 mg PO QAM #20 tab Insulin Aspart [NovoLOG] 5 unit SQ 0800 vial Insulin Aspart [NovoLOG] 8 unit SQ WS vial Lidocaine 5% Patch [Lidoderm] 2 patch TOP DAILY #20 patch Magnesium Oxide [Magox] 800 mg PO BID #30 tab Pyridoxine [Vitamin B-6] 100 mg PO DAILY tablet Saliva Substitute Mouthwash [Biotene Dry Mouth Oral Rinse] 15 ml MM 5XD PRN bottle PRN Reason: Dry Mouth Insulin Glargine,Hum.rec.anlog [Lantus] 20 unit SQ AMI vial Insulin Aspart [NovoLOG] 4 unit SQ 1200 vial PredniSONE [Deltasone] 5 mg PO WB tablet Ascorbic Acid [Vitamin C] 500 mg PO DAILY tablet Continue Calcium Citrate/Vitamin D2 [Zachary-Citrate Plus Vitamin D Tab] 1 tab PO DAILY Aspirin Chewable [ASA] 81 mg PO DAILY tab.chew Gabapentin [Neurontin] 300 mg PO HS capsule Phosphorus Neutral [K-Phos *Neutral* Tablet] 500 mg PO BIDWM #30 tab Alphagan P 1 drop EACH EYE TID Multivit-Min/FA/Lycopen/Lutein [Centrum Silver Tablet] 1 tab PO DAILY Acetaminophen [Tylenol] 650 mg PO QID PRN tablet PRN Reason: Discomfort Glimepiride [Amaryl] 4 mg PO WB tablet Mirtazapine [Remeron] 7.5 mg PO HS #15 tab Hydrocodone/APAP 7.5/325 [[place] 7.5/325] 1 tab PO Q6H PRN #60 tablet PRN Reason: Pain Prevacid (Lansoprazole) 30 mg capsule,delayed release 30 mg PO BID cap Discontinued Linagliptin [Tradjenta] 5 mg PO BID Enoxaparin Sodium [Lovenox] 40 mg SQ DAILY syringe Insulin Glargine,Hum.rec.anlog [Lantus] 12 unit SQ AMI vial Linagliptin [Tradjenta] 5 mg PO DAILY Atenolol [Tenormin] 50 mg PO DAILY tablet Nystatin Oral Liq. [Mycostatin] 5 ml PO QID udc No Action Lidocaine Patch Removal [Lidoderm Patch Removal] 1 removal TOP 2100 patch Discharge Instructions/Outpatient Orders: Final Provider Discharge Instructions Location: Determined By Patient - Disposition 01 Discharged Home, Self-Care
--- NOTE | 2017-03-10 11:19 | Discharge Summary ---
Discharge Information Date of admission: 02/22/17 16:00 Anticipated date of discharge: 03/10/17 Attending Physician: Mega Loyd MD Primary care physician: Rodolfo Niño MD Consults: 02/22/17 16:41 Social Worker Delinquency Prevention Consult [Inpatient Diabetic Consult] [CONS] Routine Diabetic Diagnosis: E11.9 Type 2 DM w/o comp Diabetic Training: Other Dietary Consult [CONS] Routine Comment: Reason For Exam: non compliant diabetic she is now in ICU 02/22/17 17:50 Physician Consult [CONS] Routine Consulting Provider: Nick Patel Reason For Exam: Medical Management Ordering Provider has Notified Tie Up Worker: No 02/22/17 22:26 Dietary Consult [CONS] Routine Comment: Reason For Exam: Protein calorie malnutrition? 03/01/17 09:47 Physician Consult [CONS] Routine Consulting Provider: Kenny Agudelo Reason For Exam: PAT; recent NSTEMI Ordering Provider has Notified Tie Up Worker: Yes 03/01/17 10:41 Physician Consult [CONS] Routine Consulting Provider: Kade Guzman Reason For Exam: Right hip pain Ordering Provider has Notified Tie Up Worker: Yes 03/01/17 12:38 Physician Consult [CONS] Routine Consulting Provider: Eric Dick Reason For Exam: labile BG, hx of DM2 Ordering Provider has Notified Tie Up Worker: No - Discharge Diagnosis (1) Myopathy Status: Acute Discharge Diagnosis: Disuse Myopathy (2) Diabetes mellitus type 2, uncontrolled, without complications Status: Chronic Discharge Diagnosis: Diabetes Mellitus type 2, not on oil heaterman insulin, not controlled (3) Diabetic peripheral neuropathy associated with type 2 diabetes mellitus Status: Chronic Discharge Diagnosis: Diabetic peripheral neuropathy (4) Hip pain, right Status: Acute Discharge Diagnosis: Right hip and buttock pain (5) Hypomagnesemia Status: Resolved Discharge Diagnosis: Hypomagnesemia, resolved (6) Anemia Status: Acute Discharge Diagnosis: Anemia of chronic disease (7) Protein-calorie malnutrition, moderate Status: Acute Discharge Diagnosis: Moderate protein calorie malnutrition (8) Oral candidiasis Status: Resolved Discharge Diagnosis: Oral candidiasis, resolved (9) Diarrhea Status: Resolved (10) Hyperkalemia Status: Resolved - Laboratory Labs: 03/10/17 04:27 03/10/17 04:27 History of Present Illness HPI: 03/10/17 11:19 Fartun was discovered at home by her caregiver to be poorly responsive and lying on the floor with some emesis. She was transported to [facility] and was admitted to the intensive care unit. She was found to be in diabetic ketoacidosis. In addition she did have elevation of troponin and was diagnosed with a non-ST segment elevation myocardial infarction. She was given the usual treatment with IV fluids and insulin and improved/ stabilized. She had negative blood cultures and urine culture. She had been on oral agents at home. She was seen in consultation by Dr. Eric Dick and was started on insulin here in the hospital. Her muscles were extremely weak. We felt as though she was not very active at home and had evidence of disuse myopathy. Because of the acute diabetic ketoacidosis event and her myopathy she was felt to be a good candidate for acute inpatient rehabilitation where she was admitted. Hospital Course This is a general summary of the patient's hospital course. For more details refer to the complete medical record. She was admitted to acute inpatient rehabilitation for an intensive individualized program of occupational therapy and physical therapy. Unfortunately, she was somewhat variable in her response to therapy. She continued to have significant pain in the right buttock of uncertain etiology. MRI of lumbar spine was not terribly dramatic. Despite this, she requested an epidural steroid injection which apparently she has had in the past. She underwent lumbar epidural steroid injection but unfortunately did not receive much in the way of pain relief from this. Physical therapy and occupational therapy also worked with her regarding local modalities including ultrasound and e-stim and manual therapy. The buttock was extremely tender to palpate. No specific etiology was able to be determined in this regard. Dr. Guzman also saw her for the buttock pain. Her buttock pain was mainly present when she was sitting on that side or when she was ambulating. Her pain medications were adjusted. She did improve with therapies as follows: Occupational therapy: Grooming improved from initially refusing but then ultimately to standby assistance. Bathing improved from contact-guard assistance to standby assistance. Upper body dressing improved from minimal assistance to modified independent functioning. Lower body dressing improved from standby assistance to modified independent functioning. Toileting and toileting transfers improved from standby assistance to modified independent functioning. Physical therapy also saw the patient. Transfers in general resulted in modified independent functioning at the conclusion of therapy. Car transfers were also modified independent level of functioning. She was able to ambulate over 150 feet initially with standby assistance and ultimately with modified independent functioning within nondistended front [facility] walker. She was seen in consultation by Dr. Eric Dick, Dr. Agudelo, and the hospitalist service for several medical conditions. She did develop oral candidiasis which was successfully treated in the hospital. She was hypokalemic and this was also treated. Did develop some diarrhea which was self-limited and likely the cause of her hypokalemia. She had no further chest pain although did have some runs of supraventricular tachycardia for which she was followed by cardiology. She was started on Forteo for osteoporosis. She was felt to be stable for dismissal on 03/10/2017. She will go home on hydrocodone 7.5 mg #60 tablets to use 1 every 6 hours as needed for pain. She will also be seen by home health physical therapy and occupational therapy and [facility]. The nurse educator has worked with her here in the hospital and will follow-up as an outpatient. She was instructed to check her blood sugars fasting and 2 hours after each meal and write them down. She will follow-up with Dr. Niño her primary care physician and Dr. Dick with endocrinology. Hospital course: 03/01/17 Repeat BMP and MG today - K has stabilized but Mg continues to run low. PAT this am - asymptomatic; recent NSTEMI. Check Troponin and re-consult Dr. Agudelo (he saw her while hospitalized on acute). Diarrhea - check stool for C. diff; recently treated with 3 days of aztreonam (-02/15). Nystatin for thrush - recommend extended course; this was just dc'd on 02/26/17. Labile blood sugars - up to 300 yesterday afternoon, but occasionally hypoglycemic. Hgb A1c was 10.8% on 02/13/17. Will increase supper insulin to 7U - of note, her daily prednisone was increased to 10 mg (up from 5) on 02/26/17 to try to achieve better pain control. The higher steroid dose undoubtedly is increasing her sugars and contributing to thrush. Allergic rhinitis - start Flonase. Do not recommend abx at this time. 03/01/17 Cardiology SVT: nonsustained. asymptomatic. Add atenolol 25mg at bedtime. Hypomagnesemia: Mag 1.3 today, replace with 4 gms Mag IV, repeat mag in am 03/02/17- [place]. Assessment Myopathy Oral Thrush Diabetes Hypertension Lupus Chronic back pain Hypomagnesium - resolved 03/02. Hypermagnesium - acute, 03/02. Plan Patient feels she is making good progress with therapy. Continue to encourage work with therapies to maximize functional ability and strength. Continue treatment plan and pain control per Dr. Loyd. C. diff was negative. Monitor closely for signs of constipation in light of narcotic pain control. Continue with PO nystatin for treatment of oral thrust. Magic mouth wash as needed for pain. Thrush improving. Serum magnesium was 1.6 on 03/01. Mg improved to 2.5 (hypermagnesemia) following 2g Magnesium IV on 03/01. Continue to hold Oral Mag-Ox 400 milligrams twice a day in light of hypermagnesemia and recent diarrhea. Will recheck mag in AM and continue to monitor periodically. Blood sugars remain liable ranging between 48 and 353. Continue to monitor blood sugars closely. Review of blood sugar checks reveals hypoglycemia episodes during morning hours with hyperglycemia in the afternoons and evenings. Lantus was increased to 15 units every morning on 03/01 in conjunction with Novolog 5 units in the AM and 7 units in the PM. Will continue with Lantus 15 units in AM. Decrease morning insulin to 3 units in light of hypoglycemia episodes. Continue with po Trajenta and Amaryl as well as Sliding scale NovoLog as needed. Dr. Dick has been consulted and is expected to see the patient upon his return from being out of town on 03/06/17. Continue Lidoderm patch and [facility] for chronic back pain. Protonix for GI protection. Lovenox subcutaneous daily for DVT prophylaxis. Recheck CBC and BMP in AM to monitor blood counts, electrolytes and renal function. 03/02/17 No further dysrhythmias. Continue to monitor telemetry and electrolytes 03/03/17 17:39 Had AFib with aberrancy this am. Mag is 1.7 today, replace with 2 gms IV, recheck in AM 03/06/17 No further dysrhythmia on telemetry, will continue to monitor Mag 1.5 today. Replace Mag with 2gm IV 03/07/17 11:32 Mag 2.0 today, No further dysrhythmia on telemetry, will continue to monitor 03/08/17 14:13 No events on telemetry monitoring last couple days, continue to monitor. 03/09/17 17:27 No further arrhythmias on telemetry, may discontinue telemetry. Time spent with patient: 25 - 35 minutes Discharge Plan - Med Rec/Dispo Referrals/Follow Up: Kenny Agudelo MD [Physician] - (Dr. Maribell Agudelo on 03/24/17 at 10:00 am for follow-up. [facility] [address] [place] [address] [place] [address] ) Rodolfo Niño MD [Family Provider] - (Dr. Moustapha Niño on 03/16/17 at 9:30 am for Hosp. follow-up. . Please have lab drawn at office visit- BMP, magnesium, phosphorus Clinic [address] [place] [address] [place] [id number]) Prescriptions: New Atenolol [Tenormin] 25 mg PO HS #20 tab Atenolol [Tenormin] 50 mg PO QAM #20 tab Insulin Aspart [NovoLOG] 5 unit SQ 0800 vial Insulin Aspart [NovoLOG] 8 unit SQ WS vial Lidocaine 5% Patch [Lidoderm] 2 patch TOP DAILY #20 patch Magnesium Oxide [Magox] 800 mg PO BID #30 tab Pyridoxine [Vitamin B-6] 100 mg PO DAILY tablet Saliva Substitute Mouthwash [Biotene Dry Mouth Oral Rinse] 15 ml MM 5XD PRN bottle PRN Reason: Dry Mouth Insulin Glargine,Hum.rec.anlog [Lantus] 20 unit SQ AMI vial Insulin Aspart [NovoLOG] 4 unit SQ 1200 vial PredniSONE [Deltasone] 5 mg PO WB tablet Ascorbic Acid [Vitamin C] 500 mg PO DAILY tablet Continue Calcium Citrate/Vitamin D2 [Zachary-Citrate Plus Vitamin D Tab] 1 tab PO DAILY Aspirin Chewable [ASA] 81 mg PO DAILY tab.chew Gabapentin [Neurontin] 300 mg PO HS capsule Phosphorus Neutral [K-Phos *Neutral* Tablet] 500 mg PO BIDWM #30 tab Alphagan P 1 drop EACH EYE TID Multivit-Min/FA/Lycopen/Lutein [Centrum Silver Tablet] 1 tab PO DAILY Acetaminophen [Tylenol] 650 mg PO QID PRN tablet PRN Reason: Discomfort Glimepiride [Amaryl] 4 mg PO WB tablet Mirtazapine [Remeron] 7.5 mg PO HS #15 tab Hydrocodone/APAP 7.5/325 [[facility] 7.5/325] 1 tab PO Q6H PRN #60 tablet PRN Reason: Pain Prevacid (Lansoprazole) 30 mg capsule,delayed release 30 mg PO BID cap Discontinued Linagliptin [Tradjenta] 5 mg PO BID Enoxaparin Sodium [Lovenox] 40 mg SQ DAILY syringe Insulin Glargine,Hum.rec.anlog [Lantus] 12 unit SQ AMI vial Linagliptin [Tradjenta] 5 mg PO DAILY Atenolol [Tenormin] 50 mg PO DAILY tablet Nystatin Oral Liq. [Mycostatin] 5 ml PO QID udc No Action Lidocaine Patch Removal [Lidoderm Patch Removal] 1 removal TOP 2100 patch Discharge Instructions/Outpatient Orders: Final Provider Discharge Instructions Location: Determined By Patient
[2017-03-10] MEDS: INSULIN ASPART 100unit/ml INJECTION SQ SCH (12:42)
[2017-03-10] MEDS: INSULIN ASPART 100unit/ml INJECTION SQ PRN (15:09)
== END 2017-03-10 15:25 | disposition home health service (06) | DRG 91 ==
PROVIDERS: ADMIT Internal Medicine; ATTEND Internal Medicine